=== PATIENT | female | born 1970 | race Caucasian/White ===

== ENCOUNTER → 2020-06-07 13:22 | Outpatient (CLI) | payer OTHER, SELFPAY ==
[2015-12-03 13:15] VITALS: BMI 44.9
--- NOTE | 2020-06-07 13:38 | RAD_ITS ---
HISTORY: BRONCHITIS EXAM: XR Chest 2 Views: COMPARISON: October 04, 2014 FINDINGS: # of images incl. paperwork: 2 Lungs are clear. Heart is not enlarged. No acute osseous pathology perceived. Pulmonary vascularity is distinct. No effusions. RAD/Chest PA and Lateral IMPRESSION: Normal. at 0652 Reported and signed by: Bebeto Good MD Electronically Signed: Bebeto Good MD at 6:51 EST Tel , Service support ,
== END ==
PROVIDERS: PCP Family Medicine; Referring Provider Family Medicine; Visit Provider Family Medicine
DX: J20.9 Acute bronchitis, unspecified (principal)
CPT/HCPCS: 71046

== ENCOUNTER → 2020-07-18 12:21 | Outpatient (CLI) | payer OTHER, SELFPAY ==
[2015-12-03 13:15] VITALS: BMI 44.9
--- NOTE | 2020-07-18 12:24 | RAD_ITS ---
STUDY: X-RAY - PARANASAL SINUSES REASON FOR EXAM: Female, 50 years old. SINUSITIS TECHNIQUE: 3 view(s) of the paranasal sinuses were obtained. COMPARISON: None. FINDINGS: Normal visualized frontal, maxillary, ethmoidal and sphenoid sinuses. Normal visualized facial bones. The soft tissue structures are unremarkable. RAD/Sinuses min 3 Views IMPRESSION: Normal x-rays of the paranasal sinuses. Electronically Signed: Pankaj Pearson MD at 15:49 EDT , Service support ,
[2020-07-18 15:37] LABS: Absolute Lymphocyte Count 2.26 X10^3/uL (0.83-4.51); Absolute Neutrophil Count 5.4 X10^3/uL (2.0-7.7); Basophil# 0.04 X10^3/uL; Basophil% 0.5 % (0-1); Eosinophils% 3.5 % (0-5); Hematocrit 41.7 % (37-47); Hemoglobin 13.1 g/dL (12.0-15.0); Lymphocyte # 2.26 X10^3/ul (0.83-4.51); Lymphocyte % 26.6 % (19-41); Mean Corp Hgb Conc 31.4 g/dL (32-36); Mean Corpuscular Hgb 29.7 pg (27.0-32.0); Mean Corpuscular Volume 94.6 fL (81-99); Mean Platelet Vol. 10.8 fl (6.2-12.0); Monocyte# 0.44 X10^3/uL; Monocyte% 5.2 % (0-10); NRBC Flagged by Analyzer 0 % (0-5); Neutrophil % 63.6 % (47-70); Platelet Count 414 K/mm3 (150-450); RBC Distribution Width CV 12.8 % (11.6-14.6); RBC Distribution Width SD 45.1 fl (35.1-43.9); Red Blood Count 4.41 M/mm3 (4.2-5.4); White Blood Count 8.5 K/mm3 (4.4-11.0)
[2020-07-18 15:59] LABS: AST(SGOT) 16 U/L (15-37); Alanine Aminotransfer ALT/SGPT 35 U/L (13-56); Albumin, Serum 3.7 g/dL (3.2-5.0); Alkaline Phosphatase 123 U/L (45-117); Anion Gap 5 (5-15); BUN 12 mg/dL (7-18); BUN/Creat Ratio 19.5 RATIO (10-20); Calcium,Total 9.4 mg/dL (8.5-10.1); Chloride 99 mmol/L (98-107); Creatinine, Serum 0.62 mg/dL (0.55-1.02); EST Glomerular Filtration Rate 110 mL/min (>60); Est Glom Filt Rate - Afr Amer 133 mL/min (>60); Globulin 3.8 g/dL (2.2-4.2); Glucose 160 mg/dL (74-106); Potassium 3.8 mmol/L (3.5-5.1); Protein, Total 7.5 g/dL (6.4-8.2); Sodium Level 136 mmol/L (136-145)
== END ==
PROVIDERS: PCP Family Medicine; Referring Provider Family Medicine; Visit Provider Family Medicine
DX: J32.9 Chronic sinusitis, unspecified (principal); R05 Cough
CPT/HCPCS: 36415; 70220; 80053; 85025

== ENCOUNTER 2022-08-29 23:28 | Emergency (ER) | payer MEDICAID, SELFPAY ==
[2022-08-29 23:30] VITALS: BP 108/72; PULSE 74; RESP 15; TEMP 36.6; O2SAT 97
[2022-08-29 23:37] VITALS: BMI 46.2
--- NOTE | 2022-08-29 23:44 | EDS_ITS ---
HPI History of Present Illness Chief Complaint: Lower Extremity Injury Narrative Narrative: 52-year-old female presents with injury to her left knee that she sustained approximately 4 hours ago. She states that the dog came [place] at her and knocked her over and took her out. She now has pain in her left knee and the medial meniscal area because she states that her knee twisted. She denies hitting her head or loss of consciousness, or other injury. It took her a few minutes to get up and stand. She now has pain with weightbearing and walking. It is more of a sharp, stabbing pain. Once again, it is located mainly in the medial meniscal area. She has been icing and elevating but still has continued pain. [facility] Medical History Diabetes Home Medications naproxen 500 mg tablet 500 mg PO BID PRN #20 tabs 12/03/15 [Rx Last Taken Unknown] glipizide 10 mg tablet, extended release 24 hr 10 mg PO DAILY diabetes 08/29/22 [History Last Taken Unknown] glipizide 2.5 mg tablet, extended release 24 hr 2.5 mg PO DAILY 08/29/22 [History Last Taken Unknown] Allergy/AdvReac Type Severity Reaction Status Date / Time prednisone Allergy Rash Verified 08/29/22 23:34 Seasonal Allergies: Uncoded Allergy Itching Verified 08/29/22 23:34 codeine AdvReac Upset Verified 08/29/22 23:34 Stomach doxycycline AdvReac Vomiting Verified 08/29/22 23:34 Surgical History History of cholecystectomy History of foot surgery History of tonsillectomy History of tubal ligation Social History Smoking Status: Never smoker ROS ROS ED ROS Narrative Constitutional: No fever, no chills. HEENT: No sore throat. No neck pain. No loss of vision. No rhinorrhea. Cardiovascular: No chest pain. No palpitations. No pedal edema. Respiratory: No cough, no shortness of breath. Abdominal: No abdominal pain. No nausea. No vomiting. Genitourinary: No dysuria. No hematuria. Musculoskeletal: No myalgias. Left knee pain, medial meniscal area, worse with movement especially flexion and extension. Neurologic: No headaches. No dizziness. No lightheadedness. Skin: No rash. No change in color. Psychiatric: No depression. No anxiety. EXAM Physical Exam Narrative Exam Narrative: Afebrile. Vital signs noted. HEENT: Normocephalic. Atraumatic. PERRL, EOMI. Neck soft and supple. No point tenderness or step off. Cardiovascular: Regular rate and rhythm. No murmurs, rubs, or gallops appreciated. Respiratory: No tachypnea. Lungs clear to auscultation bilaterally. Gastrointestinal: Abdomen soft, nontender, with normoactive bowel sounds. No rebound or guarding. Neurological: Awake. Alert. Nonfocal, nonlateralizing. Skin: No rash. Normal color. No pallor. Musculoskeletal: No pedal edema. Full range of motion extremities. Flexion and extension mechanism left knee intact. Able to lift leg off bed without difficulty. Neurovascularly intact distally with palpable dorsalis pedis pulse. EHL intact. Mild tenderness to palpation left medial meniscal area. No noted crepitance. Const Vital Signs: 08/29/22 23:30 Temperature 97.9 F Temperature Source Temporal Pulse Rate 74 Respiratory Rate 15 Blood Pressure 108/72 Blood Pressure Mean 84 Pulse Ox 97 Oxygen Delivery Method Room Air MDM MDM MDM Narrative Medical decision making narrative: In the differential diagnosis is knee sprain versus internal derangement such as medial meniscus injury, and also tibial plateau fracture. I have lower dejesus spicion for tibial plateau fracture based on her examination and her ability to move her leg. X-rays will be obtained to help rule out fracture. She was administered ibuprofen 800 mg for analgesia. She has already been icing at home. My independent interpretation of her left knee x-rays in 4 view shows no evidence of acute fracture. I reviewed the radiology report which confirms my independent interpretation is no acute abnormality of the left knee. At this point in time, she was placed in an Júnior wrap for support. She was offered crutches, but declined, stating that she has a walker at home for support that she will use instead. She will follow-up with her primary care physician. She was also referred to orthopedics should her pain continue longer than a week, she may need outpatient imaging such as MRI. I feel she can be discharged safely home with follow-up. Return instructions to the emergency department were reviewed. Disposition is discharged home in stable condition. Radiography Diagnostic Testing: Clinical Impression(s) from Imaging Studies Knee X-Ray 08/29/22 23:53 IMPRESSION: No acute abnormality of the left knee Electronically Signed: Fidel Gallego MD at 0:41 EDT , Discharge Plan Triage Chief Complaint: Lower Extremity Injury ED Provider: Bony Gates Dx/Rx/DC Orders Clinical Impression: Knee sprain, Internal derangement of left knee Instructions: ED Meniscal Injury Knee Poss, ED Knee Sprain Prescriptions: No Action naproxen 500 MG tablet 500 mg PO BID PRN Qty: 20 0RF glipizide 10 mg Tablet Extended Release 24hr 10 mg PO DAILY glipizide 2.5 mg tablet extended release 24hr 2.5 mg PO DAILY Label Comments: TAKE 1 TABLET BY MOUTH ONCE DAILY. TAKE WITH THE 10 MG TABLET FOR A TOTAL DOSE 12.5 MG DAILY Primary Care Provider: Neri Grace Referrals: Juan Manuel Painting DO [Med Staff - Active Staff] - 1 Week if not improving Neri Grace MD [Primary Care Provider] - 1 Week if not improving Disposition Disposition: Home, Self Care
--- NOTE | 2022-08-29 23:53 | RAD_ITS ---
EXAM: XR Knee Complete 4 Views or More INDICATION: Female, 52 years old. Trauma, pain TECHNIQUE: AP, PA, lateral, and tangential patellar views views COMPARISON: None FINDINGS: BONES: No acute fracture. No lytic or blastic lesion. JOINTS: Joints are in normal alignment. No periarticular degenerative or inflammatory change. No knee joint effusion. SOFT TISSUES: No soft tissue abnormality. RAD/Knee 4 or More Views IMPRESSION: No acute abnormality of the left knee Electronically Signed: Fidel Gallego MD at 0:41 EDT ,
[2022-08-29] MEDS: Ibuprofen 400 MG Tablet 800 MG PO (23:54)
== END 2022-08-30 01:20 | disposition home or self-care (01) ==
PROVIDERS: Emergency Provider Emergency Medicine; PCP Internal Medicine; Visit Provider Emergency Medicine
DX: S83.92XA Sprain of unspecified site of left knee, initial encounter (principal); E11.9 Type 2 diabetes mellitus without complications; M23.92 Unspecified internal derangement of left knee; W54.1XXA Struck by dog, initial encounter; Z79.84 Long term (current) use of oral hypoglycemic drugs
CPT/HCPCS: 73564; 99283

== ENCOUNTER 2024-05-28 12:40 | Emergency (ER) | payer MEDICAID, SELFPAY ==
[2024-05-28 12:40] VITALS: BP 138/98; PULSE 72; RESP 15; TEMP 36.7; O2SAT 100; BMI 33.1
--- NOTE | 2024-05-28 13:24 | CT_ITS ---
PROCEDURE: CT abdomen pelvis with IV contrast REASON FOR EXAM: Pain TECHNIQUE: Multiple contiguous axial images through the abdomen and pelvis were obtained after the administration of intravenous contrast. Two-dimensional coronal and sagittal reformatted images were reconstructed. Low-dose imaging technique was utilized. COMPARISON: None. FINDINGS: Lung bases are clear. Liver, spleen, pancreas and adrenal glands are intact. Gallbladder is surgically absent. No significant biliary ductal dilation. Status post gastric bypass. Kidneys enhance symmetrically. No suspicious renal mass, calculi or hydronephrosis. Small right renal cyst. Urinary bladder is intact. Uterus is present. No bowel obstruction, focal bowel wall thickening or significant perienteric inflammation. No pelvic free fluid. No free air. No abdominal aortic aneurysm or suspicious adenopathy. Superficial soft tissues are within normal limits. No acute osseous abnormality. CT/Abdomen/Pelvis WITH Contrast IMPRESSION: No acute process. One or more dose reduction techniques were used (e.g., Automated exposure contr ol, adjustment of the mA and/or kV according to patient size, use of iterative reconstruction technique). Reading Location: [facility]
--- NOTE | 2024-05-28 13:39 | ED.VIS.GI ---
HPI HPI - GI History of Present Illness Chief Complaint: Abd Pain Narrative Narrative: 53-year-old female past medical history of remote gastric bypass surgery in [place] in December of last year, approximately 4 months ago, presents with epigastric pain that she has had for the last few months. She states that she has had decreased p.o. intake, and epigastric pain that has been worsening. She presents to the emergency department today because it is the worst its ever been. She denies any fevers or chills. She is slightly nauseated at times. However, given her bypass surgery she cannot vomit. Other past prior abdominal surgery includes cholecystectomy. She had the bypass surgery secondary to uncontrolled type 2 diabetes. She states that after her surgery, her blood sugars have been controlled and she has been taken off medications. She presents because of the epigastric pain that she is having that sometimes radiates into her chest. [facility] Medical History Diabetes Home Medications ?Medication ?Instructions ?Recorded ?Last Taken ?Type flash glucose sensor (FreeStyle 05/28/24 Unknown History Savita 2 Sensor kit) fluticasone propionate 50 1 spray intranasal QHS PRN PRN 05/28/24 Unknown History mcg/actuation nasal allergies spray,suspension pantoprazole 40 mg tablet,delayed 40 mg PO DAILY 05/28/24 Unknown History release Allergy/AdvReac Type Severity Reaction Status Date / Time prednisone Allergy Rash Verified 05/28/24 12:43 Seasonal Allergies: Uncoded Allergy Itching Verified 05/28/24 12:43 codeine AdvReac Upset Verified 05/28/24 12:43 Stomach doxycycline AdvReac Vomiting Verified 05/28/24 12:43 Surgical History S/P gastric bypass History of tonsillectomy History of tubal ligation History of foot surgery History of cholecystectomy Social History Smoking Status: Never smoker ROS ROS ED ROS Narrative Constitutional: No fever, no chills. HEENT: No sore throat. No neck pain. No loss of vision. No rhinorrhea. Cardiovascular: Epigastric abdominal pain radiating upwards into chest. No palpitations. No pedal edema. Respiratory: No cough, no shortness of breath. Abdominal: Epigastric abdominal pain. Positive nausea. No vomiting. Genitourinary: No dysuria. No hematuria. Musculoskeletal: No myalgias. No arthralgias. Neurologic: No headaches. No dizziness. No lightheadedness. Psychiatric: No depression. No anxiety. EXAM Physical Exam Narrative Exam Narrative: Afebrile. Vital signs noted. Nontoxic-appearing. Cardiovascular examination reveals a regular rate and rhythm. Lungs are clear to auscultation bilaterally. The abdomen is soft with mild epigastric tenderness, no pain in the right upper quadrant, no guarding or rebound. Positive bowel sounds. Neurological examination nonfocal and nonlateralizing. Const Vital Signs: 05/28/24 12:40 05/28/24 14:40 Temperature 98.1 F Temperature Source Temporal Pulse Rate 72 65 Respiratory Rate 15 18 Blood Pressure 138/98 H 154/87 H Blood Pressure Mean 111 109 Pulse Ox 100 99 Oxygen Delivery Method Room Air Room Air MDM MDM MDM Narrative Medical decision making narrative: Differential diagnosis includes but not limited to acute pancreatitis versus esophagitis and GERD versus partial bowel obstruction versus bypass leak. I have low concern for coronary artery disease/ACS. However EKG will be obtained. I do not feel that she requires a troponin because she is not having chest pain and it is more epigastric radiating upward. She was administered morphine and ondansetron and p.o. and IV contrast will be administered for the CT imaging of the abdomen and pelvis. EKG was obtained and interpreted by myself independently as sinus bradycardia at [address] changes. No STEMI. I reviewed her laboratory work and she has normal white count of 6.2 with hemoglobin normal at 13.2, hematocrit 39.4, and platelet count normal at 334. CMP is grossly unremarkable except for slightly elevated alk phos of 119 which I think is nonspecific, normal AST and ALT. Sodium normal at 138 with potassium 3.7, BUN normal at 7 with creatinine 0.6, no evidence of dehydration. Lipase is normal at 18 so I doubt pancreatitis. I reviewed the radiology report of the CT of the abdomen and pelvis with p.o. and IV contrast. There is no evidence of an acute process, no leak of contrast or extravasation, no acute process. Upon repeat examination at approximately 1600, she is resting comfortably looking at her cellular telephone. She states that she has a follow-up appointment with her gastric bypass physician for EGD on Saturday, 4 days from now. At this point in time, while I unsure as to the cause of her almost chronic abdominal pain, I feel she can be discharged to follow-up. Return instructions to the emergency department were reviewed. Disposition is discharged home in stable condition. History & Record Review Discussion w/independent historian: Patient Lab Data Attestation: I reviewed the patient's lab results. Labs: Laboratory Results - last 24 hr 05/28/24 12:55 WBC 6.2 RBC 4.23 Hgb 13.2 Hct 39.4 MCV 93.1 MCH 31.2 MCHC 33.5 RDW Std Deviation 46.3 H RDW Coeff of Anneliese 13.6 Plt Count 334 MPV 10.7 Immature Gran % (Auto) 0.700 Neut % (Auto) 52.6 Lymph % (Auto) 37.1 [place] % (Auto) 6.3 Eos % (Auto) 2.3 Baso % (Auto) 1.0 Absolute Neuts (auto) 3.2 Absolute Lymphs (auto) 2.28 Nucleated RBC % 0 Sodium 138 Potassium 3.7 Chloride Direct 102 Carbon Dioxide 26.1 Anion Gap 10 BUN 7 Creatinine 0.6 Estim Creat Clear Calc 113.18 Est GFR (MDRD) Non-Af 110 BUN/Creatinine Ratio 12.2 Glucose 133 H Calcium 9.2 Total Bilirubin 0.54 AST 25 ALT 27 Alkaline Phosphatase 119 H Total Protein 6.8 Albumin 4.3 Globulin 2.5 Albumin/Globulin Ratio 1.8 Lipase 18 Radiography Diagnostic Testing: Clinical Impression(s) from Imaging Studies Abdomen/Pelvis CT 05/28/24 13:24 IMPRESSION: No acute process. One or more dose reduction techniques were used (e.g., Automated exposure control, adjustment of the mA and/or kV according to patient size, use of iterative reconstruction technique). Reading Location: [facility] Discharge Plan Triage Chief Complaint: Abd Pain ED Provider: Bony Gates Dx/Rx/DC Orders Clinical Impression: Abdominal pain, History of gastric bypass Instructions: ED Abdominal Pain Unkn Cause Fem Prescriptions: No Action pantoprazole 40 mg tablet,delayed release (DR/EC) 40 mg PO DAILY fluticasone propionate 50 mcg/actuation spray,suspension 1 spray INTRANASAL QHS PRN PRN (Reason: allergies) (DME) FreeStyle Savita 2 Sensor Kit MISCELLANEOUS Primary Care Provider: Neri Grace Referrals: Neri Grace MD [Primary Care Provider] - Activity Restrictions/Additional Instructions: Follow-up with your gastric bypass physician on Saturday as scheduled for EGD. Return to the emergency department with fever, increased pain, new or worsening symptoms. Print Language: Macedonian Disposition Disposition: Home, Self Care
--- NOTE | 2024-05-28 13:40 | EKG12_ITS ---
Test Reason : ABD PAIN Blood Pressure : */* mmHG Vent. Rate : 57 BPM Atrial Rate : 57 BPM P-R Int : 256 ms QRS Dur : 96 ms QT Int : 418 ms P-R-T Axes : 36 -9 7 degrees QTcB Int : 406 ms Sinus bradycardia with 1st degree A-V block Poor R wave progression Low voltage precordial leads Abnormal ECG Confirmed by Julian Ingram ([id number]), film and video editor JAMAAL LANCE ([id number]) on 06/01/2024 10:53:42 AM Referred By: Confirmed By: Julian Ingram
[2024-05-28 13:44] LABS: Absolute Lymphocyte Count 2.28 X10^3/uL (0.83-4.51); Absolute Neutrophil Count 3.2 X10^3/uL (2.0-7.7); Basophil# 0.06 X10^3/uL; Eosinophil# 0.14 X10^3/uL; Eosinophils% 2.3 % (0-5); Hematocrit 39.4 % (37-47); Hemoglobin 13.2 g/dL (12.0-15.0); Lymphocyte # 2.28 X10^3/ul (0.83-4.51); Lymphocyte % 37.1 % (19-41); Mean Corp Hgb Conc 33.5 g/dL (32-36); Mean Corpuscular Hgb 31.2 pg (27.0-32.0); Mean Corpuscular Volume 93.1 fL (81-99); Mean Platelet Vol. 10.7 fl (6.2-12.0); Monocyte# 0.39 X10^3/uL; Monocyte% 6.3 % (0-10); NRBC Flagged by Analyzer 0 % (0-5); Neutrophil # 3.24 X10^3/uL (2.7-7.7); Neutrophil % 52.6 % (47-70); Platelet Count 334 K/mm3 (150-450); RBC Distribution Width CV 13.6 % (11.6-14.6); RBC Distribution Width SD 46.3 fl (35.1-43.9); Red Blood Count 4.23 M/mm3 (4.2-5.4); White Blood Count 6.2 K/mm3 (4.4-11.0)
[2024-05-28] MEDS: 0.9% Normal Saline (1000mL) 1,000 ML 999 ML IV (13:44)
[2024-05-28] MEDS: Morphine 4 MG/ML Syringe IV (13:45)
[2024-05-28] MEDS: Ondansetron 4 MG/2 ML Vial IV (13:45)
[2024-05-28 14:05] LABS: ALB/GLOB Ratio 1.8 RATIO (0.9-2.4); AST(SGOT) 25 U/L (<=31); Alanine Aminotransfer ALT/SGPT 27 U/L (<=34); Albumin, Serum 4.3 g/dL (3.5-5.0); Alkaline Phosphatase 119 U/L (35-104); Anion Gap 10 (5-15); BUN 7 mg/dL (4-19); BUN/Creat Ratio 12.2 RATIO (10-20); Calcium 9.2 mg/dL (7.6-11.0); Carbon Dioxide 26.1 mmol/L (22.0-29.0); Chloride 102 mmol/L (96-108); Creatinine, Serum 0.6 mg/dL (0.6-1.0); EST Glomerular Filtration Rate 110 (>60); Estimated Creatinine Clearance 113.18 ml/min; Globulin 2.5 g/dL (2.2-4.2); Glucose 133 mg/dL (70-99); Lipase 18 U/L (13-75); Potassium 3.7 mmol/L (3.3-5.1); Protein, Total 6.8 g/dL (5.9-8.4); Sodium Level 138 mmol/L (133-145); Total Bilirubin 0.54 mg/dL (0.00-1.30)
[2024-05-28 14:40] VITALS: BP 154/87; PULSE 65; RESP 18; O2SAT 99
[2024-05-28 16:00] VITALS: BP 146/63; PULSE 53; RESP 18; O2SAT 98
== END 2024-05-28 16:11 | disposition home or self-care (01) ==
PROVIDERS: Emergency Provider Emergency Medicine; PCP Internal Medicine; Visit Provider Emergency Medicine
DX: R10.13 Epigastric pain (principal); G89.29 Other chronic pain; R11.0 Nausea; R00.1 Bradycardia, unspecified; Z90.49 Acquired absence of other specified parts of digestive tract; Z98.84 Bariatric surgery status; Z86.39 Personal history of other endocrine, nutritional and metabolic disease
CPT/HCPCS: 74177; 80053; 83690; 85025; 93005; 96361; 96374; 96375; 99282; Q9967; A4216; J2405

== ENCOUNTER 2025-03-10 22:52 | Emergency (ER) | payer SELFPAY ==
[2025-03-10 22:53] VITALS: BP 138/70; PULSE 69; RESP 16; TEMP 36.6; O2SAT 99
[2025-03-10 22:58] VITALS: BMI 27.7
--- NOTE | 2025-03-10 23:07 | CT_ITS ---
PROCEDURE: ABDOMEN/PELVIS W IV CONT ONLY 03/11/2025 REASON FOR EXAM: UPPER ABD PAIN TECHNIQUE: Procedure Code: [id number] Modality: CT Procedure: ABDOMEN/PELVIS W IV CONT ONLY Coronal and Sagittal reconstruction series were provided. CONTRAST: isovue 370 VOLUME: 100 mL One or more dose reduction techniques were used (e.g., Automated exposure control, adjustment of the mA and/or kV according to patient size, use of iterative reconstruction technique. RADIATION DOSE SUMMARY: CTDI Vol 13.71 mGy DLP :713.64 mGycm COMPARISON: 28-May-2024 FINDINGS: Evidence of gastric bypass with small hiatus hernia. Colonic fecal loading. The small bowel loops are unremarkable. The appendix appears is not identified. No right iliac inflammatory changes. Average sized liver showing homogenous parenchymal attenuation. Prominent biliary tracts, possibly post cholecystectomy biliary dysfunction. Fatty changes of the pancreas with clear surrounding fat planes. The spleen, adrenal glands and IVC are unremarkable. Mild Vascular atheromatous calcifications. Both kidneys are of average size and showing smooth outline with preserved parenchymal thickness. No renal calculi. No hydronephrosis. Right renal cortical and left renal hypodense parapelvic cysts. Distension of the urinary bladder showing no obvious masses. No obvious masses related to the pelvic viscera. Metallic clips of tubal ligation are noted. No ascites or free air. No obvious pathologically enlarged lymph nodes. Scanned osseous structures show no osseous destruction. Scanned lung bases show no obvious abnormalities. CT/Abdomen/Pelvis W IV Cont ONLY IMPRESSION: Stable study findings. No acute pelvi-abdominal abnormalities, collections or free air. Reading Location[facility] [id number]
[2025-03-10] MEDS: 0.9% Normal Saline (1000mL) 1,000 ML 999 ML IV (23:14)
[2025-03-10 23:15] LABS: Hematocrit 34.8 % (37-47); Hemoglobin 12.0 g/dL (12.0-15.0); Immature Granulocytes Count 0.010 X10^3/uL (0.0-0.0); Mean Corp Hgb Conc 34.5 g/dL (32-36); Mean Corpuscular Volume 91.8 fL (81-99); Mean Platelet Vol. 10.4 fl (6.2-12.0); NRBC Flagged by Analyzer 0 % (0-5); Platelet Count 317 K/mm3 (150-450); RBC Distribution Width CV 12.7 % (11.6-14.6); RBC Distribution Width SD 42.9 fl (35.1-43.9); Red Blood Count 3.79 M/mm3 (4.2-5.4); White Blood Count 7.8 K/mm3 (4.4-11.0)
--- NOTE | 2025-03-10 23:33 | EX.ED.DYSGE1 ---
HPI History of Present Illness Chief Complaint: Nausea/Vomiting Informant: patient and spouse/S.O. Narrative Narrative: Patient is a 54-year-old female with past medical history of obesity and gastric bypass roughly 1 year ago. She states that she developed ulcers shortly after bypass. She states that in the last 2 to 3 days she has developed nausea without vomiting and then progressed to upper abdominal pain. She states that she has not experienced pain like this in the past and it is different from her previous ulcer pain. She denies any known sick contact. She states there is been no real associated vomiting. She denies any loose or diarrhea. However because of the persistent symptoms and now worsening pain she presents for evaluation [facility] Medical History Diabetes Home Medications ?Medication ?Instructions ?Recorded ?Last Taken ?Type flash glucose sensor (FreeStyle 05/28/24 Unknown History Savita 2 Sensor kit) fluticasone propionate 50 1 spray intranasal QHS PRN PRN 05/28/24 Unknown History mcg/actuation nasal allergies spray,suspension pantoprazole 40 mg tablet,delayed 40 mg PO DAILY 05/28/24 Unknown History release ondansetron 4 mg disintegrating 4 mg PO TID PRN nausea and 03/11/25 Unknown Rx tablet vomiting #21 tabs oxycodone-acetaminophen 5 mg-325 1 tab PO Q6H PRN pain 3 days #12 03/11/25 Unknown Rx mg tablet (Percocet) tabs Allergy/AdvReac Type Severity Reaction Status Date / Time prednisone Allergy Rash Verified 03/10/25 22:54 Seasonal Allergies: Uncoded Allergy Itching Verified 03/10/25 22:54 codeine AdvReac Upset Verified 03/10/25 22:54 Stomach doxycycline AdvReac Vomiting Verified 03/10/25 22:54 Surgical History S/P gastric bypass History of tonsillectomy History of tubal ligation History of foot surgery History of cholecystectomy Social History Smoking Status: Never smoker ROS ROS ED Constitutional Constitutional ED: Denies chills or fever(s) Eyes Eyes: Denies change in vision ENT ENT ED: Denies sore throat Cardiovascular Cardiovascular: Denies chest pain Respiratory/Chest Respiratory/Chest: Denies cough or dyspnea Gastrointestinal Gastrointestinal: Reports abdominal pain and nausea; Denies diarrhea or vomiting Genitourinary Genitourinary ED: Denies dysuria or hematuria Musculoskeletal Musculoskeletal: Denies back pain or myalgias Integumentary Denies rash Neurologic Neurologic: Denies headache(s) Hematologic/Lymphatic Hematologic/Lymphatic: Denies easy bleeding or easy bruising EXAM Physical Exam Const Vital Signs: 03/10/25 22:53 03/11/25 00:52 Temperature 97.9 F 97.8 F Temperature Source Oral Pulse Rate 69 89 Respiratory Rate 16 16 Blood Pressure 138/70 H 126/64 H Blood Pressure Mean 92 84 Pulse Ox 99 97 Oxygen Delivery Method Room Air Positive well nourished, well developed and obese General Appearance ED: well developed; Negative for pallor Nutritional Appearance: obese HEENT Reports dry mucous membranes HEENT Narrative: Normocephalic atraumatic No tongue or lip swelling no oral lesions no airway edema or compromise No secondary findings in the posterior pharynx to suggest infection Nasal membranes are mildly dry and tacky Mouth ED: Yes dry mucous membranes Mouth: dry mucous membranes Eyes PERRL and EOMs intact bilaterally General Eye ED: Negative for scleral icterus Neck supple Resp normal respiratory effort and clear to auscultation bilaterally Cardio regular rate and regular rhythm Rate: other Other Details: Radial and carotid pulses are equal and symmetric GI non-distended and no masses GI Narrative: Abdomen is soft and nondistended with hyperactive bowel sounds There is pain with palpation in the midepigastric and left upper quadrant region without voluntary guarding or rigidity or pulsatile mass No peritoneal signs Auscultation: hyperactive bowel sounds Palpation: soft Back/Spine no CVA tenderness Extremity normal to inspection Neuro oriented x3, CN's II-XII intact bilaterally and no sensory deficits noted Sensorium / Orientation: alert Motor Exam: strength 5/5 throughout Psych mental status grossly normal Skin no rashes or lesions noted and No skin turgor normal Skin Narrative: Skin turgor is increased No jaundice or pallor noted General Skin Exam: Negative for jaundice or pallor MDM MDM MDM Narrative Medical decision making narrative: Patient arrived to the ER with stable vitals but with her report of upper abdominal pain and nausea as well as previous gastric bypass with now increasing pain there is concern for gastric perforation versus colitis or pancreatitis and secondary to this basic labs and a CT scan were ordered. Labs revealed no clinically significant findings and CAT scan showed previous gastric bypass changes without obstruction perforation or secondary infection. On reevaluation the patient has reported resolution of pain her vitals remained stable and her abdomen soft and nonsurgical. Therefore with improvement/resolution of symptoms and overall negative workup there is no need for further evaluation and she is otherwise safe for discharge History & Record Review Discussion w/independent historian: Patient and Significant other Lab Data Attestation: I reviewed the patient's lab results. Labs: Laboratory Results - last 24 hr 03/10/25 23:08 WBC 7.8 RBC 3.79 L Hgb 12.0 Hct 34.8 L MCV 91.8 MCH 31.7 MCHC 34.5 RDW Std Deviation 42.9 RDW Coeff of Anneliese 12.7 Plt Count 317 MPV 10.4 Immature Gran % (Auto) 0.100 Neut % (Auto) 53.1 Lymph % (Auto) 39.2 Coffee % (Auto) 5.8 Eos % (Auto) 1.3 Baso % (Auto) 0.5 Absolute Neuts (auto) 4.1 Absolute Lymphs (auto) 3.05 Nucleated RBC % 0 Sodium 140 Potassium 3.7 Chloride 103 Carbon Dioxide 27.7 Anion Gap 9 BUN 6 Creatinine 0.56 L Estim Creat Clear Calc 109.75 Est GFR (MDRD) Non-Af 109 BUN/Creatinine Ratio 11.7 Glucose 111 H Calcium 9.1 Total Bilirubin 0.51 Direct Bilirubin 0.22 AST 18 ALT 16 Alkaline Phosphatase 109 H Total Protein 6.6 Albumin 4.0 Globulin 2.6 Lipase 18 Radiography Diagnostic Testing: Clinical Impression(s) from Imaging Studies Abdomen/Pelvis CT 03/10/25 23:07 IMPRESSION: Stable study findings. No acute pelvi-abdominal abnormalities, collections or free air. [facility] Plan Triage Chief Complaint: Nausea/Vomiting ED Provider: Twin Vaughn Dx/Rx/DC Orders Clinical Impression: Nonspecific abdominal pain, History of gastric bypass, Mild dehydration Instructions: Abdominal Pain Prescriptions: New ondansetron 4 mg tablet,disintegrating 4 mg PO TID PRN (Reason: nausea and vomiting) Qty: 21 0RF oxycodone-acetaminophen [Percocet] 5-325 mg tablet 1 tab PO Q6H PRN (Reason: pain) 3 Days Qty: 12 0RF No Action pantoprazole 40 mg tablet,delayed release (DR/EC) 40 mg PO DAILY fluticasone propionate 50 mcg/actuation spray,suspension 1 spray INTRANASAL QHS PRN PRN (Reason: allergies) (DME) FreeStyle Savita 2 Sensor Kit MISCELLANEOUS Primary Care Provider: Neri Grace Referrals: Neri Grace MD [Primary Care Provider, Internal Medicine] Activity Restrictions/Additional Instructions: Your labs revealed no clinically significant changes and the CT scan showed your gastric bypass changes without signs of intestinal infection bowel blockage or perforation. Keep yourself well-hydrated and take the prescribed medication as directed to help control your symptoms and return to the ER should you have any further concerns Print Language: Croatian Disposition Disposition: Home, Self Care Discharge Date/Time: 03/11/25 00:56
--- OUTSIDE RECORDS SUMMARY | 2025-03-10 23:49 | XMS RPT_ITS | CCD ---
Author Organization [facility] Care Team Providers Care Head Mixer Name Role Phone Neri Grace MD Primary Care Provider [phone] Sanjay NAGY, Neri Newell Primary Care Provider Provider Mike NAGY Unavailable Unavailable JASMYNE MARMOLEJO Consulting Unavailable ROYER TALBERT MD Attending Unavailable ROYER TALBERT MD Primary Care Unavailable ROYER TALBERT MD Admitting Unavailable PROVIDER, UNKNOWN Consulting Unavailable PROVIDER, UNKNOWN Consulting Unavailable Ruy TANK SHOP SUPERVISOR.HULL MOLDER, Radha Franks Unavailable Sanjay Neri Primary Care Unavailable Bony Gates Attending Unavailable GRACE, MAURY Primary Care Unavailable GRACE, MAURY Attending Unavailable GRACE, MAURY Primary Care Unavailable BRIDGER HILL Attending Unavailable BRIDGER HILL Admitting Unavailable GRACE, MAURY Primary Care Unavailable ANNIE ALVAREZ Attending Unavailable GRACE, MAURY Primary Care Unavailable BRIDGER HILL Referring Unavailable BEE FONTANEZ Attending Unavailable GRACE, MAURY Primary Care Unavailable RADHA TOVAR Attending Unavailable GRACE, MAURY Primary Care Unavailable BRIDGER HILL Referring Unavailable RODRIGUEZ HEDRICK Attending Unavailable GRACE, MAURY Primary Care Unavailable BASILIO GARSIA Attending Unavailable GRACE, MAURY Primary Care Unavailable ANNIE ALVAREZ Attending Unavailable GRACE, MAURY Primary Care Unavailable ANNIE ALVAREZ Attending Unavailable GRACE, MAURY Primary Care Unavailable NORIS PARKS Attending Unavailable GRACE, MAURY Primary Care Unavailable NORIS MONTANO Referring Unavailable GRACE, MAURY Primary Care Unavailable NORIS MONTANO Referring Unavailable GRACE, MAURY Primary Care Unavailable NORIS PARKS Attending Unavailable GRACE, MAURY Primary Care Unavailable GRACE, MAURY Attending Unavailable GRACE, MAURY Primary Care Unavailable JOHANNA PAULINO Attending Unavailable GRACE, MAURY Primary Care Unavailable BRIDGER HILL Referring Unavailable GRACE, MAURY Primary Care Unavailable GRACE, MAURY Primary Care Unavailable GRACE, MAURY Primary Care Unavailable BRIDGER HILL Attending Unavailable GRACE, MAURY Primary Care Unavailable GRACE, MAURY Primary Care Unavailable BRIDGER HILL Referring Unavailable GRACE, MAURY Primary Care Unavailable ANNIE ALVAREZ Attending Unavailable GRACE, MAURY Primary Care Unavailable GRACE, MAURY Referring Unavailable GRACE, MAURY Primary Care Unavailable JENISE EAGLE Attending Unavailable GRACE, MAURY Primary Care Unavailable NORIS PARKS Attending Unavailable GRACE, MAURY Primary Care Unavailable NORIS PARKS Attending Unavailable Allergies Allergy Classification Reported Allergen(s) Allergy Type Date of Onset Reaction(s) Facility Corticosteroids (2 sources) predniSONE Drug Allergy 2 Rash [facility] Doxycycline (2 sources) Doxycycline Drug Allergy 2 GI Upset [facility] metFORMIN (2 sources) metFORMIN Drug Allergy 2 Intolerance [facility] Opioid Agonists (2 sources) Codeine Drug Allergy 2 Unknown [facility] (8 sources) Bee pollen Drug Allergy 2 Swelling [facility] Work Phone: (20 sources) Codeine; Translations: [CODEINE] Drug Allergy 2 Unknown [facility] Work Phone: [phone] (20 sources) Doxycycline; Translations: [DOXYCYCLINE] Drug Allergy 2 GI Upset [facility] Work Phone: [phone] (20 sources) predniSONE; Translations: [PREDNISONE] Drug Allergy 2 Rash [facility] Work Phone: (8 sources) Seasonal allergy Allergy to substance 2 Unknown [facility] Work Phone: [phone] (20 sources) metFORMIN; Translations: [METFORMIN] Drug Allergy 2 Intolerance [facility] Work Phone: (2 sources) Seasonal Allergies: Uncoded; Translations: [Seasonal Allergies: Uncoded] Allergy to substance 3 Itching [facility] (20 sources) Bee Sting; Translations: [BEE STING] Allergy to substance 3 Swelling [facility] Work Phone: (1 source) Bee pollen Drug allergy (disorder) [facility] (1 source) Codeine Drug Allergy [facility] (1 source) Doxycycline Drug Allergy [facility] (1 source) predniSONE Drug Allergy [facility] (1 source) Codeine Drug Allergy 5 [facility] Repository (1 source) Doxycycline Drug Allergy 5 [facility] Repository (1 source) predniSONE Drug Allergy 5 [facility] Repository (3 sources) NSAIDs; Translations: [NSAIDS (NON-STEROIDAL ANTI-INFLAMMATO RY DRUG)] Propensity to adverse reactions to drug 5 Contraindicatio n-Medical Surgical [facility] Medications Current Medications Medication Drug Class(es) Dates Sig (Normalized) Sig (Original) acetaminophen 325 mg / phenylephrine hydrochloride 5 mg oral tablet (8 sources) alpha-1 Adrenergic Agonist Start: 04-08-2024 take 2 tablets by mouth three times daily PHENYLephrine-Júnior taminophen (TYLENOL SINUS HEADACHE) 5-325 mg tab Indications: Seasonal allergies , Postnasal drip Take 2 tablets by mouth three times a day. 04/08/2024 Active amoxicillin 875 mg / clavulanate 125 mg oral tablet (1 source) Penicillin-class Antibacterial Start: 06-02-2022 End: 2022 take 1 tablet by mouth twice daily amoxicillin-clavu lanic acid (AUGMENTIN) 875-125 mg per tablet Indications: Other sinusitis Take 1 tablet by mouth twice daily for 5 days. 10 tablet 0 06/02/2022 2022 Active Comment on above: Take 1 tablet by filippo twice daily for 5 days. betamethasone 0.5 mg/ml / clotrimazole 10 mg/ml topical cream (1 source) Azole Antifungal, Corticosteroid Start: 10-12-2022 End: 10-19-2022 clotrimazole-beta methasone (LOTRISONE) cream Apply 1 application to affected area twice daily for 7 days. 15 g 0 10/12/2022 10/19/2022 Active Comment on above: Apply 1 application to affected area twice daily for 7 days. flash glucose sensor (FREESTYLE GUZMAN 14 DAY SENSOR) kit (20 sources) Start: 04-08-2024 flash glucose sensor (FREESTYLE GUZMAN 14 DAY SENSOR) kit Indications: Controlled type 2 diabetes mellitus with hyperglycemia, unspecified whether buttermaker continuous churn insulin use (HCC) 1 Each two times a day. DX E11.65 Insulin No 6 Each 4 04/08/2024 Active Start: 05-21-2023 End: 04-08-2024 flash glucose sensor (FREEST YLE GUZMAN 14 DAY SENSOR) kit Indications: Controlled type 2 diabetes mellitus with hyperglycemia, unspecified whether senior living insulin use (HCC) 1 Each two times a day. DX E11.65 Insulin No 6 Each 4 05/21/2023 04/08/2024 Discontinued Start: 05-21-2023 flash glucose sensor (FREESTYLE GUZMAN 14 DAY SENSOR) kit Indications: Controlled type 2 diabetes mellitus with hyperglycemia, unspecified whether buttermaker continuous churn insulin use (HCC) 1 Each two times a day. DX E11.65 Insulin No 6 Each 4 05/21/2023 Active Start: 04-16-2022 End: 05-21-2023 flash glucose sensor (FREEST YLE GUZMAN 14 DAY SENSOR) kit Indications: Controlled type 2 diabetes mellitus with hyperglycemia, unspecified whether buttermaker continuous churn insulin use (HCC) 1 Each twice daily. DX E11.65 Insulin No 6 Each 4 04/16/2022 05/21/2023 Discontinued Start: 04-16-2022 flash glucose sensor (FREESTYLE GUZMAN 14 DAY SENSOR) kit Indications: Controlled type 2 diabetes mellitus with hyperglycemia, unspecified whether senior living insulin use (HCC) 1 Each twice daily. DX E11.65 Insulin No 6 Each 4 04/16/2022 Active Start: 04-03-2022 End: 04-13-2022 flash glucose sensor (FREEST YLE GUZMAN 14 DAY SENSOR) kit Indications: Controlled type 2 diabetes mellitus with hyperglycemia, unspecified whether senior living insulin use (HCC) 1 Each twice daily. DX E11.65 Insulin No 1 Each 0 04/03/2022 04/13/2022 Discontinued Start: 04-03-2022 flash glucose sensor (FREESTYLE GUZMAN 14 DAY SENSOR) kit Indications: Controlled type 2 diabetes mellitus with hyperglycemia, unspecified whether senior living insulin use (HCC) 1 Each twice daily. DX E11.65 Insulin No 1 Each 0 04/03/2022 Active Comment on above: 1 Each twice daily. DX E11.65 Insulin No 1 Each two times a d ay. DX E11.65 Insulin No fluticasone propionate 0.05 mg/actuat metered dose nasal spray (20 sources) Corticosteroid Start: 10-24-19 End: 04-08-19 take 1 spray(s) nasal route at bedtime as needed fluticasone (FLONASE) 50 mcg/actuation nasal spray Indications: Seasonal allergies , Postnasal drip Use 1 [place] in each nostril at bedtime as needed for cold/allergy symptoms. As needed 1 Each 3 04/08/2024 Active Start: 05-31-2022 take 1 spray(s) nasa l route once daily at bedtime fluticasone (FLONASE) 50 mcg/actuation nasal spray Use 1 [place] in each nostril daily at bedtime. 0 05/31/2022 Active Comment on above: Use 1 [place] in each nostril daily at bedtime. Use 1 [place] in each nostril at bedtime as needed for cold/allergy symptoms. As needed ipratropium bromide 0.042 mg/actuat metered dose nasal spray (1 source) Anticholinergic Start: 023 End: 023 take 1 spray(s) nasal route three times daily ipratropium bromide (ATROVENT) 42 mcg (0.06 %) nasal spray Indications: Viral URI with cough Use 1 [place] in each nostril three times a day for 7 days. 15 mL 0 01/16/2023 01/23/2023 Active Comment on above: Use 1 [place] in each nostril three times a day for 7 days. loratadine 10 mg oral tablet (9 sources) Start: 025 End: 025 take 1 tablet by mouth once daily as needed loratadine (CLARITIN) 10 mg tablet Take 1 tablet by mouth once daily as needed for cold/allergy symptoms. 90 tablet 3 08/26/2024 Active naproxen 500 mg oral tablet (1 source) Nonsteroidal Anti-inflammatory Drug Start: take 500 mg by mouth twice daily as needed Naproxen Active 500 MG PO TWICE DAILY NEEDED December 03, 2015 12:00am nirmatrelvir tablet 300 mg (150 mg x 2) and ritonavir tablet 100 mg in a dose pack (PAXLOVID) (2 sources) Start: End: nirmatrelvir tablet 300 mg (150 mg x 2) and ritonavir tablet 100 mg in a dose pack (PAXLOVID) Indications: COVID-19 Administer TWO pink nirmatrelvir 150 mg tablets and ONE white ritonavir 100 mg tablet for a total of three tablets twice daily. 30 tablet 11/20/2023 11/25/2023 Active omeprazole 40 mg delayed release oral capsule (6 sources) Proton Pump Inhibitor Start: take 1 capsule by mouth twice daily omeprazole (PRILOSEC) 40 mg capsule Take 1 capsule by mouth two times a day. Open capsule and sprinkle on applesauce or yogurt to take 180 capsule 1 06/01/2024 Active oxyCODONE hydrochloride 5 mg oral tablet (4 sources) Opioid Agonist Start: End: take 1 tablet by mouth every eight hours as needed for pain oxyCODONE IR (ROXICODONE) 5 mg immediate release tablet Indications: Postoperative pain Take 1 tablet by mouth every 8 hours as needed for pain for up to 5 days. 10 tablet 01/03/2024 01/08/2024 Active sucralfate 100 mg/ml oral suspension (6 sources) Aluminum Complex Start: take 10 mL by mouth four times daily sucralfate (CARAFATE) 100 mg/mL suspension Take 10 mL by mouth four times daily. 1200 mL 2 06/01/2024 Active Completed/Discontinued Medications Medication Drug Class(es) Dates Sig (Normalized) Sig (Original) azithromycin 250 mg oral tablet (3 sources) Macrolide Antimicrobial Start: 11-19-2023 End: 12-11-2023 azithromycin (ZITHROMAX Z-JUDY) 250 mg tablet Take 2 tablets day one, then, 1 tablet daily until gone. 11/19/2023 12/11/2023 Discontinued benzonatate 100 mg oral capsule (16 sources) Non-narcotic Antitussive Start: 01-16-2023 End: 12-11-2023 take 1 capsule by mouth three times daily as needed for cough benzonatate (TESSALON PERLES) 100 mg capsule Indications: Viral URI with cough Take 1 capsule by mouth three times a day as needed for cough. 40 capsule 01/16/2023 12/11/2023 Discontinued Comment on above: Take 1 capsule by [facility] three times a day as needed for cough. 12 hr dextromethorphan polistirex 6 mg/ml extended release suspension (3 sources) Uncompetitive D-yteuex-[place] te Receptor Antagonist, Sigma-1 Agonist Start: 05-31-2022 take 10 mL by mouth twice daily dextromethorphan polistirex ER (DELSYM) 30 mg/5 mL oral liquid Take 10 mL by mouth twice daily. 0 05/31/2022 Active Comment on above: Take 10 mL by mouth twice daily. 0.5 ml dulaglutide 3 mg/ml auto-injector (20 sources) GLP-1 Receptor Agonist Start: 10-23-2022 End: 11-20-2023 dulaglutide (TRULICITY) 1.5 mg/0.5 mL pen injector Indications: Type 2 diabetes mellitus without complication, without long-term current use of insulin (HCC) Inject 1.5 mg subcutaneously one time a week. Inject once per week. Discard Pen After 2 mL 5 10/23/2022 11/20/2023 Discontinued (Side Effects) Start: 09-13-2022 dulaglutide (T RULICITY) 1.5 mg/0.5 mL pen injector Indications: Type 2 diabetes mellitus without complication, without long-term current use of insulin (HCC) Inject 1.5 mg subcutaneously one time a week. Inject once per week. Discard Pen After 2 mL 1 09/13/2022 Active Comment on above: Inject 1.5 mg subcut aneously one time a week. Inject once per week. Discard Pen After glipiZIDE er 10 mg 24 hr extended release oral tablet (20 sources) Sulfonylurea Start: 04-17-2022 take 2.5 mg by mouth once daily Glipizide Active 2.5 MG PO DAILY August 29, 2022 12:00am Start: 03-19-2022 End: 05-20-2024 take 1 tablet by mouth once daily glipiZIDE (GLUCOTROL XL) 10mg 24 hr tablet Take 1 tablet by mouth once daily. 90 tablet 3 05/21/2023 04/08/2024 Discontinued (Clinical Decision) Start: 01-13-2022 End: 03-13-2022 take 1 tablet by mouth once daily glipiZIDE (GLUCOTROL XL) 10mg 24 hr tablet Take 10 mg by mouth once daily. 0 01/13/2022 03/13/2022 Discontinued Comment on above: Take 10 mg by mouth once daily. Take 1 tablet by filippo th once daily. Take 1 tablet by filippo th once daily. Take with with the 10 mg tablet for a total of 12.5 mg daily. 24 hr metFORMIN hydrochloride 500 mg extended release oral tablet (2 sources) Biguanide Start: 03-13-20 End: 03-19-20 take 1 tablet by mouth once daily at breakfast metFORMIN ER (GLUCOPHAGE XR) 500 mg 24 hr tablet Take 1 tablet by mouth daily with breakfast. 30 tablet 11 03/13/2022 03/19/2022 Discontinued Comment on above: Take 1 tablet by filippo th daily with breakfast. ondansetron 4 mg oral tablet (20 sources) Serotonin-3 Receptor Antagonist Start: 12-24-19 End: 01-23-20 take 1 tablet by mouth every eight hours as needed ondansetron (ZOFRAN) 4 mg tablet Take 1 tablet by mouth every 8 hours as needed for nausea/vomiting (for nausea.). 90 tablet 12/24/2023 01/10/2024 Discontinued (Course of therapy completed) Start: 10-23-2022 End: 04-08-2024 take 1 tablet by mouth every twelve hours as needed for nausea ondansetron orally disintegrating (ZOFRAN ODT) 4 mg disintegrating tablet Indications: Type 2 diabetes mellitus without complication, without long-term current use of insulin (HCC) Take 1 tablet by mouth every 12 hours as needed for nausea/vomiting. 20 tablet 1 10/23/2022 04/08/2024 Discontinued Start: 09-19-2022 take 1 tablet by filippo th every twelve hours as needed for nausea ondansetron orally disintegrating (ZOFRAN ODT) 4 mg disintegrating tablet Indications: Type 2 diabetes mellitus without complication, without long-term current use of insulin ([facility]) Take 1 tablet by mouth every 12 hours as needed for nausea/vomiting. 20 tablet 1 09/19/2022 Active Comment on above: Take 1 tablet by filippo th every 12 hours as needed for nausea/vomiting. pantoprazole 40 mg delayed release oral tablet (16 sources) Proton Pump Inhibitor Start: 2023 End: 2024 take 1 tablet by mouth once daily pantoprazole DR (PROTONIX) 40 mg tablet Take 1 tablet by mouth once daily. 30 tablet 5 12/24/2023 06/01/2024 Discontinued 72 hr scopolamine 0.0139 mg/hr transdermal system (6 sources) Anticholinergic Start: 2023 End: 2023 scopolamine (TRANSDERM-SCOP) patch 1.5 mg/72 hr (delivers 1 mg over 3 days) Apply 1 Patch as directed every 72 hours. 10 Patch 12/24/2023 01/10/2024 Discontinued (Course of therapy completed) semaglutide (OZEMPIC) 1 mg/dose (4 mg/3 mL) pen (1 source) Start: 2022 End: 2022 inject 1 mg by subcutaneous injection every week semaglutide (OZEMPIC) 1 mg/dose (4 mg/3 mL) pen Indications: Type 2 diabetes mellitus without complication, without long-term current use of insulin ([facility]) Inject 1 mg subcutaneously one time a week. 1 Each 2 09/11/2022 09/13/2022 Discontinued (Not on Formulary) Comment on above: Inject 1 mg subcutan eously one time a week. Problems Active Problems Problem Classification Problem Date Documented Da te Episodic/Chronic Diabetes mellitus with complications (8 sources) Type 2 diabetes mellitus well controlled; Translations: [Type 2 diabetes mellitus with hyperglycemia] Onset: 4 Chronic Diabetes mellitus without complication (20 sources) Type 2 diabetes mellitus without complication; Translations: [Type 2 diabetes mellitus without complications] Onset: 3 04-14-2022 Chronic Disorders of lipid metabolism (4 sources) Dyslipidemia; Translations: [Hyperlipidemia, unspecified] Onset: 4 12-03-2015 Chronic Esophageal disorders (20 sources) Gastroesophageal reflux disease; Translations: [Gastro-esophageal reflux disease without esophagitis] Onset: 4 12-11-2023 Chronic Gastroduodenal ulcer (except hemorrhage) (7 sources) Ulcer of anastomosis; Translations: [Gastrojejunal ulcer, unspecified as acute or chronic, without hemorrhage or perforation] Onset: 5 06-02-2024 Chronic Immunizations and screening for infectious disease (20 sources) Patient encounter status; Translations: [Encounter for immunization] Onset: 5 Episodic Joint disorders and dislocations; trauma-related (1 source) Derangement of left knee; Translations: [Unspecified internal derangement of left knee] 08-30-2022 Chronic Miscellaneous mental health disorders (2 sources) Psychological and behavioral factors associated with disorders or diseases classified elsewhere; Translations: [Other specified eating disorder] Onset: 4 Chronic Nonspecific chest pain (1 source) Chest pain; Translations: [Chest pain, unspecified] 12-03-2015 Episodic Nutritional deficiencies (2 sources) Vitamin D deficiency; Translations: [Vitamin D deficiency, unspecified] Onset: 5 04-08-2024 Chronic Other gastrointestinal disorders (2 sources) Abnormal intestinal absorption; Translations: [Intestinal malabsorption, unspecified] 01-14-2024 Chronic Other gastrointestinal disorders (1 source) History of bariatric surgical procedure; Translations: [Bariatric surgery status] 01-10-2024 Episodic Other nervous system disorders (1 source) Postoperative pain ; Translations: [Other acute postprocedural pain] 01-03-2024 Episodic Other nutritional; endocrine; and metabolic disorders (1 source) Obesity; Translations: [Obesity, unspecified] 12-03-2015 Chronic Other nutritional; endocrine; and metabolic disorders (20 sources) Body mass index 40+ - severely obese; Translations: [Morbid (severe) obesity due to excess calories] Onset: 3 Resolved: 5 09-11-2022 Chronic Other nutritional; endocrine; and metabolic disorders (2 sources) Severe obesity; Translations: [Morbid (severe) obesity due to excess calories] 11-01-2023 Chronic Other nutritional; endocrine; and metabolic disorders (2 sources) Obese class II; Translations: [Obesity, Class II, BMI 35-39.9] 02-10-2024 Chronic Other nutritional; endocrine; and metabolic disorders (3 sources) Morbid (severe) obesity due to excess calories; Translations: [Class 3 severe obesity due to excess calories with serious comorbidity and body mass index (BMI) of 40.0 to 44.9 in adult ([facility])] Onset: 3 Chronic Other nutritional; endocrine; and metabolic disorders (1 source) Body mass index (BMI) 40.0-44.9, adult; Translations: [Class 3 severe obesity due to excess calories with serious comorbidity and body mass index (BMI) of 40.0 to 44.9 in adult ([facility])] Onset: 4 Chronic Other screening for suspected conditions (not mental disorders or infectious disease) (4 sources) Cancer cervix screening status; Translations: [Encounter for screening for malignant neoplasm of cervix] Onset: 5 Episodic Other skin disorders (2 sources) Localized swelling, mass and lump, right upper limb; Translations: [Localized superficial swelling, mass, or lump] Episodic Other upper respiratory disease (20 sources) Seasonal allergy; Translations: [Other seasonal allergic rhinitis] Onset: 3 09-11-2022 Chronic Other upper respiratory disease (1 source) Other seasonal allergic rhinitis; Translations: [Seasonal allergies] Onset: 3 Chronic Other upper respiratory disease (1 source) Disorder of nasal sinus; Translations: [Unspecified disorder of nose and nasal sinuses] Episodic Other upper respiratory infections (1 source) Sinusitis; Translations: [Chronic sinusitis, unspecified] Chronic Other upper respiratory infections (3 sources) Viral upper respiratory tract infection; Translations: [Acute upper respiratory infection, unspecified] Onset: 5 01-16-2023 Episodic Residual codes; unclassified (1 source) Treatment not available; Translations: [Procedure and treatment not carried out for other reasons] 01-16-2023 Episodic Sprains and strains (1 source) Sprain of knee; Translations: [Sprain of unspecified site of unspecified knee, initial encounter] 08-30-2022 Episodic Unclassified (20 sources) Bariatric Surgery [employer] Onset: 4 11-22-2023 Unclassified (1 source) NO SHOW 04-02-2024 Viral infection (1 source) Disease caused by 2019-nCoV; Translations: [COVID-19] 11-20-2023 Episodic Past or Other Problems Problem Classification Problem Date Documented Da te Episodic/Chronic Abdominal pain (6 sources) Epigastric pain; Translations: [Epigastric pain] Onset: 06-01-2024 05-28-2024 Episodic Nausea and vomiting (11 sources) Nausea and vomiting; Translations: [Nausea with vomiting, unspecified] Onset: 06-01-2024 05-28-2024 Episodic Other gastrointestinal disorders (16 sources) History of bypass of stomach; Translations: [Bariatric surgery status] Onset: 04-08-2024 01-14-2024 Episodic Other gastrointestinal disorders (1 source) Bariatric surgery status; Translations: [S/P gastric bypass] Onset: 04-08-2024 Episodic Other infections; including parasitic (20 sources) Personal history of other infectious and parasitic diseases; Translations: [History of COVID-19] Onset: 12-11-2023 12-11-2023 Episodic Residual codes; unclassified (1 source) Other specified postprocedural states; Translations: [Status post surgery] Onset: 01-01-2024 Episodic Unclassified (4 sources) History of bypass of stomach 05-28-2024 Unclassified (1 source) Patient encounter status 08-26-2024 Results Test Name Value Interpretation Reference Range Facility ANES POSTPROC EVALon 025 ANES POSTPROC EVAL HNO ID: [id number] Author: BEE FONTANEZ MD Service: ? Author Type: Anesthesiologist Type: Anesthesia Postprocedure Evaluation Filed: 09/14/2024 16:28 Note Text: POST ANESTHESIA EVALUATION NOTE : 1970 Procedure Summary Date: 09/14/24 Room / Location: Gastroenterology Anesthesia Start: 1502 Anesthesia Stop: 1521 Procedure: EGD BARIATRIC Diagnosis: S/P gastric bypass Anastomotic ulcer S/P gastric bypass (Follow-up of acute gastrojejunal ulcer) Scheduled Providers: Bridger Hill MD; Chris Mac APRN.BOOKBINDING MACHINE OPERATOR; Bee Fontanez MD Responsible Provider: Bee Fontanez MD Anesthesia Type: general ASA Status: 3 Anesthesia Type: general Airway Type: anesthesia mask Last Vitals Vitals Value Taken Time BP 145/57 09/14/24 1551 Temp 36 ?C (96.8 ?F) 09/14/24 1521 HR SpO2 51 09/14/24 1555 Resp 16 09/14/24 1551 SpO2 99 % 09/14/24 1555 Vitals shown include unfiled device data. [facility] AN POST OP NOTE Anesthesia Observations No Documentation SIGNATURE: Bee Fontanez MD PATIENT NAME: Leonora Cam DATE: September 14, 2024 TIME: 4:28 PM CSN: [id number] Normal [facility] ANES PRE-OPon 09-14-2024 ANES PRE-OP HNO ID: [id number] Author: BEE FONTANEZ MD Service: ? Author Type: Anesthesiologist Type: Anesthesia Preprocedure Evaluation Filed: 09/14/2024 14:29 Note Text: ANESTHESIOLOGY DAY OF SURGERY NOTE : 1970 Procedure Information Date/Time: 09/14/24 1330 Scheduled providers: Bridger Hill MD; Chris Mac APRN.BOOKBINDING MACHINE OPERATOR; Bee Fontanez MD Procedure: EGD BARIATRIC Location: Gastroenterology Estimated body mass index is 29.94 kg/m? as calculated from the following: Height as of this encounter: 160 cm (5' 3). Weight as of this encounter: 76.7 kg (169 lb). Most recent hematocrit and potassium results: Hematocrit 42.5 04/08/2024 Potassium 4.3 04/08/2024 Relevant Problems ENDO (+) Type 2 diabetes mellitus without complication, without long-term current use of insulin (HCC) GI (+) GERD (gastroesophageal reflux disease) NEURO-PSYCH (+) History of COVID-19 PULMONARY (+) History of COVID-19 I - PHYSICAL EVALUATION AIRWAY Patient intubated: No. Tracheostomy tube not present Mallampati: II. TM distance: >3 FB. Neck ROM: full ROM without neurological symptoms. Mouth opening: adequate. Short neck: no. Thick neck: no Dyson present: no Lip Bite Test: I Microretrognathia/Micr onagthia/Recessed Chin: No DENTAL Dental findings: edentulous. Dentures, upper: complete. Dentures, lower: complete. II - ANESTHESIA PLAN ASA Score: 3 Anesthetic Plan: general Airway type: anesthesia mask The patient is not a current smoker. NPO Status: adequate Beta Orly Administration of chronic beta orly medication planned. Monitoring Plan Monitoring plan: standard ASA. Post Procedure Analgesic Plan Postoperative analgesic plan: multimodal analgesia. Informed Consent Anesthetic risks, benefits, alternatives, personnel and consent discussed: yes. Patient / Responsible Republican agrees to proceed: yes Patient / Surrogate agrees to blood products: blood products not planned DNR status not reviewed with patient and/or family prior to surgery. Significant changes in the patient condition since the History and Physical, not otherwise documented in primary service progress note: no. Potential Anesthesia issues that may suggest increased risk of complications or contraindication to planned procedure: none. Vitals Value Taken Time BP 126/56 09/14/24 1412 Pulse 58 09/14/24 1412 Resp 18 09/14/24 1412 Temp 36.5 ?C (97.7 ?F) 09/14/24 1412 SpO2 100 % 09/14/24 1412 Outpatient Medications as of 09/14/2024 Medication Sig loratadine (CLARITIN) 10 mg tablet Take 1 tablet by mouth once daily as needed for cold/allergy symptoms. sucralfate (CARAFATE) 100 mg/mL suspension Take 10 mL by mouth four times daily. omeprazole (PRILOSEC) 40 mg capsule Take 1 capsule by mouth two times a day. Open capsule and sprinkle on applesauce or yogurt to take fluticasone (FLONASE) 50 mcg/actuation nasal spray Use 1 [place] in each nostril at bedtime as needed for cold/allergy symptoms. As needed flash glucose sensor (FREESTYLE GUZMAN 14 DAY SENSOR) kit 1 Each two times a day. DX E11.65 Insulin No PHENYLephrine-Acetamin ophen (TYLENOL SINUS HEADACHE) 5-325 mg tab Take 2 tablets by mouth three times a day. Facility-Administered Medications as of 09/14/2024 Medication Dose Route Frequency lidocaine (PF) 10 mg/mL (1 %) 1-2 mg injection (XYLOCAINE) 0.1-0.2 mL INTRADERMAL PRN lactated ringers iv infusion 30 mL/hr INTRAVENOUS CONTINUOUS I have interviewed and examined the patient. I have reviewed the medical record and/or the pre-anesthesia evaluation, pertinent labs, and test results. This contains updated information obtained within 48 hours of Surgery/Procedure. SIGNATURE: Bee Fontanez MD PATIENT NAME: Leonora Cam DATE: September 14, 2024 TIME: 2:28 PM CSN: [id number] Normal [facility] EGD Study observation Narrat iveon 09-14-2024 [facility] Radiology Study observation (narrative) [facility] HISTORY PHYSICALon HISTORY PHYSICAL HNO ID: [id number] Author: BRIDGER HILL MD Service: General Surgery Author Type: Physician Type: H&P Filed: 09/14/2024 15:39 Note Text: ENDOSCOPY HISTORY AND PHYSICAL EXAM Leonora Cam [id number] Subjective HPI: This is a 53 year old female who presents for endoscopy. She underwent korin en y gastric bypass in December 2023 and developed severe epigastric pain s/p endoscopy on 06/01/24 that revealed an ulcer at GJ. She was prescribed omeprazole. She now returns for a repeat endoscopy. She is doing well. No changes to her health otherwise since last time. PAST ANESTHESIA HISTORY: No history of adverse event PAST MEDICAL HISTORY Diagnosis Date COVID-19 10/16/2021 Diabetes mellitus ([facility]) 2017 GERD (gastroesophageal reflux disease) 12/11/2023 Obesity, Class III, BMI >= 40 09/11/2022 Seasonal allergies Severe obesity (BMI >= 40) ([facility]) 01/01/2024 Type 2 diabetes mellitus without complication, without long-term current use of insulin ([facility]) PAST SURGICAL HISTORY Procedure Laterality Date LAPAROSCOP GASTRIC BYPASS 01/01/2024 korin en y LIGATE FALLOPIAN TUBE 2000 PAST SURGICAL HISTORY OF 2014 clamp in R foot (bone shattered) REMOVAL GALLBLADDER 2015 TONSILLECTOMY AND ADENOIDECTOMY Prior to Admission medications as of 08/26/24 1058 Medication Sig Last Dose Taking loratadine (CLARITIN) 10 mg tablet Take 1 tablet by mouth once daily as needed for cold/allergy symptoms. sucralfate (CARAFATE) 100 mg/mL suspension Take 10 mL by mouth four times daily. omeprazole (PRILOSEC) 40 mg capsule Take 1 capsule by mouth two times a day. Open capsule and sprinkle on applesauce or yogurt to take fluticasone (FLONASE) 50 mcg/actuation nasal spray Use 1 [place] in each nostril at bedtime as needed for cold/allergy symptoms. As needed flash glucose sensor (FREESTYLE GUZMAN 14 DAY SENSOR) kit 1 Each two times a day. DX E11.65 Insulin No PHENYLephrine-Acetamin ophen (TYLENOL SINUS HEADACHE) 5-325 mg tab Take 2 tablets by mouth three times a day. ALLERGIES Allergen Reactions Bee Sting Swelling Codeine Unknown Doxycycline GI Upset Metformin Intolerance GI upset, diarrhea Prednisone Rash Objective PHYSICAL EXAM: The remainder of the physical exam is noncontributory. AIRWAY: intact LUNGS: lungs clear to auscultation bilaterally CARDIAC: RRR Assessment/Plan ASA Class: ASA Class: Patient with mild systemic disease Active Problems: * No active hospital problems. * Resolved Problems: * No resolved hospital problems. * Medication and Non-Pharmacologic VTE Prophylaxis/Anticoagul ants VTE Prophylaxis: not indicated for procedure Provisional Diagnosis/Treatment Plan: EGD: under MAC sedation Consent has been signed Sedation Goal: Moderate Higinio Nuno MD 09/14/2024 2:18 PM On behalf of Bridger Hill MD Attending Note I evaluated the patient and personally participated in the sánchez components. I agree with the resident's findings and plan as documented and have discussed the case and management of the patient's care with the resident. Signature: Bridger Hill MD Date: 09/14/2024 Time: 3:39 PM [facility] NURSING PROGon 09-14-2024 NURSING PROG HNO ID: [id number] Author: ALVIN GILBERT RN Service: Nursing Author Type: Registered Nurse Type: Nursing Progress Note Filed: 09/14/2024 16:08 Note Text: Patient discharged from following procedure. MD came to bedside to discuss procedure, patient has no further questions at time of discharge. Patient verbalized understanding of discharge instructions, no questions at this time. Patient reports 0/10 pain, vital signs stable. Patient reports no complaints. Patient ambulated from the unit on her own with a steady gait. [facility] NURSING PROG HNO ID: [id number] Author: ALVIN GILBERT RN Service: Nursing Author Type: Registered Nurse Type: Nursing Progress Note Filed: 09/14/2024 15:26 Note Text: AMBULATORY PATIENT EDUCATION NOTE TOPIC: GI PROCEDURES: Esophagogastroduodenos copy(EGD) with or without biopies based on clinical findings, removal of polyps or lesions READINESS TO LEARN INSTRUCTION PROVIDED TO: Patient, readness to learn accessed prior to procedure COGNITIVE ABILITY: Alert and oriented PTED MOTIVATION TO LEARN: Interested FAMILY SUPPORT: High - Very involved in pt care IPATIENT LEARNS BEST BY: Individual Instruction Written Instruction - Hand-outs Verbal Instruction FACTORS AFFECTING LEARNING: None PHYSICAL LIMITATIONS AFFECTING LEARNING: None LEARNING RESPONSE METHOD OF INSTRUCTION: Individual instruction PATIENT / FAMILY RESPONSE: Verbalizes understanding of: WORSENING CONDITION-Signs and symptoms of a worsening condition that warrant a call to the physician FOLLOW-UP PLAN: Patient instructed to call with any further issues SUPPLEMENTAL MATERIAL: Procedure Discharge Instructions REFERRAL (RECOMMENDATION): None Electronically Signed By: Alvin Gilbert RN [facility] NURSING PROGon 09-07-2024 NURSING PROG HNO ID: [id number] Author: MICHAEL PALACIOS RN Service: ? Author Type: Registered Nurse Type: Nursing Progress Note Filed: 09/07/2024 15:52 Note Text: Attempted to reach the patient at the contact number that they provided [phone] (home) . 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 Failure to have a responsible adult accompany the patient to their procedure appointment prevents the use of sedation or anesthesia for their procedure; and can result in cancellation of the procedure NPO instructions were reviewed. Instructions to contact their primary care provider regarding their medications and which medications to stop in preparation for their procedure Instructions to completely read and follow the written instructions that they recieved regarding their procedure. 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 GERD. Since her last visit she has been doing well. Current symptoms include a feeling of fullness and abdominal pain several times a month on therapy of omeprazole (Prilosec) every day alleviated with taking medication. Follow up concerning the Dilated Retinal exam results with Dr. Blunt being sent in. Ms. Cam will see Dr. Blunt before September for another Dilated retinal exam and will bring those results in so they can be scanned into her chart. Ordered Diabetes: Home blood sugar readings: Freestyle Guzman Hypoglycemia: No Glipizide discontinued on 04/[address] Grace Increased thirst: No Urinary frequency: No Nocturia: No Fatigue: No Unintentional weight loss: No Blurred vision: No Numbness, tingling or pain in extremities: No Ulcers or sores on feet: No Last Ophthalmology exam: within the past 12 months Patient's last HgA1C : Hemoglobin A1C (%) Date Value 04/08/2024 6.2 09/10/2023 7.4 HBA1C, Keshia (%) Date Value 09/25/2006 5.0 REVIEW OF SYSTEMS See HPI PAST MEDICAL HISTORY Diagnosis Date COVID-19 10/16/2021 Diabetes mellitus (HCC) 2017 GERD (gastroesophageal reflux disease) 12/11/2023 Obesity, Class III, BMI >= 40 09/11/2022 Seasonal allergies Severe obesity (BMI >= 40) (HCC) 01/01/2024 Type 2 diabetes mellitus without complication, without long-term current use of insulin (HCC) PAST SURGICAL HISTORY Procedure Laterality Date LAPAROSCOP GASTRIC BYPASS 01/01/2024 korin en y LIGATE FALLOPIAN TUBE 2000 PAST SURGICAL HISTORY OF 2015 clamp in R foot (bone shattered) REMOVAL GALLBLADDER 2015 TONSILLECTOMY AND ADENOIDECTOMY ALLERGIES Bee Sting, Codeine, Doxycycline, Metformin, and Prednisone MEDICATIONS sucralfate (CARAFATE) 100 mg/mL suspension Take 10 mL by mouth four times daily. omeprazole (PRILOSEC) 40 mg capsule Take 1 capsule by mouth two times a day. Open capsule and sprinkle on applesauce or yogurt to take fluticasone (FLONASE) 50 mcg/actuation nasal spray Use 1 [place] in each nostril at bedtime as needed for cold/allergy symptoms. As needed flash glucose sensor (FREESTYLE GUZMAN 14 DAY SENSOR) kit 1 Each two times a day. DX E11.65 Insulin No PHENYLephrine-Acetamin ophen (TYLENOL SINUS HEADACHE) 5-325 mg tab Take 2 tablets by mouth three times a day. loratadine (CLARITIN) 10 mg tablet Take 1 tablet by mouth once daily as needed for cold/allergy symptoms. FAMILY HISTORY Problem Relation Age of Onset Heart Mother Diabetes Mother COPD Mother Asthma Mother Kidney Disease Mother Stroke Mother Heart Failure Mother Stroke Father Diabetes Father Heart Father 34 Diabetes Sister 56 type 1 Diabetes Brother Prediabetes Asthma Brother MVA other (Maria Guadalupe sydrome) Brother 2 Diabetes Maternal Grandmother Alzheimer's Disease Maternal Grandmother Prostate Cancer Maternal Grandfather Heart Paternal Grandmother Diabetes Paternal Grandmother Lung Cancer Paternal Grandfather DVT No Family History Social History Tobacco Use Smoking status: Never Passive exposure: Current Smokeless tobacco: Never Vaping Use Vaping status: Never Used Substance Use Topics Alcohol use: Not Currently Drug use: Never PHYSICAL EXAMINATION: BP 116/72 Pulse 72 Resp 12 Wt 79 kg (174 lb 2.6 oz) SpO2 99% BMI 30.85 kg/m? General appearance: Well appearing, alert, in no acute distress, well-hydrated, well nourished. Skin: Skin color, texture, turgor normal, no suspicious rashes or lesions Lungs: Lungs clear to auscultation. No wheezing, rhonchi, rales. Heart: RRR without murmur, gallop, or rubs. No ectopy Abdomen: Normal abdominal exam, Abdomen soft, non-tender. Bowel sounds normal. No masses, organomegaly Neuro: Gait normal. Reflexes normal and symmetric. Sensation grossly intact. ASSESSMENT/PLAN: 1. Type 2 diabetes mellitus without complication, without long-term current use of insulin (HCC) - ICD9: 250.00, ICD10: E11.9 (primary diagnosis) - Controlled - Continue current medications 2. Gastroesophageal reflux disease, unspecified whether esophagitis present - ICD9: 530.81, ICD10: K21.9 Stable on medication 3. Encounter for immunization - ICD9: V03.89, ICD10: Z23 - TDAP VACCINE, AGE 7+ YR (ADACEL, BOOSTRIX) 4. Encounter for screening mammogram for breast cancer - ICD9: V76.12, ICD10: Z12.31 - WILLIAM SCREENING W MORGAN 5. Screening for colon cancer - ICD9: V76. (more content not included)... Normal [facility] ANES POSTPROC EVALon 025 ANES POSTPROC EVAL HNO ID: [id number] Author: RODRIGUEZ HEDRICK MD Service: ? Author Type: Anesthesiologist Type: Anesthesia Postprocedure Evaluation Filed: 06/01/2024 12:11 Note Text: POST ANESTHESIA EVALUATION NOTE : 1970 Procedure Summary Date: 06/01/24 Room / Location: Gastroenterology Anesthesia Start: 1116 Anesthesia Stop: 1137 Procedure: EGD DIAGNOSTIC Diagnosis: S/P gastric bypass Nausea and vomiting, unspecified vomiting type Epigastric pain (Epigastric abdominal pain) Scheduled Providers: Bridger Hill MD; Erica Christianson APRN.BOOKBINDING MACHINE OPERATOR; Rodriguez Hedrick MD Responsible Provider: Rodriguez Hedrick MD Anesthesia Type: MAC ASA Status: 3 Anesthesia Type: MAC Last Vitals Vitals Value Taken Time BP 122/58 06/01/24 1201 Temp 36.4 ?C (97.5 ?F) 06/01/24 1137 Pulse 60 06/01/24 1206 Resp 16 06/01/24 1201 SpO2 100 % 06/01/24 1206 Vitals shown include unfiled device data. Post Anesthesia Patient Status Patient Evaluation: PACU. PACU/ICU Patient Condition: stable. Anticipated Disposition: phase 2 then home. Neurological Status: aware and responsive. Pulmonary Status: breathing comfortably on room air Airway Control: returned to baseline unsupported. Cardiovascular Status: stable. Pain Management: clinically adequate Postoperative Hydration: acceptable. Intraoperative Events: no significant anesthesia events Post Operative Nausea/Vomiting Status: no significant post operative nausea or vomiting Recommendation: continue current plan of care. Anesthesia Observations No Documentation SIGNATURE: Rodriguez Hedrick MD PATIENT NAME: Leonora Cam DATE: June 01, 2024 TIME: 12:11 PM CSN: [id number] Normal [facility] ANES PRE-OPon 06-01-2024 ANES PRE-OP HNO ID: [id number] Author: RODRIGUEZ HEDRICK MD Service: ? Author Type: Anesthesiologist Type: Anesthesia Preprocedure Evaluation Filed: 06/01/2024 10:06 Note Text: ANESTHESIOLOGY DAY OF SURGERY NOTE : 1970 Procedure Information Date/Time: 06/01/24 1000 Scheduled providers: Bridger Hill MD; Erica Christianson APRN.BOOKBINDING MACHINE OPERATOR; Rodriguez Hedrick MD Procedure: EGD DIAGNOSTIC Location: Gastroenterology Estimated body mass index is 35.5 kg/m? as calculated from the following: Height as of 04/08/24: 160 cm (5' 3). Weight as of 04/08/24: 90.9 kg (200 lb 6.4 oz). Most recent hematocrit and potassium results: Hematocrit 42.5 04/08/2024 Potassium 4.3 04/08/2024 Relevant Problems ENDO (+) Type 2 diabetes mellitus without complication, without long-term current use of insulin (HCC) GI (+) GERD (gastroesophageal reflux disease) NEURO-PSYCH (+) History of COVID-19 PULMONARY (+) History of COVID-19 I - PHYSICAL EVALUATION AIRWAY Patient intubated: No. Tracheostomy tube not present Mallampati: II. TM distance: >3 FB. Neck ROM: full ROM without neurological symptoms. Mouth opening: adequate. Short neck: no. Thick neck: no Dyson present: no Lip Bite Test: II Microretrognathia/Micr onagthia/Recessed Chin: No DENTAL Dental findings: edentulous. Additional exam findings: no II - ANESTHESIA PLAN ASA Score: 3 Anesthetic Plan: MAC NPO Status: adequate Beta Orly Monitoring Plan Monitoring plan: standard ASA. Post Procedure Analgesic Plan Postoperative analgesic plan: multimodal analgesia. Informed Consent Anesthetic risks, benefits, alternatives, personnel and consent discussed: yes. Patient / Responsible Republican agrees to proceed: yes Patient / Surrogate agrees to blood products: Yes DNR status not reviewed with patient and/or family prior to surgery. Significant changes in the patient condition since the History and Physical, not otherwise documented in primary service progress note: no. Potential Anesthesia issues that may suggest increased risk of complications or contraindication to planned procedure: none. No vitals data found for the desired time range. Outpatient Medications as of 06/01/2024 Medication Sig fluticasone (FLONASE) 50 mcg/actuation nasal spray Use 1 [place] in each nostril at bedtime as needed for cold/allergy symptoms. As needed flash glucose sensor (FREESTYLE GUZMAN 14 DAY SENSOR) kit 1 Each two times a day. DX E11.65 Insulin No PHENYLephrine-Acetamin ophen (TYLENOL SINUS HEADACHE) 5-325 mg tab Take 2 tablets by mouth three times a day. loratadine (CLARITIN) 10 mg tablet Take 1 tablet by mouth once daily as needed for cold/allergy symptoms. pantoprazole DR (PROTONIX) 40 mg tablet Take 1 tablet by mouth once daily. No current facility-administered medications on file as of 06/01/2024. I have interviewed and examined the patient. I have reviewed the medical record and/or the pre-anesthesia evaluation, pertinent labs, and test results. This contains updated information obtained within 48 hours of Surgery/Procedure. SIGNATURE: Rodriguez Hedrick MD PATIENT NAME: Leonora Cam DATE: June 01, 2024 TIME: 10:06 AM CSN: [id number] Normal [facility] EGD Study observation Narrat iveon 06-01-2024 [facility] Radiology Study observation (narrative) [facility] HISTORY PHYSICALon HISTORY PHYSICAL HNO ID: [id number] Author: BRIDGER HILL MD Service: General Surgery Author Type: Physician Type: H&P Filed: 06/01/2024 18:07 Note Text: ENDOSCOPY HISTORY AND PHYSICAL EXAM Leonora Cam [id number] Subjective HPI: This is a 53 year old female who presents for endoscopy. She underwent korin en y gastric bypass in December 2023 and developed severe epigastric pain last week. [facility] was recommended EGD to investigate for marginal ulcer. PAST ANESTHESIA HISTORY: No history of adverse event PAST MEDICAL HISTORY Diagnosis Date COVID-19 10/16/2021 Diabetes mellitus ([facility]) 2017 GERD (gastroesophageal reflux disease) 12/11/2023 Obesity, Class III, BMI >= 40 09/11/2022 Seasonal allergies Severe obesity (BMI >= 40) ([facility]) 01/01/2024 Type 2 diabetes mellitus without complication, without long-term current use of insulin ([facility]) PAST SURGICAL HISTORY Procedure Laterality Date LAPAROSCOP GASTRIC BYPASS 01/01/2024 korin en y LIGATE FALLOPIAN TUBE 2000 PAST SURGICAL HISTORY OF 2015 clamp in R foot (bone shattered) REMOVAL GALLBLADDER 2015 TONSILLECTOMY AND ADENOIDECTOMY Prior to Admission medications as of 04/08/24 1124 Medication Sig Last Dose Taking fluticasone (FLONASE) 50 mcg/actuation nasal spray Use 1 [place] in each nostril at bedtime as needed for cold/allergy symptoms. As needed flash glucose sensor (FREESTYLE GUZMAN 14 DAY SENSOR) kit 1 Each two times a day. DX E11.65 Insulin No PHENYLephrine-Acetamin ophen (TYLENOL SINUS HEADACHE) 5-325 mg tab Take 2 tablets by mouth three times a day. loratadine (CLARITIN) 10 mg tablet Take 1 tablet by mouth once daily as needed for cold/allergy symptoms. pantoprazole DR (PROTONIX) 40 mg tablet Take 1 tablet by mouth once daily. ALLERGIES Allergen Reactions Bee Sting Swelling Codeine Unknown Doxycycline GI Upset Metformin Intolerance GI upset, diarrhea Prednisone Rash Objective PHYSICAL EXAM: The remainder of the physical exam is noncontributory. AIRWAY: intact LUNGS: lungs clear to auscultation bilaterally CARDIAC: RRR Assessment/Plan ASA Class: Active Problems: * No active hospital problems. * Resolved Problems: * No resolved hospital problems. * Medication and Non-Pharmacologic VTE Prophylaxis/Anticoagul ants VTE Prophylaxis: not indicated for procedure Provisional Diagnosis/Treatment Plan: EGD: under MAC sedation Consent has been signed Alia Hillman MD 05/31/2024 9:09 PM Bridger Hill MD [facility] NURSING PROGon 06-01-2024 NURSING PROG HNO ID: [id number] Author: LACY SILVA RN Service: Nursing Author Type: Registered Nurse Type: Nursing Progress Note Filed: 06/01/2024 12:02 Note Text: AMBULATORY PATIENT EDUCATION NOTE TOPIC: GI PROCEDURES: Esophagogastroduodenos copy(EGD) for control of bleeding,dilation(any means),imaging,tube placement READINESS TO LEARN INSTRUCTION PROVIDED TO: Patient and family member COGNITIVE ABILITY: Alert and oriented PTED MOTIVATION TO LEARN: Interested FAMILY SUPPORT: High - Very involved in pt care IPATIENT LEARNS BEST BY: Multiple Methods FACTORS AFFECTING LEARNING: None PHYSICAL LIMITATIONS AFFECTING LEARNING: None LEARNING RESPONSE METHOD OF INSTRUCTION: Individual instruction PATIENT / FAMILY RESPONSE: Verbalizes understanding of: WORSENING CONDITION-Signs and symptoms of a worsening condition that warrant a call to the physician FOLLOW-UP PLAN: Patient instructed to call with any further issues SUPPLEMENTAL MATERIAL: Procedure Discharge Instructions REFERRAL (RECOMMENDATION): None Electronically Signed By: Criss Silva RN [facility] NURSING PROG HNO ID: [id number] Author: ALVIN GILBERT RN Service: Nursing Author Type: Registered Nurse Type: Nursing Progress Note Filed: 06/01/2024 10:01 Note Text: PRE OP LEARNING ASSESSMENT PROCEDURE/SURGERY: GI PROCEDURES: EGD READINESS TO LEARN COGNITIVE ABILITY: Alert and oriented MOTIVATION TO LEARN: Interested FAMILY SUPPORT: High - Very involved in pt care PATIENT LEARNS BEST BY: Individual Instruction FACTORS AFFECTING LEARNING: None PHYSICAL LIMITATIONS AFFECTING LEARNING: None Electronically Signed By: Alvin Gilbert RN In Department: GASTROENTEROLOGY [facility] Pathology biopsy report Yinka (Tiss)on 06-01-2024 AP DISCLAIMER [facility] Comment on above: Order Comment: Speci men Type: TISSUE SPECIMENOrdering Facility: [facility] Address: [address] [place] [address] Result Comment: Aysha Shearer Test (LDT) Disclaimer: Performance characteristics of immunohistochemical, immunofluorescent, and chromogenic in-situ hybridization tests have been determined by the performing laboratory within [facility]'s [facility] Pathology and Laboratory Medicine Department ([facility], [facility], [facility], [facility], [facility], [facility], or [facility]) in a manner consistent with CLIA requirements. One or more of these tests may not have been cleared or approved by the FDA. [facility] is regulated under CLIA as qualified to perform high-complexity testing. These tests are used for clinical purposes. These should not be regarded as investigational or for research. Positive and negative controls stain appropriately. Performed By: #### 6 6121-5 ####[facility] [id number] [place] [address] [place] CASE REPORT Normal [facility] Comment on above: Order Comment: Speci men Type: TISSUE SPECIMENOrdering Facility: [facility] Address: [address] [place] [address] Result Comment: Surg [facility] Pathology Report Case: [id number] Authorizing Provider: Bridger Hill MD Collected: 06/01/2024 11:28 AM Ordering Location: Gastroenterology Received: 06/01/2024 04:51 PM Pathologist: Mari Angeles MD Specimen: Pouch, Biopsy, r/o H.pylori Performed By: #### 6 6121-5 ####[facility] [id number] [address] OF [facility] FINAL DIAGNOSIS Normal [facility] Comment on above: Order Comment: Speci men Type: TISSUE SPECIMENOrdering Facility: [facility] Address: [address] [place] [address] Result Comment: Raj. Jinny marques, biopsy -Gastric antral and oxyntic mucosa with reactive changes, negative for Helicobacter pylori type organisms at 1100 EST Performed By: #### 6 6121-5 ####[facility] [id number] [address] OF [facility] FINAL PERFORMING LAB Normal [facility] Comment on above: Order Comment: Speci men Type: TISSUE SPECIMENOrdering Facility: [facility] Address: [address] [place] [address] Result Comment: Diag nostic interpretation performed at: [facility], [address] [place] [address] CLIA# [id number] Awning Hanger: Cricket Marion MD Performed By: #### 6 6121-5 ####[facility] [id number] [address] STATES OF [facility] GROSS DESCRIPTION Normal [facility] Comment on above: Order Comment: Speci men Type: TISSUE SPECIMENOrdering Facility: [facility] Address: [address] [place] [address] Result Comment: Matthew marques, Biopsy Received in formalin are multiple pieces of [place], soft tissue aggregating to 1.2 x 0.1 x 0.1 cm. Totally submitted in one cassette. Gross examination performed at [facility], [address] [place] [address] FFS 06/01/2024 7:56 PM Performed By: #### 6 6121-5 ####[facility] [id number] [address] [place] 12 Lead EKGon 05-28-2024 12 Lead EKG [facility] Cardiovascular Services [address] [place] [address] 12 Lead EKG 05/28/24 1350 MR#: [id number] Acct: [id number] Name: LEONORA CAM Rep #: [id number] : 1970 53 From: Julian Ingram MD Attending Dr: Status: DEP ER Ordering Dr: Bony Gates MD Date: 05/28/24 Location: ED Sex: F C Admitted: Test Reason : ABD PAIN Blood Pressure : */* mmHG Vent. Rate : 57 BPM Atrial Rate : 57 BPM P-R Int : 256 ms QRS Dur : 96 ms QT Int : 418 ms P-R-T Axes : 36 -9 7 degrees QTcB Int : 406 ms Sinus bradycardia with 1st degree A-V block Poor R wave progression Low voltage precordial leads Abnormal ECG Confirmed by Julian Ingram ([id number]), commissioning editor YOLA LANCE ([id number]) on 06/01/2024 10:53:42 AM Referred By: Confirmed By: Julian Ingram 06/01/24 1053 Date Julian Ingram MD CC: Dr. Bony Gates MD; Dr. Neri Grace MD Signed Normal [facility] Abdomen/Pelvis WITH Contrast on 05-28-2024 Abdomen/Pelvis WITH Contrast [facility] Imaging Services [address] [place], [place] [address] Abdomen/Pelvis WITH Contrast MR#: [id number] Acct: [id number] Name: LEONORA CAM Rep #: [id number] : 1970 F 53 From: Bee Alberto PCP: Dr. Neri Grace MD Status: REG ER Study: Abdomen/Pelvis WITH Contrast Date of Exam: Exam# [id number] Ordering Dr: Bony Gates MD PROCEDURE: CT abdomen pelvis with IV contrast REASON FOR EXAM: Pain TECHNIQUE: Multiple contiguous axial images through the abdomen and pelvis were obtained after the administration of intravenous contrast. Two-dimensional coronal and sagittal reformatted images were reconstructed. Low-dose imaging technique was utilized. COMPARISON: None. FINDINGS: Lung bases are clear. Liver, spleen, pancreas and adrenal glands are intact. Gallbladder is surgically absent. No significant biliary ductal dilation. Status post gastric bypass. Kidneys enhance symmetrically. No suspicious renal mass, calculi or hydronephrosis. Small right renal cyst. Urinary bladder is intact. Uterus is present. No bowel obstruction, focal bowel wall thickening or significant perienteric inflammation. No pelvic free fluid. No free air. No abdominal aortic aneurysm or suspicious adenopathy. Superficial soft tissues are within normal limits. No acute osseous abnormality. CT/Abdomen/Pelvis WITH Contrast IMPRESSION: No acute process. One or more dose reduction techniques were used (e.g., Automated exposure control, adjustment of the mA and/or kV according to patient size, use of iterative reconstruction technique). Reading Location: [facility] CC: Dr. Bony Gates MD; Dr. Neri Grace MD [employer] Laborer: Signed Normal [facility] CBC W/Diff, Automatedon 05-03 Absolute Lymph 2.28 X10 3/uL Normal 0.83-4.51 [facility] Comment on above: Performed By: #### L 100.0100, L501.2450, L500.4050 #### [facility] [address] [place], [address] Absolute Neut 3.2 X10 3/uL Normal 2.0-7.7 [facility] Comment on above: Performed By: #### L 100.0100, L501.2450, L500.4050 #### [facility] [address] [place], [address] Basophils/100 WBC (Bld) 1.0 % Normal 0-1 [facility] Comment on above: Performed By: #### L 100.0100, L501.2450, L500.4050 #### [facility] [address] [place], [address] Eosinophils/100 WBC (Bld) 2.3 % Normal 0-5 [facility] Comment on above: Performed By: #### L 100.0100, L501.2450, L500.4050 #### [facility] [address] [place], [address] Erythrocyte distribution width (RBC) [Ratio] 13.6 % Normal 11.6-14.6 [facility] Comment on above: Performed By: #### L 100.0100, L501.2450, L500.4050 #### [facility] [address] [place], [address] Hematocrit (Bld) [Volume fraction] 39.4 % Normal 37-47 [facility] Comment on above: Performed By: #### L 100.0100, L501.2450, L500.4050 #### [facility] [address] [place], [address] Hemoglobin (Bld) [Mass/Vol] 13.2 g/dL Normal 12.0-15.0 [facility] Comment on above: Performed By: #### L 100.0100, L501.2450, L500.4050 #### [facility] [address] [place], [address] IG% 0.700 Normal 0.0-0.9 [facility] Comment on above: Result Comment: IG% - Immature Granulocytes (promyelocytes, myelocytes and metamyelocytes) > 1% indicates that a LEFT SHIFT is Present. Performed By: #### L 100.0100, L501.2450, L500.4050 #### [facility] [address] [place], [address] Lymphocytes/100 WBC (Bld) 37.1 % Normal 19-41 [facility] Comment on above: Performed By: #### L 100.0100, L501.2450, L500.4050 #### [facility] [address] [place], [address] MCH (RBC) [Entitic mass] 31.2 pg Normal 27.0-32.0 [facility] Comment on above: Performed By: #### L 100.0100, L501.2450, L500.4050 #### [facility] [address] [place], [address] MCHC (RBC) [Mass/Vol] 33.5 g/dL Normal 32-36 [facility] Comment on above: Performed By: #### L 100.0100, L501.2450, L500.4050 #### [facility] [address] [place], [address] MCV (RBC) [Entitic vol] 93.1 fL Normal 81-99 [facility] Comment on above: Performed By: #### L 100.0100, L501.2450, L500.4050 #### [facility] [address] [place], [address] Monocytes/100 WBC (Bld) 6.3 % Normal 0-10 [facility] Comment on above: Performed By: #### L 100.0100, L501.2450, L500.4050 #### [facility] [address] [place], [address] Neutrophils/100 WBC (Bld) 52.6 % Normal 47-70 [facility] Comment on above: Performed By: #### L 100.0100, L501.2450, L500.4050 #### [facility] [address] [place], [address] Nucleated RBC (Bld) [#/Vol] 0 10*3/uL Normal 0-5 [facility] Comment on above: Performed By: #### L 100.0100, L501.2450, L500.4050 #### [facility] [address] [place], [address] Platelet mean volume (Bld) [Entitic vol] 10.7 fL Normal 6.2-12.0 [facility] Comment on above: Performed By: #### L 100.0100, L501.2450, L500.4050 #### [facility] [address] [place], [address] Platelets (Bld) [#/Vol] 334 10*3/uL Normal 150-450 [facility] Comment on above: Performed By: #### L 100.0100, L501.2450, L500.4050 #### [facility] [address] [place], [address] RBC (Bld) [#/Vol] 4.23 10*6/uL Normal 4.2-5.4 [facility] Comment on above: Performed By: #### L 100.0100, L501.2450, L500.4050 #### [facility] [address] [place], [address] RDW SD 46.3 fl High 35.1-43.9 [facility] Comment on above: Performed By: #### L 100.0100, L501.2450, L500.4050 #### [facility] [address] [place], [address] WBC (Bld) [#/Vol] 6.2 10*3/uL Normal 4.4-11.0 [facility] Comment on above: Performed By: #### L 100.0100, L501.2450, L500.4050 #### [facility] [address] [place], [address] Comprehensive Metabolic Prof ilon 05-28-2024 Albumin [Mass/Vol] 4.3 g/dL Normal 3.5-5.0 [facility] Comment on above: Performed By: #### L 100.0100, L501.2450, L500.4050 #### [facility] [address] [place], [address] Albumin/Globulin [Mass ratio] 1.8 {ratio} Normal 0.9-2.4 [facility] Comment on above: Performed By: #### L 100.0100, L501.2450, L500.4050 #### [facility] [address] [place], [address] ALK PHOS 119 U/L High 35-104 [facility] Comment on above: Performed By: #### L 100.0100, L501.2450, L500.4050 #### [facility] [address] [place], [address] ALT [Catalytic activity/Vol] 27 U/L Normal <=34 [facility] Comment on above: Performed By: #### L 100.0100, L501.2450, L500.4050 #### [facility] [address] [place], [address] Anion gap [Moles/Vol] 10 mmol/L Normal 5-15 [facility] Comment on above: Performed By: #### L 100.0100, L501.2450, L500.4050 #### [facility] [address] [place], [address] AST [Catalytic activity/Vol] 25 U/L Normal <=31 [facility] Comment on above: Performed By: #### L 100.0100, L501.2450, L500.4050 #### [facility] [address] [place], [address] Bilirubin [Mass/Vol] 0.54 mg/dL Normal 0.00-1.30 [facility] Comment on above: Performed By: #### L 100.0100, L501.2450, L500.4050 #### [facility] [address] [place], [address] BUN/CRE 12.2 RATIO Normal 10-20 [facility] Comment on above: Performed By: #### L 100.0100, L501.2450, L500.4050 #### [facility] [address] [place], [address] Calcium [Mass/Vol] 9.2 mg/dL Normal 7.6-11.0 [facility] Comment on above: Performed By: #### L 100.0100, L501.2450, L500.4050 #### [facility] [address] [place], [address] Chloride [Moles/Vol] 102 mmol/L Normal 96-108 [facility] Comment on above: Performed By: #### L 100.0100, L501.2450, L500.4050 #### [facility] [address] [place], [address] CO2 [Moles/Vol] 26.1 mmol/L Normal 22.0-29.0 [facility] Comment on above: Performed By: #### L 100.0100, L501.2450, L500.4050 #### [facility] [address] [place], [address] Creatinine [Mass/Vol] 0.6 mg/dL Normal 0.6-1.0 [facility] Comment on above: Performed By: #### L 100.0100, L501.2450, L500.4050 #### [facility] [address] [place], [address] ECRCL 113.18 ml/min Normal [facility] Comment on above: Performed By: #### L 100.0100, L501.2450, L500.4050 #### [facility] [address] [place], [address] GFR/1.73 sq M.predicted among non-blacks MDRD (S/P/Bld) [Vol rate/Area] 110 mL/min/{1.73_m2} Normal >60 [facility] Comment on above: Result Comment: mL/m in/1.73m2 CKD-EPI Creatinine Equation (2020) Performed By: #### L 100.0100, L501.2450, L500.4050 #### [facility] [address] [place], [address] Globulin (S) [Mass/Vol] 2.5 g/dL Normal 2.2-4.2 [facility] Comment on above: Performed By: #### L 100.0100, L501.2450, L500.4050 #### [facility] [address] [place], [address] Glucose [Mass/Vol] 133 mg/dL High 70-99 [facility] Comment on above: Performed By: #### L 100.0100, L501.2450, L500.4050 #### [facility] [address] [place], [address] Potassium [Moles/Vol] 3.7 mmol/L Normal 3.3-5.1 [facility] Comment on above: Performed By: #### L 100.0100, L501.2450, L500.4050 #### [facility] [address] [place], [address] Sodium [Moles/Vol] 138 mmol/L Normal 133-145 [facility] Comment on above: Performed By: #### L 100.0100, L501.2450, L500.4050 #### [facility] [address] [place], [address] T PROT 6.8 g/dL Normal 5.9-8.4 [facility] Comment on above: Performed By: #### L 100.0100, L501.2450, L500.4050 #### [facility] [address] [place], [address] Urea nitrogen [Mass/Vol] 7 mg/dL Normal 4-19 [facility] Comment on above: Performed By: #### L 100.0100, L501.2450, L500.4050 #### [facility] [address] [place], [address] Emergency Department Summary on 05-28-2024 Emergency Department Summary [facility] Medical Records Department [address] [place] [address] Emergency Department Summary 05/28/24 MR#: [id number] Acct: [id number] Name: LEONORA CAM Rep #: [id number] : 1970 53 From: Bony Gates MD PCP: Dr. Neri Grace MD Status:REG ER Location: ED HPI HPI - GI History of Present Illness Chief Complaint: Abd Pain Narrative Narrative: 53-year-old female past medical history of remote gastric bypass surgery in [place] in December of last year, approximately 4 months ago, presents with epigastric pain that she has had for the last few months. She states that she has had decreased p.o. intake, and epigastric pain that has been worsening. She presents to the emergency department today because it is the worst its ever been. She denies any fevers or chills. She is slightly nauseated at times. However, given her bypass surgery she cannot vomit. Other past prior abdominal surgery includes cholecystectomy. She had the bypass surgery secondary to uncontrolled type 2 diabetes. She states that after her surgery, her blood sugars have been controlled and she has been taken off medications. She presents because of the epigastric pain that she is having that sometimes radiates into her chest. [facility] Medical History Diabetes Home Medications ???Medication ???Instructions ???Recorded ???Last Taken ???Type flash glucose sensor (FreeStyle 05/28/24 Unknown History Guzman 2 Sensor kit) fluticasone propionate 50 1 spray intranasal QHS PRN PRN Unknown History mcg/actuation nasal allergies spray,suspension pantoprazole 40 mg tablet,delayed 40 mg PO DAILY 05/28/24 Unknown H istory release Allergy/AdvReac Type Severity Reaction Status Date / Time prednisone Allergy Rash Verified 05/28/24 12:43 Seasonal Allergies: Uncoded Allergy Itching Verified 05/28/24 12:43 codeine AdvReac Upset Verified 05/28/24 12:43 Stomach doxycycline AdvReac Vomiting Verified 05/28/24 12:43 Surgical History S/P gastric bypass History of tonsillectomy History of tubal ligation History of foot surgery History of cholecystectomy Social History Smoking Status: Never smoker ROS ROS ED ROS Narrative Constitutional: No fever, no chills. HEENT: No sore throat. No neck pain. No loss of vision. No rhinorrhea. Cardiovascular: Epigastric abdominal pain radiating upwards into chest. No palpitations. No pedal edema. Respiratory: No cough, no shortness of breath. Abdominal: Epigastric abdominal pain. Positive nausea. No vomiting. Genitourinary: No dysuria. No hematuria. Musculoskeletal: No myalgias. No arthralgias. Neurologic: No headaches. No dizziness. No lightheadedness. Psychiatric: No depression. No anxiety. EXAM Physical Exam Narrative Exam Narrative: Afebrile. Vital signs noted. Nontoxic-appearing. Cardiovascular examination reveals a regular rate and rhythm. Lungs are clear to auscultation bilaterally. The abdomen is soft with mild epigastric tenderness, no pain in the right upper quadrant, no guarding or rebound. Positive bowel sounds. Neurological examination nonfocal and nonlateralizing. Const Vital Signs: 05/28/24 12:40 05/28/24 14:40 Temperature 98.1 F Temperature Source Temporal Pulse Rate 72 65 Respiratory Rate 15 18 Blood Pressure 138/98 H 154/87 H Blood Pressure Mean 111 109 Pulse Ox 100 99 Oxygen Delivery Method Room Air Room Air MDM MDM MDM Narrative Medical decision making narrative: Differential diagnosis includes but not limited to acute pancreatitis versus esophagitis and GERD versus partial bowel obstruction versus bypass leak. I have low concern for coronary artery disease/ACS. However EKG will be obtained. I do not feel that she requires a troponin because she is not having chest pain and it is more epigastric radiating upward. She was administered morphine and ondansetron and p.o. and IV contrast will be administered for the CT imaging of the abdomen and pelvis. EKG was obtained and interpreted by myself independently as sinus bradycardia at [address] changes. No STEMI. I reviewed her laboratory work and she has normal white count of 6.2 with hemoglobin normal at 13.2, hematocrit 39.4, and platelet count normal at 334. CMP is grossly unremarkable except for slightly elevated alk phos of 119 which I think is nonspecific, normal AST and ALT. Sodium normal at 138 with potassium 3.7, BUN normal at 7 with creatinine 0.6, no evidence of dehydration. Lipase is normal at 18 so I doubt pancreatitis. I reviewed the radiology report of the CT of the abdomen and pelvis with p.o. and IV contrast. The (more content not included)... Normal [facility] Lipaseon 05-28-2024 Lipase [Catalytic activity/Vol] 18 U/L Normal 13-75 [facility] Comment on above: Result Comment: Zaria lee note: LIPASE revised reference range effective 22. New Lipase methodology. Expected to produce lower values than the previous assay method. NEW Reference Range: 13 - 75 U/L Performed By: #### L 100.0100, L501.2450, L500.4050 #### [facility] [address] [place], [address] 25(OH)D3 [facility] 2024 25-hydroxyvitamin D3 [Mass/Vol] 58.0 ng/mL Normal 31.0-80.0 [facility] Comment on above: Order Comment: Speci men Type: BLOOD SPECIMENOrdering Facility: [facility] Address: [address] [place] [address] Result Comment: Clas sification of 25 [place] Vitamin D status: Deficiency/Insufficiency: < or = 30 ng/ml. Sufficiency/Optimal Levels: 31-80 ng/mL Toxicity: > 100 ng/mL. Test performed by chemiluminescent immunoassay. Performed By: #### 1 989-3 ####[facility] [id number] [place] [address] [place] ALBUMIN/CREATININE RATIO, UR INEon 04-08-2024 Albumin DL <= 20 mg/L (U) [Mass/Vol] mg/dL Normal [facility] Comment on above: Order Comment: Speci men Type: URINE SPECIMENOrdering Facility: [facility] Address: [address] [place] [address] Performed By: #### U ACR ####[facility] [id number] [address] [place] Albumin/Creatinine (U) [Mass ratio] <10 Normal <30 [facility] Comment on above: Order Comment: Speci men Type: URINE SPECIMENOrdering Facility: [facility] Address: [address] [place] [address] Result Comment: Adul t Male and Female Nephrotic Criteria: <30 mg/g is considered normal to mildly increased 30-300 mg/g is considered moderately increased >300 mg/g is considered severely increased KDIGO. (2013). KDIGO 2012 Clinical Practice Guideline for the Evaluation and Management of Chronic Kidney Disease. Official Journal of the International Society of Nephrology, 3(1), 1-150. Performed By: #### U ACR ####[facility] [id number] [place] [id number] [place] Creatinine (U) [Mass/Vol] 126.0 mg/dL Normal 20.0-300.0 [facility] Comment on above: Order Comment: Speci men Type: URINE SPECIMENOrdering Facility: [facility] Address: [address] [place] [address] Performed By: #### U ACR ####[facility] [id number] [place] [id number] [place] CBC panel Auto (Bld)on 04-08 Erythrocyte distribution width (RBC) [Ratio] 13.5 % 11.5 - 15.0 % [facility] Hematocrit (Bld) [Volume fraction] 42.5 % 36.0 - 46.0 % [facility] Hemoglobin (Bld) [Mass/Vol] 13.6 g/dL 11.5 - 15.5 g/dL [facility] Interpretation and review of laboratory results Abnormal [facility] MCH (RBC) [Entitic mass] 29.6 pg 26.0 - 34.0 pg [facility] MCHC (RBC) [Mass/Vol] 32.0 g/dL 30.5 - 36.0 g/dL [facility] MCV (RBC) [Entitic vol] 92.4 fL 80.0 - 100.0 fL [facility] Nucleated RBC (Bld) [#/Vol] NINF [facility] Platelet mean volume (Bld) [Entitic vol] 10.4 fL 9.0 - 12.7 fL [facility] Platelets (Bld) [#/Vol] 437 10*3/uL High [facility] RBC (Bld) [#/Vol] 4.60 10*6/uL 3.90 - 5.2 0 m/uL [facility] WBC (Bld) [#/Vol] 9.19 10*3/uL [facility] Erythrocyte distribution width (RBC) [Ratio] 13.5 % Normal 11.5-15.0 [facility] Comment on above: Order Comment: Speci men Type: BLOOD SPECIMENOrdering Facility: [facility] Address: [address] [place] [address] Performed By: #### 5 8410-2 ####[facility] [id number] [place] [address] [place] Hematocrit (Bld) [Volume fraction] 42.5 % Normal 36.0-46.0 [facility] Comment on above: Order Comment: Speci men Type: BLOOD SPECIMENOrdering Facility: [facility] Address: [address] [place] [address] Performed By: #### 5 8410-2 ####[facility] [id number] [place] [address] [place] Hemoglobin (Bld) [Mass/Vol] 13.6 g/dL Normal 11.5-15.5 [facility] Comment on above: Order Comment: Speci men Type: BLOOD SPECIMENOrdering Facility: [facility] Address: [address] [place] [address] Performed By: #### 5 8410-2 ####[facility] [id number] [place] [address] [place] MCH (RBC) [Entitic mass] 29.6 pg Normal 26.0-34.0 [facility] Comment on above: Order Comment: Speci men Type: BLOOD SPECIMENOrdering Facility: [facility] Address: [address] [place] [address] Performed By: #### 5 8410-2 ####[facility] [id number] [place] [address] [place] MCHC (RBC) [Mass/Vol] 32.0 g/dL Normal 30.5-36.0 [facility] Comment on above: Order Comment: Speci men Type: BLOOD SPECIMENOrdering Facility: [facility] Address: [address] [place] [address] Performed By: #### 5 8410-2 ####[facility] [id number] [place] [address] [place] MCV (RBC) [Entitic vol] 92.4 fL Normal 80.0-100.0 [facility] Comment on above: Order Comment: Speci men Type: BLOOD SPECIMENOrdering Facility: [facility] Address: [address] [place] [address] Performed By: #### 5 8410-2 ####[facility] [id number] [place] [address] [place] Nucleated RBC (Bld) [#/Vol] 10*3/uL Normal <0.01 [facility] Comment on above: Order Comment: Speci men Type: BLOOD SPECIMENOrdering Facility: [facility] Address: [address] [place] [address] Performed By: #### 5 8410-2 ####[facility] [id number] [place] [address] [place] Platelet mean volume (Bld) [Entitic vol] 10.4 fL Normal 9.0-12.7 [facility] Comment on above: Order Comment: Speci men Type: BLOOD SPECIMENOrdering Facility: [facility] Address: [address] [place] [address] Performed By: #### 5 8410-2 ####[facility] [id number] [place] [address] [place] Platelets (Bld) [#/Vol] 437 10*3/uL High 150-400 [facility] Comment on above: Order Comment: Speci men Type: BLOOD SPECIMENOrdering Facility: [facility] Address: [address] [place] [address] Performed By: #### 5 8410-2 ####[facility] [id number] [place] [address] [place] RBC (Bld) [#/Vol] 4.60 10*6/uL Normal 3.90-5.20 [facility] Comment on above: Order Comment: Speci men Type: BLOOD SPECIMENOrdering Facility: [facility] Address: [address] [id number] Performed By: #### 5 8410-2 ####[facility] [id number] [place] [id number] [place] WBC (Bld) [#/Vol] 9.19 10*3/uL Normal 3.70-11.00 [facility] Comment on above: Order Comment: Speci men Type: BLOOD SPECIMENOrdering Facility: [facility] Address: [address] [id number] Performed By: #### 5 8410-2 ####[facility] [id number] [place] [id number] [place] CNOVon 04-08-2024 CNOV Office Visit (INTMWS ) LEONORA CAM ([id number]) 1970 F Date Time Provider Department 04/08/24 11:20 AM NERI GRACE INTMWS During your visit today, we recorded the following information about you: Temperature Pulse Respiration Blood pressure 97.6 degrees 72/minute 18/minute 120/72 Weight Height 90.9 kg 1.6 m Neri Grace MD 04/08/2024 4:04 PM Signed This note was created using [employer]. Subjective Patient presents with: Follow Up Immunizations: Flu vaccination Leonora Cam is a 53 year old female here for long overdue follow up. She enrolled in the bariatric program last year, and had gastric bypass . She had lost 48 pounds since last seen here in September 2022. She felt well and was advised to do a diabetic follow up here. Since her surgery, her glucoses were controlled without medication and she stopped taking glipizide in January. She had been dealing with significant postnasal drainage that was interfering with her nutritional intake. She was taking loratadine as needed, and Tylenol Sinus regularly with some relief. Review of Systems Constitutional: Negative for fatigue, fever and unexpected weight change. HENT: Negative for congestion and trouble swallowing. Eyes: Negative for visual disturbance. Respiratory: Negative for cough and shortness of breath. Cardiovascular: Negative for chest pain, palpitations and leg swelling. Gastrointestinal: Negative for abdominal pain, diarrhea, nausea and vomiting. Neurological: Negative for dizziness, numbness and headaches. ACTIVE PROBLEM LIST Type 2 Diabetes Mellitus Without Complication, Without Long-Term Current Use of Insulin ([facility]) Obesity, Class III, BMI >= 40 Seasonal Allergies Gerd (Gastroesophageal Reflux Disease) History of Covid-19 S/P Gastric Bypass PAST SURGICAL HISTORY Procedure Laterality Date LAPAROSCOP GASTRIC BYPASS 01/01/2024 korin en y LIGATE FALLOPIAN TUBE 2000 PAST SURGICAL HISTORY OF 2015 clamp in R foot (bone shattered) REMOVAL GALLBLADDER 2015 TONSILLECTOMY AND ADENOIDECTOMY Social History Tobacco Use Smoking status: Never Passive exposure: Current Smokeless tobacco: Never Vaping Use Vaping status: Never Used Substance Use Topics Alcohol use: Not Currently Drug use: Never FAMILY HISTORY Problem Relation Age of Onset Heart Mother Diabetes Mother COPD Mother Asthma Mother Kidney Disease Mother Stroke Mother Heart Failure Mother Stroke Father Diabetes Father Heart Father 34 Diabetes Sister 56 type 1 Diabetes Brother Prediabetes Asthma Brother MVA other (Maria Guadalupe sydrome) Brother 2 Diabetes Maternal Grandmother Alzheimer's Disease Maternal Grandmother Prostate Cancer Maternal Grandfather Heart Paternal Grandmother Diabetes Paternal Grandmother Lung Cancer Paternal Grandfather DVT No Family History Current Outpatient Medications Medication Sig pantoprazole DR (PROTONIX) 40 mg tablet Take 1 tablet by mouth once daily. glipiZIDE (GLUCOTROL XL) 10mg 24 hr tablet Take 1 tablet by mouth once daily. flash glucose sensor (FREESTYLE GUZMAN 14 DAY SENSOR) kit 1 Each two times a day. DX E11.65 Insulin No ondansetron orally disintegrating (ZOFRAN ODT) 4 mg disintegrating tablet Take 1 tablet by mouth every 12 hours as needed for nausea/vomiting. fluticasone (FLONASE) 50 mcg/actuation nasal spray Use 1 [place] in each nostril at bedtime as needed for cold/allergy symptoms. As needed No current facility-administered medications for this visit. Objective BP 120/72 (BP Site: Left Arm, BP Position: Sitting, BP Cuff Size: Large Adult) Pulse 72 Temp 36.4 ?C (97.6 ?F) (Temporal) Resp 18 Ht 160 cm (5' 3) Wt 90.9 kg (200 lb 6.4 oz) BMI 35.50 kg/m? Physical Exam Constitutional: General: She is not in acute distress. Appearance: She is not ill-appearing. HENT: Head: Normocephalic. Nose: Mucosal edema present. Right Turbinates: Swollen. Left Turbinates: Swollen. Right Sinus: No maxillary sinus tenderness or frontal sinus tenderness. Left Sinus: No maxillary sinus tenderness or frontal sinus tenderness. Mouth/Throat: Pharynx: Oropharynx is clear. No oropharyngeal exudate or posterior oropharyngeal erythema. Eyes: General: No scleral icterus. Conjunctiva/sclera: Conjunctivae normal. Cardiovascular: Rate and Rhythm: Normal rate and regular rhythm. Heart sounds: S1 normal and S2 normal. No murmur heard. Pulmonary: Breath sounds: Normal breath sounds. Abdominal: Palpations: Abdomen is soft. There is no mass. Tenderness: There is no abdominal tenderness. Musculoskeletal: Right lower leg: No edema. Left lower leg: No edema. Neurological: General: No focal deficit present. Mental Status: She is alert. Psychiatric: Mood and Affect: Mood normal. Feet:Shoes and socks removed, No deformities, ulcers, callus (more content not included)... Normal [facility] Comprehensive metabolic 2000 panelon 04-08-2024 Albumin [Mass/Vol] 4.2 g/dL Normal 3.9-4.9 [facility] Comment on above: Order Comment: Rigo villarreal Type: BLOOD SPECIMENOrdering Facility: [facility] Address: [address] [place] [address] Performed By: #### 2 4331-1, 2276-4, 01873-3 ####[facility] [id number] [facility] [id number] [place] [address] [place] ALP [Catalytic activity/Vol] 116 U/L Normal 34-123 [facility] Comment on above: Order Comment: Rigo villarreal Type: BLOOD SPECIMENOrdering Facility: [facility] Address: [address] [place] [address] Performed By: #### 2 4331-1, 4, ####[facility] [id number] [place] [address] [place] ALT [Catalytic activity/Vol] 33 U/L Normal 7-38 [facility] Comment on above: Order Comment: Speci men Type: BLOOD SPECIMENOrdering Facility: [facility] Address: [address] [place] [address] Performed By: #### 2 4331-1, 2275-07, ####[facility] [id number] [place] [address] [place] Anion gap [Moles/Vol] 12 mmol/L Normal 8-15 [facility] Comment on above: Order Comment: Speci men Type: BLOOD SPECIMENOrdering Facility: [facility] Address: [address] [place] [address] Performed By: #### 2 4331-1, 2275-07, ####[facility] [id number] [place] [address] [place] AST [Catalytic activity/Vol] 28 U/L Normal 13-35 [facility] Comment on above: Order Comment: Speci men Type: BLOOD SPECIMENOrdering Facility: [facility] Address: [address] [place] [address] Performed By: #### 2 4331-1, 2275-07, 81712-1 ####[facility] [id number] [place] [address] [place] Bilirubin [Mass/Vol] 0.4 mg/dL Normal 0.2-1.3 [facility] Comment on above: Order Comment: Speci men Type: BLOOD SPECIMENOrdering Facility: [facility] Address: [address] [place], [place] [address] Performed By: #### 2 4331-1, 2275-07, ####[facility] [id number] [address] [address] [place] Calcium [Mass/Vol] 9.4 mg/dL Normal 8.5-10.2 [facility] Comment on above: Order Comment: Speci men Type: BLOOD SPECIMENOrdering Facility: [facility] Address: [address] [place] [address] Performed By: #### 2 4331-1, 2275-07, ####[facility] [id number] [place] [address] [place] Chloride [Moles/Vol] 101 mmol/L Normal 98-107 [facility] Comment on above: Order Comment: Speci men Type: BLOOD SPECIMENOrdering Facility: [facility] Address: [address] [place] [address] Performed By: #### 2 4331-1, 2275-07, ####[facility] [id number] [place] [address] [place] CO2 [Moles/Vol] 26 mmol/L Normal 22-30 [facility] Comment on above: Order Comment: Speci men Type: BLOOD SPECIMENOrdering Facility: [facility] Address: [address] [place], [place] [address] Performed By: #### 2 4331-1, 2275-07, ####[facility] [id number] [address] [address] [place] Creatinine [Mass/Vol] 0.56 mg/dL Low 0.58-0.96 [facility] Comment on above: Order Comment: Speci men Type: BLOOD SPECIMENOrdering Facility: [facility] Address: [address] [place], [place] [address] Performed By: #### 2 4331-1, 2275-07, ####[facility] [id number] [place] [address] [place] Creatinine and Glomerular filtration rate.predicted panel (S/P/Bld) 110 mL/min/1.73m??? Normal >=60 [facility] Comment on above: Order Comment: Rigo villarreal Type: BLOOD SPECIMENOrdering Facility: [facility] Address: [address] [place] [address] Result Comment: Elise mated Glomerular Filtration Rate (eGFR) is calculated using the 2020 CKD-EPI creatinine equation. This equation utilizes serum creatinine, sex, and age as parameters. The creatinine assay has traceable calibration to isotope dilution-mass spectrometry. Refer to KDIGO guidelines for clinical interpretation. In patients with unstable renal function, e.g. those with acute kidney injury, the eGFR may not accurately reflect actual GFR. Performed By: #### 2 4331-1, 2276-4, 95233-0 ####[facility] [id number] [place] [address] [place] Glucose [Mass/Vol] 106 mg/dL High 74-99 [facility] Comment on above: Order Comment: Rigo villarreal Type: BLOOD SPECIMENOrdering Facility: [facility] Address: [address] [place] [address] Result Comment: The [place] Diabetes Association (ADA) provides guidance for cutoff values for fasting glucose and random glucose. The ADA defines fasting as no caloric intake for at least 8 hours. Fasting plasma glucose results between 100 to 125 mg/dL indicate increased risk for diabetes (prediabetes). Fasting plasma glucose results greater than or equal to 126 mg/dL meet the criteria for diagnosis of diabetes. In the absence of unequivocal hyperglycemia, results should be confirmed by repeat testing. In a patient with classic symptoms of hyperglycemia or hyperglycemic crisis, random plasma glucose results greater than or equal to 200 mg/dL meet the criteria for diagnosis of diabetes. Reference: Standards of Medical Care in Diabetes 2016, [place] Diabetes Association. Diabetes Care. 2016.39(Suppl 1). Performed By: #### 2 4331-1, 2276-4, 50855-0 ####[facility] [id number] [address] [address] [place] Potassium [Moles/Vol] 4.3 mmol/L Normal 3.7-5.1 [facility] Comment on above: Order Comment: Speci men Type: BLOOD SPECIMENOrdering Facility: [facility] Address: [address] [place] [address] Performed By: #### 2 4331-1, 2275-07, ####[facility] [id number] [address] [address] [place] Protein [Mass/Vol] 7.0 g/dL Normal 6.3-8.0 [facility] Comment on above: Order Comment: Speci men Type: BLOOD SPECIMENOrdering Facility: [facility] Address: [address] [place] [address] Performed By: #### 2 4331-1, 2275-07, ####[facility] [id number] [place] [address] [place] Sodium [Moles/Vol] 139 mmol/L Normal 136-144 [facility] Comment on above: Order Comment: Speci men Type: BLOOD SPECIMENOrdering Facility: [facility] Address: [address] [place] [address] Performed By: #### 2 4331-1, 2275-07, ####[facility] [id number] [address] [address] [place] Urea nitrogen [Mass/Vol] 11 mg/dL Normal 7-21 [facility] Comment on above: Order Comment: Speci men Type: BLOOD SPECIMENOrdering Facility: [facility] Address: [address] [place] [address] Performed By: #### 2 4331-1, 2275-07, ####[facility] [id number] [address] [address] [place] Ferritin SerPl-mCncon 2024 Ferritin [Mass/Vol] 232.0 ng/mL High 14.7-205.1 [facility] Comment on above: Order Comment: Speci men Type: BLOOD SPECIMENOrdering Facility: [facility] Address: [address] [place] [address] Performed By: #### 2 4331-1, 2276-4, 82450-8 ####[facility] [id number] [place] [address] [place] Folate SerPl-mCncon 04-08-19 25 Folate [Mass/Vol] ng/mL Normal >4.7 [facility] Comment on above: Order Comment: Rigo [facility] Type: BLOOD SPECIMENOrdering Facility: [facility] Address: [address] [place] [address] Result Comment: A re sult of > 20 ng/mL is not necessarily indicative of a pathologic or treatable condition: it reflects a limitation of the test methodology. Assay reference range: 4.8 to 24.2 ng/mL. Suitable for detection of folate deficiency. Reference: Folate III (Folate III) [package insert V 1.0 Dutch]. [facility], [place], [place]: January 2015. Performed By: #### 2 284-8, 2132-9 ####[facility] [id number] [place] [address] [place] HbA1c (Bld)on 04-08-2024 Average glucose Estimated from glycated hemoglobin (Bld) [Mass/Vol] 131 mg/dL Normal [facility] Comment on above: Order Comment: Speci men Type: BLOOD SPECIMENOrdering Facility: [facility] Address: [address] [place] [address] Result Comment: eAG: (Estimated average glucose) is a calculated value from HgbA1c and is parts sales representative of the average blood glucose level in the last 2-3 month period. Performed By: #### 5 5454-3 ####[facility] [id number] [place] [address] [place] HbA1c (Bld) [Mass fraction] 6.2 % High 4.3-5.6 [facility] Comment on above: Order Comment: Rigo villarreal Type: BLOOD SPECIMENOrdering Facility: [facility] Address: [address] [place] [address] Result Comment: [place] Diabetes Association guidelines indicate that patients with HgbA1c in the range 5.7-6.4% are at increased risk for development of diabetes, and intervention by lifestyle modification may be beneficial. HgbA1c greater or equal to 6.5% is considered diagnostic of diabetes. Performed By: #### 5 5454-3 ####[facility] [id number] [place] [address] [place] Lipid 1996 panelon 5 Cholesterol [Mass/Vol] 172 mg/dL Normal <200 [facility] Comment on above: Order Comment: Rigo villarreal Type: BLOOD SPECIMENOrdering Facility: [facility] Address: [address] [place] [address] Result Comment: <200 mg/dL, Desirable 200-239 mg/dL, Borderline high >239 mg/dL, High Performed By: #### 2 4331-1, 2275-07, ####[facility] [id number] [place] [address] [place] Cholesterol in HDL [Mass/Vol] 49 mg/dL Normal >39 [facility] Comment on above: Order Comment: Rigo villarreal Type: BLOOD SPECIMENOrdering Facility: [facility] Address: [address] [place] [address] Result Comment: 40-5 9 mg/dL, Acceptable >59 mg/dL, High: Negative risk factor for coronary heart disease <40 mg/dL, Low: Positive risk factor for coronary heart disease Performed By: #### 2 4331-1, 2275-07, ####[facility] [id number] [place] [address] [place] Cholesterol in LDL [Mass/Vol] 94 mg/dL Normal <100 [facility] Comment on above: Order Comment: Nataliei men Type: BLOOD SPECIMENOrdering Facility: [facility] Address: [address] [place] [address] Result Comment: <100 mg/dL, Optimal 100-129 mg/dL, Near optimal/above optimal 130-159 mg/dL, Borderline high 160-189 mg/dL, High >189 mg/dL, Very high Secondary prevention optimal LDL Cholesterol levels are recommended to be < 70 mg/dL Performed By: #### 2 4331-1, 2275-4, 87284-6 ####[facility] [id number] [address] [place] Cholesterol in LDL/Cholesterol in HDL [Mass ratio] 1.92 {ratio} Normal <2.54 [facility] Comment on above: Order Comment: Rigo villarreal Type: BLOOD SPECIMENOrdering Facility: [facility] Address: [address] [place] [address] Result Comment: Refe juance: 1. National Cholesterol Education Program ATP III Guideline At-A-Glance Quick Desk Reference: National Heart, Lung, and Blood [place]. National Institutes of Health. 2001: NIH Publication No. 01-3305. 2. An International Atherosclerosis Society position paper: global recommendations for the management of dyslipidemia: executive summary, Atherosclerosis. 2014: 232(2):410-413. Performed By: #### 2 4331-1, 2275-, 72496-2 ####[facility] [id number] [place] [address] [place] Cholesterol in VLDL [Mass/Vol] 29 mg/dL Normal <30 [facility] Comment on above: Order Comment: Rigo villarreal Type: BLOOD SPECIMENOrdering Facility: [facility] Address: [address] [place] [address] Performed By: #### 2 4331-1, 2275-4, 19565-2 ####[facility] [id number] [place] [id number] [place] Cholesterol non HDL [Mass/Vol] 123 mg/dL Normal <130 [facility] Comment on above: Order Comment: Speci men Type: BLOOD SPECIMENOrdering Facility: [facility] Address: [address] [place] [address] Result Comment: <130 mg/dL, Optimal 130-159 mg/dL, Near optimal/above optimal 160-189 mg/dL, Borderline high 190-219 mg/dL, High >219 mg/dL, Very high Secondary prevention optimal non HDL Cholesterol levels are recommended to be <100 mg/dL Performed By: #### 2 4331-1, 6-4, 18626-9 ####[facility] [id number] [place] [address] [place] Cholesterol.total/Ch olesterol in HDL [Mass ratio] 3.51 {ratio} Normal <5.10 [facility] Comment on above: Order Comment: Speci men Type: BLOOD SPECIMENOrdering Facility: [facility] Address: [address] [place] [address] Performed By: #### 2 4331-1, 2275-4, 89195-4 ####[facility] [id number] [address] [place] FASTING TIME 12 hrs Normal [facility] Comment on above: Order Comment: Speci men Type: BLOOD SPECIMENOrdering Facility: [facility] Address: [address] [place] [address] Performed By: #### 2 4331-1, 2275-4, 36308-3 ####[facility] [id number] [place] [address] [place] Triglyceride [Mass/Vol] 147 mg/dL Normal <150 [facility] Comment on above: Order Comment: Speci men Type: BLOOD SPECIMENOrdering Facility: [facility] Address: [address] [place] [address] Result Comment: <150 mg/dL, Normal 150-199 mg/dL, Borderline high 200-499 mg/dL, High >499 mg/dL, Very high Performed By: #### 2 4331-1, 2276-4, 35410-7 ####[facility] [id number] [place] [id number] [place] VITAMIN B1 (THIAMINE), WHOLE BLOODon 04-08-2024 Thiamine (Bld) [Moles/Vol] 248.1 nmol/L High 84.3-213.3 [facility] Comment on above: Order Comment: Specharjit villarreal Type: BLOOD SPECIMENOrdering Facility: [facility] Address: [address] [place] [address] Result Comment: This assay measures the concentration of thiamine diphosphate (TDP), the primary active form of vitamin B1. Approximately 90 percent of vitamin B1 present in whole blood is TDP. Thiamine and thiamine monophosphate, which comprise the remaining 10 percent, are not measured. This test was developed, and its performance characteristics determined by the [facility] Department of Pathology and Laboratory Medicine. It has not been cleared or approved by the FDA. The [facility] Department of Pathology and Laboratory Medicine is regulated under CLIA as qualified to perform high-complexity testing. This test is used for clinical purposes. It should not be regarded as investigational or for research. Performed By: #### B 1WB ####[facility] [facility] [id number] [place] [address] [place] Vit B12 [facility] 025 Cobalamin (Vitamin B12) [Mass/Vol] 1574 pg/mL High 232-1245 [facility] Comment on above: Order Comment: Rigo villarreal Type: BLOOD SPECIMENOrdering Facility: [facility] Address: [address] [place] [address] Performed By: #### 2 284-8, 2132-9 ####[facility] [id number] [place] [id number] [place] CNPAyana 04-02-2024 CNPN Telephone ([facility]) LEONORA CAM ([id number]) 1970 F Date Time Provider Department 04/02/24 RAOUL EAGLE During your visit today, we recorded the following information about you: Raoul Eagle RN 04/02/2024 3:41 PM Signed BMI SPECIALTY CARE COORDINATION TELEPHONE ENCOUNTER CC placed call to patient to follow up for reports of oral intolerance, dysphagia and abdominal pain. No answer. Left VM and sent MC message. Raoul XIAO RN DDSI/BMI Surgical Sap Bw Bi Developer Raoul Eagle RN 04/02/2024 4:41 PM Signed BMI SPECIALTY CARE COORDINATION TELEPHONE ENCOUNTER Patient returned CC call. Patient c/o post nasal drip and difficulty with oral tolerance. Plan is for patient to resume her prescribed prn allergy medication, make an appointment with her PCP, reschedule with Dr Hill or Basilio + Nutrition + BMI Psychology to catch up with her post op program appointments. Patient will trial non-dairy options as she is noticing that she is having more discomfort with dairy items. CC advised patient to keep a hydration and protein journal for a few days to help her to reaffirm meeting her minimum goals for wellness. Patient to send CC a follow up message tomorrow to report progress. Raoul XIAO RN DD/[facility] Surgical Sap Bw Bi Developer Allergies As of Date: 04/02/2024 Noted Allergy Reaction BEE STING 09/11/2022 7 - Swelling CODEINE 03/13/2022 16 - Unknown DOXYCYCLINE 03/13/2022 8 - GI Upset METFORMIN 03/19/2022 5 - Intolerance Comments: GI upset, diarrhea PREDNISONE 03/13/2022 2 - Rash Date Reviewed: 02/10/2024 Reviewed by: Annie Alvarez RD - Fully Assessed Reason for Visit: Sap Bw Bi Developer - Other [3602] Prescriptions as of 04/02/2024 - pantoprazole DR (PROTONIX) 40 mg tablet Take 1 tablet by mouth once daily. - glipiZIDE (GLUCOTROL XL) 10mg 24 hr tablet Take 1 tablet by mouth once daily. - flash glucose sensor (FREESTYLE GUZMAN 14 DAY SENSOR) kit 1 Each two times a day. DX E11.65 Insulin No - ondansetron orally disintegrating (ZOFRAN ODT) 4 mg disintegrating tablet Take 1 tablet by mouth every 12 hours as needed for nausea/vomiting. - fluticasone (FLONASE) 50 mcg/actuation nasal spray Use 1 [place] in each nostril at bedtime as needed for cold/allergy symptoms. As needed Problem List As Of Date 04/02/2024 Noted Resolved Type 2 diabetes mellitus without complication, * Obesity, Class III, BMI >= 40 [E66.01] 09/11/2022 Seasonal allergies [J30.2] 09/11/2022 GERD (gastroesophageal reflux disease) [K21.9] 12/11/2023 History of COVID-19 [Z86.16] 12/11/2023 Severe obesity (BMI >= 40) ([facility]) [E66.01] 01/01/2024 Encounter Status:Closed by RAOUL EAGLE on 04/02/24 Normal [facility] Basic metabolic 2000 panelon 01-02-2024 Anion gap [Moles/Vol] 14 mmol/L Normal 8-15 [facility] Comment on above: Order Comment: Speci men Type: BLOOD SPECIMENOrdering Facility: [facility] Address: [address] [place] [address] Performed By: #### 2 777-1, 83453-1, ####[facility] [id number] [place] [id number] [place] Calcium [Mass/Vol] 8.5 mg/dL Normal 8.5-10.2 [facility] Comment on above: Order Comment: Speci men Type: BLOOD SPECIMENOrdering Facility: [facility] Address: [address] [place] [address] Performed By: #### 2 777-1, 97040-8, ####[facility] [id number] [place] [address] [place] Chloride [Moles/Vol] 101 mmol/L Normal 98-107 [facility] Comment on above: Order Comment: Speci men Type: BLOOD SPECIMENOrdering Facility: [facility] Address: [address] [place], [place] [address] Performed By: #### 2 777-1, 13038-1, 27585-0 ####[facility] [id number] [place] [id number] [place] CO2 [Moles/Vol] 22 mmol/L Normal 22-30 [facility] Comment on above: Order Comment: Speci men Type: BLOOD SPECIMENOrdering Facility: [facility] Address: [address] [place] [address] Performed By: #### 2 777-1, 80253-2, ####[facility] [id number] [place] [id number] [place] Creatinine [Mass/Vol] 0.48 mg/dL Low 0.58-0.96 [facility] Comment on above: Order Comment: Speci men Type: BLOOD SPECIMENOrdering Facility: [facility] Address: [address] [place] [address] Performed By: #### 2 777-1, 96242-8, ####[facility] [id number] [place] [id number] [place] Creatinine and Glomerular filtration rate.predicted panel (S/P/Bld) 114 mL/min/1.73m??? Normal >=60 [facility] Comment on above: Order Comment: Speci men Type: BLOOD SPECIMENOrdering Facility: [facility] Address: [address] [place] [address] Result Comment: Elise mated Glomerular Filtration Rate (eGFR) is calculated using the 2020 CKD-EPI creatinine equation. This equation utilizes serum creatinine, sex, and age as parameters. The creatinine assay has traceable calibration to isotope dilution-mass spectrometry. Refer to KDIGO guidelines for clinical interpretation. In patients with unstable renal function, e.g. those with acute kidney injury, the eGFR may not accurately reflect actual GFR. Performed By: #### 2 777-1, , ####[facility] [id number] [address] [address] [place] Glucose [Mass/Vol] 203 mg/dL High 74-99 [facility] Comment on above: Order Comment: Rigo villarreal Type: BLOOD SPECIMENOrdering Facility: [facility] Address: [address] [place] [address] Result Comment: The [place] Diabetes Association (ADA) provides guidance for cutoff values for fasting glucose and random glucose. The ADA defines fasting as no caloric intake for at least 8 hours. Fasting plasma glucose results between 100 to 125 mg/dL indicate increased risk for diabetes (prediabetes). Fasting plasma glucose results greater than or equal to 126 mg/dL meet the criteria for diagnosis of diabetes. In the absence of unequivocal hyperglycemia, results should be confirmed by repeat testing. In a patient with classic symptoms of hyperglycemia or hyperglycemic crisis, random plasma glucose results greater than or equal to 200 mg/dL meet the criteria for diagnosis of diabetes. Reference: Standards of Medical Care in Diabetes 2016, [place] Diabetes Association. Diabetes Care. 2016.39(Suppl 1). Performed By: #### 2 777-1, , ####[facility] [id number] [facility] [place] [id number] [place] Potassium [Moles/Vol] 4.4 mmol/L Normal 3.7-5.1 [facility] Comment on above: Order Comment: Rigo villarreal Type: BLOOD SPECIMENOrdering Facility: [facility] Address: [address] [place] [address] Performed By: #### 2 777-1, , ####[facility] [id number] [facility] [address] [address] [place] Sodium [Moles/Vol] 137 mmol/L Normal 136-144 [facility] Comment on above: Order Comment: Speci men Type: BLOOD SPECIMENOrdering Facility: [facility] Address: [address] [place] [address] Performed By: #### 2 777-1, 27273-6, ####[facility] [id number] [address] [address] [place] Urea nitrogen [Mass/Vol] 9 mg/dL Normal 7-21 [facility] Comment on above: Order Comment: Speci men Type: BLOOD SPECIMENOrdering Facility: [facility] Address: [address] [place] [address] Performed By: #### 2 777-1, 38523-3, ####[facility] [id number] [place] [address] [place] CBC W Auto Differential pane l (Bld)on 01-02-2024 Basophils (Bld) [#/Vol] 10*3/uL Normal <0.11 [facility] Comment on above: Order Comment: Speci men Type: BLOOD SPECIMENOrdering Facility: [facility] Address: [address] [place] [address] Performed By: #### 5 7021-8 ####[facility] [id number] [place] [address] [place] Basophils/100 WBC (Bld) 0.1 % Normal [facility] Comment on above: Order Comment: Speci men Type: BLOOD SPECIMENOrdering Facility: [facility] Address: [address] [place] [address] Performed By: #### 5 7021-8 ####[facility] [id number] [place] [address] [place] Differential cell count method Nom (Bld) Auto Normal [facility] Comment on above: Order Comment: Speci men Type: BLOOD SPECIMENOrdering Facility: [facility] Address: [address] [place] [address] Performed By: #### 5 7021-8 ####[facility] [id number] [place] [address] [place] Eosinophils (Bld) [#/Vol] 10*3/uL Normal <0.46 [facility] Comment on above: Order Comment: Speci men Type: BLOOD SPECIMENOrdering Facility: [facility] Address: [address] [place] [address] Performed By: #### 5 7021-8 ####[facility] [id number] [place] [address] [place] Eosinophils/100 WBC (Bld) 0.0 % Normal [facility] Comment on above: Order Comment: Speci men Type: BLOOD SPECIMENOrdering Facility: [facility] Address: [address] [place] [address] Performed By: #### 5 7021-8 ####[facility] [id number] [place] [address] [place] Erythrocyte distribution width (RBC) [Ratio] 12.9 % Normal 11.5-15.0 [facility] Comment on above: Order Comment: Speci men Type: BLOOD SPECIMENOrdering Facility: [facility] Address: [address] [place] [address] Performed By: #### 5 7021-8 ####[facility] [id number] [place] [address] [place] Hematocrit (Bld) [Volume fraction] 43.4 % Normal 36.0-46.0 [facility] Comment on above: Order Comment: Speci men Type: BLOOD SPECIMENOrdering Facility: [facility] Address: [address] [place] [address] Performed By: #### 5 7021-8 ####[facility] [id number] [place] [address] [place] Hemoglobin (Bld) [Mass/Vol] 14.3 g/dL Normal 11.5-15.5 [facility] Comment on above: Order Comment: Speci men Type: BLOOD SPECIMENOrdering Facility: [facility] Address: [address] [place] [address] Performed By: #### 5 7021-8 ####[facility] [id number] [place] [address] [place] Immature granulocytes (Bld) [#/Vol] 0.05 10*3/uL Normal <0.10 [facility] Comment on above: Order Comment: Speci men Type: BLOOD SPECIMENOrdering Facility: [facility] Address: [address] [place] [address] Performed By: #### 5 7021-8 ####[facility] [id number] [place] [address] [place] Immature granulocytes/100 WBC (Bld) 0.5 % Normal [facility] Comment on above: Order Comment: Speci men Type: BLOOD SPECIMENOrdering Facility: [facility] Address: [address] [place] [address] Performed By: #### 5 7021-8 ####[facility] [id number] [place] [address] [place] Lymphocytes (Bld) [#/Vol] 0.85 10*3/uL Low 1.00-4.00 [facility] Comment on above: Order Comment: Speci men Type: BLOOD SPECIMENOrdering Facility: [facility] Address: [address] [place] [address] Performed By: #### 5 7021-8 ####[facility] [id number] [place] [address] [place] Lymphocytes/100 WBC (Bld) 9.1 % Normal [facility] Comment on above: Order Comment: Speci men Type: BLOOD SPECIMENOrdering Facility: [facility] Address: [address] [place] [address] Performed By: #### 5 7021-8 ####[facility] [id number] [place] [address] [place] MCH (RBC) [Entitic mass] 30.4 pg Normal 26.0-34.0 [facility] Comment on above: Order Comment: Speci men Type: BLOOD SPECIMENOrdering Facility: [facility] Address: [address] [place] [address] Performed By: #### 5 7021-8 ####[facility] [id number] [place] [address] [place] MCHC (RBC) [Mass/Vol] 32.9 g/dL Normal 30.5-36.0 [facility] Comment on above: Order Comment: Speci men Type: BLOOD SPECIMENOrdering Facility: [facility] Address: [address] [place] [address] Performed By: #### 5 7021-8 ####[facility] [id number] [place] [address] [place] MCV (RBC) [Entitic vol] 92.3 fL Normal 80.0-100.0 [facility] Comment on above: Order Comment: Speci men Type: BLOOD SPECIMENOrdering Facility: [facility] Address: [address] [place] [address] Performed By: #### 5 7021-8 ####[facility] [id number] [place] [address] [place] Monocytes (Bld) [#/Vol] 0.33 10*3/uL Normal <0.87 [facility] Comment on above: Order Comment: Speci men Type: BLOOD SPECIMENOrdering Facility: [facility] Address: [address] [place] [address] Performed By: #### 5 7021-8 ####[facility] [id number] [place] [address] [place] Monocytes/100 WBC (Bld) 3.5 % Normal [facility] Comment on above: Order Comment: Speci men Type: BLOOD SPECIMENOrdering Facility: [facility] Address: [address] [place] [address] Performed By: #### 5 7021-8 ####[facility] [id number] [place] [address] [place] Neutrophils (Bld) [#/Vol] 8.12 10*3/uL High 1.45-7.50 [facility] Comment on above: Order Comment: Speci men Type: BLOOD SPECIMENOrdering Facility: [facility] Address: [address] [place] [address] Performed By: #### 5 7021-8 ####[facility] [id number] [place] [address] [place] Neutrophils/100 WBC (Bld) 86.8 % Normal [facility] Comment on above: Order Comment: Speci men Type: BLOOD SPECIMENOrdering Facility: [facility] Address: [address] [place] [address] Performed By: #### 5 7021-8 ####[facility] [id number] [place] [address] [place] Nucleated RBC (Bld) [#/Vol] 10*3/uL Normal <0.01 [facility] Comment on above: Order Comment: Speci men Type: BLOOD SPECIMENOrdering Facility: [facility] Address: [address] [place] [address] Performed By: #### 5 7021-8 ####[facility] [id number] [place] [address] [place] Nucleated RBC/100 WBC (Bld) [Ratio] 0.0 /100 WBC Normal [facility] Comment on above: Order Comment: Speci men Type: BLOOD SPECIMENOrdering Facility: [facility] Address: [address] [place] [address] Performed By: #### 5 7021-8 ####[facility] [id number] [place] [address] [place] Platelet mean volume (Bld) [Entitic vol] 10.6 fL Normal 9.0-12.7 [facility] Comment on above: Order Comment: Speci men Type: BLOOD SPECIMENOrdering Facility: [facility] Address: [address] [place] [address] Performed By: #### 5 7021-8 ####[facility] [id number] [place] [address] [place] Platelets (Bld) [#/Vol] 354 10*3/uL Normal 150-400 [facility] Comment on above: Order Comment: Speci men Type: BLOOD SPECIMENOrdering Facility: [facility] Address: [address] [place] [address] Performed By: #### 5 7021-8 ####[facility] [id number] [place] [address] [place] RBC (Bld) [#/Vol] 4.70 10*6/uL Normal 3.90-5.20 [facility] Comment on above: Order Comment: Speci men Type: BLOOD SPECIMENOrdering Facility: [facility] Address: [address] [place] [address] Performed By: #### 5 7021-8 ####[facility] [id number] [place] [address] [place] WBC (Bld) [#/Vol] 9.36 10*3/uL Normal 3.70-11.00 [facility] Comment on above: Order Comment: Speci men Type: BLOOD SPECIMENOrdering Facility: [facility] Address: [address] [place] [address] Performed By: #### 5 7021-8 ####[facility] [id number] [facility] [id number] [place], [place] [id number] [facility] Clotilde 01-02-2024 [facility] HNO ID: [id number] Author: BRIDGER HILL MD Service: General Surgery Author Type: Resident Type: Discharge Summary Filed: 01/06/2024 12:00 Note Text: Attestation signed by Bridger Hill MD at 01/06/2024 12:00 PM Attending Note I evaluated the patient and personally participated in the sánchez components. I agree with the resident's findings and plan as documented and have discussed the case and management of the patient's care with the resident. Signature: Bridger Hill MD Date: 01/06/2024 Time: 12:00 PM DISCHARGE SUMMARY PATIENT NAME: Leonora Cam ADMISSION DATE: 01/01/2024 DISCHARGE DATE: 01/02/2024 ATTENDING PHYSICIAN: No att. providers found Code Status: Not on file Highest Readmission Risk Score: 10 The 30 day readmissions risk score is derived from an internally validated risk model which evaluates patient level characteristics, utilization history, medication orders and lab results up until the day of discharge. Patients with a score of 40 or above are considered highest risk for readmission. Specific patient level drivers will be listed at the bottom of the summary. CONSULTING TEAMS DURING HOSPITALIZATION: None Treatment Team: Primary Service: [facility] TEAM 4 (YANI) REASON FOR HOSPITALIZATION: To undergo Laparoscopic gastric korin-en-y bypass DIAGNOSIS: Principal Problem: Severe obesity (BMI >= 40) (HCC) (POA: Yes) Resolved Problems: * No resolved hospital problems. * Obesity Class III (BMI +/>40 or >35 with comorbidity) OPERATIONS DURING HOSPITALIZATION: Laparoscopic gastric korin-en-y bypass PROCEDURES DURING HOSPITALIZATION: EGD HOSPITAL COURSE: Pt was admitted to [facility] on 01/01/2024 to undergo the above listed procedure. she tolerated the procedure well and were transferred to the recovery area and then the regular nursing floor for routine post operative care. pain was managed with oral and IV pain medication. diet was started with phase 1 diet and advanced to phase 2 diet on post procedure day number 1 for two weeks following surgery. On the day of discharge, pt was tolerating an oral diet, ambulating well, urinating independently, and pain AND nausea were controlled on medications. Pt was deemed stable for discharge home with instructions to schedule outpatient follow up. Transitions of Care Critical Issues: NEW BASELINE FOR PATIENT: New GI anatomy LABS AND PROCEDURES PENDING AT DISCHARGE: No pending results. PATIENT CONDITION AT DISCHARGE: Stable DISCHARGE DISPOSITION: Home with Self Care INFORMATION PROVIDED TO PATIENT: discharge instructions WOUND/SURGICAL SITE CARE: Leave open to air Diet: - Continue Phase II Diet: Full liquids and pureed food until your follow up visit with surgeon in 2-3 weeks. - Focus on getting at least 5-6 ounces of liquid every waking hour, for a total of 60 ounces per day. AFTER you are satisfied with your hydration, try to get at least 60 grams of protein everyday. You will need to use protein shakes during Phase II. - Drink slowly until you feel full. Room temperature fluids may be better tolerated. - Avoid pop, caffeine, and sugar. Hydration: - Fluid intake of 60 oz everyday (Atkins Flavored water contains protein). - Take a water bottle everywhere you go for first 6 months. - Signs of dehydration-- thirst, dry mouth, decreased urine output or no urine output for 6 hours or more. Activity: - Avoid strenuous activity or exercise including heavy lifting, pushing or pulling. Do not lift anything heavier than 10 lbs (a milk jug) for 4-6 weeks after surgery. - You are encouraged to resume your usual activities. Walking is encouraged and it is okay to use stairs. - When sitting, riding in a car or plane longer than one hour, walk around 5-10 minutes then resume sitting or riding. Do this for the first six months post-operative to prevent blood clots. ALLERGIES Allergen Reactions Bee Sting Swelling Codeine Unknown Doxycycline GI Upset Metformin Intolerance GI upset, diarrhea Prednisone Rash DISCHARGE MEDICATION: Medication List START taking these medications oxyCODONE IR 5 mg immediate release tablet Commonly known as: ROXICODONE Take 1 tablet by mouth every 8 hours as needed for pain for up to 5 days. CONTINUE taking these medications fluticasone 50 mcg/actuation nasal spray Commonly known as: FLONASE Use 1 [place] in each nostril at bedtime as needed for cold/allergy symptoms. As needed FREESTYLE GUZMAN 14 DAY SENSOR Kit Generic drug: flash glucose sensor 1 Each two times a day. DX E11.65 Insulin No glipiZIDE XL 10 mg 24 hr tablet Commonly known as: GLUCOTROL XL Take 1 tablet by mouth once daily. ondansetron 4 mg tablet Commonly known as: ZOFRAN Take 1 tablet by (more content not included)... Normal [facility] Magnesium SerPl-mCncon 01-01 Magnesium [Mass/Vol] 2.1 mg/dL Normal 1.7-2.3 [facility] Comment on above: Order Comment: Speci men Type: BLOOD SPECIMENOrdering Facility: [facility] Address: [address] [place] [address] Performed By: #### 2 777-1, 26769-4, 92821-9 ####[facility] [id number] [place] [address] [place] PT EDon 01-02-2024 PT ED HNO ID: [id number] Author: CHERRY WALL DTR Service: Nutrition Therapy Author Type: Marketing Engineer Type: Patient Education Filed: 01/02/2024 14:20 Note Text: NUTRITION THERAPY PATIENT EDUCATION SERVICE DATE: 01/02/2024 SERVICE TIME: 1110 TOPIC: Diet: Bariatric LEARNING ASSESSMENT Individuals Assessed: Patient Preferred Learning Method: Individual Instruction, Verbal Instruction, and Written Instruction Barriers to Learning: None Evident LEARNING RESPONSE Instruction Provided to: Patient Patient / Family Response: Performs Independently and Verbalizes Understanding Method of Instruction: Individual instruction Written instruction/Handouts Verbal instruction Material(s) Provided to Patient: Bariatric Surgery Post Operative Care Follow-Up Plan: Complete - No need for follow-up Patient instructed to call with any further issues Contact information given. Referral (Recommendation): Nutrition - Outpatient MNT Billing: $ Routine Care : 16-30 minutes SIGNATURE: Cherry Wall DTR PATIENT NAME: Leonora Cam DATE: January 02, 2024 TIME: 2:19 PM PAGER: Normal [facility] Phosphate SerPl-mCncon 01-01 Phosphate [Mass/Vol] 2.9 mg/dL Normal 2.7-4.8 [facility] Health Comment on above: Order Comment: Speci men Type: BLOOD SPECIMENOrdering Facility: [facility] Address: [address] [place] [address] Performed By: #### 2 [id number], 32887-6, 51324-7 ####[facility] [id number] [place] [address] [place] ANES POSTPROC EVALon 024 ANES POSTPROC EVAL HNO ID: [id number] Author: RELL TOLBERT DO Service: ? Author Type: Anesthesiologist Type: Anesthesia Postprocedure Evaluation Filed: 01/02/2024 08:04 Note Text: POST ANESTHESIA EVALUATION NOTE : 1970 Procedure Summary Date: 01/01/24 Room / Location: [address] Anesthesia Start: 1706 Anesthesia Stop: 2029 Procedure: LAPAROSCOPIC GASTRIC RESTRICTIVE SURG W/ BYPASS AND KORIN-EN-Y 150CM OR LESS (Abdomen) Diagnosis: Class 3 severe obesity due to excess calories with serious comorbidity and body mass index (BMI) of 40.0 to 44.9 in adult ([facility]) Pre-operative examination (Class 3 severe obesity due to excess calories with serious comorbidity and body mass index (BMI) of 40.0 to 44.9 in adult (HCC) [E66.01, Z68.41]) (Pre-operative examination [Z01.818]) Surgeons: Bridger Hill MD Responsible Provider: Rell Tolbert DO Anesthesia Type: general ASA Status: 3 Anesthesia Type: general Airway Type: ETT Last Vitals Vitals Value Taken Time BP 124/48 01/02/24751 Temp 36.8 ?C (98.2 ?F) 01/02/24 075 Pulse 93 01/02/24 0752 Resp 16 01/02/24751 SpO2 94 % 01/02/24751 Post Anesthesia Patient Status Patient Evaluation: bedside. Anticipated Disposition: inpatient floor planned admission. Neurological Status: sleepy but arousable. Pulmonary Status: breathing comfortably on supplemental oxygen Airway Control: returned to baseline unsupported. Cardiovascular Status: stable. Pain Management: clinically adequate Postoperative Hydration: acceptable. Intraoperative Events: no significant anesthesia events Post Operative Nausea/Vomiting Status: no significant post operative nausea or vomiting Recommendation: continue current plan of care. Anesthesia Observations No Documentation SIGNATURE: Rell Tolbert DO PATIENT NAME: Leonora Cam DATE: January 02, 2024 TIME: 7:56 AM CSN: [id number] Normal [facility] ANES PRE-OPon 01-01-2024 ANES PRE-OP HNO ID: [id number] Author: THANH CHEUNG MD, PhD Service: ? Author Type: Anesthesiologist Type: Anesthesia Preprocedure Evaluation Filed: 01/01/2024 16:01 Note Text: ANESTHESIOLOGY DAY OF SURGERY NOTE : 1970 Procedure Information Date/Time: 01/01/241454 Procedure: LAPAROSCOPIC GASTRIC RESTRICTIVE SURG W/ BYPASS AND KORIN-EN-Y 150CM OR LESS (Abdomen) Location: [place] [address] [address] Surgeons: Bridger Hill MD Estimated body mass index is 41.92 kg/m? as calculated from the following: Height as of this encounter: 160.5 cm (5' 3.18). Weight as of this encounter: 108 kg (238 lb). Most recent hematocrit and potassium results: Hematocrit 39.5 12/13/2023 Potassium 4.0 12/13/2023 Relevant Problems ENDO (+) Type 2 diabetes mellitus without complication, without long-term current use of insulin (HCC) GI (+) GERD (gastroesophageal reflux disease) NEURO-PSYCH (+) History of COVID-19 PULMONARY (+) History of COVID-19 I - PHYSICAL EVALUATION AIRWAY Patient intubated: No. Tracheostomy tube not present Mallampati: I. TM distance: >3 FB. Neck ROM: full ROM without neurological symptoms. Mouth opening: adequate. Short neck: no. Thick neck: no Microretrognathia/Micr onagthia/Recessed Chin: No DENTAL Dental findings: edentulous. Additional exam findings: no II - ANESTHESIA PLAN ASA Score: 3 Anesthetic Plan: general Airway type: ETT The patient is not a current smoker. NPO Status: adequate Beta Orly Administration of chronic beta orly medication not planned. Monitoring Plan Monitoring plan: standard ASA. Post Procedure Analgesic Plan Postoperative analgesic plan: parenteral or oral opioids. Informed Consent Anesthetic risks, benefits, alternatives, personnel and consent discussed: yes. Patient / Responsible Republican agrees to proceed: yes Patient / Surrogate agrees to blood products: Yes DNR status not reviewed with patient and/or family prior to surgery. Significant changes in the patient condition since the History and Physical, not otherwise documented in primary service progress note: no. Potential Anesthesia issues that may suggest increased risk of complications or contraindication to planned procedure: none. Vitals Value Taken Time BP 124/57 01/01/24 1411 Pulse 62 01/01/24 1411 Resp 16 01/01/24 1411 Temp 36.2 ?C (97.2 ?F) 01/01/24 1411 SpO2 99 % 01/01/24 1411 Facility-Administered Medications as of 01/01/2024 Medication Dose Route Frequency [COMPLETED] heparin 5,000 Units injection 5,000 Units SUBCUTANEOUS ONCE lidocaine (PF) 10 mg/mL (1 %) 1-2 mg injection (XYLOCAINE) 0.1-0.2 mL INTRADERMAL PRN Or lidocaine 1% 0.25 mL subcutaneous j-tip syringe (XYLOCAINE) 0.25 mL SUBCUTANEOUS PRN lactated ringers iv infusion 5-30 mL/hr INTRAVENOUS CONTINUOUS NaCl 0.9% iv flush bag 20 mL INTRAVENOUS PRN ceFAZolin iv piggyback 2 g in D5W (iso-osmotic) 100 mL (ANCEF) 2 g INTRAVENOUS Pre-Op Once Outpatient Medications as of 01/01/2024 Medication Sig glipiZIDE (GLUCOTROL XL) 10mg 24 hr tablet Take 1 tablet by mouth once daily. flash glucose sensor (FREESTYLE GUZMAN 14 DAY SENSOR) kit 1 Each two times a day. DX E11.65 Insulin No ondansetron orally disintegrating (ZOFRAN ODT) 4 mg disintegrating tablet Take 1 tablet by mouth every 12 hours as needed for nausea/vomiting. fluticasone (FLONASE) 50 mcg/actuation nasal spray Use 1 [place] in each nostril at bedtime as needed for cold/allergy symptoms. As needed I have interviewed and examined the patient. I have reviewed the medical record and/or the pre-anesthesia evaluation, pertinent labs, and test results. This contains updated information obtained within 48 hours of Surgery/Procedure. SIGNATURE: Lito Cheung MD, PhD PATIENT NAME: Leonora Cam DATE: January 01, 2024 TIME: 4:00 PM CSN: [id number] Normal [facility] OPERATIVE NOon 01-01-2024 OPERATIVE NO HNO ID: [id number] Author: BRIDGER HILL MD Service: General Surgery Author Type: Physician Type: Operative Report Filed: 01/02/2024 07:44 Note Text: OPERATIVE/PROCEDURE REPORT LOG ID: [id number] Surgery/Procedure Date: 01/01/2024 Incision/Procedure Start Time: 1739 Incision Close/Procedure End Time: 1947 Surgeon(s)/Procedurali st(s) and Motion Graphics Artist(s): Primary: Bridger Hill MD Resident - Assisting: Kannan Garcia MD Pre-Op/Pre-Procedure Diagnosis: Morbid obesity Post-Op/Post-Procedure Diagnosis: Same Procedure(s): 1. Laparoscopic korin en y gastric bypass 2. Intraoperative upper gastrointestinal endoscopy 3. Laparoscopic transversus abdominus plane block Anesthesia: Choice - Anesthesia Consult Procedure indications: Leonora Cam is a 53 year old patient with body mass index of 42 kg/m2, and the following associated medical conditions: HTN, DM, GERD. She has failed previous medical weight loss attempts, has undergone our comprehensive pre-operative bariatric evaluation, has attended educational classes, and underwent a 1-hour consent group class where the risks and benefits of gastric bypass were explained in detail, and where all questions were answered. On the morning of surgery, it was confirmed that the patient remained aware of the risks and benefits of surgery, was aware that this is an elective procedure, and wished to proceed with surgery. Procedure findings: Normal diagnostic laparoscopy 98cm antecolic korin 98cm bp limb 650cm total alimentary limb length Unidrectional stapled jejuno-jejunostomy with hand sewn common enterotomy Linear stapled gastrojejunostomy with hand sewn common enterotomyb Mestenteric defects closed Leak test negative DESCRIPTION OF THE PROCEDURE: The patient was identified in the preoperative holding area and informed consents were verified. Preoperative anticoagulation was initiated, and the patient was transferred to the operating room and placed supine on the table. General endotracheal anesthesia was induced, bilateral lower extremity sequential compressive devices were applied. The patient was given 2 g cefazolin for antimicrobial prophylaxis. The patient's abdomen was then prepped and draped in the usual sterile surgical fashion. A surgical timeout did occur and once everyone was in agreement A Veress needle was utilized to establish insufflation up to 15mm of Hg. A 5 mm trocar was utilized to gain entry into the peritoneal cavity under direct visualization with the laparoscope. Intra-abdominal contents were visualized, and there were no signs of injury secondary to entry and no untoward pathologic findings were identified. We then placed all of our working trocars under direct visualization. One 5-mm port was placed in the right subcostal margin A laparoscopic transversus abdominus plane (TAP) block was performed with bupivicaine under laparoscopic vision. This was followed by placing our additional working ports: a 12 mm port placed in the right abdomen between the right subcostal margin and the umbilicus, and a 5 mm port was placed in the periumbilical region for our scope. The patient had elected to participate in the CLIMB II Clinical Trial. We began by placing the patient in the slight Trendelenburg position, with right side up. Using 2 marked bowel graspers we identified the terminal ileum by the antimesenteric fat pad and its connection to the cecum. We then counted the entirety of the small intestine starting from distal moving to proximal, stopping at the ligament of Treitz measuring in 5 and 10 cm increments as marked on the bowel graspers. The total length of the small intestine was 650cm. The total time it took to measure the entirety of the small intestine was 11 minutes. Following this the patient was randomized. Based on randomization the assigned limb lengths were a korin limb of 98 cm, and biliopancreatic limb of 98 cm. The patient was then repositioned with the table flat and we proceeded with the operation. The greater omentum and transverse colon were elevated. The ligament of Treitz was identified. The small bowel was then run approximately 98 cm distally before transecting it using a 60 mm endo ISAIAS linear cutting [place] load stapling device. The LigaSure was then used to cut the intervening mesentery down to the mesenteric stalk. We took care to preserve the blood supply to both the proximal and distal ends of the transected small bowel. The distal end of the small bowel was then run an additional 98 cm where a qbfs-ym-fadu stapled jejuno-jejunostomy was created with the distal aspect of the biliopancreatic limb using one 45 mm low profile [place] load of the stapler. The common enterotomy site was then closed using a running 2-0 Vicryl suture. The mesenteric defect was then closed using a continuous 2-0 permanent Ethibond suture in continuous fashion up to the the margins of the anastomos (more content not included)... Normal [facility] CNOVon 12-24-2023 CNOV Office Visit (GENBMI ) TRENT CAMRaj Mijares ([id number]) 1970 F Date Time Provider Department 12/24/23 8:00 AM BRIDGER HILL During your visit today, we recorded the following information about you: Pulse Blood pressure Weight Height 67/minute 122/50 108.4 kg 1.605 m Bridger Hill MD 12/24/2023 1:56 PM Signed BARIATRIC SURGERY PREOPERATIVE VISIT NOTE SERVICE DATE: 12/24/2023 SUBJECTIVE: Leonora Cam is a 53 year old female seen in Bariatric Surgery clinic today for their final preoperative assessment. WEIGHT Current BMI: There is no height or weight on file to calculate BMI. Last Wt 12/13/23 108.4 kg (239 lb) Planned Procedure: Laparoscopic Korin en-Y Gastric Bypass Patient Active Problem List GERD (gastroesophageal reflux disease) History of COVID-19 Obesity, Class III, BMI >= 40 Seasonal allergies Type 2 diabetes mellitus without complication, without long-term current use of insulin ([facility]) Resolved Hospital Problems No resolved problems to display. PAST MEDICAL HISTORY Diagnosis Date COVID-19 10/16/2021 Diabetes mellitus (HCC) 2017 Seasonal allergies PAST SURGICAL HISTORY Procedure Laterality Date LIGATE FALLOPIAN TUBE 2000 PAST SURGICAL HISTORY OF 2015 clamp in R foot (bone shattered) REMOVAL GALLBLADDER 2015 TONSILLECTOMY AND ADENOIDECTOMY Social History Tobacco Use Smoking status: Never Passive exposure: Current Smokeless tobacco: Never Vaping Use Vaping status: Never Used Substance Use Topics Alcohol use: Not Currently Drug use: Never ALLERGIES Allergen Reactions Bee Sting Swelling Codeine Unknown Doxycycline GI Upset Metformin Intolerance GI upset, diarrhea Prednisone Rash BMI PHYSICAL EXAM: Cardiovascular: Normal S1 AND S2, no rubs, murmurs or gallops. No JVD. Pulse regular. Lungs: Normal breath sounds, no wheezes or crackles. Abdomen: Soft, non-tender, no rigidity. Laparoscopic port site incisions The remainder of the physical exam is noncontributory. MEDICATIONS: Prior to Admission Medications: glipiZIDE (GLUCOTROL XL) 10mg 24 hr tablet Take 1 tablet by mouth once daily. flash glucose sensor (FREESTYLE GUZMAN 14 DAY SENSOR) kit 1 Each two times a day. DX E11.65 Insulin No ondansetron orally disintegrating (ZOFRAN ODT) 4 mg disintegrating tablet Take 1 tablet by mouth every 12 hours as needed for nausea/vomiting. fluticasone (FLONASE) 50 mcg/actuation nasal spray Use 1 [place] in each nostril at bedtime as needed for cold/allergy symptoms. As needed No current facility-administered medications for this visit. VISIT NOTE: This patient was seen in clinic today to obtain informed consent and discuss the details of their upcoming operation including the appropriate expectations for perioperative and postoperative care. In addition, preoperative and postoperative relevant prescriptions were provided and explained during this clinic visit. The consent discussion included the risks, benefits and anticipated outcomes of the procedure, the risks and benefits of the alternatives to the procedure, and the roles and tasks of the personnel to be involved. The patient had an opportunity to ask additional questions that were answered. The patient expressed that they understood. A consent form was signed today. Prescriptions were explained and provided to the patient. Postoperative VTE risk is 0.25% according to VTE Risk Calculator. Script for extended prophylaxis was not provided. Preoperative requirements: Preoperative Checklist for Bariatric Surgery Checklist Items Completed Not Completed Preoperative H AND P today Preoperative labs (including fasting glucose, blood typing and A1C) yes Preoperative cardiac work-up (EKG / ECHO) yes GI evaluation (UGI / EGD) if needed Not indicated Pulmonary evaluation (Patient to bring CPAP mask day of surgery) Not history of sleep apnea Consult placed for difficult IV access if needed Not indicated Postoperative medications prescribed yes Nutrition evaluation yes Psychosocial evaluation yes ABHI and preop videos confirmation yes Stop OCP's, Aspirin, Anticoagulation prior to surgery Smoking cessation - Urine cotinine ordered if needed smokes, usually outside the home Planned post op ICU admission Not anticipated We discussed common owvd-vks-hipcldv remedies that contain NSAIDs (like Advil, Aleve, ibuprofen, Excedrine Migraine, Goody's/BC powders), as well as the more commonly prescribed NSAIDs (Celebrex/celcoxib, indomethacin, Mobic/meloxicam). She does not use these medications currently. We discussed the risk of marginal ulcer after gastric bypass, and that this risk is significantly increased with use of NSAIDs at any point postoperatively. Thus, if patient elects to move forward with RYGB, specifically, she understands she would have to maintain lifelong (more content not included)... Normal [facility] HISTORY PHYSICALon HISTORY PHYSICAL HNO ID: [id number] Author: BRIDGER HILL MD Service: ? Author Type: Physician Type: H&P Filed: 12/24/2023 13:56 Note Text: BARIATRIC SURGERY PREOPERATIVE VISIT NOTE SERVICE DATE: 12/24/2023 SUBJECTIVE: Leonora Cam is a 53 year old female seen in Bariatric Surgery clinic today for their final preoperative assessment. WEIGHT Current BMI: There is no height or weight on file to calculate BMI. Last Wt 12/13/23 108.4 kg (239 lb) Planned Procedure: Laparoscopic Korin en-Y Gastric Bypass Patient Active Problem List GERD (gastroesophageal reflux disease) History of COVID-19 Obesity, Class III, BMI >= 40 Seasonal allergies Type 2 diabetes mellitus without complication, without long-term current use of insulin (HCC) Resolved Hospital Problems No resolved problems to display. PAST MEDICAL HISTORY Diagnosis Date COVID-19 10/16/2021 Diabetes mellitus (HCC) 2017 Seasonal allergies PAST SURGICAL HISTORY Procedure Laterality Date LIGATE FALLOPIAN TUBE 2000 PAST SURGICAL HISTORY OF 2014 clamp in R foot (bone shattered) REMOVAL GALLBLADDER 2015 TONSILLECTOMY AND ADENOIDECTOMY Social History Tobacco Use Smoking status: Never Passive exposure: Current Smokeless tobacco: Never Vaping Use Vaping status: Never Used Substance Use Topics Alcohol use: Not Currently Drug use: Never ALLERGIES Allergen Reactions Bee Sting Swelling Codeine Unknown Doxycycline GI Upset Metformin Intolerance GI upset, diarrhea Prednisone Rash BMI PHYSICAL EXAM: Cardiovascular: Normal S1 AND S2, no rubs, murmurs or gallops. No JVD. Pulse regular. Lungs: Normal breath sounds, no wheezes or crackles. Abdomen: Soft, non-tender, no rigidity. Laparoscopic port site incisions The remainder of the physical exam is noncontributory. MEDICATIONS: Prior to Admission Medications: glipiZIDE (GLUCOTROL XL) 10mg 24 hr tablet Take 1 tablet by mouth once daily. flash glucose sensor (FREESTYLE GUZMAN 14 DAY SENSOR) kit 1 Each two times a day. DX E11.65 Insulin No ondansetron orally disintegrating (ZOFRAN ODT) 4 mg disintegrating tablet Take 1 tablet by mouth every 12 hours as needed for nausea/vomiting. fluticasone (FLONASE) 50 mcg/actuation nasal spray Use 1 [place] in each nostril at bedtime as needed for cold/allergy symptoms. As needed No current facility-administered medications for this visit. VISIT NOTE: This patient was seen in clinic today to obtain informed consent and discuss the details of their upcoming operation including the appropriate expectations for perioperative and postoperative care. In addition, preoperative and postoperative relevant prescriptions were provided and explained during this clinic visit. The consent discussion included the risks, benefits and anticipated outcomes of the procedure, the risks and benefits of the alternatives to the procedure, and the roles and tasks of the personnel to be involved. The patient had an opportunity to ask additional questions that were answered. The patient expressed that they understood. A consent form was signed today. Prescriptions were explained and provided to the patient. Postoperative VTE risk is 0.25% according to VTE Risk Calculator. Script for extended prophylaxis was not provided. Preoperative requirements: Preoperative Checklist for Bariatric Surgery Checklist Items Completed Not Completed Preoperative H AND P today Preoperative labs (including fasting glucose, blood typing and A1C) yes Preoperative cardiac work-up (EKG / ECHO) yes GI evaluation (UGI / EGD) if needed Not indicated Pulmonary evaluation (Patient to bring CPAP mask day of surgery) Not history of sleep apnea Consult placed for difficult IV access if needed Not indicated Postoperative medications prescribed yes Nutrition evaluation yes Psychosocial evaluation yes ABHI and preop videos confirmation yes Stop OCP's, Aspirin, Anticoagulation prior to surgery Smoking cessation - Urine cotinine ordered if needed smokes, usually outside the home Planned post op ICU admission Not anticipated We discussed common ybmj-sxg-ftruuww remedies that contain NSAIDs (like Advil, Aleve, ibuprofen, Excedrine Migraine, Goody's/BC powders), as well as the more commonly prescribed NSAIDs (Celebrex/celcoxib, indomethacin, Mobic/meloxicam). She does not use these medications currently. We discussed the risk of marginal ulcer after gastric bypass, and that this risk is significantly increased with use of NSAIDs at any point postoperatively. Thus, if patient elects to move forward with RYGB, specifically, she understands she would have to maintain lifelong avoidance of all NSAIDs postoperatively. We discussed the details of the [facility] Obesity Surgery Biorepository -I explained that participation was voluntary and would not alter her surgery in any way. -We discussed that a biobank is similar to a library that (more content not included)... Normal [facility] CBC W Auto Differential pane l (Bld)on 12-13-2023 Basophils (Bld) [#/Vol] 0.04 10*3/uL Normal <0.11 [facility] Comment on above: Order Comment: Speci men Type: BLOOD SPECIMENOrdering Facility: [facility] Address: [address] [place] [address] Performed By: #### 5 7021-8 ####[facility] [id number] [place] [address] [place] Basophils/100 WBC (Bld) 0.5 % Normal [facility] Comment on above: Order Comment: Nataliei phil Type: BLOOD SPECIMENOrdering Facility: [facility] Address: [address] [place] [address] Performed By: #### 5 7021-8 ####[facility] [id number] [place] [address] [place] Differential cell count method Nom (Bld) Auto Normal [facility] Comment on above: Order Comment: Speci men Type: BLOOD SPECIMENOrdering Facility: [facility] Address: [address] [place] [address] Performed By: #### 5 7021-8 ####[facility] [id number] [place] [address] [place] Eosinophils (Bld) [#/Vol] 0.20 10*3/uL Normal <0.46 [facility] Comment on above: Order Comment: Speci men Type: BLOOD SPECIMENOrdering Facility: [facility] Address: [address] [place] [address] Performed By: #### 5 7021-8 ####[facility] [id number] [place] [address] [place] Eosinophils/100 WBC (Bld) 2.6 % Normal [facility] Comment on above: Order Comment: Speci men Type: BLOOD SPECIMENOrdering Facility: [facility] Address: [address] [place] [address] Performed By: #### 5 7021-8 ####[facility] [id number] [place] [address] [place] Erythrocyte distribution width (RBC) [Ratio] 12.9 % Normal 11.5-15.0 [facility] Comment on above: Order Comment: Speci men Type: BLOOD SPECIMENOrdering Facility: [facility] Address: [address] [place] [address] Performed By: #### 5 7021-8 ####[facility] [id number] [place] [address] [place] Hematocrit (Bld) [Volume fraction] 39.5 % Normal 36.0-46.0 [facility] Comment on above: Order Comment: Speci men Type: BLOOD SPECIMENOrdering Facility: [facility] Address: [address] [place], [place] [id number] Performed By: #### 5 7021-8 ####[facility] MILLWNCLIA [id number] [place] [address] [place] Hemoglobin (Bld) [Mass/Vol] 13.3 g/dL Normal 11.5-15.5 [facility] Comment on above: Order Comment: Speci men Type: BLOOD SPECIMENOrdering Facility: [facility] Address: [address] [place] [address] Performed By: #### 5 7021-8 ####[facility] [id number] [place] [address] [place] Immature granulocytes (Bld) [#/Vol] 0.03 10*3/uL Normal <0.10 [facility] Comment on above: Order Comment: Speci men Type: BLOOD SPECIMENOrdering Facility: [facility] Address: [address] [place] [address] Performed By: #### 5 7021-8 ####[facility] [id number] [place] [address] [place] Immature granulocytes/100 WBC (Bld) 0.4 % Normal [facility] Comment on above: Order Comment: Speci men Type: BLOOD SPECIMENOrdering Facility: [facility] Address: [address] [place] [address] Performed By: #### 5 7021-8 ####[facility]ENTERNCLIA [id number] [place] [address] [place] Lymphocytes (Bld) [#/Vol] 2.39 10*3/uL Normal 1.00-4.00 [facility] Comment on above: Order Comment: Speci men Type: BLOOD SPECIMENOrdering Facility: [facility] Address: [address] [place] [address] Performed By: #### 5 7021-8 ####[facility] HOSPITALLIA [id number] [place] [address] [place] Lymphocytes/100 WBC (Bld) 31.7 % Normal [facility] Comment on above: Order Comment: Speci men Type: BLOOD SPECIMENOrdering Facility: [facility] Address: [address] [place] [address] Performed By: #### 5 7021-8 ####[facility]ENTERMONTYST[facility] [id number] [place] [address] [place] MCH (RBC) [Entitic mass] 30.2 pg Normal 26.0-34.0 [facility] Comment on above: Order Comment: Speci men Type: BLOOD SPECIMENOrdering Facility: [facility] Address: [address] [place] [address] Performed By: #### 5 7021-8 ####[facility] CENTERNCRaj [id number] [place] [address] [place] MCHC (RBC) [Mass/Vol] 33.7 g/dL Normal 30.5-36.0 [facility] Comment on above: Order Comment: Speci men Type: BLOOD SPECIMENOrdering Facility: [facility] Address: [address] [place] [address] Performed By: #### 5 7021-8 ####[facility] HOSPITALLAMBERT [id number] [place] [address] [place] MCV (RBC) [Entitic vol] 89.6 fL Normal 80.0-100.0 [facility] Comment on above: Order Comment: Speci men Type: BLOOD SPECIMENOrdering Facility: [facility] Address: [address] [place] [address] Performed By: #### 5 7021-8 ####[facility]ENTERNCLI [id number] [place] [address] [place] Monocytes (Bld) [#/Vol] 0.35 10*3/uL Normal <0.87 [facility] Comment on above: Order Comment: Speci men Type: BLOOD SPECIMENOrdering Facility: [facility] Address: [address] [place] [address] Performed By: #### 5 7021-8 ####[facility] HOSPITALLIA [id number] [place] [address] [place] Monocytes/100 WBC (Bld) 4.6 % Normal [facility] Comment on above: Order Comment: Speci men Type: BLOOD SPECIMENOrdering Facility: [facility] Address: [address] [place] [address] Performed By: #### 5 7021-8 ####[facility] [id number] [place] [address] [place] Neutrophils (Bld) [#/Vol] 4.54 10*3/uL Normal 1.45-7.50 [facility] Comment on above: Order Comment: Speci men Type: BLOOD SPECIMENOrdering Facility: [facility] Address: [address] [place] [address] Performed By: #### 5 7021-8 ####[facility]ENTERA [id number] [place] [address] [place] Neutrophils/100 WBC (Bld) 60.2 % Normal [facility] Comment on above: Order Comment: Speci men Type: BLOOD SPECIMENOrdering Facility: [facility] Address: [address] [place] [address] Performed By: #### 5 7021-8 ####[facility]ENTERA [id number] [place] [address] [place] Nucleated RBC (Bld) [#/Vol] 10*3/uL Normal <0.01 [facility] Comment on above: Order Comment: Speci men Type: BLOOD SPECIMENOrdering Facility: [facility] Address: [address] [place] [address] Performed By: #### 5 7021-8 ####[facility] LOLANCLIA [id number] [place] [address] [place] Nucleated RBC/100 WBC (Bld) [Ratio] 0.0 /100 WBC Normal [facility] Comment on above: Order Comment: Speci men Type: BLOOD SPECIMENOrdering Facility: [facility] Address: [address] [place] [address] Performed By: #### 5 7021-8 ####[facility]ENTERNCLIA [id number] [place] [address] [place] Platelet mean volume (Bld) [Entitic vol] 10.4 fL Normal 9.0-12.7 [facility] Comment on above: Order Comment: Speci men Type: BLOOD SPECIMENOrdering Facility: [facility] Address: [address] [place] [address] Performed By: #### 5 7021-8 ####[facility]ERNCLIA [id number] [place] [address] [place] Platelets (Bld) [#/Vol] 354 10*3/uL Normal 150-400 [facility] Comment on above: Order Comment: Speci men Type: BLOOD SPECIMENOrdering Facility: [facility] Address: [address] [place] [address] Performed By: #### 5 7021-8 ####[facility]ERNCLIA [id number] [place] [address] [place] RBC (Bld) [#/Vol] 4.41 10*6/uL Normal 3.90-5.20 [facility] Comment on above: Order Comment: Speci men Type: BLOOD SPECIMENOrdering Facility: [facility] Address: [address] [place] [address] Performed By: #### 5 7021-8 ####[facility]ERNCLIA [id number] [place] [address] [place] WBC (Bld) [#/Vol] 7.55 10*3/uL Normal 3.70-11.00 [facility] Comment on above: Order Comment: Speci men Type: BLOOD SPECIMENOrdering Facility: [facility] Address: [address] [place] [address] Performed By: #### 5 7021-8 ####[facility]ENTERA [id number] [place] [address] [place] CONFIRM BLOOD TYPEon 024 ABO A Normal [facility] Comment on above: Order Comment: Speci men Type: BLOOD SPECIMENOrdering Facility: [facility] Address: [address] [place] [address] Performed By: #### C ONABO ####CC MAIN BLOOD BANKCLIA [id number] [place] [address] [place] Rh Nom (Bld) Positive Normal [facility] Comment on above: Order Comment: Speci men Type: BLOOD SPECIMENOrdering Facility: [facility] Address: [address] [place] [address] Performed By: #### C ONABO ####CC MAIN BLOOD BANKCLIA [id number] [place] [address] [place] Comprehensive metabolic 2000 panelon 12-13-2023 Albumin [Mass/Vol] 4.3 g/dL Normal 3.9-4.9 [facility] Comment on above: Order Comment: Speci men Type: BLOOD SPECIMENOrdering Facility: [facility] Address: [address] [place] [address] Performed By: #### 2 4323-8 ####[facility] HOSPITALLIA [id number] [place] [address] [place] ALP [Catalytic activity/Vol] 110 U/L Normal 34-123 [facility] Comment on above: Order Comment: Speci men Type: BLOOD SPECIMENOrdering Facility: [facility] Address: [address] [place] [address] Performed By: #### 2 4323-8 ####[facility] KESHIA EVITAWNCLIA [id number] [place] [address] [place] ALT [Catalytic activity/Vol] 20 U/L Normal 7-38 [facility] Comment on above: Order Comment: Speci men Type: BLOOD SPECIMENOrdering Facility: [facility] Address: [address] [place] [address] Performed By: #### 2 4323-8 ####[facility] HOSPITALWNCLIA [id number] [place] [address] [place] Anion gap [Moles/Vol] 12 mmol/L Normal 8-15 [facility] Comment on above: Order Comment: Speci men Type: BLOOD SPECIMENOrdering Facility: [facility] Address: [address] [place] [address] Performed By: #### 2 4323-8 ####[facility] HOSPITALWNCLIA [id number] [place] [address] [place] AST [Catalytic activity/Vol] 15 U/L Normal 13-35 [facility] Comment on above: Order Comment: Speci men Type: BLOOD SPECIMENOrdering Facility: [facility] Address: [address] [place] [address] Performed By: #### 2 4323-8 ####[facility] MILLWNCLIA [id number] [place] [address] [place] Bilirubin [Mass/Vol] 0.6 mg/dL Normal 0.2-1.3 [facility] Comment on above: Order Comment: Speci men Type: BLOOD SPECIMENOrdering Facility: [facility] Address: [address] [place] [address] Performed By: #### 2 4323-8 ####[facility] MILLTOWNCLIA [id number] [place] [address] [place] Calcium [Mass/Vol] 9.7 mg/dL Normal 8.5-10.2 [facility] Comment on above: Order Comment: Speci men Type: BLOOD SPECIMENOrdering Facility: [facility] Address: [address] [place] [address] Performed By: #### 2 4323-8 ####[facility] MILLWNCLIA [id number] [place] [address] [place] Chloride [Moles/Vol] 98 mmol/L Normal 98-107 [facility] Comment on above: Order Comment: Speci men Type: BLOOD SPECIMENOrdering Facility: [facility] Address: [address] [place] [address] Performed By: #### 2 4323-8 ####[facility] HOSPITALLIA [id number] [place] [address] [place] CO2 [Moles/Vol] 23 mmol/L Normal 22-30 [facility] Comment on above: Order Comment: Speci men Type: BLOOD SPECIMENOrdering Facility: [facility] Address: [address] [place] [address] Performed By: #### 2 4323-8 ####[facility]ERNCLIA [id number] [place] [address] [place] Creatinine [Mass/Vol] 0.55 mg/dL Low 0.58-0.96 [facility] Comment on above: Order Comment: Speci men Type: BLOOD SPECIMENOrdering Facility: [facility] Address: [address] [place] [address] Performed By: #### 2 4323-8 ####[facility]ERNCLIA [id number] [place] [address] [place] Creatinine and Glomerular filtration rate.predicted panel (S/P/Bld) 110 mL/min/1.73m??? Normal >=60 [facility] Comment on above: Order Comment: Rigo villarreal Type: BLOOD SPECIMENOrdering Facility: [facility] Address: [address] [place] [address] Result Comment: Elise mated Glomerular Filtration Rate (eGFR) is calculated using the 2020 CKD-EPI creatinine equation. This equation utilizes serum creatinine, sex, and age as parameters. The creatinine assay has traceable calibration to isotope dilution-mass spectrometry. Refer to KDIGO guidelines for clinical interpretation. In patients with unstable renal function, e.g. those with acute kidney injury, the eGFR may not accurately reflect actual GFR. Performed By: #### 2 4323-8 ####[facility] [id number] [place] [address] [place] Glucose [Mass/Vol] 286 mg/dL High 74-99 [facility] Comment on above: Order Comment: Rigo villarreal Type: BLOOD SPECIMENOrdering Facility: [facility] Address: [address] [place] [address] Result Comment: The [place] Diabetes Association (ADA) provides guidance for cutoff values for fasting glucose and random glucose. The ADA defines fasting as no caloric intake for at least 8 hours. Fasting plasma glucose results between 100 to 125 mg/dL indicate increased risk for diabetes (prediabetes). Fasting plasma glucose results greater than or equal to 126 mg/dL meet the criteria for diagnosis of diabetes. In the absence of unequivocal hyperglycemia, results should be confirmed by repeat testing. In a patient with classic symptoms of hyperglycemia or hyperglycemic crisis, random plasma glucose results greater than or equal to 200 mg/dL meet the criteria for diagnosis of diabetes. Reference: Standards of Medical Care in Diabetes 2016, [place] Diabetes Association. Diabetes Care. 2016.39(Suppl 1). Performed By: #### 2 4323-8 ####[facility] [id number] [place] [address] [place] Potassium [Moles/Vol] 4.0 mmol/L Normal 3.7-5.1 [facility] Comment on above: Order Comment: Speci men Type: BLOOD SPECIMENOrdering Facility: [facility] Address: [address] [place] [address] Performed By: #### 2 4323-8 ####[facility] BELEMNattyNCLIA [id number] [place] [address] [place] Protein [Mass/Vol] 7.2 g/dL Normal 6.3-8.0 [facility] Comment on above: Order Comment: Speci men Type: BLOOD SPECIMENOrdering Facility: [facility] Address: [address] [place] [address] Performed By: #### 2 4323-8 ####[facility]ERNCLIA [id number] [place] [address] [place] Sodium [Moles/Vol] 133 mmol/L Low 136-144 [facility] Comment on above: Order Comment: Speci men Type: BLOOD SPECIMENOrdering Facility: [facility] Address: [address] [place] [address] Performed By: #### 2 4323-8 ####[facility]ERNCLIA [id number] [place] [address] [place] Urea nitrogen [Mass/Vol] 19 mg/dL Normal 7-21 [facility] Comment on above: Order Comment: Speci men Type: BLOOD SPECIMENOrdering Facility: [facility] Address: [address] [place] [address] Performed By: #### 2 4323-8 ####[facility]ERNCLIA [id number] [place] [address] [place] TYPE AND SCREEN,30 DAYon ABO A Normal [facility] Comment on above: Order Comment: Speci men Type: BLOOD SPECIMENOrdering Facility: [facility] Address: [address] [place] [address] Performed By: #### T SCR30 ####CC MAIN BLOOD BANKCLIA [id number] [address] [place] HISTORICAL AB SCR STATUS Negative Normal [facility] Comment on above: Order Comment: Speci men Type: BLOOD SPECIMENOrdering Facility: [facility] Address: [address] [place] [address] Performed By: #### T SCR30 ####CC MAIN BLOOD BANKCLIA [id number] [address] [place] Rh Nom (Bld) Positive Normal [facility] Comment on above: Order Comment: Speci men Type: BLOOD SPECIMENOrdering Facility: [facility] Address: [address] [place] [address] Performed By: #### T SCR30 ####CC MAIN BLOOD BANKCLIA [id number] [address] [place] HISTORY PHYSICALon HISTORY PHYSICAL HNO ID: [id number] Author: ONEYDA CASILLAS APRN.HULL MOLDER Service: ? Author Type: Nurse Practitioner Type: H&P Filed: 12/11/2023 14:48 Note Text: [facility] HISTORY AND PHYSICAL EXAMINATION SERVICE DATE: 12/11/2023 SERVICE TIME: 2:44 PM PRIMARY CARE PHYSICIAN: Neri Grace MD Assessment Patient has the following medical conditions which may affect zack-operative course: Type 2 diabetes mellitus without complication, without long-term current use of insulin (HCC) Assessment: controlled on oral agent Hemoglobin A1C (%) Date Value 09/10/2023 7.4 HBA1C, [place] (%) Date Value 09/25/2006 5.0 GERD (gastroesophageal reflux disease) Assessment: otc rx as needed History of COVID-19 Assessment: +home test 11/20/2023, tx with Paxlovid by PCP. Pt states all symptoms have resolved Obesity, Class III, BMI >= 40 Assessment: Body mass index is 43.4 kg/m?. Anderson Activity Status Index: METS: Climb a flight of stairs or walk up a hill (5.50 METs) DASI Score: 5.5 Patient denies any chest pain or undue shortness of breath with the above physical activity. Clinical Frailty Scale: 3. Well, with treated comorbid disease STOP-Bang Score: BMI greater than 35 kg/m2 Patient over 50 years old Has a large neck Denies snoring loudly Denies feeling tired, fatigued, or sleepy during the daytime Has not been observed to stop breathing or choking/gasping during sleep Denies having high blood pressure Non-male patient STOP-Bang Score: 3 Malnutrition Screening Tool: Recent weight loss without trying: No Eating poorly due to decreased appetite: No Weight Loss Score: 0 Appetite Score: 0 MST Score: 0 [id number] Score: Age: <65 Sex: female CHF history: No Hypertension history: No Stroke/TIA/thromboembo lism history: No Vascular disease history: No Diabetes history: Yes [id number] Score: 2 ARISCAT Score: Age: 51-80 Preoperative SpO2: >=96% Respiratory infection in the last month: No Preoperative anemia: No Surgical incision: upper abdominal Duration of surgery: >3 hrs Emergency procedure: No ARISCAT Score: 41 ANESTHESIA FINDINGS: Intubation History: No history of difficult intubation Significant Anesthesia Considerations: none Airway History: No history of difficult airway I - PHYSICAL EVALUATION AIRWAY Patient intubated: No. Tracheostomy tube not present Mallampati: II. TM distance: >3 FB. Neck ROM: full ROM without neurological symptoms. Mouth opening: adequate. Short neck: no. Thick neck: no Dyson present: no Lip Bite Test: I Microretrognathia/Micr onagthia/Recessed Chin: No DENTAL Dental findings: teeth intact. II - ANESTHESIA PLAN Anesthetic Plan: other Beta Orly Monitoring Plan Post Procedure Analgesic Plan Informed Consent Anesthetic risks, benefits, alternatives, personnel and consent discussed: yes. Patient / Responsible Republican agrees to proceed: yes Patient / Surrogate agrees to blood products: blood products not planned Discussed the possibility of lip / dental damage: yes Prepared for Surgery: optimally prepared for surgery, pending [see comment]. labs CONSULTS: Patient does not require consults for optimization at this time Planned Anesthetic: other anesthesia choice The Following Tests/Procedures Have Been Initiated: No orders of the defined types were placed in this encounter. REASON FOR VISIT: Leonora Cam is a 53 year old female who is scheduled for Procedure(s): LAPAROSCOPIC GASTRIC RESTRICTIVE SURG W/ BYPASS AND KORIN-EN-Y 150CM OR LESS (N/A) at the request of Bridger Cristina MD for consultation. My final recommendation will be communicated back to the requesting physician by way of shared medical record or letter. Subjective The patient has the following: COVID-19 Immunization Status Overdue - Covid-19 Vaccine ( season) Never done 03/13/2022 Postponed until 03/13/2023 by Michelle Doran APRN.DIRECTOR DATABASE (Declined at this time) CHIEF COMPLAINT: Pre-op exam HPI: Leonora Cam is a 53 year old seen for PAC due to scheduled above surgery because of morbid obesity. 09/17/2023, Dr. Bridger Hill SUBJECTIVE HPI:This is a 53 year old female with morbid obesity who presents for a virtual evaluation for surgical treatment of obesity. The patient's excess body weight interferes with activities of daily living and negatively impacts body of quality of life. Weight History: She reports a family history of obesity and early onset weight gain. She states her weight gain is related to the following factors, including reduced physical activity and consumption of unhealthy foods. The most recent height and weight we have on file is 112 kg, 159 cm, which corresponds to a body mass index of 44.59 kg/m2. The patient affirms that these are roughly accurate. The patient's peak adult weight was 275 lbs. She is inte (more content not included)... Normal [facility] 11-22-2023 CNPN Telephone (GENBMI) LEONORA CAM ([id number]) 1970 F Date Time Provider Department 11/22/23 RAOUL EAGLEI During your visit today, we recorded the following information about you: Raoul Eagle, RN 11/22/2023 9:58 AM Signed [facility] SPECIALTY CARE COORDINATION TELEPHONE ENCOUNTER CC placed call to patient to discuss surgical date. No answer. CC to call back at later time today. DORIS Sullivan/[facility] Surgical Sap Bw Bi Developer Raoul Eagle RN 11/22/2023 10:19 AM Signed [facility] SPECIALTY CARE COORDINATION TELEPHONE ENCOUNTER CC placed 2nd call to patient. No answer. Left message. Approval call to be completed with call is returned. [facility] Surgical Sap Bw Bi Developer Raoul Eagle RN 11/22/2023 10:44 AM Signed [facility] SPECIALTY CARE COORDINATION SURGERY APPROVAL CALL Received e-mail confirmation of insurance approval for bariatric surgery.Pre-operative call placed to the patient, this RN spoke with patient and agreed upon a surgery date of January 01 2024. Surgical episode request sent to [facility] surgery scheduling. Patient understands that the surgery type is Gastric Bypass as approved by insurance. Creatinine level 0.56 Patient instructed to start pre-op 800 calorie total protein liquid diet undecided which shake daily beginning 2 weeks prior to surgery. - Stop all ASA and NSAID products, [place] 3 fish oil, herbal products such as ginko etc. Stop vitamins EXCEPT B COMPLEX- take this up to the day before surgery - Medication List reviewed and patient will contact prescribing physician regarding use of glipizide while on pre-operative diet. - Patient denies use of estrogen products . Talk with your prescribing MD if you take the following - should be monitored closely during the preoperative liquid diet with most held at the start of the diet given them. ALL of these medications should AT LEAST be held the day prior to surgery Actos Amaryl Glipizide Glucophage Metformin Anti-obesity medications - stop 1 week before surgery Phentermine Qsymia Contrave Vyvanse Diethylproprion Phendimetrazine Saxenda Wegovy SGLT2 inhibitors should be stopped 3-4 days before surgery - avoid using during the first weeks following bariatric surgery because of the risk of dehydration Jardiance Farxiga Invokana Sleep apnea requiring treatment? No. Patient will require FMLA forms to be completed? No. - Abhi video assigned. - Introduced Bariatric can doffer Yes - All questions and concerns addressed and patient verbalized understanding. - Patient case reviewed. All nutrition appointments completed, psychology clearance obtained, surgeon visit and procedure type verified, medical optimization obtained and all testing complete. Does patient have Con ABO? No, patient does not have Con ABO and it has been ordered. [facility] - a research program mentioned to patient and the sánchez points below reviewed: o Voluntary participation won?t impact your care o You are being asked to donate your leftover blood and other bodily fluids that are collected during treatment and are normally thrown out to instead be collected and stored for future research o Future research could include genetic testing o Future research with your samples may be done by scientists or scientists at other institutions o All samples are stored without any identifiable private information, and your identity will not be released to anyone outside of without a special review process that is required by law Study Explained: Yes Patient info sent via My Chart: Yes Raoul Eagle RN Allergies As of Date: 11/22/2023 Noted Allergy Reaction BEE STING 09/11/2022 7 - Swelling CODEINE 03/13/2022 16 - Unknown DOXYCYCLINE 03/13/2022 8 - GI Upset METFORMIN 03/19/2022 5 - Intolerance Comments: GI upset, diarrhea PREDNISONE 03/13/2022 2 - Rash Date Reviewed: 10/25/2023 Reviewed by: Noris aPrks PSYD - Fully Assessed Reason for Visit: Sap Bw Bi Developer - Other [3600] Cmt: Approval Call Prescriptions as of 11/22/2023 - azithromycin (ZITHROMAX Z-JUDY) 250 mg tablet Take 2 tablets day one, then, 1 tablet daily until gone. - nirmatrelvir tablet 300 mg (150 mg x 2) and ritonavir tablet 100 mg in a dose pack (PAXLOVID) Administer TWO pink nirmatrelvir 150 mg tablets and ONE white ritonavir 100 mg tablet for a total of three tablets twice daily. - glipiZIDE (GLUCOTROL XL) 10mg 24 hr tablet Take 1 tablet by mouth once daily. - flash glucose sensor (FREESTYLE GUZMAN 14 DAY SENSOR) kit 1 Each two times a day. DX E11.65 Insulin No - benzonatate (TESSALON PERLES) 100 mg capsule Take 1 capsule by mouth three times a day as needed for cough. - ondansetron orally disintegrating (ZOFRAN ODT) 4 mg disintegrating tablet Take 1 tablet (more content not included)... Normal [facility] Pily 11-19-2023 CNPN Telephone (SportStylistWS) LEONORA CAM ([id number]) 1970 F Date Time Provider Department 11/19/23 NERI GRACE During your visit today, we recorded the following information about you: Annalise Lindsey, RN 11/19/2023 5:21 PM Signed patient is calling in stating that she was seen at an closer to where she lives and was dx with terra this morning. As the day went on she felt worse so she took a covid test at home and it came back positive. This is the first day of s/s or cough, congestion, lose of voice. patient would like to see if she can get the medication for covid called into [facility]. Please review and advise. patient needs called back with information Radha Tovar APRN.ROLAND 11/20/2023 7:25 AM Signed Needs virtual visit Radha Tovar APRN.Lety Menezes LPN 11/20/2023 8:03 AM Signed Patient scheduled for virtual visit. Lety Abebe LPN Allergies As of Date: 11/19/2023 Noted Allergy Reaction BEE STING 09/11/2022 7 - Swelling CODEINE 03/13/2022 16 - Unknown DOXYCYCLINE 03/13/2022 8 - GI Upset METFORMIN 03/19/2022 5 - Intolerance Comments: GI upset, diarrhea PREDNISONE 03/13/2022 2 - Rash Date Reviewed: 10/25/2023 Reviewed by: Noris Parks PSYD - Fully Assessed Reason for Visit: Medication Request [138] Prescriptions as of 11/20/2023 - glipiZIDE (GLUCOTROL XL) 10mg 24 hr tablet Take 1 tablet by mouth once daily. - flash glucose sensor (FREESTYLE GUZMAN 14 DAY SENSOR) kit 1 Each two times a day. DX E11.65 Insulin No - benzonatate (TESSALON PERLES) 100 mg capsule Take 1 capsule by mouth three times a day as needed for cough. - dulaglutide (TRULICITY) 1.5 mg/0.5 mL pen injector Inject 1.5 mg subcutaneously one time a week. Inject once per week. Discard Pen After - ondansetron orally disintegrating (ZOFRAN ODT) 4 mg disintegrating tablet Take 1 tablet by mouth every 12 hours as needed for nausea/vomiting. - fluticasone (FLONASE) 50 mcg/actuation nasal spray Use 1 [place] in each nostril at bedtime as needed for cold/allergy symptoms. As needed Problem List As Of Date 11/19/2023 Noted Resolved Type 2 diabetes mellitus without complication, * Obesity, Class III, BMI >= 40 [E66.01] 09/11/2022 Seasonal allergies [J30.2] 09/11/2022 Encounter Status:Closed by LETY ABEBE on 11/20/23 [facility] CNCOon 11-04-2023 CNCO Letter Text [facility] CNCOon 10-01-2023 CNCO Letter Text [facility] CNNURSEon 09-30-2023 [facility] Nurse Visit (FAMPWS) LEONORA CAM ([id number]) 1970 F Date Time Provider Department 09/30/23 10:45 AM MT NURSE FAMPWS During your visit today, we recorded the following information about you: Tammie Guevara LPN 09/30/2023 10:52 AM Signed Patient presents for EKG per Noris Lawrence CNP. Denies any problems at this time. Tolerated procedure well. Tammie Guevara LPN Referring Provider: NORIS LAWRENCE [[id number]] Allergies As of Date: 09/30/2023 Noted Allergy Reaction BEE STING 09/11/2022 7 - Swelling CODEINE 03/13/2022 16 - Unknown DOXYCYCLINE 03/13/2022 8 - GI Upset METFORMIN 03/19/2022 5 - Intolerance Comments: GI upset, diarrhea PREDNISONE 03/13/2022 2 - Rash Date Reviewed: 09/17/2023 Reviewed by: Bridger Hill MD - Fully Assessed Reason for Visit: EKG [793] Visit Diagnosis:Obesity, Class III, BMI 40-49.9 (morbid obesity) ([facility]) [E66.01] Order(s):ECG COMPLETE [ECG01] Order #: [id number] Prescriptions as of 09/30/2023 - glipiZIDE (GLUCOTROL XL) 10mg 24 hr tablet Take 1 tablet by mouth once daily. - flash glucose sensor (FREESTYLE GUZMAN 14 DAY SENSOR) kit 1 Each two times a day. DX E11.65 Insulin No - benzonatate (TESSALON PERLES) 100 mg capsule Take 1 capsule by mouth three times a day as needed for cough. - dulaglutide (TRULICITY) 1.5 mg/0.5 mL pen injector Inject 1.5 mg subcutaneously one time a week. Inject once per week. Discard Pen After - ondansetron orally disintegrating (ZOFRAN ODT) 4 mg disintegrating tablet Take 1 tablet by mouth every 12 hours as needed for nausea/vomiting. - fluticasone (FLONASE) 50 mcg/actuation nasal spray Use 1 [place] in each nostril at bedtime as needed for cold/allergy symptoms. As needed Problem List As Of Date 09/30/2023 Noted Resolved Type 2 diabetes mellitus without complication, * Obesity, Class III, BMI >= 40 [E66.01] 09/11/2022 Seasonal allergies [J30.2] 09/11/2022 Encounter Status:Closed by TAMMIE GUEVARA on 09/30/23 Normal [facility] [id number] 09-30-2023 ECG01 Ventricular Rate : 6 0 BPM Atrial Rate : 60 BPM P-R Interval : 238 ms QRS Duration : 94 ms Q-T Interval : 404 ms QTC Calculation(Bazett) : 404 ms Calculated P [place] : 30 degrees Calculated R [place] : 13 degrees Calculated T [place] : 36 degrees SINUS RHYTHM WITH 1ST DEGREE AV BLOCK OTHERWISE NORMAL ECG Confirmed by RYLAND FERRELL M.D. ([id number]) on 10/01/2023 4:20:28 PM NAME : LEONORA CAM PID : [id number] : 1970 Gender : Female Race : ORD : Procedure Date : Sep 30 2023 11:00:09 Edit Date : Oct 01 2023 16:20:32 Diagnosis: SINUS RHYTHM WITH 1ST DEGREE AV BLOCK OTHERWISE NORMAL ECG Confirmed by RYLAND FERRELL M.D. ([id number]) on 10/01/2023 4:20:28 PM Test Reason : Location : 185 : [facility] Overread By : RYLAND FERRELL M.D. Edited By : RYLAND FERRELL M.D. Referred By : NORIS LAWRENCE Acquired by : TAMMIE GUEVARA Normal [facility] XR Chest PA and Lateralon IMPRESSION: No acute radiographic abnormality. [employer] Laborer: FERNIE Transcribe Date/Time: Sep 10 2023 2:46P Dictated by : ELTON REIS MD This examination was interpreted and the report reviewed and electronically signed by: ELTON REIS MD on Sep 10 2023 2:46PM [facility] DIVISION OF RADIOLOGY * * *Final Report* * * DATE OF EXAM: Sep 10 2023 1:42PM [id number] - XR CHEST 2V FRONTAL/LAT / PROCEDURE REASON: Obesity, Class III, BMI 40-49.9 (morbid obesity) ([facility]) * * * * Physician Interpretation * * * * EXAMINATION: CHEST RADIOGRAPH (2 VIEW FRONTAL & LATERAL) CLINICAL HISTORY: Obesity, Class III, BMI 40-49.9 (morbid obesity) ([facility]) MQ: XC2_6 EXAM DATE/TIME: 09/10/2023 1:42 PM COMPARISON: No relevant prior studies available. RESULT: Lines, tubes, and devices: None. Lungs and pleura: No consolidation. No lung mass. No pleural effusion. No pneumothorax. Cardiomediastinal silhouette: Normal cardiomediastinal silhouette. Bones and soft tissues: Unremarkable. DIVISION OF RADIOLOGY [facility] * * *Final Report* * * DATE OF EXAM: Sep 10 2023 1:42PM [id number] - XR CHEST 2V FRONTAL/LAT / PROCEDURE REASON: Obesity, Class III, BMI 40-49.9 (morbid obesity) ([facility]) * * * * Physician Interpretation * * * * EXAMINATION: CHEST RADIOGRAPH (2 VIEW FRONTAL & LATERAL) CLINICAL HISTORY: Obesity, Class III, BMI 40-49.9 (morbid obesity) ([facility]) MQ: XC2_6 EXAM DATE/TIME: 09/10/2023 1:42 PM COMPARISON: No relevant prior studies available. RESULT: Lines, tubes, and devices: None. Lungs and pleura: No consolidation. No lung mass. No pleural effusion. No pneumothorax. Cardiomediastinal silhouette: Normal cardiomediastinal silhouette. Bones and soft tissues: Unremarkable. IMPRESSION IMPRESSION: No acute radiographic abnormality. [employer] Laborer: PSCB Transcribe Date/Time: Sep 10 2023 2:46P Dictated by : ELTON REIS MD This examination was interpreted and the report reviewed and electronically signed by: ELOTN REIS MD on Sep 10 2023 2:46PM EST [facility] Radiology Study observation (narrative) [facility] XR Chest PA and LateralOrder ed By: Ccf Provider on 09-10-2023 [facility] WILLIAM DIAG W MORGAN BILATERALon 12-11-2022 [facility] US BREAST LTD LEFTon 023 [facility] CBC W Auto Differential pane l (Bld)on 03-13-2022 Basophils (Bld) [#/Vol] 0.06 10*3/uL <0.11 k/uL [facility] Basophils/100 WBC (Bld) 0.7 % [facility] Differential cell count method Nom (Bld) Auto [facility] Eosinophils (Bld) [#/Vol] 0.20 10*3/uL <0.46 k/uL [facility] Eosinophils/100 WBC (Bld) 2.4 % [facility] Erythrocyte distribution width (RBC) [Ratio] 12.8 % 11.5 - 15.0 % [facility] Hematocrit (Bld) [Volume fraction] 41.3 % 36.0 - 46.0 % [facility] Hemoglobin (Bld) [Mass/Vol] 13.1 g/dL 11.5 - 15.5 g/dL [facility] Immature granulocytes (Bld) [#/Vol] <0.10 k/uL [facility] Immature granulocytes/100 WBC (Bld) 0.2 % [facility] Lymphocytes (Bld) [#/Vol] 2.54 10*3/uL 1.00 - 4.00 k/uL [facility] Lymphocytes/100 WBC (Bld) 30.3 % [facility] MCH (RBC) [Entitic mass] 29.3 pg 26.0 - 34.0 pg [facility] MCHC (RBC) [Mass/Vol] 31.7 g/dL 30.5 - 36.0 g/dL [facility] MCV (RBC) [Entitic vol] 92.4 fL 80.0 - 100.0 fL [facility] Monocytes (Bld) [#/Vol] 0.45 10*3/uL <0.87 k/uL [facility] Monocytes/100 WBC (Bld) 5.4 % [facility] Neutrophils (Bld) [#/Vol] 5.11 10*3/uL 1.45 - 7.50 k/uL [facility] Neutrophils/100 WBC (Bld) 61.0 % [facility] Nucleated RBC (Bld) [#/Vol] <0.01 k/uL [facility] Nucleated RBC/100 WBC (Bld) [Ratio] 0.0 /100 WBC [facility] Platelet mean volume (Bld) [Entitic vol] 10.5 fL 9.0 - 12.7 fL [facility] Platelets (Bld) [#/Vol] 369 10*3/uL 150 - 400 k/uL [facility] RBC (Bld) [#/Vol] 4.47 10*6/uL 3.90 - 5.2 0 m/uL [facility] WBC (Bld) [#/Vol] 8.38 10*3/uL 3.70 - 11. 00 k/uL [facility] Hemoglobin A1con 09-23-2020 Glucose [Mass/Vol] 163 mg/dL Normal [facility] Comment on above: Performed By: #### H BA1C #### [facility] Routine Lab [address], [place] [address] HbA1c (Bld) [Mass fraction] 7.3 % High 4.3-5.6 [facility] Comment on above: Performed By: #### H BA1C #### [facility] Routine Lab [address] [place], [place] [address] Vital Signs Date Time Vital Sign Value Performing Clinician Facility 09-14-2024 15:51-0400 Diastolic blood pressure 57 mm[Hg] Bridger Hill MD Work Phone: [facility] 09-14-2024 15:51-0400 Heart rate 55 /min Bridger Hill MD Work Phone: [facility] 09-14-2024 15:51-0400 Respiratory rate 16 /min Bridger Hill MD Work Phone: [facility] 09-14-2024 15:51-0400 SaO2% (BldA) [Mass fraction] 99 % Bridger Hill MD Work Phone: [facility] 09-14-2024 15:51-0400 Systolic blood pressure 145 mm[Hg] Bridger Hill MD Work Phone: [facility] 09-14-2024 15:21-0400 Body temperature 96.8 [degF] Bridger Hill MD Work Phone: [facility] 09-14-2024 14:12-0400 Body height 160 cm Bridger Hill MD Work Phone: [facility] 09-14-2024 14:12-0400 Body mass index (BMI) [Ratio] 29.94 kg/m2 Bridger Hill MD Work Phone: [facility] 09-14-2024 14:12-0400 Body weight 76.66 kg Bridger Hill MD Work Phone: [facility] 08-26-2024 10:36-0400 Body mass index (BMI) [Ratio] 30.85 kg/m2 Radha Tovar TANK SHOP SUPERVISOR.HULL MOLDER Work Phone: [facility] 08-26-2024 10:36-0400 Body weight 79 kg Radha Tovar TANK SHOP SUPERVISOR.HULL MOLDER Work Phone: [facility] 08-26-2024 10:36-0400 Diastolic blood pressure 72 mm[Hg] Radha Tovar TANK SHOP SUPERVISOR.HULL MOLDER Work Phone: [facility] 08-26-2024 10:36-0400 Heart rate 72 /min Radha Ruy TANK SHOP SUPERVISOR.HULL MOLDER Work Phone: [facility] 08-26-2024 10:36-0400 Respiratory rate 12 /min Radha Ruy TANK SHOP SUPERVISOR.HULL MOLDER Work Phone: [facility] 08-26-2024 10:36-0400 SaO2% (BldA) [Mass fraction] 99 % Radha Ruy TANK SHOP SUPERVISOR.HULL MOLDER Work Phone: [facility] 08-26-2024 10:36-0400 Systolic blood pressure 116 mm[Hg] Radha Ruy TANK SHOP SUPERVISOR.HULL MOLDER Work Phone: [facility] 06-01-2024 12:01-0500 Diastolic blood pressure 58 mm[Hg] Bridger Hill MD Work Phone: [facility] 06-01-2024 12:01-0500 Heart rate 54 /min Bridger Hill MD Work Phone: [facility] 06-01-2024 12:01-0500 Respiratory rate 16 /min Bridger Hill MD Work Phone: [facility] 06-01-2024 12:01-0500 SaO2% (BldA) [Mass fraction] 100 % Bridger Hill MD Work Phone: [facility] 06-01-2024 12:01-0500 Systolic blood pressure 122 mm[Hg] Bridger Hill MD Work Phone: [facility] 06-01-2024 11:37-0500 Body temperature 97.5 [degF] Bridger Hill MD Work Phone: [facility] 06-01-2024 10:12-0500 Body height 160 cm Bridger Hill MD Work Phone: [facility] 06-01-2024 10:12-0500 Body mass index (BMI) [Ratio] 33.13 kg/m2 Bridger Hill MD Work Phone: [facility] 06-01-2024 10:12-0500 Body weight 84.82 kg Bridger Hill MD Work Phone: [facility] 04-08-2024 11:26-0500 Body height 160 cm Neri Grace MD Work Phone: [facility] 04-08-2024 11:26-0500 Body mass index (BMI) [Ratio] 35.5 kg/m2 Neri Grace MD Work Phone: [facility] 04-08-2024 11:26-0500 Body temperature 97.59 [degF] Neri Grace MD Work Phone: [facility] 04-08-2024 11:26-0500 Body weight 90.9 kg Neri Grace MD Work Phone: [facility] 04-08-2024 11:26-0500 Diastolic blood pressure 72 mm[Hg] Neri Grace MD Work Phone: [facility] 04-08-2024 11:26-0500 Heart rate 72 /min Neri Grace MD Work Phone: [facility] 04-08-2024 11:26-0500 Respiratory rate 18 /min Neri Grace MD Work Phone: [facility] 04-08-2024 11:26-0500 Systolic blood pressure 120 mm[Hg] Neri Grace MD Work Phone: [facility] 03-31-2024 10:49-0500 Body mass index (BMI) [Ratio] 36.6 kg/m2 Johanna Paulino MD Work Phone: [facility] 03-31-2024 10:49-0500 Body weight 92.53 kg Johanna Paulino MD Work Phone: [facility] 02-10-2024 10:42-0500 Body height [address] Work Phone: [facility] 02-10-2024 10:42-0500 Body mass index (BMI) [Ratio] 39.47 kg/m2 Annie Kim RD Work Phone: [facility] 02-10-2024 10:42-0500 Body weight 99.[address] Work Phone: [facility] Comment on above: verbal 01-14-2024 10:23-0400 Body height [address] Work Phone: [facility] 01-14-2024 10:23-0400 Body mass index (BMI) [Ratio] 40.28 kg/m2 Annie Kim RD Work Phone: [facility] 01-14-2024 10:23-0400 Body weight 101.[address] Work Phone: [facility] Comment on above: verbal 12-24-2023 08:51-0400 Body height 160.5 cm Bridger Hill MD Work Phone: [facility] 12-24-2023 08:51-0400 Body mass index (BMI) [Ratio] 42.08 kg/m2 Bridger Hill MD Work Phone: [facility] 12-24-2023 08:51-0400 Body weight 108.36 kg Bridger Hill MD Work Phone: [facility] 12-24-2023 08:51-0400 Diastolic blood pressure 50 mm[Hg] Bridger Hill MD Work Phone: [facility] 12-24-2023 08:51-0400 Heart rate 67 /min Bridger Hill MD Work Phone: [facility] 12-24-2023 08:51-0400 Systolic blood pressure 122 mm[Hg] Bridger Hill MD Work Phone: [facility] 12-13-2023 10:22-0400 Body height [address] Work Phone: [facility] 12-13-2023 10:22-0400 Body mass index (BMI) [Ratio] 42.88 kg/m2 Annie Kim RD Work Phone: [facility] 12-13-2023 10:22-0400 Body weight 108.[address] Work Phone: [facility] Comment on above: verbal 12-11-2023 13:05-0400 Body height 160 cm Pacc 1 Work Phone: [facility] 12-11-2023 13:05-0400 Body mass index (BMI) [Ratio] 43.4 kg/m2 Pacc 1 Work Phone: [facility] 12-11-2023 13:05-0400 Body temperature 97.11 [degF] Pacc 1 Work Phone: [facility] 12-11-2023 13:05-0400 Body weight 111.13 kg Pacc 1 Work Phone: [facility] 12-11-2023 13:05-0400 Diastolic blood pressure 72 mm[Hg] Pacc 1 Work Phone: [facility] 12-11-2023 13:05-0400 Heart rate 73 /min Pacc 1 Work Phone: [facility] 12-11-2023 13:05-0400 Respiratory rate 14 /min Pacc 1 Work Phone: [facility] 12-11-2023 13:05-0400 SaO2% (BldA) [Mass fraction] 99 % Pacc 1 Work Phone: [facility] 12-11-2023 13:05-0400 Systolic blood pressure 104 mm[Hg] Pacc 1 Work Phone: [facility] 10-23-2023 09:51-0400 Body height [address] Work Phone: [facility] 10-23-2023 09:51-0400 Body mass index (BMI) [Ratio] 43.69 kg/m2 Annie Kim RD Work Phone: [facility] 10-23-2023 09:51-0400 Body weight 110.[address] Work Phone: [facility] Comment on above: verbal 09-09-2023 09:49-0400 Body height 159 cm Noris Bulow TANK SHOP SUPERVISOR.HULL MOLDER Work Phone: [facility] 09-09-2023 09:49-0400 Body mass index (BMI) [Ratio] 44.59 kg/m2 Noris Bulow TANK SHOP SUPERVISOR.HULL MOLDER Work Phone: [facility] 09-09-2023 09:49-0400 Body weight 112.72 kg Noris Bullalo TANK SHOP SUPERVISOR.HULL MOLDER Work Phone: [facility] 08-12-2023 09:05-0400 Body height [address] Work Phone: [facility] 08-12-2023 09:05-0400 Body mass index (BMI) [Ratio] 45.75 kg/m2 Annie Kim RD Work Phone: [facility] 08-12-2023 09:05-0400 Body weight 115.[address] Work Phone: [facility] Comment on above: verbal 10-12-2022 11:29-0400 Body height 159 cm Brittany Spur TANK SHOP SUPERVISOR.HULL MOLDER Work Phone: [facility] 10-12-2022 11:29-0400 Body weight 113.85 kg Brittany Spur TANK SHOP SUPERVISOR.HULL MOLDER Work Phone: [facility] 10-12-2022 11:29-0400 Diastolic blood pressure 80 mm[Hg] Brittany Kaylie TANK SHOP SUPERVISOR.HULL MOLDER Work Phone: [facility] 10-12-2022 11:29-0400 Heart rate 74 /min Brittany Kaylie TANK SHOP SUPERVISOR.HULL MOLDER Work Phone: [facility] 10-12-2022 11:29-0400 Respiratory rate 14 /min Brittany Spur TANK SHOP SUPERVISOR.HULL MOLDER Work Phone: [facility] 10-12-2022 11:29-0400 SaO2% (BldA) [Mass fraction] 98 % Brittany Kaylie TANK SHOP SUPERVISOR.HULL MOLDER Work Phone: [facility] 10-12-2022 11:29-0400 Systolic blood pressure 124 mm[Hg] Brittany Underwoodcalf TANK SHOP SUPERVISOR.HULL MOLDER Work Phone: [facility] 08-29-2022 23:37-0400 Body mass index (BMI) [Ratio] 46.2 kg/m2 [facility] 08-29-2022 23:37-0400 Body weight 118.[address] [facility] 08-29-2022 23:30-0400 Body height 160.[address] [facility] 08-29-2022 23:30-0400 Body temperature 97.9 [degF] [facility] 08-29-2022 23:30-0400 Diastolic blood pressure 72 mm[Hg] [facility] 08-29-2022 23:30-0400 Heart rate 74 /min [facility] 08-29-2022 23:30-0400 Respiratory rate 15 /min [facility] 08-29-2022 23:30-0400 SaO2% (BldA) [Mass fraction] 97 % [facility] 08-29-2022 23:30-0400 Systolic blood pressure 108 mm[Hg] [facility] 03-13-2022 13:14-0500 Body height 161.3 cm Michelle Doran TANK SHOP SUPERVISOR.DIRECTOR DATABASE Work Phone: [facility] 03-13-2022 13:14-0500 Body weight 112.49 kg Michelle Doran TANK SHOP SUPERVISOR.DIRECTOR DATABASE Work Phone: [facility] 03-13-2022 13:14-0500 Diastolic blood pressure 80 mm[Hg] Michelle Doran TANK SHOP SUPERVISOR.DIRECTOR DATABASE Work Phone: [facility] 03-13-2022 13:14-0500 Heart rate 68 /min Michelle Doran TANK SHOP SUPERVISOR.DIRECTOR DATABASE Work Phone: [facility] 03-13-2022 13:14-0500 Respiratory rate 16 /min Michelle Doran TANK SHOP SUPERVISOR.DIRECTOR DATABASE Work Phone: [facility] 03-13-2022 13:14-0500 Systolic blood pressure 132 mm[Hg] Michelle Doran TANK SHOP SUPERVISOR.DIRECTOR DATABASE Work Phone: [facility] Encounters Encounter Date Encounter Type Care Provider Facility Start: 11-17-2024 End: 11-17-2024 Telephone encounter Bridger Hill MD Work Phone: Gastroenterology Comment on above: Opened In Error Start: 09-14-2024 ambulatory NERI GRACE Faci lity:[facility] Start: 09-14-2024 End: 09-14-2024 Subsequent hospital visit by physician Bridger Hill MD Work Phone: Gastroenterology Comment on above: S/P gastric bypass [ Z98.84] Start: 09-07-2024 End: 09-07-2024 ambulatory Michael Palacios RNdirector of vendor management Start: 08-26-2024 End: 08-26-2024 Office outpatient visit 15 minutes Radha Tovar APRN.HULL MOLDER Work Phone: Internal Medicine [place] Comment on above: Type 2 diabetes cheryl itus without complication, without long- term current use of insulin (HCC) (Primary Dx); Gastroesophageal reflux disease, unspecified whether esophagitis present; Encounter for immunization; Encounter for screening mammogram for breast cancer; Screening for colon cancer Start: 08-26-2024 End: 08-26-2024 ambulatory NERI GRACE Facility:[facility] Start: 06-08-2024 End: 08-08-2024 Follow-up encounter Bridger Hill MD Work Phone: General Surgery Start: 06-01-2024 End: 06-01-2024 ambulatory NERI GRACE Facility:[facility] Start: 06-01-2024 End: 06-01-2024 Subsequent hospital visit by physician Bridger Hill MD Work Phone: Gastroenterology Comment on above: S/P gastric bypass [ Z98.84] Start: 05-28-2024 End: 05-28-2024 Admission to same day surgery center Bridger Hill MD Work Phone: General Surgery Comment on above: I am having some iss ues still after my gastric bypass surgery Start: 05-28-2024 End: 05-28-2024 ambulatory Bridger Hill MD Work Phone: General Surgery Start: 05-28-2024 End: 05-28-2024 Emergency department patient visit Neri Grace Facility:[facility] Start: 04-08-2024 End: 04-08-2024 ambulatory NERI Newell SANJAY Facility:[facility] Start: 04-08-2024 End: 04-08-2024 Patient encounter procedure Neri Grace MD Work Phone: Internal Medicine [place] Comment on above: S/P gastric bypass ( Primary Dx); Need for influenza vaccination; Controlled type 2 diabetes mellitus with hyperglycemia, unspecified whether senior living insulin use (HCC); Seasonal allergies; Postnasal drip; Type 2 diabetes mellitus without complication, without long-term current use of insulin ([facility]); Gastroesophageal reflux disease, unspecified whether esophagitis present; Screening for depression; Encounter for screening examination for other mental health and behavioral disorders; Vitamin D deficiency Start: 04-02-2024 End: 04-02-2024 Chart abstracting [address]jit Matson RD Work Phone: General Surgery Start: 04-02-2024 End: 04-02-2024 Telephone encounter Raoul Eagle RN General Surgery Comment on above: Sap Bw Bi Developer - O ther Start: 03-31-2024 End: 03-31-2024 Admission to same day surgery center Johanna Paulino MD Work Phone: General Surgery Comment on above: S/P gastric bypass ( Primary Dx); Obesity, Class II, BMI 35-39.9 Start: 03-31-2024 End: 03-31-2024 ambulatory NERI GRACE Facility:[facility] Start: 03-31-2024 End: 03-31-2024 Telemedicine consultation with patient Johanna Paulino MD Work Phone: General Surgery Start: 03-16-2024 ambulatory [facility] Start: 02-10-2024 End: 02-10-2024 Admission to same day surgery center Annie Alvarez RD Work Phone: General Surgery Comment on above: Patient Education; R eassessment Start: 02-10-2024 End: 02-10-[address] Work Phone: General Surgery Start: 01-16-2024 End: 01-16-2024 Telephone encounter Mike Jackson MD [facility] Comment on above: Fabric Transition of Care Start: 01-15-2024 End: 01-20-2024 ambulatory Neri Grace MD Work Phone: Internal Medicine [place] [id number] Start: 01-14-2024 End: 01-14-2024 Admission to same day surgery center Annie Alvarez RD Work Phone: General Surgery Comment on above: Patient Education; R eassessment Start: 01-14-2024 End: 01-14-[address] Work Phone: General Surgery Start: 01-10-2024 End: 01-10-2024 Admission to same day surgery center Basilio Garsia PA-C Work Phone: General Surgery Comment on above: Bariatric surgery [facility] (Primary Dx) Start: 01-10-2024 End: 01-10-2024 ambulatory NERI GRACE Facility:[facility] Start: 01-10-2024 End: 01-10-2024 Telemedicine consultation with patient Basilio Dilip JONES Work Phone: General Surgery Start: 01-08-2024 End: 01-08-2024 Telephone encounter Mike Jackson MD [facility] Comment on above: Fabric Transition of Care Start: 01-03-2024 End: 01-03-2024 Orders Only Joey Preston MD Work Phone: General Surgery Comment on above: Postoperative pain ( Primary Dx) Start: 01-03-2024 End: 01-03-2024 Telephone encounter Mike Jackson MD [facility] Comment on above: Fabric Transition of Care Start: 01-01-2024 End: 01-02-2024 Evaluation and management of inpatient NERI Newell GRACE Facility:[facility] Start: 12-24-2023 End: 12-24-2023 Admission to same day surgery center Mariya Tracy RN General Surgery Comment on above: Pre-Op Teaching Start: 12-24-2023 Encounter for other preprocedural examination BRIDGER HILL [facility] Start: 12-24-2023 End: 12-24-2023 ambulatory Mariya Tracy RN General Surgery Start: 12-24-2023 End: 12-24-2023 Preprocedural examination done Bridger Hill MD Work Phone: [facility] Start: 12-24-2023 End: 12-24-2023 Unlisted evaluation and management service Bridger Hill MD Work Phone: General Surgery Comment on above: Class 3 severe obesi ty due to excess calories with serious comorbidity and body mass index (BMI) of 40.0 to 44.9 in adult (HCC) (Primary Dx); Type 2 diabetes mellitus without complication, without long-term current use of insulin (HCC); Pre-operative examination; Mixed hyperlipidemia Start: 12-13-2023 End: 12-13-2023 ambulatory NERI GRACE Facility:[facility] Start: 12-13-2023 End: 12-13-2023 Admission to same day surgery center Annie Alvarez RD Work Phone: General Surgery Comment on above: Patient Education; R eassessment Start: 12-13-2023 End: 12-13-[address] Work Phone: General Surgery Start: 12-11-2023 End: 12-11-2023 Admission to establishment [facility] [place] 1 Work Phone: Pre Anesthesia Start: 12-11-2023 End: 12-11-2023 ambulatory NERI GRACE Facility:[facility] Start: 12-11-2023 End: 12-11-2023 Anesthesia consultation [facility] [place] 1 Work Phone: Pre Anesthesia Comment on above: Pre-operative examin ation (Primary Dx); Type 2 diabetes mellitus without complication, without long-term current use of insulin (HCC); Gastroesophageal reflux disease, unspecified whether esophagitis present; History of COVID-19; Obesity, Class III, BMI >= 40 Start: 12-11-2023 End: 12-11-2023 Preprocedural examination done [facility] [place] 1 Work Phone: [facility] Start: 12-04-2023 ambulatory NERI GRACE Faci lity:[facility] Start: 11-22-2023 End: 11-22-2023 Telephone encounter Raoul Eagle RN General Surgery Comment on above: Sap Bw Bi Developer - O tyler (Approval Call ) Start: 11-20-2023 End: 11-20-2023 ambulatory Neri Grace MD Work Phone: Internal Medicine [place] Comment on above: COVID-19 (Primary Dx ) Start: 11-20-2023 End: 11-20-2023 Telemedicine consultation with patient Neri Grace MD Work Phone: Internal Medicine [place] Start: 11-19-2023 End: 11-20-2023 Telephone encounter [facility]eri Grace MD [facility] [place] Comment on above: Medication Request Start: 11-01-2023 Admission to same [facility] surgery center Raoul Eagle RN General Surgery Comment on above: pseudo Start: 11-01-2023 End: 11-01-2023 ambulatory Raoul Eagle RN General Surgery Start: 11-01-2023 Preprocedural examination done Raoul Eagle RN [facility] Start: 10-30-2023 End: 10-30-2023 ambulatory NERI GRACE Facility:[facility] Start: 10-23-2023 End: 10-23-2023 ambulatory NERI GRACE Facility:[facility] Start: 10-23-2023 End: 10-23-2023 Admission to same day surgery center Annie Alvarez RD Work Phone: General Surgery Comment on above: Obesity, Class III, BMI 40-49.9 (morbid obesity) (HCC) (Primary Dx); Type 2 diabetes mellitus without complication, without long-term current use of insulin (HCC); Dietary counseling and surveillance Start: 10-23-2023 End: 10-23-2023 ambulatory NERI GRACE Facility:[facility] Start: 10-23-2023 End: 10-23-2023 Telemedicine consultation with patient Annie Alvarez RD Work Phone: General Surgery Start: 10-16-2023 End: 10-16-2023 ambulatory MAURY GRACE Facility:[facility] Start: 10-09-2023 End: 10-09-2023 ambulatory NERI Newell GRACE Facility:[facility] Start: 09-30-2023 End: 09-30-2023 ambulatory MAURY GRACE Facility:[facility] Start: 09-30-2023 End: 09-30-2023 Nursing evaluation of patient and report [place] Nurse Work Phone: [facility] Comment on above: Obesity, Class III, BMI 40-49.9 (morbid obesity) (HCC) Start: 09-17-2023 End: 09-17-2023 Admission to same day surgery center Bridger Hill MD Work Phone: General Surgery Comment on above: Body mass index 40.0 -44.9, adult (HCC) (Primary Dx); Type 2 diabetes mellitus without complication, without long-term current use of insulin (HCC) Start: 09-17-2023 End: 09-17-2023 Telemedicine consultation with patient Bridger Hill MD Work Phone: General Surgery Start: 09-10-2023 End: 09-10-2023 Subsequent hospital visit by physician Mel[place] [facility] [place] Melgoza Work Phone: Radiology Comment on above: Obesity, Class III, BMI 40-49.9 (morbid obesity) (HCC) [E66.01] Start: 09-09-2023 End: 09-09-2023 Admission to same day surgery center Noris Lawrence JUNE.HULL MOLDER Work Phone: General Surgery Comment on above: Obesity, Class III, BMI 40-49.9 (morbid obesity) (HCC) (Primary Dx) Start: 09-09-2023 End: 09-09-2023 Telemedicine consultation with patient Noris Lawrence TANK SHOP SUPERVISOR.HULL MOLDER Work Phone: General Surgery Start: 08-12-2023 End: 08-12-2023 Admission to same day surgery center Annie Alvarez RD Work Phone: General Surgery Comment on above: Obesity, Class III, BMI 40-49.9 (morbid obesity) (HCC) (Primary Dx); Type 2 diabetes mellitus without complication, without long-term current use of insulin (HCC); Dietary counseling and surveillance Start: 08-12-2023 End: 08-12-2023 Telemedicine consultation with patient Annie Alvarez RD Work Phone: General Surgery Start: 07-12-2023 Admission to [facility] Neri Grace MD Work Phone: Ambulatory Surgery Start: 07-12-2023 ambulatory Neri castillo MD Work Phone: Ambulatory Surgery Start: 05-21-2023 Refill Michelle Doran APRN.DIRECTOR DATABASE Work Phone: Internal Medicine [place] Comment on above: Refill Request Start: 03-03-2023 ambulatory Neri castillo MD Work Phone: Internal Medicine [place] Comment on above: Insurance pre author ization Start: 02-16-2023 ambulatory Neri castillo MD Work Phone: Internal Medicine [place] Comment on above: Prior authorization request Start: 01-16-2023 End: 01-16-2023 ambulatory Danielle Mayorga APRN.HULL MOLDER Work Phone: Telemedicine Comment on above: Viral URI with cough (Primary Dx) Start: 01-16-2023 End: 01-16-2023 Telemedicine consultation with patient Danielle Leslievalerie WATKINS.HULL MOLDER Work Phone: [facility] Start: 01-16-2023 End: 01-16-2023 ambulatory Cyn Rajput TANK SHOP SUPERVISOR.HULL MOLDER Work Phone: Telemedicine Comment on above: Treatment not availa ble (Primary Dx) Start: 12-11-2022 End: 12-11-2022 Subsequent hospital visit by physician Diagnostic Mammo [facility] Mammogram Comment on above: Encounter for screen ing mammogram for breast cancer [Z12.31] Start: 10-26-2022 End: 10-26-2022 Subsequent hospital visit by physician Screen Mammo [facility] Mammogram Start: 10-12-2022 End: 10-12-2022 Patient encounter procedure Brittany Underwoodcalf TANK SHOP SUPERVISOR.HULL MOLDER Work Phone: OB/Gynecology Comment on above: Encounter for gyneco logical examination (general) (routine) without abnormal findings (Primary Dx); Screening for cervical cancer; Encounter for screening for human papillomavirus (HPV); Pap smear for cervical cancer screening; Encounter for screening mammogram for breast cancer Start: 10-12-2022 End: 10-12-2022 Patient encounter status Brittany Lott TANK SHOP SUPERVISOR.HULL MOLDER Work Phone: [facility] Start: 09-11-2022 Telephone encounter Neri palomares MD Work Phone: Internal Medicine [place] Comment on above: Insurance Authorizat ion Start: 09-04-2022 ambulatory Neri castillo MD Work Phone: Internal Medicine [place] Comment on above: My diabetic medicati on Start: 08-29-2022 End: 08-30-2022 Emergency department patient visit [facility] Start: 06-02-2022 ambulatory Amanda Killian TANK SHOP SUPERVISOR.HULL MOLDER Work Phone: Telemedicine Comment on above: Other sinusitis (Miriam jeremias Dx) Start: 05-31-2022 ambulatory Horace nelson PA-C Work Phone: Telemedicine Comment on above: Sinus problem (Prima ry Dx) Start: 04-17-2022 Telephone encounter Neri palomares MD Work Phone: Family Medicine [place] Comment on above: Patient Update Start: 04-13-2022 Refill Genesis Moncada TANK SHOP SUPERVISOR.HULL MOLDER Work Phone: Internal Medicine [place] Comment on above: Refill Request Start: 03-26-2022 ambulatory Michelle Doran TANK SHOP SUPERVISOR.DIRECTOR DATABASE Work Phone: Internal Medicine [place] Comment on above: Guzman system for con tinuous glucose monitoring Start: 03-16-2022 Telephone encounter Michelle malone TANK SHOP SUPERVISOR.DIRECTOR DATABASE Work Phone: Internal Medicine [place] Comment on above: Results (lab) Start: 03-13-2022 End: 03-13-2022 Patient encounter procedure Michelle Doran JUNE.DIRECTOR DATABASE Work Phone: Internal Medicine [place] Comment on above: Controlled type 2 di abetes mellitus with hyperglycemia, unspecified whether buttermaker continuous churn insulin use (HCC) (Primary Dx); Encounter for immunization; Special screening examination for viral disease; Screening for HIV (human immunodeficiency virus); Screening for cervical cancer; Encounter for screening mammogram for breast cancer; Screening for colon cancer; Mass of right axilla; Routine medical exam Start: 03-13-2022 End: 03-13-2022 Patient encounter status Michelle Doran TANK SHOP SUPERVISOR.DIRECTOR DATABASE Work Phone: Internal Medicine [place] Procedures Date Procedure Procedure Detail Performing Clinician Start: 09-14-2024 Esophagogastroduodenoscopy transoral diagnostic Bridger Hill MD Work Phone: Start: 06-01-2024 Esophagogastroduodenoscopy transoral diagnostic Bridger Hill MD Work Phone: Start: 04-08-2024 Adult depression screening assessment Neri Grace MD Work Phone: Start: 12-13-2023 Antibody screen NERI GRACE Comment on above: Order Comment: Specimen Type: BLOOD SPEC IMENOrdering Facility: [facility] Address: [address] [place] [address] Performed By: #### T [id number] ####CC MAIN BLOOD BANKCLIA [id number] [place] [address] [place] Start: 10-09-2023 Follow-up visit Follow Up NORIS PARKS Start: 09-10-2023 Radiologic exam chest 2 views Noris simon APRN.HULL MOLDER Work Phone: Start: 12-11-2022 Us breast uni real time with image limited Milvia Fortune MD Work Phone: Start: 12-11-2022 Digital breast tomosynthesis bilateral Michelle Espinoza WATKINS.DIRECTOR DATABASE Work Phone: Start: 08-29-2022 Radiologic examination of knee Start: 03-21-2022 Mammography Michelle Doran TANK SHOP SUPERVISOR.DIRECTOR DATABASE Work Phone: Start: 03-13-2022 INFLUENZA VACCINE QUADRIVALENT 6 MO - 64 YRS IM Michelle Doran TANK SHOP SUPERVISOR.DIRECTOR DATABASE Work Phone: Plan of Treatment Date Care Activity Detail Author Start: 08-26-2034 Urine microalbumin profile DTaP,Tdap,Td Vaccine (2 - Td or Tdap) [facility] Start: 10-13-2027 HPV Testing HPV Testing [facility] Start: 10-13-2027 Pap Testing Pap Testing [facility] Start: 10-13-2027 Screening for malignant neoplasm of cervix [facility] Start: 03-13-2027 LIPID SCREEN LIPID SCREEN [facility] Start: 08-26-2025 Annual PCP Team Chronic Disease Visit Annual PCP Team Chronic Disease Visit [facility] Start: 08-26-2025 Hepatitis B Vaccine (1 of 3 - 19+ 3-dose series) Hepatitis B Vaccine (1 of 3 - 19+ 3-dose series) [facility] Comment on above: Postponed from 06/06/1990 (Declined at t his time) Start: 08-26-2025 Shingrix Vaccine (1 of 2) Shingrix Vaccine (1 of 2) [facility] Comment on above: Postponed from 06/06/2021 (Declined at t his time) Start: 04-08-2025 Annual PCP Team Chronic Disease Visit Annual PCP Team Chronic Disease Visit [facility] Start: 04-08-2025 Anxiety Screening Anxiety Screening [facility] Start: 04-08-2025 Covid-19 Vaccine ( season) Covid-19 Vaccine ( season) [facility] Comment on above: Postponed from 12/01/2023 (Declined at t his time) Start: 04-08-2025 Depression Screening Depression Screening [facility] Start: 04-08-2025 Diabetic foot examination Diabetic Foot Exam [facility] Start: 04-08-2025 Hepatitis B screening Urine Albumin:Creatinine Ratio [facility] Start: 04-08-2025 Hepatitis B surface antibody level LDL Cholesterol [facility] Start: 03-13-2025 DIABETES SCREEN DIABETES SCREEN [facility] Start: 03-01-2025 End: 03-01-2025 Patient encounter procedure 03/01/2025 8:40 AM EST Office Visit Internal Medicine [place] [address] [place], [place] [address] Radha Tovar, TANK SHOP SUPERVISOR.HULL MOLDER [address] [facility] [place] [address] follow up 6 months Internal Medicine [place] Comment on above: follow up 6 months Start: 11-30-2024 Influenza vaccination Influenza Vaccine (#1) [facility] Start: 11-19-2024 Annual PCP Team Chronic Disease Visit Annual PCP Team Chronic Disease Visit [facility] Start: 10-06-2024 Hemoglobin A1c measurement HbA1C [facility] Start: 09-14-2024 End: 09-14-2024 Patient encounter procedure 09/14/2024 1:30 PM EDT Appointment Gastroenterology [address] [address] Bridger Hill MD [address] [place] [address] S/P gastric bypass [Z98.84] Gastroenterology Comment on above: S/P gastric bypass [Z98.84] Start: 09-09-2024 Hepatitis B surface antibody level LDL Cholesterol [facility] Start: 09-01-2024 End: 06-01-2025 EGD BARIATRIC EGD BARIATRIC Endoscopy Routine S/P gastric bypass Anastomotic ulcer S/P gastric bypass Expected: 09/01/2024, Expires: 06/01/2025 [facility] Comment on above: Expected: 09/01/2024, Expires: Start: 08-10-2024 End: 08-10-2024 Patient encounter procedure 08/10/2024 11:00 AM EDT Office Visit Internal Medicine [place] [address] [place], [place] [id number] Radha Tovar, TANK SHOP SUPERVISOR.HULL MOLDER [address] [place], [place] [id number] 4 month follow-up Internal Medicine [place] Comment on above: 4 month follow-up Start: 08-06-2024 End: 08-06-2024 Patient encounter procedure 08/06/2024 10:40 AM EDT Office Visit Internal Medicine [place] [address] [place] [address] Neri Grace MD [address] [place] [address] 4 month follow-up Internal Medicine [place] Comment on above: 4 month follow-up Start: 06-01-2024 End: 06-01-2024 Patient encounter procedure 06/01/2024 10:00 AM EST Appointment Gastroenterology [address] [address] Bridger Hill MD [address] [place] [address] EGD; Oral Intolerance S/p Korin En Y 01/01/2024 Gastroenterology Comment on above: EGD; Oral Intolerance S/p Korin En Y 05/2023 Start: 04-08-2024 End: 07-08-2024 25-hydroxyvitamin D3 [Mass/volume] in Serum or Plasma [facility] Comment on above: Expected: 04/08/2024, Expires: Start: 04-08-2024 End: 07-08-2024 Cobalamin (Vitamin B12) [Mass/volume] in Serum or Plasma [facility] Comment on above: Expected: 04/08/2024, Expires: Start: 04-08-2024 End: 07-08-2024 Comprehensive metabolic 2000 panel - Serum or Plasma [facility] Work Phone: Comment on above: Expected: 04/08/2024, Expires: Start: 04-08-2024 End: 07-08-2024 Ferritin [Mass/volume] in Serum or Plasma [facility] Comment on above: Expected: 04/08/2024, Expires: Start: 04-08-2024 End: 07-08-2024 Folate [Mass/volume] in Serum or Plasma [facility] Comment on above: Expected: 04/08/2024, Expires: Start: 04-08-2024 End: 07-08-2024 Hemoglobin A1c in Blood [facility] Comment on above: Expected: 04/08/2024, Expires: Start: 04-08-2024 End: 07-08-2024 Lipid 1996 panel - Serum or Plasma [facility] Comment on above: Expected: 04/08/2024, Expires: Start: 04-08-2024 End: 07-08-2024 Microalbumin/Creatini ne [Mass Ratio] in Urine [facility] Comment on above: Expected: 04/08/2024, Expires: Start: 04-08-2024 End: 07-08-2024 VITAMIN B1 (THIAMINE), WHOLE BLOOD [facility] Comment on above: Expected: 04/08/2024, Expires: Start: 04-02-2024 End: 04-02-2024 Admission to same day surgery center 04/02/2024 1:45 PM EST [facility] General Surgery [address] [place], [place] [id number] Daljit Matson, KIMBER [address] [place] [address] 3 mo nutrition//postop//LRYGB //Strong//01/01/24 General Surgery Comment on above: 3 mo nutrition//postop//LRYGB//Strong//1 Start: 03-31-2024 End: 03-31-2024 Follow-up encounter 03/31/2024 11:00 AM EST [facility] General Surgery [address] [place], [place] [id number] Johanna Paulino MD [address] [place] [address] 3 mo follow up//postop//LRYGB//Stron g//01/01/24 General Surgery Comment on above: 3 mo follow up//postop//LRYGB//Strong//1 Start: 03-11-2024 Hemoglobin A1c measurement HbA1C [facility] Start: 02-11-2024 End: 02-11-2024 Admission to same day surgery center General Surgery Comment on above: post op 1 Month Post op RYGB Start: 01-31-2024 End: 01-31-2024 Admission to same day surgery center 01/31/2024 11:30 AM EDT Education General Surgery [address] [place] [address] Karmen Nelson, RD [address] [place] [address] 1 mo nutrition//postop//LRYGB //Strong//01/01/24 General Surgery Comment on above: 1 mo nutrition//postop//LRYGB//Strong//1 Start: 01-14-2024 End: 01-14-2024 Admission to same day surgery center 01/14/2024 9:45 AM EDT Education General Surgery [address] [place] [address] Annie Alvarez, RD [address] [address] 2 wk nutrition refresher//postop//LRYGB //Strong//01/01/24 General Surgery Comment on above: 2 wk nutrition refresher//postop//LRYGB/ /Strong//01/01/24 Start: 01-10-2024 End: 01-10-2024 Follow-up encounter 01/10/2024 2:30 PM EDT [facility] General Surgery [address] [place] [address] Basilio Garsia PA-C [address] [place] [address] 7-10 day follow up//postop//LRYGB//Stron g//01/01/24 General Surgery Comment on above: 7-10 day follow up//postop//LRYGB//Stron g//01/01/24 Start: 01-01-2024 End: 01-01-2024 Admission to same day surgery center 01/01/2024 2:57 PM EDT - 01/01/2024 7:56 PM EDT Surgery Admitting [address] [place] [address] Bridger Hill MD [address] [place] [address] LAPAROSCOPIC GASTRIC RESTRICTIVE SURG W/ BYPASS & KORIN-EN-Y 150CM OR LESS Admitting Comment on above: LAPAROSCOPIC GASTRIC RESTRICTIVE SURG W/ BYPASS & KORIN-EN-Y 150CM OR LESS Start: 01-01-2024 End: 01-01-2024 Laps gstr rstcv px w/byp korin-en-y limb <150 cm LAPAROSCOPIC GASTRIC RESTRICTIVE SURG W/ BYPASS & KORIN-EN-Y 150CM OR LESS Class 3 severe obesity due to excess calories with serious comorbidity and body mass index (BMI) of 40.0 to 44.9 in adult ([facility]) Pre-operative examination 01/01/2024 2:57 PM EDT [facility] Start: 01-01-2024 Subsequent hospital visit by physician 01/01/2024 2:57 PM EDT Hospital Encounter Admitting [address] [place] [address] Bridger Hill MD [address] [place] [address] Class 3 severe obesity due to excess calories with serious comorbidity and body mass index (BMI) of 40.0 to 44.9 in adult (HCC) [E66.01, Z68.41] Admitting Comment on above: Class 3 severe obesity due to excess shashi ories with serious comorbidity and body mass index (BMI) of 40.0 to 44.9 in adult (HCC) [E66.01, Z68.41] Start: 01-01-2024 End: 01-01-2024 Admission to same day surgery center 01/01/2024 10:05 AM EDT - 01/01/2024 2:05 PM EDT Surgery Admitting [address] [place] [address] Bridger Hill MD [address] [place] [address] LAPAROSCOPIC GASTRIC RESTRICTIVE SURG W/ BYPASS & KORIN-EN-Y 150CM OR LESS Admitting Comment on above: LAPAROSCOPIC GASTRIC RESTRICTIVE SURG W/ BYPASS & KORIN-EN-Y 150CM OR LESS Start: 01-01-2024 End: 01-01-2024 Laps gstr rstcv px w/byp korin-en-y limb <150 cm LAPAROSCOPIC GASTRIC RESTRICTIVE SURG W/ BYPASS & KORIN-EN-Y 150CM OR LESS Class 3 severe obesity due to excess calories with serious comorbidity and body mass index (BMI) of 40.0 to 44.9 in adult ([facility]) Pre-operative examination 01/01/2024 10:05 AM EDT [facility] Start: 01-01-2024 Subsequent hospital visit by physician 01/01/2024 10:05 AM EDT Hospital Encounter Admitting [address] [place] [id number] Bridger Hill MD [address] [place] [id number] Class 3 severe obesity due to excess calories with serious comorbidity and body mass index (BMI) of 40.0 to 44.9 in adult ([facility]) [E66.01, Z68.41], Pre-operative examination [Z01.818] Admitting Comment on above: Class 3 severe obesity due to excess shashi ories with serious comorbidity and body mass index (BMI) of 40.0 to 44.9 in adult ([facility]) [E66.01, Z68.41], Pre-operative examination [Z01.818] Start: 12-24-2023 End: 12-24-2023 Nursing evaluation of patient and report 12/24/2023 8:30 AM EDT Nurse Visit General Surgery [address] [place] [address] Bmi, Nurse [facility] [address] [place] [address] preop General Surgery Comment on above: preop Start: 12-24-2023 End: 12-24-2023 Patient encounter procedure 12/24/2023 8:00 AM EDT Office Visit General Surgery [address] [place] [address] Bridger Hill MD [address] [place] [address] preop General Surgery Comment on above: preop Start: 12-17-2023 End: 12-17-2023 Admission to same day surgery center 12/17/2023 10:15 AM EDT Education General Surgery [address] [place] [address] Daljit Matson, KIMBER [address] [place] [address] 2 wk nutrition refresher//preop//LRYGB/ /Strong//01/01/24 General Surgery Comment on above: 2 wk nutrition refresher//preop//LRYGB// Strong//01/01/24 Start: 12-12-2023 Mammography Mammogram Screening [facility] Start: 12-12-2023 Screening for malignant neoplasm of breast Mammogram Screening [facility] Start: 12-01-2023 Covid-19 Vaccine ( season) Covid-19 Vaccine () [facility] Start: 12-01-2023 Covid-19 Vaccine ( season) Covid-19 Vaccine () [facility] Start: 12-01-2023 Influenza vaccination [facility] Start: 11-09-2023 Subsequent hospital visit by physician 11/09/2023 Hospital Encounter Admitting [address] [place] [address] Bridger Hill MD [address] [place] [address] Class 3 severe obesity due to excess calories with serious comorbidity and body mass index (BMI) of 40.0 to 44.9 in adult (HCC) [E66.01, Z68.41] Admitting Comment on above: Class 3 severe obesity due to excess shashi ories with serious comorbidity and body mass index (BMI) of 40.0 to 44.9 in adult (HCC) [E66.01, Z68.41] Start: 10-24-2023 Annual PCP Team Chronic Disease Visit Annual PCP Team Chronic Disease Visit [facility] Start: 10-24-2023 End: 10-24-2023 Patient encounter procedure 10/24/2023 10:40 AM EDT Office Visit Internal Medicine [place] [address] [facility] [place] [address] Neri Grace MD [address] [place] [address] 6 month follow-up Internal Medicine [place] Comment on above: 6 month follow-up Start: 10-23-2023 End: 10-23-2023 Admission to same day surgery center 10/23/2023 9:45 AM EDT [facility] Surgery [address] [place], [place] [id number] Annie Alvarez RD [address] [id number] Red/Strong/0Diet/[facility] General Surgery Comment on above: Red/Strong/0Diet/[employer] Start: 10-18-2023 Hepatitis B surface antibody level LDL Cholesterol [facility] Start: 10-15-2023 End: 10-15-2023 Patient encounter procedure 10/15/2023 10:00 AM EDT Office Visit OB/Gynecology [address] [place] [place] [address] Brittany Lott APRN.HULL MOLDER [address] [place] [address] Annual / patient due for colonoscopy OB/Gynecology Comment on above: Annual / patient due for colonoscopy Start: 09-30-2023 End: 09-30-2023 Nursing evaluation of patient and report 09/30/2023 10:45 AM EDT Nurse Visit Family Medicine [place] [address] [place] [address] Nurse, [place] [address] [place] [address] Obesity, Class III, BMI 40-49.9 (morbid obesity) (HCC) [E66.01] Family Medicine [place] Comment on above: Obesity, Class III, BMI 40-49.9 (morbid obesity) (HCC) [E66.01] Start: 09-23-2023 End: 09-23-2023 ambulatory 09/23/2023 10:00 AM EDT Results Only Cardiology [address] [place] [id number] Obesity, Class III, BMI 40-49.9 (morbid obesity) ([facility]) [E66.01] Cardiology Comment on above: Obesity, Class III, BMI 40-49.9 (morbid obesity) ([facility]) [E66.01] Start: 09-17-2023 End: 09-17-2023 Admission to same day surgery center 09/17/2023 1:00 PM EDT [facility] Surgery [address] [place] [address] Bridger Hill MD [address] [place], [place] [id number] Red/Strong/0Diet/[employer] General Surgery Comment on above: Red/Strong/0Diet/Humana Start: 09-12-2023 3 comp foot exam completed DIABETIC FOOT EXAM [facility] Start: 09-12-2023 ANNUAL PCP TEAM CHRONIC DISEASE VISIT ANNUAL PCP TEAM CHRONIC DISEASE VISIT [facility] Start: 09-12-2023 Diabetic foot examination Diabetic Foot Exam [facility] Start: 09-10-2023 End: 09-10-2023 ambulatory 09/10/2023 1:45 PM EDT Results Only [facility] [address] [place] [address] [place] Start: 09-09-2023 End: 12-09-2023 25-hydroxyvitamin D3 [Mass/volume] in Serum or Plasma VITAMIN D 25 HYDROXY Lab Routine Obesity, Class III, BMI 40-49.9 (morbid obesity) ([facility]) Expected: 09/09/2023, Expires: 12/09/2023 [facility] Comment on above: Expected: 09/09/2023, Expires: Start: 09-09-2023 End: 12-09-2023 CBC W Auto Differential panel - Blood COMPLETE BLOOD COUNT AND DIFFERENTIAL Lab Routine Obesity, Class III, BMI 40-49.9 (morbid obesity) ([facility]) Expected: 09/09/2023, Expires: 12/09/2023 [facility] Work Phone: Comment on above: Expected: 09/09/2023, Expires: Start: 09-09-2023 End: 12-09-2023 Cobalamin (Vitamin B12) [Mass/volume] in Serum or Plasma VITAMIN B12 Lab Routine Obesity, Class III, BMI 40-49.9 (morbid obesity) ([facility]) Expected: 09/09/2023, Expires: 12/09/2023 [facility] Comment on above: Expected: 09/09/2023, Expires: Start: 09-09-2023 End: 12-09-2023 Comprehensive metabolic 2000 panel - Serum or Plasma COMPREHENSIVE METABOLIC PANEL Lab Routine Obesity, Class III, BMI 40-49.9 (morbid obesity) ([facility]) Expected: 09/09/2023, Expires: 12/09/2023 [facility] Comment on above: Expected: 09/09/2023, Expires: Start: 09-09-2023 End: 12-09-2023 Ferritin [Mass/volume] in Serum or Plasma FERRITIN Lab Routine Obesity, Class III, BMI 40-49.9 (morbid obesity) ([facility]) Expected: 09/09/2023, Expires: 12/09/2023 [facility] Comment on above: Expected: 09/09/2023, Expires: Start: 09-09-2023 End: 12-09-2023 Folate [Mass/volume] in Serum or Plasma FOLATE, SERUM Lab Routine Obesity, Class III, BMI 40-49.9 (morbid obesity) ([facility]) Expected: 09/09/2023, Expires: 12/09/2023 [facility] Comment on above: Expected: 09/09/2023, Expires: Start: 09-09-2023 End: 12-09-2023 Hemoglobin A1c in Blood HEMOGLOBIN A1C Lab Routine Obesity, Class III, BMI 40-49.9 (morbid obesity) ([facility]) Expected: 09/09/2023, Expires: 12/09/2023 [facility] Comment on above: Expected: 09/09/2023, Expires: Start: 09-09-2023 End: 12-09-2023 Iron and Iron binding capacity panel - Serum or Plasma IRON AND TIBC Lab Routine Obesity, Class III, BMI 40-49.9 (morbid obesity) ([facility]) Expected: 09/09/2023, Expires: 12/09/2023 [facility] Comment on above: Expected: 09/09/2023, Expires: Start: 09-09-2023 End: 12-09-2023 Lipid 1996 panel - Serum or Plasma LIPID PANEL BASIC Lab Routine Obesity, Class III, BMI 40-49.9 (morbid obesity) ([facility]) Expected: 09/09/2023, Expires: 12/09/2023 [facility] Comment on above: Expected: 09/09/2023, Expires: Start: 09-09-2023 End: 12-09-2023 Natriuretic peptide.B prohormone N-Terminal [Mass/volume] in Serum or Plasma NT PRO BNP Lab Routine Obesity, Class III, BMI 40-49.9 (morbid obesity) ([facility]) Expected: 09/09/2023, Expires: 12/09/2023 [facility] Comment on above: Expected: 09/09/2023, Expires: Start: 09-09-2023 End: 12-09-2023 Thyrotropin [Units/volume] in Serum or Plasma THYROID STIMULATING HORMONE Lab Routine Obesity, Class III, BMI 40-49.9 (morbid obesity) ([facility]) Expected: 09/09/2023, Expires: 12/09/2023 [facility] Comment on above: Expected: 09/09/2023, Expires: Start: 09-09-2023 End: 12-09-2023 VITAMIN B1 (THIAMINE), WHOLE BLOOD VITAMIN B1 (THIAMINE), WHOLE BLOOD Lab Routine Obesity, Class III, BMI 40-49.9 (morbid obesity) ([facility]) Expected: 09/09/2023, Expires: 12/09/2023 [facility] Comment on above: Expected: 09/09/2023, Expires: Start: 09-09-2023 End: 09-09-2023 Admission to same day surgery center 09/09/2023 10:00 AM EDT [facility] Surgery [address] [id number] Noris Lawrence APRN.HULL MOLDER [address] [place] [address] Red/Strong/0Diet/[facility] General Surgery Comment on above: Red/Strong/0Diet/[facility] Start: 08-12-2023 End: 08-12-2023 Admission to same day surgery center 08/12/2023 9:00 AM EDT [facility] [address] [id number] Annie Alvarez, RD [address] [place] [address] New Patient General Surgery Comment on above: New Patient Start: 06-20-2023 Hemoglobin A1c measurement HbA1C [facility] Start: 06-20-2023 Hemoglobin A1c/Hemoglobin.total in Blood HbA1C [facility] Start: 04-01-2023 Behavioral Health Screening Behavioral Health Screening [facility] Start: 04-01-2023 Depression Assessment Depression Assessment [facility] Start: 03-21-2023 Mammography MAMMOGRAM [facility] Start: 03-13-2023 COVID-19 VACCINE (#1) COVID-19 VACCINE (#1) [facility] Comment on above: Postponed from 1970 (Declined at t his time) Start: 03-13-2023 Hepatitis B screening URINE ALBUMIN:CREATININE RATIO [facility] Start: 03-13-2023 Hepatitis B surface antibody level LDL CHOLESTEROL [facility] Start: 01-03-2023 Hemoglobin A1c/Hemoglobin.total in Blood HBA1C [facility] Start: 11-30-2022 Covid-19 Vaccine ( season) Covid-19 Vaccine () [facility] Start: 11-30-2022 Influenza vaccination [facility] Start: 09-14-2022 End: 11-14-2022 Hemoglobin A1c in Blood HGB A1C Lab Routine Controlled type 2 diabetes mellitus with hyperglycemia, unspecified whether buttermaker continuous churn insulin use (HCC) Expected: 09/14/2022 (Approximate), Expires: 11/14/2022 [facility] Work Phone: Comment on above: Expected: 09/14/2022 (Approximate), Expi res: 11/14/2022 Start: 09-11-2022 Hemoglobin A1c/Hemoglobin.total in Blood HBA1C [facility] Start: 06-17-2022 End: 08-17-2022 Hemoglobin A1c in Blood HGB A1C Lab Routine Controlled type 2 diabetes mellitus with hyperglycemia, unspecified whether senior living insulin use (HCC) Expected: 06/17/2022 (Approximate), Expires: 08/17/2022 [facility] Work Phone: Comment on above: Expected: 06/17/2022 (Approximate), Expi res: 08/17/2022 Start: 04-01-2022 DEPRESSION ASSESSMENT DEPRESSION ASSESSMENT [facility] Start: 03-13-2022 End: 05-13-2022 ALBUMIN/CREAT RATIO RND UR [facility] Work Phone: Comment on above: Expected: 03/13/2022, Expires: 3 Start: 03-13-2022 End: 05-13-2022 Comprehensive metabolic 2000 panel - Serum or Plasma [facility] Work Phone: Comment on above: Expected: 03/13/2022, Expires: 3 Start: 03-13-2022 End: 05-13-2022 Hemoglobin A1c in Blood [facility] Work Phone: Comment on above: Expected: 03/13/2022, Expires: 3 Start: 03-13-2022 End: 05-13-2022 Hepatitis C virus Ab [Presence] in Serum [facility] Work Phone: Comment on above: Expected: 03/13/2022, Expires: 3 Start: 03-13-2022 End: 05-13-2022 LIPID PANEL, NONFASTING [facility] Work Phone: Comment on above: Expected: 03/13/2022, Expires: 3 Start: 06-06-2021 SHINGRIX VACCINE (1 of 2) SHINGRIX VACCINE (1 of 2) [facility] Start: 06-06-2016 COLOGUARD (FIT-DNA) COLOGUARD (FIT-DNA) [facility] Start: 06-06-2016 Colonoscopy COLONOSCOPY [facility] Start: 06-06-2016 COLORECTAL CANCER SCREENING COLORECTAL CANCER SCREENING [facility] Start: 06-06-[address] COLONOGRAPHY [facility] Start: 06-06-2016 DIABETES SCREEN DIABETES SCREEN [facility] Start: 06-06-2016 FECAL OCCULT BLOOD FECAL OCCULT BLOOD [facility] Start: 06-06-2016 LIPID SCREEN LIPID SCREEN [facility] Start: 06-06-2016 Screening for malignant neoplasm of colon [facility] Start: 06-06-2016 SIGMOIDOSCOPY SIGMOIDOSCOPY [facility] Start: 2011 Mammography MAMMOGRAM [facility] Start: 06-06-2001 HPV TESTING HPV TESTING [facility] Start: 06-06-1992 PAP TESTING PAP TESTING [facility] Start: 06-06-1990 Hepatitis B Vaccine (1 of 3 - 19+ 3-dose series) Hepatitis B Vaccine (1 of 3 - 19+ 3-dose series) [facility] Start: 06-06-1990 Urine microalbumin profile [facility] Start: 06-06-1989 ANNUAL PCP TEAM CHRONIC DISEASE VISIT ANNUAL PCP TEAM CHRONIC DISEASE VISIT [facility] Start: 06-06-1989 Anxiety Screening Anxiety Screening [facility] Start: 06-06-1989 Depression Screening Depression Screening [facility] Start: 06-06-1989 HEPATITIS C SCREENING HEPATITIS C SCREENING [facility] Start: 06-06-1989 HIV SCREENING HIV SCREENING [facility] Start: 06-06-1981 3 comp foot exam completed DIABETIC FOOT EXAM [facility] Start: 06-06-1981 Glaucoma screening Dilated Retinal Exam [facility] Start: 06-06-1981 Hepatitis C antibody, confirmatory test DILATED RETINAL EXAM [facility] Start: 06-06-1977 PNEUMOCOCCAL (1 - PCV) PNEUMOCOCCAL (1 - PCV) [facility] Start: 1971 Covid-19 Vaccine (#1) Covid-19 Vaccine (#1) [facility] Start: 1971 HEPATITIS B (1 of 3 - 3-dose series) HEPATITIS B (1 of 3 - 3-dose series) [facility] Start: 1971 Hepatitis B Vaccine (1 of 3 - 3-dose series) Hepatitis B Vaccine (1 of 3 - 3-dose series) [facility] COLOGUARD COLOGUARD Lab Ro utine Screening for colon cancer Ordered: 08/26/2024 [facility] Comment on above: Ordered: 08/26/2024 End: 02-13-2025 DBT Breast - bilateral screening WILLIAM SCREENING [facility] Radiology Routine Encounter for screening mammogram for breast cancer 1 Occurrences starting 01/15/2024 until 02/13/2025 [facility] Work Phone: Comment on above: 1 Occurrences starting 01/15/2024 until 02/13/2025 End: 09-25-2025 DBT Breast - bilateral screening WILLIAM SCREENING W [facility]GAN Radiology Routine Encounter for screening mammogram for breast cancer 1 Occurrences starting 08/26/2024 until 09/25/2025 [facility] Work Phone: Comment on above: 1 Occurrences starting 08/26/2024 until 09/25/2025 End: 04-12-2023 Diagnostic mammography computer-aided detcj bi WILLIAM DIAGNOSTIC BILAT Radiology Routine Encounter for screening mammogram for breast cancer Mass of right axilla 1 Occurrences starting 03/13/2022 until 04/12/2023 [facility] Work Phone: Comment on above: 1 Occurrences starting 03/13/2022 until 04/12/2023 End: 09-08-2024 ECG COMPLETE ECG COMPLETE ECG Routine Obesity, Class III, BMI 40-49.9 (morbid obesity) (HCC) 1 Occurrences starting 09/09/2023 until 09/08/2024 [facility] Comment on above: 1 Occurrences starting 09/09/2023 until 09/08/2024 End: 05-28-2025 EGD DIAGNOSTIC EGD DIAGNOSTIC Endoscopy Routine S/P gastric bypass Nausea and vomiting, unspecified vomiting type Epigastric pain 1 Occurrences starting 05/28/2024 until 05/28/2025 [facility] Work Phone: Comment on above: 1 Occurrences starting 05/28/2024 until 05/28/2025 Hepb vaccine adult 2 dose schedule for im use HEPLISAV B (HEPATITIS B, ADJUVANT, ADULT) Immunization/Injection Routine Encounter for immunization 1 Occurrences starting 03/13/2022 [facility] Work Phone: Comment on above: 1 Occurrences starting 03/13/2022 Hzv zoster vacc recombinant adjuvanted im njx ZOSTER VACC RECOMBINANT,IM Immunization/Injection Routine Encounter for immunization Ordered: 03/13/2022 [facility] Work Phone: Comment on above: Ordered: 03/13/2022 Laps gstr rstcv px w/byp korin-en-y limb <150 cm LAPAROSCOPIC GASTRIC RESTRICTIVE SURG W/ BYPASS & KORIN-EN-Y 150CM OR LESS Class 3 severe obesity due to excess calories with serious comorbidity and body mass index (BMI) of 40.0 to 44.9 in adult (HCC) Pre-operative examination [facility] End: 04-12-2023 WILLIAM SCREENING WILLIAM SCREENING Radiology Routine Encounter for screening mammogram for breast cancer 1 Occurrences starting 03/13/2022 until 04/12/2023 [facility] Work Phone: Comment on above: 1 Occurrences starting 03/13/2022 until 04/12/2023 End: 11-11-2023 WILLIAM SCREENING WILLIAM SCREENING Radiology Routine Encounter for screening mammogram for breast cancer 1 Occurrences starting 10/12/2022 until 11/11/2023 [facility] Work Phone: Comment on above: 1 Occurrences starting 10/12/2022 until 11/11/2023 PAP TEST PAP TEST Lab [facility] Screening for cervical cancer Encounter for gynecological examination (general) (routine) without abnormal findings Encounter for screening for human papillomavirus (HPV) Pap smear for cervical cancer screening 10/12/2022 12:08 PM EDT [facility] Work Phone: Patient Education ED Meniscal In jury Knee Poss ED Knee Sprain [facility] Work Phone: Patient referral [facility] Work Phone: Tdap vaccine 7 yrs/> im TDAP VACCINE AGE 7+ IM Immunization/Injection Routine Encounter for immunization Ordered: 03/13/2022 [facility] Work Phone: Comment on above: Ordered: 03/13/2022 Tissue Pathology biopsy report [facility] Work Phone: Comment on above: Release Upon Ordering for 1 Occurrences starting 06/01/2024, 1 completed End: 04-12-2023 Us breast uni real time with image limited US BREAST LTD RT Radiology Routine Encounter for screening mammogram for breast cancer Mass of right axilla 1 Occurrences starting 03/13/2022 until 04/12/2023 [facility] Work Phone: Comment on above: 1 Occurrences starting 03/13/2022 until 04/12/2023 End: 10-08-2024 XR Chest PA and Lateral XR CHEST 2V FRONTAL/LAT Radiology Routine Obesity, Class III, BMI 40-49.9 (morbid obesity) (HCC) 1 Occurrences starting 09/09/2023 until 10/08/2024 [facility] Comment on above: 1 Occurrences starting 09/09/2023 until 10/08/2024 [facility] Immunizations Immunization Date Immunization Notes Care Provider [facility] 08-26-2024 tetanus toxoid, reduced diphtheria toxoid, and acellular pertussis vaccine, adsorbed Radha Tovar [employer] SHOP SUPERVISOR.HULL MOLDER Work Phone: [facility] 04-08-2024 influenza, seasonal, injectable Neri Grace MD Work Phone: [facility] 04-08-2024 influenza virus vaccine, unspecified formulation Bridger Hill MD Work Phone: [facility] 06-14-2022 pneumococcal (PCV20) vaccine, 20 valent (PREVNAR 20) Neri Grace MD Work Phone: [facility] Work Phone: 06-14-2022 Seasonal, quadrivalent, recombinant, injectable influenza vaccine, preservative free Neri Grace MD Work Phone: [facility] Work Phone: 06-14-2022 influenza virus vaccine, unspecified formulation Cyn Rajput [employer] SH[employer] SUPERVISOR.HULL MOLDER Work Phone: [facility] 03-13-2022 influenza, injectable, quadrivalent, contains preservative Michelle Doran [employer] SH[employer] SUPERVISOR.DIRECTOR DATABASE Work Phone: [facility] Work Phone: NEGATED: Highlighted row has not occurred!03-13-2022 tetanus toxoid, reduced diphtheria toxoid, and acellular pertussis vaccine, adsorbed Michelle Doran [employer] SH[employer] SUPERVISOR.DIRECTOR DATABASE Work Phone: [facility] Work Phone: Comment on above: Deferred: Postponed NEGATED: Highlighted row has not occurred!03-13-2022 zoster vaccine recombinant Michelle Doran T[employer] SHOP SUPERVISOR.DIRECTOR DATABASE Work Phone: [facility] Work Phone: Comment on above: Deferred: Postponed Payers Date Payer Category Payer Self-pay [id number] 2023 Medicaid [employer] Member [place] bscriber Plan / Payer (Effective 2023-Present) Name: Leonora Cam Relation to Subscriber: Self Name: Leonora Cam Payer ID: [id number] (NAIC) Type: Medicaid Address: [place] [address] [id number] 2023 Private Health Insurance [id number] 2021 Private Health Insurance [id number] Private Health Insurance [facility] [id number] Unknown [employer] [id number] Unknown [id number] Social History Date Type Detail Facility Start: [facility]-13-2022 [facility] Work Phone: History of tobacco use Passive smoker [facility] Work Phone: Start: 03-13-2022 Tobacco use and exposure Smoke less tobacco non-user [facility] Work Phone: Start: 03-13-2022 End: 09-11-2022 Alcohol intake Lifetime non-drinker (finding) [facility] Start: 03-06-2022 History SDOH Alcohol Frequency 1 [facility] Start: 03-06-2022 History SDOH Alcohol Std Drinks 0 [facility] Start: 03-06-2022 History SDOH Social Connections Phone 5 [facility] Start: 03-06-2022 History SDOH Social Connections Get Together 2 [facility] Start: 03-06-2022 History SDOH Social Connections [facility] Start: 1970 Sex Assigned At Not on file [facility] Start: 08-29-2022 [facility] ever smoked [facility] Start: 10-05-2014 None;Rare [facility] Start: 10-05-2014 Secondhand [facility] Start: 1970 Sex Assigned At Female [facility] Start: 10-12-2022 End: 08-26-2024 Alcohol intake Ex-drinker (finding) [facility] Start: 03-06-2022 End: 09-11-2022 History of Social function [facility] Start: 03-06-2022 End: 09-11-2022 Social connection and isolation panel [facility] Do you belong to any clubs or organizations such as yarsanism groups, unions, fraternal or athletic groups, or school groups? Yes [facility] Start: 03-02-2012 Attends Club or Organization Meetings Not on file [facility] Are you now , , , , never or living with a partner? [facility] How often to you hav e a drink containing alcohol? Never [facility] How hard is it for y ou to pay for the very basics like food, housing, medical care, and heating Somewhat hard [facility] Do you feel stress - tense, restless, nervous, or anxious, or unable to sleep at night because your mind is troubled all the time - these days [OSQ] Only a little [facility] (I/We) worried wheth er (my/our) food would run out before (I/we) got money to buy more. Sometimes true [facility] At any time in the p ast 12 months, were you homeless or living in long-term [including now]? No [facility] Do you feel stress - tense, restless, nervous, or anxious, or unable to sleep at night because your mind is troubled all the time - these days [OSQ] Not at all [facility] (I/We) worried wheth er (my/our) food would run out before (I/we) got money to buy more. Never true [facility] Goals Date Patient Goal Desired Activity /State Personal health goal Clinical Notes 03-13-2022 to 09-14-2024 Alvin Gilbert RN - 09/14/2024 4:[address] RN - 09/14/2024 4:[address] RN - 09/14/2024 3:25 PM EDAlvin Radford RN - 09/14/2024 3:25 PM EDTPatient Instructions Note Date & Type Note Facility 09-14-2024 Nurse Note Patient discharged from Q3 following procedure. MD came to bedside to discuss procedure, patient has no further questions at time of discharge. Patient verbalized understanding of discharge instructions, no questions at this time. Patient reports 0/10 pain, vital signs stable. Patient reports no complaints. Patient ambulated from the unit on her own with a steady gait. [facility] 09-14-2024 Nurse Note Patient discharged from Q3 following procedure. MD came to bedside to discuss procedure, patient has no further questions at time of discharge. Patient verbalized understanding of discharge instructions, no questions at this time. Patient reports 0/10 pain, vital signs stable. Patient reports no complaints. Patient ambulated from the unit on her own with a steady gait. AMBULATORY PATIENT EDUCATION NOTE TOPIC: GI PROCEDURES: Esophagogastroduodenoscopy(EGD) with or without biopies based on clinical findings, removal of polyps or lesions READINESS TO LEARN INSTRUCTION PROVIDED TO: Patient, readness to learn accessed prior to procedure COGNITIVE ABILITY: Alert and oriented PTED MOTIVATION TO LEARN: Interested FAMILY SUPPORT: High - Very involved in pt care IPATIENT LEARNS BEST BY: Individual Instruction Written Instruction - Hand-outs Verbal Instruction FACTORS AFFECTING LEARNING: None PHYSICAL LIMITATIONS AFFECTING LEARNING: None LEARNING RESPONSE METHOD OF INSTRUCTION: Individual instruction PATIENT / FAMILY RESPONSE: Verbalizes understanding of: WORSENING CONDITION-Signs and symptoms of a worsening condition that warrant a call to the physician FOLLOW-UP PLAN: Patient instructed to call with any further issues SUPPLEMENTAL MATERIAL: Procedure Discharge Instructions REFERRAL (RECOMMENDATION): None documented in this encounter [facility] 09-14-2024 Nurse Note AMBULATORY PATIENT EDUCATION NOTE TOPIC: GI PROCEDURES: Esophagogastroduodenoscopy(EGD) with or without biopies based on clinical findings, removal of polyps or lesions READINESS TO LEARN INSTRUCTION PROVIDED TO: Patient, readness to learn accessed prior to procedure COGNITIVE ABILITY: Alert and oriented PTED MOTIVATION TO LEARN: Interested FAMILY SUPPORT: High - Very involved in pt care IPATIENT LEARNS BEST BY: Individual Instruction Written Instruction - Hand-outs Verbal Instruction FACTORS AFFECTING LEARNING: None PHYSICAL LIMITATIONS AFFECTING LEARNING: None LEARNING RESPONSE METHOD OF INSTRUCTION: Individual instruction PATIENT / FAMILY RESPONSE: Verbalizes understanding of: WORSENING CONDITION-Signs and symptoms of a worsening condition that warrant a call to the physician FOLLOW-UP PLAN: Patient instructed to call with any further issues SUPPLEMENTAL MATERIAL: Procedure Discharge Instructions REFERRAL (RECOMMENDATION): None [facility] 09-14-2024 Note Q3 Patient Name: Leonora Cam Procedure Date: 09/14/2024 2:57 PM Date of : 1970 Admit Type: Outpatient Age: 54 Gender: Female Note Status: Finalized Attending MD: Bridger Hill , , [id number] Procedure: Upper GI endoscopy Indications: Follow-up of acute gastrojejunal ulcer Providers: Bridger Hill Patient Profile: This is a 54 year old female. Refer to note in patient chart for documentation of history and physical. Referring Physician: Bridger Hill (Referring MD) Medicines: Monitored Anesthesia Care Complications: No immediate complications. Requesting Provider: Procedure: Pre-Anesthesia Assessment: - Prior to the procedure, a History and Physical was performed, and patient medications and allergies were reviewed. The patient is competent. The risks and benefits of the procedure and the sedation options and risks were discussed with the patient. All questions were answered and informed consent was obtained. Patient identification and proposed procedure were verified by the physician, the nurse and the doll surgeon in the pre-procedure area in the endoscopy suite. Mental Status Examination: alert and oriented. Airway Examination: normal oropharyngeal airway and neck mobility. Respiratory Examination: clear to auscultation. CV Examination: normal. Prophylactic Antibiotics: The patient does not require prophylactic antibiotics. Prior Anticoagulants: The patient has taken no anticoagulant or antiplatelet agents. After reviewing the risks and benefits, the patient was deemed in satisfactory condition to undergo the procedure. The anesthesia plan was to use monitored anesthesia care (MAC). Immediately prior to administration of medications, the patient was re-assessed for adequacy to receive sedatives. The heart rate, respiratory rate, oxygen saturations, blood pressure, adequacy of pulmonary ventilation, and response to care were monitored throughout the procedure. The physical status of the patient was re-assessed after the procedure. After obtaining informed consent, the endoscope was passed under direct vision. Throughout the procedure, the patient's blood pressure, pulse, and oxygen saturations were monitored continuously. The Endoscope was introduced through the mouth, and advanced to the efferent jejunal loop. The upper GI endoscopy was accomplished without difficulty. The patient tolerated the procedure well. Moderate Sedation: MAC anesthesia was administered by the anesthesia team. Findings: The hypopharynx was normal. No gross lesions were noted in the lower third of the esophagus. Evidence of a gastric bypass was found in the gastric body. This was characterized by erosion, erythema, an intact appearance, no visible carlos and no visible sutures. Z line was encountered at 33 cm from the teeth GJ was measured at 38 cm from the teeth Length of the gastric pouch 5 cm Contents of the gastric pouch included clear fluid Vertical staple line was intact and marked by healthy mucosa Diameter of gastrojejunstomy was visually estimated to be 1.8-2 cm Ulceration of the gastrojejunostomy mostly healed, but persistent at the posterior aspect. This was now a superficial ulcer with no cratering, and healing hypertrophic tissue, and estimated to be <10% of the circumference. The anterior gastrojejunal ulcer was completely healed. Length of blind end 5 cm The endoscope was inserted to a depth of 60 cm from the teeth and jejunojejunostomy was not encountered There was no bile in the korin limb Retroflexion was not performed in the pouch Impression: - Normal hypopharynx. - No gross lesions in the lower third of the esophagus. - A gastric bypass was found, characterized by no visible carlos, no visible sutures, an intact appearance (more content not included)... [facility] 09-14-2024 Note Q3 Patient Name: Leonora Cam Procedure Date: 09/14/2024 2:57 PM Date of : 1970 Admit Type: Outpatient Age: 54 Gender: Female Note Status: Finalized Attending MD: Bridger Hill , , [id number] Procedure: Upper GI endoscopy Indications: Follow-up of acute gastrojejunal ulcer Providers: Bridger Hill Patient Profile: This is a 54 year old female. Refer to note in patient chart for documentation of history and physical. Referring Physician: Bridger Hill (Referring MD) Medicines: Monitored Anesthesia Care Complications: No immediate complications. Requesting Provider: Procedure: Pre-Anesthesia Assessment: - Prior to the procedure, a History and Physical was performed, and patient medications and allergies were reviewed. The patient is competent. The risks and benefits of the procedure and the sedation options and risks were discussed with the patient. All questions were answered and informed consent was obtained. Patient identification and proposed procedure were verified by the physician, the nurse and the doll surgeon in the pre-procedure area in the endoscopy suite. Mental Status Examination: alert and oriented. Airway Examination: normal oropharyngeal airway and neck mobility. Respiratory Examination: clear to auscultation. CV Examination: normal. Prophylactic Antibiotics: The patient does not require prophylactic antibiotics. Prior Anticoagulants: The patient has taken no anticoagulant or antiplatelet agents. After reviewing the risks and benefits, the patient was deemed in satisfactory condition to undergo the procedure. The anesthesia plan was to use monitored anesthesia care (MAC). Immediately prior to administration of medications, the patient was re-assessed for adequacy to receive sedatives. The heart rate, respiratory rate, oxygen saturations, blood pressure, adequacy of pulmonary ventilation, and response to care were monitored throughout the procedure. The physical status of the patient was re-assessed after the procedure. After obtaining informed consent, the endoscope was passed under direct vision. Throughout the procedure, the patient's blood pressure, pulse, and oxygen saturations were monitored continuously. The Endoscope was introduced through the mouth, and advanced to the efferent jejunal loop. The upper GI endoscopy was accomplished without difficulty. The patient tolerated the procedure well. Moderate Sedation: MAC anesthesia was administered by the anesthesia team. Findings: The hypopharynx was normal. No gross lesions were noted in the lower third of the esophagus. Evidence of a gastric bypass was found in the gastric body. This was characterized by erosion, erythema, an intact appearance, no visible carlos and no visible sutures. Z line was encountered at 33 cm from the teeth GJ was measured at 38 cm from the teeth Length of the gastric pouch 5 cm Contents of the gastric pouch included clear fluid Vertical staple line was intact and marked by healthy mucosa Diameter of gastrojejunstomy was visually estimated to be 1.8-2 cm Ulceration of the gastrojejunostomy mostly healed, but persistent at the posterior aspect. This was now a superficial ulcer with no cratering, and healing hypertrophic tissue, and estimated to be <10% of the circumference. The anterior gastrojejunal ulcer was completely healed. Length of blind end 5 cm The endoscope was inserted to a depth of 60 cm from the teeth and jejunojejunostomy was not encountered There was no bile in the korin limb Retroflexion was not performed in the pouch Impression: - Normal hypopharynx. - No gross lesions in the lower third of the esophagus. - A gastric bypass was found, characterized by no visible carlos, no visible sutures, an intact appearance, erosion and erythema. Z line was encountered at 33 cm from the teeth GJ was measured at 38 cm from the teeth Length of the gastric pouch 5 cm Contents of the gastric pouch included clear fluid Vertical staple line was intact and marked by healthy mucosa Diameter of gastrojejunstomy was visually estimated to be 1.8-2 cm Ulceration of the gastrojejunostomy mostly healed, but persistent at the posterior aspect. This was now a superficial ulcer with no cratering, and healing hypertrophic tissue, and estimated to be <10% of the circumference. The anterior gastrojejunal ulcer was completely healed. Length of blind end 5 cm The endoscope was inserted to a depth of 60 cm from the teeth and jejunojejunostomy was not encountered There was no bile in the korin limb Retroflexion was not performed in the pouch - No specimens collected. Estimated Blood Loss: Estimated blood loss was minimal. Recommendation: - Patient has a contact number available for emergencies. The signs and symptoms of potential delayed complications were discussed with the patient. Return to norm (more content not included)... [facility] 09-14-2024 History and physical note ENDOSCOPY HISTORY AND PHYSICAL EXAM Leonora Dyllan Cam [id number] Subjective HPI: This is a 53 year old female who presents for endoscopy. She underwent korin en y gastric bypass in December 2023 and developed severe epigastric pain s/p endoscopy on 06/01/24 that revealed an ulcer at GJ. She was prescribed omeprazole. She now returns for a repeat endoscopy. She is doing well. No changes to her health otherwise since last time. PAST ANESTHESIA HISTORY: No history of adverse event PAST MEDICAL HISTORY Diagnosis Date COVID-19 10/16/2021 Diabetes mellitus ([facility]) 2017 GERD (gastroesophageal reflux disease) 12/11/2023 Obesity, Class III, BMI >= 40 09/11/2022 Seasonal allergies Severe obesity (BMI >= 40) ([facility]) 01/01/2024 Type 2 diabetes mellitus without complication, without long-term current use of insulin ([facility]) PAST SURGICAL HISTORY Procedure Laterality Date LAPAROSCOP GASTRIC BYPASS 01/01/2024 korin en y LIGATE FALLOPIAN TUBE 2000 PAST SURGICAL HISTORY OF 2014 clamp in R foot (bone shattered) REMOVAL GALLBLADDER 2015 TONSILLECTOMY & ADENOIDECTOMY Prior to Admission medications as of 08/26/24 1058 Medication Sig Last Dose Taking loratadine (CLARITIN) 10 mg tablet Take 1 tablet by mouth once daily as needed for cold/allergy symptoms. sucralfate (CARAFATE) 100 mg/mL suspension Take 10 mL by mouth four times daily. omeprazole (PRILOSEC) 40 mg capsule Take 1 capsule by mouth two times a day. Open capsule and sprinkle on applesauce or yogurt to take fluticasone (FLONASE) 50 mcg/actuation nasal spray Use 1 [place] in each nostril at bedtime as needed for cold/allergy symptoms. As needed flash glucose sensor (FREESTYLE GUZMAN 14 DAY SENSOR) kit 1 Each two times a day. DX E11.65 Insulin No PHENYLephrine-Acetaminophen (TYLENOL SINUS HEADACHE) 5-325 mg tab Take 2 tablets by mouth three times a day. ALLERGIES Allergen Reactions Bee Sting Swelling Codeine Unknown Doxycycline GI Upset Metformin Intolerance GI upset, diarrhea Prednisone Rash Objective PHYSICAL EXAM: The remainder of the physical exam is noncontributory. AIRWAY: intact LUNGS: lungs clear to auscultation bilaterally CARDIAC: RRR Assessment/Plan ASA Class: ASA Class: Patient with mild systemic disease Active Problems: * No active hospital problems. * Resolved Problems: * No resolved hospital problems. * Medication and Non-Pharmacologic VTE Prophylaxis/Anticoagulants VTE Prophylaxis: not indicated for procedure Provisional Diagnosis/Treatment Plan: EGD: under MAC sedation Consent has been signed Sedation Goal: Moderate Higinio Nuno MD 09/14/2024 2:18 PM On behalf of Bridger Hill MD\ Attending Note I evaluated the patient and personally participated in the sánchez components. I agree with the resident's findings and plan as documented and have discussed the case and management of the patient's care with the resident. Signature: Bridger Hill MD Date: 09/14/2024 Time: 3:39 PM [facility] 09-14-2024 History and physical note ENDOSCOPY HISTORY AND PHYSICAL EXAM Leonora Cam [id number] Subjective HPI: This is a 53 year old female who presents for endoscopy. She underwent korin en y gastric bypass in December 2023 and developed severe epigastric pain s/p endoscopy on 06/01/24 that revealed an ulcer at GJ. She was prescribed omeprazole. She now returns for a repeat endoscopy. She is doing well. No changes to her health otherwise since last time. PAST ANESTHESIA HISTORY: No history of adverse event PAST MEDICAL HISTORY Diagnosis Date COVID-19 10/16/2021 Diabetes mellitus (HCC) 2017 GERD (gastroesophageal reflux disease) 12/11/2023 Obesity, Class III, BMI >= 40 09/11/2022 Seasonal allergies Severe obesity (BMI >= 40) ([facility]) 01/01/2024 Type 2 diabetes mellitus without complication, without long-term current use of insulin ([facility]) PAST SURGICAL HISTORY Procedure Laterality Date LAPAROSCOP GASTRIC BYPASS 01/01/2024 korin en y LIGATE FALLOPIAN TUBE 2000 PAST SURGICAL HISTORY OF 2014 clamp in R foot (bone shattered) REMOVAL GALLBLADDER 2015 TONSILLECTOMY & ADENOIDECTOMY <AGE 12 1984 Prior to Admission medications as of 08/26/24 1058 Medication Sig Last Dose Taking loratadine (CLARITIN) 10 mg tablet Take 1 tablet by mouth once daily as needed for cold/allergy symptoms. sucralfate (CARAFATE) 100 mg/mL suspension Take 10 mL by mouth four times daily. omeprazole (PRILOSEC) 40 mg capsule Take 1 capsule by mouth two times a day. Open capsule and sprinkle on applesauce or yogurt to take fluticasone (FLONASE) 50 mcg/actuation nasal spray Use 1 [place] in each nostril at bedtime as needed for cold/allergy symptoms. As needed flash glucose sensor (FREESTYLE GUZMAN 14 DAY SENSOR) kit 1 Each two times a day. DX E11.65 Insulin No PHENYLephrine-Acetaminophen (TYLENOL SINUS HEADACHE) 5-325 mg tab Take 2 tablets by mouth three times a day. ALLERGIES Allergen Reactions Bee Sting Swelling Codeine Unknown Doxycycline GI Upset Metformin Intolerance GI upset, diarrhea Prednisone Rash Objective PHYSICAL EXAM: The remainder of the physical exam is noncontributory. AIRWAY: intact LUNGS: lungs clear to auscultation bilaterally CARDIAC: RRR Assessment/Plan ASA Class: ASA Class: Patient with mild systemic disease Active Problems: * No active hospital problems. * Resolved Problems: * No resolved hospital problems. * Medication and Non-Pharmacologic VTE Prophylaxis/Anticoagulants VTE Prophylaxis: not indicated for procedure Provisional Diagnosis/Treatment Plan: EGD: under MAC sedation Consent has been signed Sedation Goal: Moderate Higinio Nuno MD 09/14/2024 2:18 PM On behalf of Bridger Hill MD\ Attending Note I evaluated the patient and personally participated in the sánchez components. I agree with the resident's findings and plan as documented and have discussed the case and management of the patient's care with the resident. Signature: Bridger Hill MD Date: 09/14/2024 Time: 3:39 PM documented in this encounter [facility] 09-07-2024 Nurse Note Attempted to reach the patient at the contact number that they provided [phone] (home) . 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 Failure to have a responsible adult accompany the patient to their procedure appointment prevents the use of sedation or anesthesia for their procedure; and can result in cancellation of the procedure NPO instructions were reviewed. Instructions to contact their primary care provider regarding their medications and which medications to stop in preparation for their procedure Instructions to completely read and follow the written instructions that they recieved regarding their procedure. Number to call with questions or concerns [phone] Number to call to cancel their procedure [phone] Michael Palacios RN [facility] 09-07-2024 Nurse Note Attempted to reach the patient at the contact number that they provided [phone] (home) . 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 Failure to have a responsible adult accompany the patient to their procedure appointment prevents the use of sedation or anesthesia for their procedure; and can result in cancellation of the procedure NPO instructions were reviewed. Instructions to contact their primary care provider regarding their medications and which medications to stop in preparation for their procedure Instructions to completely read and follow the written instructions that they recieved regarding their procedure. Number to call with questions or concerns [phone] Number to call to cancel their procedure [phone] Michael Palacios RN documented in this encounter [facility] 08-26-2024 Note HNO ID: [id number] Author: RADHA TOVAR APRN.[employer] Service: ? Author Type: Nurse Practitioner Type: Progress Notes Filed: 08/26/2024 16:17 Note Text: CC: Patient presents with: Recheck: 4 months HPI: Leonora Cam is a 54 year old female who presents today for above. GERD. Since her last visit she has been doing well. Current symptoms include a feeling of fullness and abdominal pain several times a month on therapy of omeprazole (Prilosec) every day alleviated with taking medication. Follow up concerning the Dilated Retinal exam results with Dr. Blunt being sent in. Ms. Cam will see Dr. Blunt before September for another Dilated retinal exam and will bring those results in so they can be scanned into her chart. Ordered Diabetes: Home blood sugar readings: Freestyle Guzman Hypoglycemia: No Glipizide discontinued on 04/[address] Grace Increased thirst: No Urinary frequency: No Nocturia: No Fatigue: No Unintentional weight loss: No Blurred vision: No Numbness, tingling or pain in extremities: No Ulcers or sores on feet: No Last Ophthalmology exam: within the past 12 months Patient's last HgA1C : Hemoglobin A1C (%) Date Value 04/08/2024 6.2 09/10/2023 7.4 HBA1C, Keshia (%) Date Value 09/25/2006 5.0 REVIEW OF SYSTEMS See HPI PAST MEDICAL HISTORY Diagnosis Date COVID-19 10/16/2021 Diabetes mellitus (HCC) 2017 GERD (gastroesophageal reflux disease) 12/11/2023 Obesity, Class III, BMI >= 40 09/11/2022 Seasonal allergies Severe obesity (BMI >= 40) (HCC) 01/01/2024 Type 2 diabetes mellitus without complication, without long-term current use of insulin (HCC) PAST SURGICAL HISTORY Procedure Laterality Date LAPAROSCOP GASTRIC BYPASS 01/01/2024 korin en y LIGATE FALLOPIAN TUBE 2000 PAST SURGICAL HISTORY OF 2015 clamp in R foot (bone shattered) REMOVAL GALLBLADDER 2015 TONSILLECTOMY AND ADENOIDECTOMY ALLERGIES Bee Sting, Codeine, Doxycycline, Metformin, and Prednisone MEDICATIONS sucralfate (CARAFATE) 100 mg/mL suspension Take 10 mL by mouth four times daily. omeprazole (PRILOSEC) 40 mg capsule Take 1 capsule by mouth two times a day. Open capsule and sprinkle on applesauce or yogurt to take fluticasone (FLONASE) 50 mcg/actuation nasal spray Use 1 [place] in each nostril at bedtime as needed for cold/allergy symptoms. As needed flash glucose sensor (FREESTYLE GUZMAN 14 DAY SENSOR) kit 1 Each two times a day. DX E11.65 Insulin No PHENYLephrine-Acetaminophen (TYLENOL SINUS HEADACHE) 5-325 mg tab Take 2 tablets by mouth three times a day. loratadine (CLARITIN) 10 mg tablet Take 1 tablet by mouth once daily as needed for cold/allergy symptoms. FAMILY HISTORY Problem Relation Age of Onset Heart Mother Diabetes Mother COPD Mother Asthma Mother Kidney Disease Mother Stroke Mother Heart Failure Mother Stroke Father Diabetes Father Heart Father 34 Diabetes Sister 56 type 1 Diabetes Brother Prediabetes Asthma Brother MVA other (Maria Guadalupe sydrome) Brother 2 Diabetes Maternal Grandmother Alzheimer's Disease Maternal Grandmother Prostate Cancer Maternal Grandfather Heart Paternal Grandmother Diabetes Paternal Grandmother Lung Cancer Paternal Grandfather DVT No Family History Social History Tobacco Use Smoking status: Never Passive exposure: Current Smokeless tobacco: Never Vaping Use Vaping status: Never Used Substance Use Topics Alcohol use: Not Currently Drug use: Never PHYSICAL EXAMINATION: BP 116/72 Pulse 72 Resp 12 Wt 79 kg (174 lb 2.6 oz) SpO2 99% BMI 30.85 kg/m? General appearance: Well appearing, alert, in no acute distress, well-hydrated, well nourished. Skin: Skin color, texture, turgor normal, no suspicious rashes or lesions Lungs: Lungs clear to auscultation. No wheezing, rhonchi, rales. Heart: RRR without murmur, gallop, or rubs. No ectopy Abdomen: Normal abdominal exam, Abdomen soft, non-tender. Bowel sounds normal. No masses, organomegaly Neuro: Gait normal. Reflexes normal and symmetric. Sensation grossly intact. ASSESSMENT/PLAN: 1. Type 2 diabetes mellitus without complication, without long-term current use of insulin (HCC) - ICD9: 250.00, ICD10: E11.9 (primary diagnosis) - Controlled - Continue current medications 2. Gastroesophageal reflux disease, unspecified whether esophagitis present - ICD9: 530.81, ICD10: K21.9 Stable on medication 3. Encounter for immunization - ICD9: V03.89, ICD10: Z23 - TDAP VACCINE, AGE 7+ YR (ADACEL, BOOSTRIX) 4. Encounter for screening mammogram for breast cancer - ICD9: V76.12, ICD10: Z12.31 - WILLIAM SCREENING W MORGAN 5. Screening for colon cancer - ICD9: V76.51, ICD10: Z12.11 - COLOGJACKELYN Tovar APRN.[facility] 08-26-2024 History of Present illness Narrative CC: Patient presents with: Recheck: 4 months HPI: Leonora Cam is a 54 year old female who presents today for above. GERD. Since her last visit she has been doing well. Current symptoms include a feeling of fullness and abdominal pain several times a month on therapy of omeprazole (Prilosec) every day alleviated with taking medication. Follow up concerning the Dilated Retinal exam results with Dr. Blunt being sent in. Ms. Cam will see Dr. Blunt before September for another Dilated retinal exam and will bring those results in so they can be scanned into her chart. Ordered Diabetes: Home blood sugar readings: Freestyle Guzman Hypoglycemia: No Glipizide discontinued on 04/[address] Grace Increased thirst: No Urinary frequency: No Nocturia: No Fatigue: No Unintentional weight loss: No Blurred vision: No Numbness, tingling or pain in extremities: No Ulcers or sores on feet: No Last Ophthalmology exam: within the past 12 months Patient's last HgA1C : Hemoglobin A1C (%) Date Value 04/08/2024 6.2 09/10/2023 7.4 HBA1C, Keshia (%) Date Value 09/25/2006 5.0 REVIEW OF SYSTEMS See HPI PAST MEDICAL HISTORY Diagnosis Date COVID-19 10/16/2021 Diabetes mellitus ([facility]) 2017 GERD (gastroesophageal reflux disease) 12/11/2023 Obesity, Class III, BMI >= 40 09/11/2022 Seasonal allergies Severe obesity (BMI >= 40) ([facility]) 01/01/2024 Type 2 diabetes mellitus without complication, without long-term current use of insulin ([facility]) PAST SURGICAL HISTORY Procedure Laterality Date LAPAROSCOP GASTRIC BYPASS 01/01/2024 korin en y LIGATE FALLOPIAN TUBE 2000 PAST SURGICAL HISTORY OF 2015 clamp in R foot (bone shattered) REMOVAL GALLBLADDER 2015 TONSILLECTOMY & ADENOIDECTOMY <AGE 12 1983 ALLERGIES Bee Sting, Codeine, Doxycycline, Metformin, and Prednisone MEDICATIONS sucralfate (CARAFATE) 100 mg/mL suspension Take 10 mL by mouth four times daily. omeprazole (PRILOSEC) 40 mg capsule Take 1 capsule by mouth two times a day. Open capsule and sprinkle on applesauce or yogurt to take fluticasone (FLONASE) 50 mcg/actuation nasal spray Use 1 [place] in each nostril at bedtime as needed for cold/allergy symptoms. As needed flash glucose sensor (FREESTYLE GUZMAN 14 DAY SENSOR) kit 1 Each two times a day. DX E11.65 Insulin No PHENYLephrine-Acetaminophen (TYLENOL SINUS HEADACHE) 5-325 mg tab Take 2 tablets by mouth three times a day. loratadine (CLARITIN) 10 mg tablet Take 1 tablet by mouth once daily as needed for cold/allergy symptoms. FAMILY HISTORY Problem Relation Age of Onset Heart Mother Diabetes Mother COPD Mother Asthma Mother Kidney Disease Mother Stroke Mother Heart Failure Mother Stroke Father Diabetes Father Heart Father 34 Diabetes Sister 56 type 1 Diabetes Brother Prediabetes Asthma Brother MVA other (Maria Guadalupe sydrome) Brother 2 Diabetes Maternal Grandmother Alzheimer's Disease Maternal Grandmother Prostate Cancer Maternal Grandfather Heart Paternal Grandmother Diabetes Paternal Grandmother Lung Cancer Paternal Grandfather DVT No Family History Social History Tobacco Use Smoking status: Never Passive exposure: Current Smokeless tobacco: Never Vaping Use Vaping status: Never Used Substance Use Topics Alcohol use: Not Currently Drug use: Never PHYSICAL EXAMINATION: BP 116/72 Pulse 72 Resp 12 Wt 79 kg (174 lb 2.6 oz) SpO2 99% BMI 30.85 kg/m General appearance: Well appearing, alert, in no acute distress, well-hydrated, well nourished. Skin: Skin color, texture, turgor normal, no suspicious rashes or lesions Lungs: Lungs clear to auscultation. No wheezing, rhonchi, rales. Heart: RRR without murmur, gallop, or rubs. No ectopy Abdomen: Normal abdominal exam, Abdomen soft, non-tender. Bowel sounds normal. No masses, organomegaly Neuro: Gait normal. Reflexes normal and symmetric. Sensation grossly intact. ASSESSMENT/PLAN: 1. Type 2 diabetes mellitus without complication, without long-term current use of insulin (HCC) - ICD9: 250.00, ICD10: E11.9 (primary diagnosis) - Controlled - Continue current medications 2. Gastroesophageal reflux disease, unspecified whether esophagitis present - ICD9: 530.81, ICD10: K21.9 Stable on medication 3. Encounter for immunization - ICD9: V03.89, ICD10: Z23 - TDAP VACCINE, AGE 7+ YR (ADACEL, BOOSTRIX) 4. Encounter for screening mammogram for breast cancer - ICD9: V76.12, ICD10: Z12.31 - WILLIAM SCREENING W MORGAN 5. Screening for colon cancer - ICD9: V76.51, ICD10: Z12.11 - COLOGUARD Radha Tovar APRN.[employer] documented in this encounter [facility] 06-01-2024 Nurse Note AMBULATORY PATIENT EDUCATION NOTE TOPIC: GI PROCEDURES: Esophagogastroduodenoscopy(EGD) for control of bleeding,dilation(any means),imaging,tube placement READINESS TO LEARN INSTRUCTION PROVIDED TO: Patient and family member COGNITIVE ABILITY: Alert and oriented PTED MOTIVATION TO LEARN: Interested FAMILY SUPPORT: High - Very involved in pt care IPATIENT LEARNS BEST BY: Multiple Methods FACTORS AFFECTING LEARNING: None PHYSICAL LIMITATIONS AFFECTING LEARNING: None LEARNING RESPONSE METHOD OF INSTRUCTION: Individual instruction PATIENT / FAMILY RESPONSE: Verbalizes understanding of: WORSENING CONDITION-Signs and symptoms of a worsening condition that warrant a call to the physician FOLLOW-UP PLAN: Patient instructed to call with any further issues SUPPLEMENTAL MATERIAL: Procedure Discharge Instructions REFERRAL (RECOMMENDATION): None [facility] 06-01-2024 Nurse Note AMBULATORY PATIENT EDUCATION NOTE TOPIC: GI PROCEDURES: Esophagogastroduodenoscopy(EGD) for control of bleeding,dilation(any means),imaging,tube placement READINESS TO LEARN INSTRUCTION PROVIDED TO: Patient and family member COGNITIVE ABILITY: Alert and oriented PTED MOTIVATION TO LEARN: Interested FAMILY SUPPORT: High - Very involved in pt care IPATIENT LEARNS BEST BY: Multiple Methods FACTORS AFFECTING LEARNING: None PHYSICAL LIMITATIONS AFFECTING LEARNING: None LEARNING RESPONSE METHOD OF INSTRUCTION: Individual instruction PATIENT / FAMILY RESPONSE: Verbalizes understanding of: WORSENING CONDITION-Signs and symptoms of a worsening condition that warrant a call to the physician FOLLOW-UP PLAN: Patient instructed to call with any further issues SUPPLEMENTAL MATERIAL: Procedure Discharge Instructions REFERRAL (RECOMMENDATION): None Report to Sunita Rodriguez RN 11:42 AM June 01, 2024 PRE OP LEARNING ASSESSMENT PROCEDURE/SURGERY: GI PROCEDURES: EGD READINESS TO LEARN COGNITIVE ABILITY: Alert and oriented MOTIVATION TO LEARN: Interested FAMILY SUPPORT: High - Very involved in pt care PATIENT LEARNS BEST BY: Individual Instruction FACTORS AFFECTING LEARNING: None PHYSICAL LIMITATIONS AFFECTING LEARNING: None Electronically Signed By: Alvin Gilbert RN In Department: GASTROENTEROLOGY documented in this encounter [facility] 06-01-2024 Note HNO ID: [id number] Author: YOUNG RODRIGUEZ RN Service: Nursing Author Type: Registered Nurse Type: Nursing Progress Note Filed: 06/01/2024 11:42 Note Text: Report to Sunita Rodriguez RN 11:42 AM June 01, 2024 [facility] 06-01-2024 Nurse Note Report to Sunita Rodriguez RN 11:42 AM June 01, 2024 [facility] 06-01-2024 Note Q3 Patient Name: Leonora Cam Procedure Date: 06/01/2024 11:12 AM Date of : 1970 Admit Type: Outpatient Age: 53 Gender: Female Note Status: Finalized Attending MD: Bridger Hill , , [id number] Procedure: Upper GI endoscopy Indications: Epigastric abdominal pain, Status post gastric bypass Providers: Bridger Hill Patient Profile: This is a 53 year old female. Refer to note in patient chart for documentation of history and physical. Referring Physician: Bridger Hill (Referring MD) Medicines: Monitored Anesthesia Care Complications: No immediate complications. Requesting Provider: Procedure: Pre-Anesthesia Assessment: - Prior to the procedure, a History and Physical was performed, and patient medications and allergies were reviewed. The patient is competent. The risks and benefits of the procedure and the sedation options and risks were discussed with the patient. All questions were answered and informed consent was obtained. Patient identification and proposed procedure were verified by the physician, the nurse and the doll surgeon in the pre-procedure area in the endoscopy suite. Mental Status Examination: alert and oriented. Airway Examination: normal oropharyngeal airway and neck mobility. Respiratory Examination: clear to auscultation. CV Examination: normal. Prophylactic Antibiotics: The patient does not require prophylactic antibiotics. Prior Anticoagulants: The patient has taken no anticoagulant or antiplatelet agents. ASA Grade Assessment: II - A patient with mild systemic disease. After reviewing the risks and benefits, the patient was deemed in satisfactory condition to undergo the procedure. The anesthesia plan was to use monitored anesthesia care (MAC). Immediately prior to administration of medications, the patient was re-assessed for adequacy to receive sedatives. The heart rate, respiratory rate, oxygen saturations, blood pressure, adequacy of pulmonary ventilation, and response to care were monitored throughout the procedure. The physical status of the patient was re-assessed after the procedure. After obtaining informed consent, the endoscope was passed under direct vision. Throughout the procedure, the patient's blood pressure, pulse, and oxygen saturations were monitored continuously. The Endoscope was introduced through the mouth, and advanced to the second part of duodenum. The upper GI endoscopy was accomplished without difficulty. The patient tolerated the procedure well. Moderate Sedation: MAC anesthesia was administered by the anesthesia team. Findings: The hypopharynx was normal. The Z-line was regular and was found 34 cm from the incisors. Evidence of a gastric bypass was found. A gastric pouch with a 4.5 cm length from the GE junction to the gastrojejunal anastomosis was found. The staple line appeared intact. The gastrojejunal anastomosis was characterized by edema, erosion, erythema and ulceration. There was a posterior, craterer ulcer roughly 20% of the circumferent. An anterolateral (10oclock), smaller, less cratered ulcer as well, around 10% circumference. This was traversed. The jkbsp-vy-zmzrxex limb was characterized by ulceration. The excluded stomach was not examined as it could not be found. Biopsies were taken with a cold forceps for histology and Helicobacter pylori testing. Impression: - Normal hypopharynx. - Z-line regular, 34 cm from the incisors. - Gastric bypass with a pouch 4.5 cm in length and intact staple line. Gastrojejunal anastomosis characterized by edema, erosion, erythema and ulceration. Biopsied. Estimated Blood Loss: Estimated blood loss was minimal. Recommendation: - Patient has a contact number available for (more content not included)... [facility] 06-01-2024 Note Q3 Patient Name: Leonora Cam Procedure Date: 06/01/2024 11:12 AM Date of : 1970 Admit Type: Outpatient Age: 53 Gender: Female Note Status: Finalized Attending MD: Bridger Hill , , [id number] Procedure: Upper GI endoscopy Indications: Epigastric abdominal pain, Status post gastric bypass Providers: Bridger Hill Patient Profile: This is a 53 year old female. Refer to note in patient chart for documentation of history and physical. Referring Physician: Bridger Hill (Referring MD) Medicines: Monitored Anesthesia Care Complications: No immediate complications. Requesting Provider: Procedure: Pre-Anesthesia Assessment: - Prior to the procedure, a History and Physical was performed, and patient medications and allergies were reviewed. The patient is competent. The risks and benefits of the procedure and the sedation options and risks were discussed with the patient. All questions were answered and informed consent was obtained. Patient identification and proposed procedure were verified by the physician, the nurse and the doll surgeon in the pre-procedure area in the endoscopy suite. Mental Status Examination: alert and oriented. Airway Examination: normal oropharyngeal airway and neck mobility. Respiratory Examination: clear to auscultation. CV Examination: normal. Prophylactic Antibiotics: The patient does not require prophylactic antibiotics. Prior Anticoagulants: The patient has taken no anticoagulant or antiplatelet agents. ASA Grade Assessment: II - A patient with mild systemic disease. After reviewing the risks and benefits, the patient was deemed in satisfactory condition to undergo the procedure. The anesthesia plan was to use monitored anesthesia care (MAC). Immediately prior to administration of medications, the patient was re-assessed for adequacy to receive sedatives. The heart rate, respiratory rate, oxygen saturations, blood pressure, adequacy of pulmonary ventilation, and response to care were monitored throughout the procedure. The physical status of the patient was re-assessed after the procedure. After obtaining informed consent, the endoscope was passed under direct vision. Throughout the procedure, the patient's blood pressure, pulse, and oxygen saturations were monitored continuously. The Endoscope was introduced through the mouth, and advanced to the second part of duodenum. The upper GI endoscopy was accomplished without difficulty. The patient tolerated the procedure well. Moderate Sedation: MAC anesthesia was administered by the anesthesia team. Findings: The hypopharynx was normal. The Z-line was regular and was found 34 cm from the incisors. Evidence of a gastric bypass was found. A gastric pouch with a 4.5 cm length from the GE junction to the gastrojejunal anastomosis was found. The staple line appeared intact. The gastrojejunal anastomosis was characterized by edema, erosion, erythema and ulceration. There was a posterior, craterer ulcer roughly 20% of the circumferent. An anterolateral (10oclock), smaller, less cratered ulcer as well, around 10% circumference. This was traversed. The lqbtb-if-fhqjyai limb was characterized by ulceration. The excluded stomach was not examined as it could not be found. Biopsies were taken with a cold forceps for histology and Helicobacter pylori testing. Impression: - Normal hypopharynx. - Z-line regular, 34 cm from the incisors. - Gastric bypass with a pouch 4.5 cm in length and intact staple line. Gastrojejunal anastomosis characterized by edema, erosion, erythema and ulceration. Biopsied. Estimated Blood Loss: Estimated blood loss was minimal. Recommendation: - Patient has a contact number available for emergencies. The signs and symptoms of potential delayed complications were discussed with the patient. Return to normal activities tomorrow. Written discharge instructions were provided to the patient. - Resume previous diet. - Continue present medications. - Await pathology results. - Use Prilosec (omeprazole) 40 mg PO BID for 3 months. - Use sucralfate tablets 1 gram PO QID. Procedure Code(s): --- Professional --- 08547 Diagnosis Code(s): --- Professional --- Z98.84 K28.9 R10.13 CPT copyright 2020 [employer]. All rights reserved. Attending Participation: I personally performed the entire procedure. Scope In: 11:22:54 AM Scope Out: 11:30:[address] Bridger Hill, 06/01/2024 11:39:43 AM This report has been signed electronically by Bridger Hill Number of Addenda: 0 Note Initiated On: 06/01/2024 11:12 AM [facility] 06-01-2024 Nurse Note PRE OP LEARNING ASSESSMENT PROCEDURE/SURGERY: GI PROCEDURES: EGD READINESS TO LEARN COGNITIVE ABILITY: Alert and oriented MOTIVATION TO LEARN: Interested FAMILY SUPPORT: High - Very involved in pt care PATIENT LEARNS BEST BY: Individual Instruction FACTORS AFFECTING LEARNING: None PHYSICAL LIMITATIONS AFFECTING LEARNING: None Electronically Signed By: Alvin Gilbert RN In Department: GASTROENTEROLOGY [facility] 06-01-2024 History and physical note ENDOSCOPY HISTORY AND PHYSICAL EXAM Leonora Cam [id number] Subjective HPI: This is a 53 year old female who presents for endoscopy. She underwent korin en y gastric bypass in December 2023 and developed severe epigastric pain last week. [facility] was recommended EGD to investigate for marginal ulcer. PAST ANESTHESIA HISTORY: No history of adverse event PAST MEDICAL HISTORY Diagnosis Date COVID-19 10/16/2021 Diabetes mellitus (HCC) 2017 GERD (gastroesophageal reflux disease) 12/11/2023 Obesity, Class III, BMI >= 40 09/11/2022 Seasonal allergies Severe obesity (BMI >= 40) ([facility]) 01/01/2024 Type 2 diabetes mellitus without complication, without long-term current use of insulin ([facility]) PAST SURGICAL HISTORY Procedure Laterality Date LAPAROSCOP GASTRIC BYPASS 01/01/2024 korin en y LIGATE FALLOPIAN TUBE 2000 PAST SURGICAL HISTORY OF 2014 clamp in R foot (bone shattered) REMOVAL GALLBLADDER 2014 TONSILLECTOMY & ADENOIDECTOMY Prior to Admission medications as of 04/08/24 1124 Medication Sig Last Dose Taking fluticasone (FLONASE) 50 mcg/actuation nasal spray Use 1 [place] in each nostril at bedtime as needed for cold/allergy symptoms. As needed flash glucose sensor (FREESTYLE GUZMAN 14 DAY SENSOR) kit 1 Each two times a day. DX E11.65 Insulin No PHENYLephrine-Acetaminophen (TYLENOL SINUS HEADACHE) 5-325 mg tab Take 2 tablets by mouth three times a day. loratadine (CLARITIN) 10 mg tablet Take 1 tablet by mouth once daily as needed for cold/allergy symptoms. pantoprazole DR (PROTONIX) 40 mg tablet Take 1 tablet by mouth once daily. ALLERGIES Allergen Reactions Bee Sting Swelling Codeine Unknown Doxycycline GI Upset Metformin Intolerance GI upset, diarrhea Prednisone Rash Objective PHYSICAL EXAM: The remainder of the physical exam is noncontributory. AIRWAY: intact LUNGS: lungs clear to auscultation bilaterally CARDIAC: RRR Assessment/Plan ASA Class: Active Problems: * No active hospital problems. * Resolved Problems: * No resolved hospital problems. * Medication and Non-Pharmacologic VTE Prophylaxis/Anticoagulants VTE Prophylaxis: not indicated for procedure Provisional Diagnosis/Treatment Plan: EGD: under MAC sedation Consent has been signed Alia Hillman MD 05/31/2024 9:09 PM Bridger Hill MD [facility] 06-01-2024 History and physical note ENDOSCOPY HISTORY AND PHYSICAL EXAM Leonora Cam [id number] Subjective HPI: This is a 53 year old female who presents for endoscopy. She underwent korin en y gastric bypass in December 2023 and developed severe epigastric pain last week. [facility] was recommended EGD to investigate for marginal ulcer. PAST ANESTHESIA HISTORY: No history of adverse event PAST MEDICAL HISTORY Diagnosis Date COVID-19 10/16/2021 Diabetes mellitus ([facility]) 2017 GERD (gastroesophageal reflux disease) 12/11/2023 Obesity, Class III, BMI >= 40 09/11/2022 Seasonal allergies Severe obesity (BMI >= 40) ([facility]) 01/01/2024 Type 2 diabetes mellitus without complication, without long-term current use of insulin ([facility]) PAST SURGICAL HISTORY Procedure Laterality Date LAPAROSCOP GASTRIC BYPASS 01/01/2024 korin en y LIGATE FALLOPIAN TUBE 2000 PAST SURGICAL HISTORY OF 2015 clamp in R foot (bone shattered) REMOVAL GALLBLADDER 2015 TONSILLECTOMY & ADENOIDECTOMY <AGE 12 1984 Prior to Admission medications as of 04/08/24 1124 Medication Sig Last Dose Taking fluticasone (FLONASE) 50 mcg/actuation nasal spray Use 1 [place] in each nostril at bedtime as needed for cold/allergy symptoms. As needed flash glucose sensor (FREESTYLE GUZMAN 14 DAY SENSOR) kit 1 Each two times a day. DX E11.65 Insulin No PHENYLephrine-Acetaminophen (TYLENOL SINUS HEADACHE) 5-325 mg tab Take 2 tablets by mouth three times a day. loratadine (CLARITIN) 10 mg tablet Take 1 tablet by mouth once daily as needed for cold/allergy symptoms. pantoprazole DR (PROTONIX) 40 mg tablet Take 1 tablet by mouth once daily. ALLERGIES Allergen Reactions Bee Sting Swelling Codeine Unknown Doxycycline GI Upset Metformin Intolerance GI upset, diarrhea Prednisone Rash Objective PHYSICAL EXAM: The remainder of the physical exam is noncontributory. AIRWAY: intact LUNGS: lungs clear to auscultation bilaterally CARDIAC: RRR Assessment/Plan ASA Class: Active Problems: * No active hospital problems. * Resolved Problems: * No resolved hospital problems. * Medication and Non-Pharmacologic VTE Prophylaxis/Anticoagulants VTE Prophylaxis: not indicated for procedure Provisional Diagnosis/Treatment Plan: EGD: under MAC sedation Consent has been signed Alia Hillman MD 05/31/2024 9:09 PM Bridger Hill MD documented in this encounter [facility] 04-08-2024 Instructions Neri Grace MD - 04/08/2024 11:57 AM EST Have diabetic eye exam report sent here. documented in this encounter [facility] 04-08-2024 Note HNO ID: [id number] Author: NERI GRACE MD Service: ? Author Type: Physician Type: Progress Notes Filed: 04/08/2024 16:04 Note Text: This note was created using [employer]. Subjective Patient presents with: Follow Up Immunizations: Flu vaccination Leonora Cam is a 53 year old female here for long overdue follow up. She enrolled in the bariatric program last year, and had gastric bypass . She had lost 48 pounds since last seen here in September 2022. She felt well and was advised to do a diabetic follow up here. Since her surgery, her glucoses were controlled without medication and she stopped taking glipizide in January. She had been dealing with significant postnasal drainage that was interfering with her nutritional intake. She was taking loratadine as needed, and Tylenol Sinus regularly with some relief. Review of Systems Constitutional: Negative for fatigue, fever and unexpected weight change. HENT: Negative for congestion and trouble swallowing. Eyes: Negative for visual disturbance. Respiratory: Negative for cough and shortness of breath. Cardiovascular: Negative for chest pain, palpitations and leg swelling. Gastrointestinal: Negative for abdominal pain, diarrhea, nausea and vomiting. Neurological: Negative for dizziness, numbness and headaches. ACTIVE PROBLEM LIST Type 2 Diabetes Mellitus Without Complication, Without Long-Term Current Use of Insulin ([facility]) Obesity, Class III, BMI >= 40 Seasonal Allergies Gerd (Gastroesophageal Reflux Disease) History of Covid-19 S/P Gastric Bypass PAST SURGICAL HISTORY Procedure Laterality Date LAPAROSCOP GASTRIC BYPASS 01/01/2024 korin en y LIGATE FALLOPIAN TUBE 2000 PAST SURGICAL HISTORY OF 2015 clamp in R foot (bone shattered) REMOVAL GALLBLADDER 2015 TONSILLECTOMY AND ADENOIDECTOMY Social History Tobacco Use Smoking status: Never Passive exposure: Current Smokeless tobacco: Never Vaping Use Vaping status: Never Used Substance Use Topics Alcohol use: Not Currently Drug use: Never FAMILY HISTORY Problem Relation Age of Onset Heart Mother Diabetes Mother COPD Mother Asthma Mother Kidney Disease Mother Stroke Mother Heart Failure Mother Stroke Father Diabetes Father Heart Father 34 Diabetes Sister 56 type 1 Diabetes Brother Prediabetes Asthma Brother MVA other (Maria Guadalupe sydrome) Brother 2 Diabetes Maternal Grandmother Alzheimer's Disease Maternal Grandmother Prostate Cancer Maternal Grandfather Heart Paternal Grandmother Diabetes Paternal Grandmother Lung Cancer Paternal Grandfather DVT No Family History Current Outpatient Medications Medication Sig pantoprazole DR (PROTONIX) 40 mg tablet Take 1 tablet by mouth once daily. glipiZIDE (GLUCOTROL XL) 10mg 24 hr tablet Take 1 tablet by mouth once daily. flash glucose sensor (FREESTYLE GUZMAN 14 DAY SENSOR) kit 1 Each two times a day. DX E11.65 Insulin No ondansetron orally disintegrating (ZOFRAN ODT) 4 mg disintegrating tablet Take 1 tablet by mouth every 12 hours as needed for nausea/vomiting. fluticasone (FLONASE) 50 mcg/actuation nasal spray Use 1 [place] in each nostril at bedtime as needed for cold/allergy symptoms. As needed No current facility-administered medications for this visit. Objective BP 120/72 (BP Site: Left Arm, BP Position: Sitting, BP Cuff Size: Large Adult) Pulse 72 Temp 36.4 ?C (97.6 ?F) (Temporal) Resp 18 Ht 160 cm (5' 3) Wt 90.9 kg (200 lb 6.4 oz) BMI 35.50 kg/m? Physical Exam Constitutional: General: She is not in acute distress. Appearance: She is not ill-appearing. HENT: Head: Normocephalic. Nose: Mucosal edema present. Right Turbinates: Swollen. Left Turbinates: Swollen. Right Sinus: No maxillary sinus tenderness or frontal sinus tenderness. Left Sinus: No maxillary sinus tenderness or frontal sinus tenderness. Mouth/Throat: Pharynx: Oropharynx is clear. No oropharyngeal exudate or posterior oropharyngeal erythema. Eyes: General: No scleral icterus. Conjunctiva/sclera: Conjunctivae normal. Cardiovascular: Rate and Rhythm: Normal rate and regular rhythm. Heart sounds: S1 normal and S2 normal. No murmur heard. Pulmonary: Breath sounds: Normal breath sounds. Abdominal: Palpations: Abdomen is soft. There is no mass. Tenderness: There is no abdominal tenderness. Musculoskeletal: Right lower leg: No edema. Left lower leg: No edema. Neurological: General: No focal deficit present. Mental Status: She is alert. Psychiatric: Mood and Affect: Mood normal. Feet:Shoes and socks removed, No deformities, ulcers, calluses, normal distal pulses, and sensitive to 10 gm monofilament. Xerosis, lichenification of plantar skin. Glucose meter data or glucose log was reviewed for the past month. Average: 120-124 30 AND 90 days. Patient was testing via CGM . Assessment and Plan 1. S/P gastric bypass - ICD9: V45.86, ICD10: Z98.84 (more content not included)... [facility] 04-08-2024 History of Present illness Narrative This note was created using [employer]. Subjective Patient presents with: Follow Up Immunizations: Flu vaccination Leonora Cam is a 53 year old female here for long overdue follow up. She enrolled in the bariatric program last year, and had gastric bypass . She had lost 48 pounds since last seen here in September 2022. She felt well and was advised to do a diabetic follow up here. Since her surgery, her glucoses were controlled without medication and she stopped taking glipizide in January. She had been dealing with significant postnasal drainage that was interfering with her nutritional intake. She was taking loratadine as needed, and Tylenol Sinus regularly with some relief. Review of Systems Constitutional: Negative for fatigue, fever and unexpected weight change. HENT: Negative for congestion and trouble swallowing. Eyes: Negative for visual disturbance. Respiratory: Negative for cough and shortness of breath. Cardiovascular: Negative for chest pain, palpitations and leg swelling. Gastrointestinal: Negative for abdominal pain, diarrhea, nausea and vomiting. Neurological: Negative for dizziness, numbness and headaches. ACTIVE PROBLEM LIST Type 2 Diabetes Mellitus Without Complication, Without Long-Term Current Use of Insulin ([facility]) Obesity, Class III, BMI >= 40 Seasonal Allergies Gerd (Gastroesophageal Reflux Disease) History of Covid-19 S/P Gastric Bypass PAST SURGICAL HISTORY Procedure Laterality Date LAPAROSCOP GASTRIC BYPASS 01/01/2024 korin en y LIGATE FALLOPIAN TUBE 2000 PAST SURGICAL HISTORY OF 2014 clamp in R foot (bone shattered) REMOVAL GALLBLADDER 2015 TONSILLECTOMY & ADENOIDECTOMY <AGE 13 1984 Social History Tobacco Use Smoking status: Never Passive exposure: Current Smokeless tobacco: Never Vaping Use Vaping status: Never Used Substance Use Topics Alcohol use: Not Currently Drug use: Never FAMILY HISTORY Problem Relation Age of Onset Heart Mother Diabetes Mother COPD Mother Asthma Mother Kidney Disease Mother Stroke Mother Heart Failure Mother Stroke Father Diabetes Father Heart Father 34 Diabetes Sister 56 type 1 Diabetes Brother Prediabetes Asthma Brother MVA other (Maria Guadalupe sydrome) Brother 2 Diabetes Maternal Grandmother Alzheimer's Disease Maternal Grandmother Prostate Cancer Maternal Grandfather Heart Paternal Grandmother Diabetes Paternal Grandmother Lung Cancer Paternal Grandfather DVT No Family History Current Outpatient Medications Medication Sig pantoprazole DR (PROTONIX) 40 mg tablet Take 1 tablet by mouth once daily. glipiZIDE (GLUCOTROL XL) 10mg 24 hr tablet Take 1 tablet by mouth once daily. flash glucose sensor (BuzzmoveSTYLE GUZMAN 14 DAY SENSOR) kit 1 Each two times a day. DX E11.65 Insulin No ondansetron orally disintegrating (ZOFRAN ODT) 4 mg disintegrating tablet Take 1 tablet by mouth every 12 hours as needed for nausea/vomiting. fluticasone (FLONASE) 50 mcg/actuation nasal spray Use 1 [place] in each nostril at bedtime as needed for cold/allergy symptoms. As needed No current facility-administered medications for this visit. Objective BP 120/72 (BP Site: Left Arm, BP Position: Sitting, BP Cuff Size: Large Adult) Pulse 72 Temp 36.4 C (97.6 F) (Temporal) Resp 18 Ht 160 cm (5' 3) Wt 90.9 kg (200 lb 6.4 oz) BMI 35.50 kg/m Physical Exam Constitutional: General: She is not in acute distress. Appearance: She is not ill-appearing. HENT: Head: Normocephalic. Nose: Mucosal edema present. Right Turbinates: Swollen. Left Turbinates: Swollen. Right Sinus: No maxillary sinus tenderness or frontal sinus tenderness. Left Sinus: No maxillary sinus tenderness or frontal sinus tenderness. Mouth/Throat: Pharynx: Oropharynx is clear. No oropharyngeal exudate or posterior oropharyngeal erythema. Eyes: General: No scleral icterus. Conjunctiva/sclera: Conjunctivae normal. Cardiovascular: Rate and Rhythm: Normal rate and regular rhythm. Heart sounds: S1 normal and S2 normal. No murmur heard. Pulmonary: Breath sounds: Normal breath sounds. Abdominal: Palpations: Abdomen is soft. There is no mass. Tenderness: There is no abdominal tenderness. Musculoskeletal: Right lower leg: No edema. Left lower leg: No edema. Neurological: General: No focal deficit present. Mental Status: She is alert. Psychiatric: Mood and Affect: Mood normal. Feet:Shoes and socks removed, No deformities, ulcers, calluses, normal distal pulses, and sensitive to 10 gm monofilament. Xerosis, lichenification of plantar skin. Glucose meter data or glucose log was reviewed for the past month. Average: 120-124 30 & 90 days. Patient was testing via CGM . Assessment and Plan 1. S/P gastric bypass - ICD9: V45.86, ICD10: Z98.84 (primary diagnosis) Weight decreasing - Continue current medications - COMPLETE BLOOD COUNT - COMPREHENSIVE METABOLIC PANEL - VITAMIN B12 - VITAMIN B1 (THIAMINE), WHOLE BLOOD - FOLATE, SERUM - VITAMIN D 25 HYDROXY 2. Need for influenza vaccination - ICD9: V04.81, ICD10: Z23 - INFLUENZA VACCINE, AGE 6MO-64YR, TRIVALENT (AFLURIA, FLULAVAL, FLUVIRIN, FLUZONE) 3. Controlled type 2 diabetes mellitus with hyperglycemia, unspecified whether senior living insulin use (HCC) - ICD9: 250.80, 790.29, ICD10: E11.65 - Controlled - Contrib - FREESTYLE GUZMAN 14 DAY SENSOR KIT - ALBUMIN/CREATININE RATIO, URINE 4. Seasonal allergies - ICD9: 477.9, ICD10: J30.2 Start Flonase. - FLUTICASONE PROPIONATE 50 MCG/ACTUATION NASAL SPRAY,SUSPENSION - TYLENOL SINUS HEADACHE 5 MG-325 MG TABLET 5. Postnasal drip - ICD9: 784.91, ICD10: R09.82 See above. - FLUTICASONE PROPIONATE 50 MCG/ACTUATION NASAL SPRAY,SUSPENSION - TYLENOL SINUS HEADACHE 5 MG-325 MG TABLET 6. Type 2 diabetes mellitus without complication, without long-term current use of insulin (HCC) - ICD9: 250.00, ICD10: E11.9 - Controlled - Discussed diabetic education issues of annual eye exam. - Diet controlled. - HEMOGLOBIN A1C - LIPID PANEL BASIC 7. Gastroesophageal reflux disease, unspecified whether esophagitis present - ICD9: 530.81, ICD10: K21.9 - Controlled. 8. Screening for depression - ICD9: V79.0, ICD10: Z13.31 - DEPRESSION SCREENING 9. Encounter for screening examination for other mental health and behavioral disorders - ICD9: V79.8, ICD10: Z13.39 - ANXIETY SCREENING 10. Vitamin D deficiency - ICD9: 268.9, ICD10: E55.9 Recheck. - VITAMIN D 25 HYDROXY Neri Grace MD documented in this encounter [facility] 04-02-2024 Telephone encounter Note [facility] SPECIALTY CARE COORDINATION TELEPHONE ENCOUNTER Patient returned CC call. Patient c/o post nasal drip and difficulty with oral tolerance. Plan is for patient to resume her prescribed prn allergy medication, make an appointment with her PCP, reschedule with Dr Hill or Basilio + Nutrition + [facility] Psychology to catch up with her post op program appointments. Patient will trial non-dairy options as she is noticing that she is having more discomfort with dairy items. CC advised patient to keep a hydration and protein journal for a few days to help her to reaffirm meeting her minimum goals for wellness. Patient to send CC a follow up message tomorrow to report progress. Raoul XIAO, RN DD/[facility] Surgical Sap Bw Bi Developer [facility] 04-02-2024 Miscellaneous Notes [facility] SPECIALTY CARE COORDINATION TELEPHONE ENCOUNTER Patient returned CC call. Patient c/o post nasal drip and difficulty with oral tolerance. Plan is for patient to resume her prescribed prn allergy medication, make an appointment with her PCP, reschedule with Dr Hill or Basilio + Nutrition + BMI Psychology to catch up with her post op program appointments. Patient will trial non-dairy options as she is noticing that she is having more discomfort with dairy items. CC advised patient to keep a hydration and protein journal for a few days to help her to reaffirm meeting her minimum goals for wellness. Patient to send CC a follow up message tomorrow to report progress. DORIS Sullivan/BMI Surgical Sap Bw Bi Developer [facility] SPECIALTY CARE COORDINATION TELEPHONE ENCOUNTER CC placed call to patient to follow up for reports of oral intolerance, dysphagia and abdominal pain. No answer. Left VM and sent MC message. DORIS Sullivan/[facility] Surgical Sap Bw Bi Developer documented in this encounter [facility] 04-02-2024 Telephone encounter Note [facility] SPECIALTY CARE COORDINATION TELEPHONE ENCOUNTER CC placed call to patient to follow up for reports of oral intolerance, dysphagia and abdominal pain. No answer. Left VM and sent MC message. DORIS Sullivan/[facility] Surgical Sap Bw Bi Developer [facility] 04-02-2024 Note HNO ID: [id number] Author: DALJIT MATSON RD Service: ? Author Type: Registered Dietitian Type: Progress Notes Filed: 04/02/2024 14:57 Note Text: Patient was scheduled for a nutrition appointment today. The patient did not check into their scheduled appointment. I sent the patient a [employer] message encouraging them to reschedule their appointment by calling [phone]. [facility] 04-02-2024 History of Present illness Narrative Patient was scheduled for a nutrition appointment today. The patient did not check into their scheduled appointment. I sent the patient a [employer] message encouraging them to reschedule their appointment by calling [phone]. documented in this encounter [facility] 03-31-2024 History of Present illness Narrative I have communicated my name and active licensure. The patient's identity and physical location were verified at the time of this visit. 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 Name: [facility] Date of Surgery: 2023 Surgeon: Sergio Surgical Procedure: Lap RYGB Pre-surgical weight: 108.4 kg (239 lb) Laparoscopic korin en y gastric bypass, Intraoperative upper gastrointestinal endoscopy and Laparoscopic transversus abdominus plane block done on: 01/01/[address] Hill Other Bariatric Surgeries None Visit: 3 month Today's Visit: Wt 92.5 kg (204 lb) BMI 36.6 kg/m2 BMI 36.60 kg/(m^2) Last Visit: Wt: 99.8 kg (220 lb) BMI: 39.47 kg/(m^2) Total weight loss: 15.9 kg (35 lb) [place] weight: 63.2 kg (139 lb 5.7 oz) Excess weight: 45.2 kg (99 lb 10.3 oz) % of excess body weight lost: 15.9 kg (35 lb) (35.13% of excess weight loss) COMPLICATIONS SINCE LAST VISIT?: NONE and Other: dysphagia DIET INTAKE: tolerates Phase V diet-somewhat -B: one yogurt (yesterday didn't eat well yesterday bc not feeling well); did sip on water on all day and a little coconut Deidra water; has not had bkft today either -L: -D: -snacks: -beverages: advised to avoid skipping meals and to try healthy protein shake as a meal replacement; also advised to avoid carbonated/sugary/caloric/alcoholic beverages DAILY SUPPLEMENTS: Calcium: Calcium Citrate w/ vitamin D (1200 - 1500mg) Multivitamin & Minerals: 1 per day with iron Iron Supplement: included in multi-vitamin Vitamin B12: included in multivitamin Vitamin D3: included in multi-vitamin Other: N/A EXERCISE: was going to the gym 3 days a week; also has a treadmill at home, but with the holidays, has been busy. Has been working and is up and down the stiars at work, not sedentary. Suggest strength training a couple of days a week as well Current Outpatient Medications Medication Sig pantoprazole DR (PROTONIX) 40 mg tablet Take 1 tablet by mouth once daily. glipiZIDE (GLUCOTROL XL) 10mg 24 hr tablet Take 1 tablet by mouth once daily. flash glucose sensor (FREESTYLE GUZMAN 14 DAY SENSOR) kit 1 Each two times a day. DX E11.65 Insulin No ondansetron orally disintegrating (ZOFRAN ODT) 4 mg disintegrating tablet Take 1 tablet by mouth every 12 hours as needed for nausea/vomiting. fluticasone (FLONASE) 50 mcg/actuation nasal spray Use 1 [place] in each nostril at bedtime as needed for cold/allergy symptoms. As needed No current facility-administered medications for this visit. REVIEW OF SYSTEMS: Denies abdominal pain, constipation, diarrhea, melena, hematochezia PHYSICAL EXAM: Wt 92.5 kg (204 lb) BMI 36.60 kg/m General: alert and appropriate, in no distress, well-hydrated, well nourished, happy, smiling, interactive, and pleasant lady Skin: no rash noted Head: normocephalic, no abnormality or lesion noted Eyes: no injection and visual acuity is grossly normal Respiratory: breathing non-labored Assessment A/P: *53 y/o lady status post: Laparoscopic korin en y gastric bypass, Intraoperative upper gastrointestinal endoscopy and Laparoscopic transversus abdominus plane block done on: 01/01/[address] Hill -has upcoming appt 04/02/24 with BMI/RD/A. Jose Convo: Wondering if her esophagus is narrow-everytime she tries to eat, her stomach hurts-upset stomach and nauseous-hasn't been able to eat much/anything-can eat yogurt, and cottage cheese. Can do protein shakes-Hasn't reached out to Dr. Hill yet. Has also been having difficulty with her fluids bc of this. Does have a 40 oz water bottle that she sips on all day long. Message sent to Dr. Hill and team. DISPOSITION: Return 3 month to Post-op follow up/ individual office visit EDUCATION: Encouraged to continue with healthy lifestyle changes and incorporate cardiovascular and resistance training, Discussed weight loss expectations after bariatric and metabolic surgery, or Discussed importance of protein intake as per the RDN note REFERRALS: N/A LABS: Today: See Epic Orders In 3 months: CBC W DIFF, CMP, Vitamin B1, Vitamin B12, and See Epic Orders Johanna Paulino MD I spent a total of 30 minutes on the date of the service which included preparing to see the patient, [id number] patient care, obtaining and/or reviewing separately obtained history, counseling and educating the patient/family/caregiver, and care coordination (not separately reported). (OTHER) -02/10/24 MYM/BMI/RD/A. Kim-concerned for weight loss stalls -02/10/24 OV BMI/RD/A. Kim documented in this encounter [facility] 03-31-2024 Note HNO ID: [id number] Author: JOHANNA PAULINO MD Service: ? Author Type: Physician Type: Progress Notes Filed: 04/10/2024 14:53 Note Text: I have communicated my name and active licensure. The patient's identity and physical location were verified at the time of this visit. 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 Name: [facility] Date of Surgery: 2023 Surgeon: Sergio Surgical Procedure: Lap RYGB Pre-surgical weight: 108.4 kg (239 lb) Laparoscopic korin en y gastric bypass, Intraoperative upper gastrointestinal endoscopy and Laparoscopic transversus abdominus plane block done on: 01/01/[address] Hill Other Bariatric Surgeries None Visit: 3 month Today's Visit: Wt 92.5 kg (204 lb) BMI 36.6 kg/m2 BMI 36.60 kg/(m2) Last Visit: Wt: 99.8 kg (220 lb) BMI: 39.47 kg/(m2) Total weight loss: 15.9 kg (35 lb) [place] weight: 63.2 kg (139 lb 5.7 oz) Excess weight: 45.2 kg (99 lb 10.3 oz) % of excess body weight lost: 15.9 kg (35 lb) (35.13% of excess weight loss) COMPLICATIONS SINCE LAST VISIT?: NONE and Other: dysphagia DIET INTAKE: tolerates Phase V diet-somewhat -B: one yogurt (yesterday didn't eat well yesterday bc not feeling well); did sip on water on all day and a little coconut [place] water; has not had bkft today either -L: -D: -snacks: -beverages: advised to avoid skipping meals and to try healthy protein shake as a meal replacement; also advised to avoid carbonated/sugary/caloric/alcoholic beverages DAILY SUPPLEMENTS: Calcium: Calcium Citrate w/ vitamin D (1200 - 1500mg) Multivitamin AND Minerals: 1 per day with iron Iron Supplement: included in multi-vitamin Vitamin B12: included in multivitamin Vitamin D3: included in multi-vitamin Other: N/A EXERCISE: was going to the gym 3 days a week; also has a treadmill at home, but with the holidays, has been busy. Has been working and is up and down the stiars at work, not sedentary. Suggest strength training a couple of days a week as well Current Outpatient Medications Medication Sig pantoprazole DR (PROTONIX) 40 mg tablet Take 1 tablet by mouth once daily. glipiZIDE (GLUCOTROL XL) 10mg 24 hr tablet Take 1 tablet by mouth once daily. flash glucose sensor (FREESTYLE GUZMAN 14 DAY SENSOR) kit 1 Each two times a day. DX E11.65 Insulin No ondansetron orally disintegrating (ZOFRAN ODT) 4 mg disintegrating tablet Take 1 tablet by mouth every 12 hours as needed for nausea/vomiting. fluticasone (FLONASE) 50 mcg/actuation nasal spray Use 1 [place] in each nostril at bedtime as needed for cold/allergy symptoms. As needed No current facility-administered medications for this visit. REVIEW OF SYSTEMS: Denies abdominal pain, constipation, diarrhea, melena, hematochezia PHYSICAL EXAM: Wt 92.5 kg (204 lb) BMI 36.60 kg/m? General: alert and appropriate, in no distress, well-hydrated, well nourished, happy, smiling, interactive, and pleasant lady Skin: no rash noted Head: normocephalic, no abnormality or lesion noted Eyes: no injection and visual acuity is grossly normal Respiratory: breathing non-labored Assessment A/P: *53 y/o lady status post: Laparoscopic korin en y gastric bypass, Intraoperative upper gastrointestinal endoscopy and Laparoscopic transversus abdominus plane block done on: 01/01/[address] Hill -has upcoming appt 04/02/24 with BMI/RD/A. Jose Convo: Wondering if her esophagus is narrow-everytime she tries to eat, her stomach hurts-upset stomach and nauseous-hasn't been able to eat much/anything-can eat yogurt, and cottage cheese. Can do protein shakes-Hasn't reached out to Dr. Hill yet. Has also been having difficulty with her fluids bc of this. Does have a 40 oz water bottle that she sips on all day long. Message sent to Dr. Hill and team. DISPOSITION: Return 3 month to Post-op follow up/ individual office visit EDUCATION: Encouraged to continue with healthy lifestyle changes and incorporate cardiovascular and resistance training, Discussed weight loss expectations after bariatric and metabolic surgery, or Discussed importance of protein intake as per the RDN note REFERRALS: N/A LABS: Today: See Epic Orders In 3 months: CBC W DIFF, CMP, Vitamin B1, Vitamin B12, and See Epic Orders Johanna Paulino MD I spent a total of 30 minutes on the date of the service which included preparing to see the patient, [id number] patient care, obtaining and/or reviewing separately obtained history, counseling and educating the patient/family/caregiver, and care coordination (not separately reported). (OTHER) -02/10/24 MYM/BMI/RD/A. Kim-concerned for weight loss stalls -02/10/24 OV BMI/RD/A. Kim [facility] 02-10-[address] - 02/10/2024 10:47 AM EST Reviewed nutrition principles of: 1. Continue to take all recommended vitamin/minerals - Bariatric Fusion MVI w/ iron and 3 calcium chews 2. Continue Phase 3 diet - protein only. Protein goal: 77 grams protein/day 3. Fluid goal: 64 ounces per day (no carbonation, caffeine, calories, alcohol) 4. Exercise goal: increase as tolerated to goal of 200 minutes/week combination cardiovascular and strength training exercise. 5. Practice mindful eating habits-take small portions, eat slowly, chew thoroughly, separate food and drink by 30 min before and after eating You may advance your diet to phase IV ~2 months post op. Refer to your BMI Guideline booklet for recipes and instructions. The goal is to consume at least 77 grams of protein per day with the addition of adding vegetables. Inadequate protein intake can lead to fatigue, loss of lean body mass and increase your risk of infection and other illnesses. Consume 3-4 ounces of protein 3 times per day (3-4 ounces for breakfast; 3-4 ounces for lunch; 3-4 ounces for dinner). As an estimate, 1 ounce of protein is approximately 7 grams. For example, if you consume 3 ounces of chicken, this would equal approximately 21 grams of protein. Always eat your protein foods first before eating the vegetable. Do not begin eating your vegetable first. Vegetables contain little or no protein and protein is essential. During Phase IV, no breads, no cereals, no rice, no noodles, no pastas, no crackers, no potatoes (sweet or white), no yams, no corn, no plantain, no yucca, no fruits, no fruit juices, no carbonation, no caffeine, no alcoholic beverages. Continue to consume sugar-free, noncarbonated, decaffeinated clear liquids in between high protein foods for a total of 64 ounces (8 cups) per day Follow the 30-Minute Rule to fluid intake: Wait 30 minutes before and after your food to drink fluids. Important considerations about adding vegetables: When incorporating vegetables, it is recommended that you begin with softly cooked vegetables first. Avoid vegetables that do not become soft when cooked. Avoid fibrous stalks like those found in asparagus, broccoli, celery, stalks of [place] lettuce, kale, etc. Be cautious of seeds and peels. You may introduce raw vegetables only after you can tolerate a variety of cooked vegetables. Remember to always check for food tolerance. Slowly increase your variety of choices only after you know that you can tolerate it. When eating raw vegetables, it is recommended that you first try softer vegetables such as broccoli florets, [place] lettuce, red-leaf lettuce or [place] lettuce. Remember to chew vegetables thoroughly (chew 25 times) and swallow only when chewing has made it into a mushy pureed consistency. If you have trouble with gas, avoid eating gas-producing vegetables such as onions, cauliflower, garlic, scallions, leeks, [place] sprouts and cabbage. Avoid starchy vegetables such as potatoes (sweet and white), yams, yucca, plantain and corn at this time. Nutrition Monitoring & Evaluation: BMI < 35 Criteria: weight check and patient update Need for Follow up: 3 months post op, scheduling [phone] documented in this encounter [facility] 02-10-2024 Note HNO ID: [id number] Author: ANNIE ALVAREZ RD Service: ? Author Type: Registered Dietitian Type: Progress Notes Filed: 02/10/2024 10:47 Note Text: I have communicated my name and active licensure. The patient's identity and physical location were verified at the time of this visit. 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 Patient reports weight (as measured by home scale) of 220 pounds. AMBULATORY PATIENT EDUCATION NOTE-Shared Nutrition Group TOPIC: LIFE STYLE CHANGES: Post-op weight loss surgery: Diet and Exercise READINESS TO LEARN COGNITIVE ABILITY: Alert and oriented MOTIVATION TO LEARN: Interested FAMILY SUPPORT: Unable to assess - Family not present INSTRUCTION PROVIDED TO: Patient and group PATIENT LEARNS BEST BY: Multiple Methods FACTORS AFFECTING LEARNING: None PHYSICAL LIMITATIONS AFFECTING LEARNING: None LEARNING RESPONSE DIAGNOSIS: Inadequate protein-energy intake, related to: altered GI tract, as evidenced by s/p bariatric surgery Overweight Obesity, related to; food and nutrition related knowledge deficit, as evidenced by BMI above normative standard for age and gender Malnutrition Screening Significant unintentional weight loss? No Eating less than 75% of usual intake for more than 2 weeks? Yes, advancing diet per bariatric protocol Nutritional status: METHOD OF INSTRUCTION: Individual instruction Group class instruction PATIENT / FAMILY RESPONSE: Nutrition outcome statement: Expect attention to diet to assist with weight management and minimum 1200 calories/2 liters of fluids per day. 1 months post op RYGB (Sergio 01/01/24) Net weight loss 35 pounds (255 lbs initial) 14% TWL Pre-surgery weight: 239 pounds - 19 lbs/8% wt loss, tracking as anticipated from surgery Weight loss since last session 4.5 lbs (224.5 lbs) Diet recall indicates consistent eating pattern with regular meals and snacks. She is not following phase 3 diet with inclusion of fruit and vegetables which may be limiting desired weight loss. Fluids are appropriate. Physical activity not meeting recommendations with little planned exercise since started back to work - joined gym. ~600 calories/day - not meeting needs ~70-77g protein/day - falling below needs ~64 oz fluid/day - adequate Taking required vitamin/minerals - Bariatric Fusion MVI w/ iron and 3 calcium chews. Labs not available Resting Metabolic Rate: 1573 Energy needs for weight loss 1704-8308 kcal/day (15-20 shashi/kg current weight) Protein needs: 77 grams protein per day (1.2 g/kg IBW kg) Reviewed nutrition principles of: 1. Continue to take all recommended vitamin/minerals - Bariatric Fusion MVI w/ iron and 3 calcium chews 2. Continue Phase 3 diet - protein only. Protein goal: 77 grams protein/day 3. Fluid goal: 64 ounces per day (no carbonation, caffeine, calories, alcohol) 4. Exercise goal: increase as tolerated to goal of 200 minutes/week combination cardiovascular and strength training exercise. 5. Practice mindful eating habits-take small portions, eat slowly, chew thoroughly, separate food and drink by 30 min before and after eating You may advance your diet to phase IV ~2 months post op. Refer to your BMI Guideline booklet for recipes and instructions. The goal is to consume at least 77 grams of protein per day with the addition of adding vegetables. Inadequate protein intake can lead to fatigue, loss of lean body mass and increase your risk of infection and other illnesses. Consume 3-4 ounces of protein 3 times per day (3-4 ounces for breakfast; 3-4 ounces for lunch; 3-4 ounces for dinner). As an estimate, 1 ounce of protein is approximately 7 grams. For example, if you consume 3 ounces of chicken, this would equal approximately 21 grams of protein. Always eat your protein foods first before eating the vegetable. Do not begin eating your vegetable first. Vegetables contain little or no protein and protein is essential. During Phase IV, no breads, no cereals, no rice, no noodles, no pastas, no crackers, no potatoes (sweet or white), no yams, no corn, no plantain, no yucca, no fruits, no fruit juices, no carbonation, no caffeine, no alcoholic beverages. Continue to consume sugar-free, noncarbonated, decaffeinated clear liquids in between high protein foods for a total of 64 ounces (8 cups) per day Follow the ?30-Minute Rule? to fluid intake: Wait 30 minutes before and after your food to drink fluids. Important considerations about adding vegetables: When incorporating vegetables, it is recommended that you begin with softly cooked vegetables first. Avoid vegetables that do not become soft when cooked. Avoid fibrous stalks like those found in asparagus, broccoli, celery, stalks of torsten lettuce, kale, etc. Be cau (more content not included)... [facility] 02-10-2024 History of Present illness Narrative I have communicated my name and active licensure. The patient's identity and physical location were verified at the time of this visit. 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 Patient reports weight (as measured by home scale) of 220 pounds. AMBULATORY PATIENT EDUCATION NOTE-Shared Nutrition Group TOPIC: LIFE STYLE CHANGES: Post-op weight loss surgery: Diet and Exercise READINESS TO LEARN COGNITIVE ABILITY: Alert and oriented MOTIVATION TO LEARN: Interested FAMILY SUPPORT: Unable to assess - Family not present INSTRUCTION PROVIDED TO: Patient and group PATIENT LEARNS BEST BY: Multiple Methods FACTORS AFFECTING LEARNING: None PHYSICAL LIMITATIONS AFFECTING LEARNING: None LEARNING RESPONSE DIAGNOSIS: Inadequate protein-energy intake, related to: altered GI tract, as evidenced by s/p bariatric surgery Overweight Obesity, related to; food and nutrition related knowledge deficit, as evidenced by BMI above normative standard for age and gender Malnutrition Screening Significant unintentional weight loss? No Eating less than 75% of usual intake for more than 2 weeks? Yes, advancing diet per bariatric protocol Nutritional status: METHOD OF INSTRUCTION: Individual instruction Group class instruction PATIENT / FAMILY RESPONSE: Nutrition outcome statement: Expect attention to diet to assist with weight management and minimum 1200 calories/2 liters of fluids per day. 1 months post op RYGB ([place] 01/01/24) Net weight loss 35 pounds (255 lbs initial) 14% TWL Pre-surgery weight: 239 pounds - 19 lbs/8% wt loss, tracking as anticipated from surgery Weight loss since last session 4.5 lbs (224.5 lbs) Diet recall indicates consistent eating pattern with regular meals and snacks. She is not following phase 3 diet with inclusion of fruit and vegetables which may be limiting desired weight loss. Fluids are appropriate. Physical activity not meeting recommendations with little planned exercise since started back to work - joined gym. ~600 calories/day - not meeting needs ~70-77g protein/day - falling below needs ~64 oz fluid/day - adequate Taking required vitamin/minerals - Bariatric Fusion MVI w/ iron and 3 calcium chews. Labs not available Resting Metabolic Rate: 1573 Energy needs for weight loss 8067-4362 kcal/day (15-20 shashi/kg current weight) Protein needs: 77 grams protein per day (1.2 g/kg IBW kg) Reviewed nutrition principles of: 1. Continue to take all recommended vitamin/minerals - Bariatric Fusion MVI w/ iron and 3 calcium chews 2. Continue Phase 3 diet - protein only. Protein goal: 77 grams protein/day 3. Fluid goal: 64 ounces per day (no carbonation, caffeine, calories, alcohol) 4. Exercise goal: increase as tolerated to goal of 200 minutes/week combination cardiovascular and strength training exercise. 5. Practice mindful eating habits-take small portions, eat slowly, chew thoroughly, separate food and drink by 30 min before and after eating You may advance your diet to phase IV ~2 months post op. Refer to your BMI Guideline booklet for recipes and instructions. The goal is to consume at least 77 grams of protein per day with the addition of adding vegetables. Inadequate protein intake can lead to fatigue, loss of lean body mass and increase your risk of infection and other illnesses. Consume 3-4 ounces of protein 3 times per day (3-4 ounces for breakfast; 3-4 ounces for lunch; 3-4 ounces for dinner). As an estimate, 1 ounce of protein is approximately 7 grams. For example, if you consume 3 ounces of chicken, this would equal approximately 21 grams of protein. Always eat your protein foods first before eating the vegetable. Do not begin eating your vegetable first. Vegetables contain little or no protein and protein is essential. During Phase IV, no breads, no cereals, no rice, no noodles, no pastas, no crackers, no potatoes (sweet or white), no yams, no corn, no plantain, no yucca, no fruits, no fruit juices, no carbonation, no caffeine, no alcoholic beverages. Continue to consume sugar-free, noncarbonated, decaffeinated clear liquids in between high protein foods for a total of 64 ounces (8 cups) per day Follow the 30-Minute Rule to fluid intake: Wait 30 minutes before and after your food to drink fluids. Important considerations about adding vegetables: When incorporating vegetables, it is recommended that you begin with softly cooked vegetables first. Avoid vegetables that do not become soft when cooked. Avoid fibrous stalks like those found in asparagus, broccoli, celery, stalks of torsten lettuce, kale, etc. Be cautious of seeds and peels. You may introduce raw vegetables only after you can tolerate a variety of cooked vegetables. Remember to always check for food tolerance. Slowly increase your variety of choices only after you know that you can tolerate it. When eating raw vegetables, it is recommended that you first try softer vegetables such as broccoli florets, [place] lettuce, red-leaf lettuce or [place] lettuce. Remember to chew vegetables thoroughly (chew 25 times) and swallow only when chewing has made it into a mushy pureed consistency. If you have trouble with gas, avoid eating gas-producing vegetables such as onions, cauliflower, garlic, scallions, leeks, [place] sprouts and cabbage. Avoid starchy vegetables such as potatoes (sweet and white), yams, yucca, plantain and corn at this time. Nutrition Monitoring & Evaluation: BMI < 35 Criteria: weight check and patient update Need for Follow up: 3 months post op, scheduling [phone] Appointment Start Time: 9:45am Appointment End Time: 10:30am Time Spent on Consult: 45 minutes - Group Annie Alvarez RD documented in this encounter [facility] 02-10-2024 Note Education (GENBMI) -------- LEONORA CAM ([id number]) 1970 F Date Time Provider Department 02/10/24 9:45 AM ANNIE ALVAREZ Reason for Visit: Patient Education [91] Reassessment [674] Primary Visit Diagnosis:S/P gastric bypass [Z98.84] Other Visit Diagnoses:Impaired intestinal absorption [K90.9] Obesity, Class II, BMI 35-39.9 [E66.812] Dietary counseling and surveillance [Z71.3] During your visit today, we recorded the following information about you: Weight Height 99.8 kg 1.59 m Allergies As of Date: 02/10/2024 Noted Allergy Reaction BEE STING 09/11/2022 7 - Swelling CODEINE 03/13/2022 16 - Unknown DOXYCYCLINE 03/13/2022 8 - GI Upset METFORMIN 03/19/2022 5 - Intolerance Comments: GI upset, diarrhea PREDNISONE 03/13/2022 2 - Rash Date Reviewed: 02/10/2024 Reviewed by: Annie Alvarez RD - Fully Assessed Prescriptions as of 02/10/2024 - pantoprazole DR (PROTONIX) 40 mg tablet Take 1 tablet by mouth once daily. - glipiZIDE (GLUCOTROL XL) 10mg 24 hr tablet Take 1 tablet by mouth once daily. - flash glucose sensor (FREESTYLE GUZMAN 14 DAY SENSOR) kit 1 Each two times a day. DX E11.65 Insulin No - ondansetron orally disintegrating (ZOFRAN ODT) 4 mg disintegrating tablet Take 1 tablet by mouth every 12 hours as needed for nausea/vomiting. - fluticasone (FLONASE) 50 mcg/actuation nasal spray Use 1 [place] in each nostril at bedtime as needed for cold/allergy symptoms. As needed Encounter Status:Closed by ANNIE ALVAREZ on 02/10/24 [facility] 01-16-2024 Telephone encounter Note Record ID: [id number] Patient name: Leonora Cam Date: January 16, 2024 - 09:04 Administered by: MIKE Protocol: -> Great! Now we are in a secure chat environment. Protecting your health information is important to us. Ok, let's get started. Please verify your name and date of . Please click on the button with your first name. -> Leonora Got it. On to the next question... Select the button with your last name. -> Tutu Got it, thank you. Please enter your date of in MM/DD/YYYY format:(e.g., 04/19/1968 for Apr 19, 1968) -> 1970 Thank you for verifying your information. I'd like to ask you a few questions about how your recovery is going. Have there been any new or worsening symptoms since your last response? -> No I'm glad to hear that. Thank you for your time and for allowing us to care for you. Please be sure to reach out to your provider for any further symptoms or needs. Please rate your satisfaction with the care and support you have received from us since you have been home: (scale 1-5; 1 worst and 5 best) -> 5 Please tell me what you liked best about your experience: -> the over all surgery and care from my immediate care givers have been great but the nurses on the orthopedic floor was not all they are cracked up to be Please tell me what you liked least about your experience: -> Great! Now we are in a secure chat environment. Protecting your health information is important to us. Ok, let's get started. Please verify your name and date of . Please click on the button with your first name. -> Leonora Got it. On to the next question... Select the button with your last name. -> Tutu Got it, thank you. Please enter your date of in MM/DD/YYYY format:(e.g., 04/19/1968 for Apr 19, 1968) -> 1970 Thank you for verifying your information. I'd like to ask you a few questions about how your recovery is going. Have there been any new or worsening symptoms since your last response? -> No I'm glad to hear that. Thank you for your time and for allowing us to care for you. Please be sure to reach out to your provider for any further symptoms or needs. Please rate your satisfaction with the care and support you have received from us since you have been home: (scale 1-5; 1 worst and 5 best) -> 5 Please tell me what you liked best about your experience: -> I appreciate the fact that you check in on me and my progress now that I am at home. I am struggling with the fluids intake some days not everyday but some days. Please tell me what you liked least about your experience: -> the least thing I liked was being placed on the orthopedic floor after surgery and the fact that my family didn't get to see me in recovery and they had to lynn me down as. they was not told where I was being taken after recovery. and they had to lynn down my belongings because they were moved. [facility] 01-16-2024 Miscellaneous Notes Record ID: [id number] Patient name: Leonora Cam Date: January 16, 2024 - 09:04 Administered by: MIKE Protocol: -> Great! Now we are in a secure chat environment. Protecting your health information is important to us. Ok, let's get started. Please verify your name and date of . Please click on the button with your first name. -> Leonora Got it. On to the next question... Select the button with your last name. -> Tutu Got it, thank you. Please enter your date of in MM/DD/YYYY format:(e.g., [birth year]/19/1968 for Apr 19, 1968) -> 1970 Thank you for verifying your information. I'd like to ask you a few questions about how your recovery is going. Have there been any new or worsening symptoms since your last response? -> No I'm glad to hear that. Thank you for your time and for allowing us to care for you. Please be sure to reach out to your provider for any further symptoms or needs. Please rate your satisfaction with the care and support you have received from us since you have been home: (scale 1-5; 1 worst and 5 best) -> 5 Please tell me what you liked best about your experience: -> the over all surgery and care from my immediate care givers have been great but the nurses on the orthopedic floor was not all they are cracked up to be Please tell me what you liked least about your experience: -> Great! Now we are in a secure chat environment. Protecting your health information is important to us. Ok, let's get started. Please verify your name and date of . Please click on the button with your first name. -> Leonora Got it. On to the next question... Select the button with your last name. -> Tutu Got it, thank you. Please enter your date of in MM/DD/YYYY format:(e.g., 04/19/1968 for Apr 19, 1968) -> 1970 Thank you for verifying your information. I'd like to ask you a few questions about how your recovery is going. Have there been any new or worsening symptoms since your last response? -> No I'm glad to hear that. Thank you for your time and for allowing us to care for you. Please be sure to reach out to your provider for any further symptoms or needs. Please rate your satisfaction with the care and support you have received from us since you have been home: (scale 1-5; 1 worst and 5 best) -> 5 Please tell me what you liked best about your experience: -> I appreciate the fact that you check in on me and my progress now that I am at home. I am struggling with the fluids intake some days not everyday but some days. Please tell me what you liked least about your experience: -> the least thing I liked was being placed on the orthopedic floor after surgery and the fact that my family didn't get to see me in recovery and they had to lynn me down as. they was not told where I was being taken after recovery. and they had to lynn down my belongings because they were moved. documented in this encounter [facility] 01-15-2024 Note Patient Outreach (IN TMMN) -------- LEONORA CAM ([id number]) 1970 F Date Time Provider Department 01/15/24 NERI GRACE During your visit today, we recorded the following information about you: Allergies As of Date: 01/15/2024 Noted Allergy Reaction BEE STING 09/11/2022 7 - Swelling CODEINE 03/13/2022 16 - Unknown DOXYCYCLINE 03/13/2022 8 - GI Upset METFORMIN 03/19/2022 5 - Intolerance Comments: GI upset, diarrhea PREDNISONE 03/13/2022 2 - Rash Date Reviewed: 01/14/2024 Reviewed by: Annie Alvarez RD - Fully Assessed Visit Diagnosis:Encounter for screening mammogram for breast cancer [Z12.31] Order(s):WILLIAM MORA [[id number]] Order #: [id number] FUTURE Prescriptions as of 01/20/2024 - pantoprazole DR (PROTONIX) 40 mg tablet Take 1 tablet by mouth once daily. - glipiZIDE (GLUCOTROL XL) 10mg 24 hr tablet Take 1 tablet by mouth once daily. - flash glucose sensor (FREESTYLE GUZMAN 14 DAY SENSOR) kit 1 Each two times a day. DX E11.65 Insulin No - ondansetron orally disintegrating (ZOFRAN ODT) 4 mg disintegrating tablet Take 1 tablet by mouth every 12 hours as needed for nausea/vomiting. - fluticasone (FLONASE) 50 mcg/actuation nasal spray Use 1 [place] in each nostril at bedtime as needed for cold/allergy symptoms. As needed Problem List As Of Date 01/15/2024 Noted Resolved Type 2 diabetes mellitus without complication, * Obesity, Class III, BMI >= 40 [E66.01] 09/11/2022 Seasonal allergies [J30.2] 09/11/2022 GERD (gastroesophageal reflux disease) [K21.9] 12/11/2023 History of COVID-19 [Z86.16] 12/11/2023 Severe obesity (BMI >= 40) (HCC) [E66.01] 01/01/2024 Encounter Status:Closed by KATYA CHOPRA on 01/20/24 [facility] 01-14-[address] - 01/14/2024 10:26 AM EDT Reviewed nutrition principles of: 1. Begin taking daily vitamins/minerals: Bariatric Fusion multivitamin, 45-60 mg iron, and 1500 mg calcium citrate (take calcium 2 hours apart from multivitamin w/ iron and take each 500mg calcium chew 4 hours apart) 2. Continue Phase III soft, high protein foods (refer to page 65 in guidebook). 3. Protein goal: 77 g protein/day 4. Practice mindful eating habits: take small bites, eat slowly, and chew thoroughly 5. Fluid goal: 64 ounces per day (no carbonation, caffeine, calories, alcohol) - separate foods and fluids by 20-30 minutes, small sips, no straw. 6. Exercise goal: begin low intensity exercise until cleared by surgeon. You have lost 6% total weight loss (average 6-9% at 1 month) Blog: enmanuel [facility] has 2 virtual support group meetings: This is the [employer] link with meeting number that will be used for all of the SATURDAY virtual support groups this year, on the Saturday of each month 5:30-6:30PM Join from the meeting [email or web address] Join by meeting number Meeting number (access code): [phone] Meeting password: [email or web address] The schedule with dates, times, topics, and facilitators can be found here:[email or web address] This is the [employer] link with meeting number that will be used for the Open Discussion (Food for Thought) support group on the First Saturday of each month 5:30-6:30PM Join from the meeting [email or web address] Join by meeting number Meeting number (access code): [phone] Meeting password: [email or web address] Hope to see you there! Nutrition Monitoring & Evaluation: adherence to Phase III diet, BMI <35 Criteria: patient update, weight check Need for Follow up: 1 month post op, scheduling [phone] documented in this encounter [facility] 01-14-2024 History of Present illness Narrative I have communicated my name and active licensure. The patient's identity and physical location were verified at the time of this visit. 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 Patient reports weight (as measured by home scale) of 224.5 pounds. AMBULATORY PATIENT EDUCATION NOTE-Shared Nutrition Group TOPIC: LIFE STYLE CHANGES: Post-op weight loss surgery: Diet and Exercise READINESS TO LEARN COGNITIVE ABILITY: Alert and oriented MOTIVATION TO LEARN: Interested FAMILY SUPPORT: Unable to assess - Family not present INSTRUCTION PROVIDED TO: Patient and group PATIENT LEARNS BEST BY: Multiple Methods FACTORS AFFECTING LEARNING: None PHYSICAL LIMITATIONS AFFECTING LEARNING: None LEARNING RESPONSE DIAGNOSIS: Inadequate protein-energy intake, related to: altered GI tract, as evidenced by history of RYGB Overweight Obesity, related to; food/nutrition - related knowledge deficit, as evidenced by BMI above normative standard for age and gender Malnutrition Screening Significant unintentional weight loss? No Eating less than 75% of usual intake for more than 2 weeks? Yes advancing post op bariatric diet Nutritional status: METHOD OF INSTRUCTION: Individual instruction Group class instruction PATIENT / FAMILY RESPONSE: Nutrition outcome statement: Expect attention to diet to assist with weight management and minimum 500 calories/2 liters of fluids per day. Patient participated in a 2 week post-op shared nutrition group. Post-op weight loss surgery (RYGB Dr[place] 01/01/24) . Weight loss: 30.5 lbs since initial assessment (255 lbs); 12% loss total body weight. Pre surgery weight: 239 lbs. Weight loss tracking as expected from surgery. (6% wt loss) Tolerating phase 3 diet without difficulty - started 01/10. Protein needs estimated at 77 grams protein per day (1.2 g/kg IBW kg). Current intake meeting ~ 75% protein needs with shakes, eggs, turkey, beans and tuna. Fluid consumption is adequate and includes water and appropriate sugar free liquids. Patient will begin taking all recommended vitamin/minerals (Bariatric Fusion MVI, iron, calcium citrate chews). Physical activity includes walking and ADL. Labs not available to assess. Reviewed nutrition principles of: 1. Begin taking daily vitamins/minerals: Bariatric Fusion multivitamin, 45-60 mg iron, and 1500 mg calcium citrate (take calcium 2 hours apart from multivitamin w/ iron and take each 500mg calcium chew 4 hours apart) 2. Continue Phase III soft, high protein foods (refer to page 65 in guidebook). 3. Protein goal: 77 g protein/day 4. Practice mindful eating habits: take small bites, eat slowly, and chew thoroughly 5. Fluid goal: 64 ounces per day (no carbonation, caffeine, calories, alcohol) - separate foods and fluids by 20-30 minutes, small sips, no straw. 6. Exercise goal: begin low intensity exercise until cleared by surgeon. You have lost 6% total weight loss (average 6-9% at 1 month) Blog: enmanuel [facility] has 2 virtual support group meetings: This is the [employer] link with meeting number that will be used for all of the SATURDAY virtual support groups this year, on the Third Saturday of each month 5:30-6:30PM Join from the meeting [email or web address] Join by meeting number Meeting number (access code): [phone] Meeting password: [facility] The schedule with dates, times, topics, and facilitators can be found here:[email or web address] This is the [employer] link with meeting number that will be used for the Open Discussion (Food for Thought) support group on the First Saturday of each month 5:30-6:30PM Join from the meeting [email or web address] Join by meeting number Meeting number (access code): [phone] Meeting password: [email or web address] Hope to see you there! Nutrition Monitoring & Evaluation: adherence to Phase III diet, BMI <35 Criteria: patient update, weight check Need for Follow up: 1 month post op, scheduling [phone] Appointment Start Time: 9:45am Appointment End Time: 10:13am Time Spent on Consult: 28 minutes - Group Annie Alvarez RD, LD documented in this encounter [facility] 01-14-2024 Note Education (GENBMI) -------- LEONORA CAM ([id number]) 1970 F Date Time Provider Department 01/14/24 9:45 AM ANNIE ALVAREZ Reason for Visit: Patient Education [91] Reassessment [674] Primary Visit Diagnosis:S/P gastric bypass [Z98.84] Other Visit Diagnoses:Impaired intestinal absorption [K90.9] Obesity, Class III, BMI 40-49.9 (morbid obesity) (HCC) [E66.01] Dietary counseling and surveillance [Z71.3] During your visit today, we recorded the following information about you: Weight Height 101.8 kg 1.59 m Allergies As of Date: 01/14/2024 Noted Allergy Reaction BEE STING 09/11/2022 7 - Swelling CODEINE 03/13/2022 16 - Unknown DOXYCYCLINE 03/13/2022 8 - GI Upset METFORMIN 03/19/2022 5 - Intolerance Comments: GI upset, diarrhea PREDNISONE 03/13/2022 2 - Rash Date Reviewed: 01/14/2024 Reviewed by: Annie Alvarez RD - Fully Assessed Prescriptions as of 01/14/2024 - pantoprazole DR (PROTONIX) 40 mg tablet Take 1 tablet by mouth once daily. - glipiZIDE (GLUCOTROL XL) 10mg 24 hr tablet Take 1 tablet by mouth once daily. - flash glucose sensor (FREESTYLE GUZMAN 14 DAY SENSOR) kit 1 Each two times a day. DX E11.65 Insulin No - ondansetron orally disintegrating (ZOFRAN ODT) 4 mg disintegrating tablet Take 1 tablet by mouth every 12 hours as needed for nausea/vomiting. - fluticasone (FLONASE) 50 mcg/actuation nasal spray Use 1 [place] in each nostril at bedtime as needed for cold/allergy symptoms. As needed Encounter Status:Closed by ANNIE ALVAREZ on 01/14/24 [facility] 01-14-2024 Note HNO ID: [id number] Author: ANNIE ALVAREZ RD Service: ? Author Type: Registered Dietitian Type: Progress Notes Filed: 01/14/2024 10:26 Note Text: I have communicated my name and active licensure. The patient's identity and physical location were verified at the time of this visit. 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 Patient reports weight (as measured by home scale) of 224.5 pounds. AMBULATORY PATIENT EDUCATION NOTE-Shared Nutrition Group TOPIC: LIFE STYLE CHANGES: Post-op weight loss surgery: Diet and Exercise READINESS TO LEARN COGNITIVE ABILITY: Alert and oriented MOTIVATION TO LEARN: Interested FAMILY SUPPORT: Unable to assess - Family not present INSTRUCTION PROVIDED TO: Patient and group PATIENT LEARNS BEST BY: Multiple Methods FACTORS AFFECTING LEARNING: None PHYSICAL LIMITATIONS AFFECTING LEARNING: None LEARNING RESPONSE DIAGNOSIS: Inadequate protein-energy intake, related to: altered GI tract, as evidenced by history of RYGB Overweight Obesity, related to; food/nutrition - related knowledge deficit, as evidenced by BMI above normative standard for age and gender Malnutrition Screening Significant unintentional weight loss? No Eating less than 75% of usual intake for more than 2 weeks? Yes advancing post op bariatric diet Nutritional status: METHOD OF INSTRUCTION: Individual instruction Group class instruction PATIENT / FAMILY RESPONSE: Nutrition outcome statement: Expect attention to diet to assist with weight management and minimum 500 calories/2 liters of fluids per day. Patient participated in a 2 week post-op shared nutrition group. Post-op weight loss surgery (RYGB Dr. Hill 01/01/24) . Weight loss: 30.5 lbs since initial assessment (255 lbs); 12% loss total body weight. Pre surgery weight: 239 lbs. Weight loss tracking as expected from surgery. (6% wt loss) Tolerating phase 3 diet without difficulty - started 01/10. Protein needs estimated at 77 grams protein per day (1.2 g/kg IBW kg). Current intake meeting ~ 75% protein needs with shakes, eggs, turkey, beans and tuna. Fluid consumption is adequate and includes water and appropriate sugar free liquids. Patient will begin taking all recommended vitamin/minerals (Bariatric Fusion MVI, iron, calcium citrate chews). Physical activity includes walking and ADL. Labs not available to assess. Reviewed nutrition principles of: 1. Begin taking daily vitamins/minerals: Bariatric Fusion multivitamin, 45-60 mg iron, and 1500 mg calcium citrate (take calcium 2 hours apart from multivitamin w/ iron and take each 500mg calcium chew 4 hours apart) 2. Continue Phase III soft, high protein foods (refer to page 65 in guidebook). 3. Protein goal: 77 g protein/day 4. Practice mindful eating habits: take small bites, eat slowly, and chew thoroughly 5. Fluid goal: 64 ounces per day (no carbonation, caffeine, calories, alcohol) - separate foods and fluids by 20-30 minutes, small sips, no straw. 6. Exercise goal: begin low intensity exercise until cleared by surgeon. You have lost 6% total weight loss (average 6-9% at 1 month) Blog: enmanuel [facility] [place] [facility] has 2 virtual support group meetings: This is the Webex link with meeting number that will be used for all of the SATURDAY virtual support groups this year, on the Saturday of each month 5:30-6:30PM Join from the meeting [email or web address] Join by meeting number Meeting number (access code): [phone] Meeting password: [facility] The schedule with dates, times, topics, and facilitators can be found here:[email or web address] This is the [employer] link with meeting number that will be used for the Open Discussion (Food for Thought) support group on the Saturday of each month 5:30-6:30PM Join from the meeting [email or web address] Join by meeting number Meeting number (access code): [phone] Meeting password: [facility] Hope to see you there! Nutrition Monitoring AND Evaluation: adherence to Phase III diet, BMI <35 Criteria: patient update, weight check Need for Follow up: 1 month post op, scheduling [phone] Appointment Start Time: 9:45am Appointment End Time: 10:13am Time Spent on Consult: 28 minutes - Group Annie Alvarez RD, LD [facility] 01-10-2024 Note HNO ID: [id number] Author: BASILIO GARSIA PA-C Service: ? Author Type: Physician Motion Graphics Artist Type: Progress Notes Filed: 01/10/2024 14:47 Note Text: This visit was conducted as a virtual visit. Clinic Date: 01/10/2024 Leonora Cam, 53 year old presents for her initial postop visit. Index Surgery Date of Surgery: 01/01/2024 Surgeon Attending: Sergio Surgical Procedure: laparoscopic korin-en-y Pre-surgical weight: 239 lb Other Bariatric Surgeries None Time Since Surgery: 2 weeks Extra Procedures: 1. Laparoscopic korin en y gastric bypass 2. Intraoperative upper gastrointestinal endoscopy 3. Laparoscopic transversus abdominus plane block COMPLICATIONS DURING ADMISSION: Operative Complications: No Complications Prior to Discharge: No COMPLICATIONS SINCE DISCHARGE: None Estimated body mass index is 41.1 kg/m? as calculated from the following: Height as of 01/01/24: 160 cm (5' 3). Weight as of 01/01/24: 105.2 kg (232 lb). [place] weight: 64.4 kg (141 lb 15.2 oz) Excess weight: % of excess body weight lost: 0 kg (0 lb) HISTORY: Fever/Chills, denies Abdominal Pain: Denies Back Pain: Denies Increased Heart Rate: Denies Bloating / Hiccups: positive Shortness of Breath: Denies Cough / Wheezing: Denies Calf/Thigh Pain or Swelling: Denies Decreased Urine Output: Denies Nausea/Vomiting: Denies Diarrhea: Denies Bowel Function: Comments: normal Other: J.P. Drain Color: None or removed prior to discharge Current Diet: Phase I (Clear Liquids) and Phase II (Full Liquids) Daily approximate Fluid intake: 60 Present Activity level: Household activities Have you attended any Support Group? Not known Current Medications: Current Outpatient Medications Medication Sig ondansetron (ZOFRAN) 4 mg tablet Take 1 tablet by mouth every 8 hours as needed for nausea/vomiting (for nausea.). scopolamine (TRANSDERM-SCOP) patch 1.5 mg/72 hr (delivers 1 mg over 3 days) Apply 1 Patch as directed every [address] (PROTONIX) 40 mg tablet Take 1 tablet by mouth once daily. glipiZIDE (GLUCOTROL XL) 10mg 24 hr tablet Take 1 tablet by mouth once daily. flash glucose sensor (FREESTYLE GUZMAN 14 DAY SENSOR) kit 1 Each two times a day. DX E11.65 Insulin No ondansetron orally disintegrating (ZOFRAN ODT) 4 mg disintegrating tablet Take 1 tablet by mouth every 12 hours as needed for nausea/vomiting. fluticasone (FLONASE) 50 mcg/actuation nasal spray Use 1 [place] in each nostril at bedtime as needed for cold/allergy symptoms. As needed No current facility-administered medications for this visit. Discontinued Medications: There are no discontinued medications. Medications with dosage changes this visit: PHYSICAL EXAM: There were no vitals taken for this visit. General: NAD IMPRESSION: Normal post-OP course PLAN: Patient Active Problem List Severe obesity (BMI >= 40) ([facility]) GERD (gastroesophageal reflux disease) History of COVID-19 Obesity, Class III, BMI >= 40 Seasonal allergies Type 2 diabetes mellitus without complication, without long-term current use of insulin (HCC) Resolved Hospital Problems No resolved problems to display. J.P. Drain Status: None or drain removed prior to discharge G-tube Status: N/A Activity: OK to start exercise program in next 1-2 weeks. Return to Work: as scheduled Diet: Advance diet per Handbook Counseling: Vitamins, Actigall, and Symptoms of stricture Disposition: Return 1 month to [facility] visit Labs on Return: No 1) reviewed importance of hydration, protein intake 2) medication list reviewed reviewed 3) reviewed,symptoms of ulcer stricture ie nausea vomiting, dysphagia 4) RTC as scheduled 5) follow up with PCP SIGNATURE: Basilio Garsia PA-C PATIENT NAME: Leonora Cam DATE: January 10, 2024 TIME: 2:35 PM ADDRESS: [address] [place] [address] 01-10-2024 History of Present illness Narrative This visit was conducted as a virtual visit. Clinic Date: 01/10/2024 Leonora Cam, 53 year old presents for her initial postop visit. Index Surgery Date of Surgery: 01/01/2024 Surgeon Attending: Sergio Surgical Procedure: laparoscopic korin-en-y Pre-surgical weight: 239 lb Other Bariatric Surgeries None Time Since Surgery: 2 weeks Extra Procedures: 1. Laparoscopic korin en y gastric bypass 2. Intraoperative upper gastrointestinal endoscopy 3. Laparoscopic transversus abdominus plane block COMPLICATIONS DURING ADMISSION: Operative Complications: No Complications Prior to Discharge: No COMPLICATIONS SINCE DISCHARGE: None Estimated body mass index is 41.1 kg/m as calculated from the following: Height as of 01/01/24: 160 cm (5' 3). Weight as of 01/01/24: 105.2 kg (232 lb). [place] weight: 64.4 kg (141 lb 15.2 oz) Excess weight: % of excess body weight lost: 0 kg (0 lb) HISTORY: Fever/Chills, denies Abdominal Pain: Denies Back Pain: Denies Increased Heart Rate: Denies Bloating / Hiccups: positive Shortness of Breath: Denies Cough / Wheezing: Denies Calf/Thigh Pain or Swelling: Denies Decreased Urine Output: Denies Nausea/Vomiting: Denies Diarrhea: Denies Bowel Function: Comments: normal Other: J.P. Drain Color: None or removed prior to discharge Current Diet: Phase I (Clear Liquids) and Phase II (Full Liquids) Daily approximate Fluid intake: 60 Present Activity level: Household activities Have you attended any Support Group? Not known Current Medications: Current Outpatient Medications Medication Sig ondansetron (ZOFRAN) 4 mg tablet Take 1 tablet by mouth every 8 hours as needed for nausea/vomiting (for nausea.). scopolamine (TRANSDERM-SCOP) patch 1.5 mg/72 hr (delivers 1 mg over 3 days) Apply 1 Patch as directed every [address] (PROTONIX) 40 mg tablet Take 1 tablet by mouth once daily. glipiZIDE (GLUCOTROL XL) 10mg 24 hr tablet Take 1 tablet by mouth once daily. flash glucose sensor (FREESTYLE GUZMAN 14 DAY SENSOR) kit 1 Each two times a day. DX E11.65 Insulin No ondansetron orally disintegrating (ZOFRAN ODT) 4 mg disintegrating tablet Take 1 tablet by mouth every 12 hours as needed for nausea/vomiting. fluticasone (FLONASE) 50 mcg/actuation nasal spray Use 1 [place] in each nostril at bedtime as needed for cold/allergy symptoms. As needed No current facility-administered medications for this visit. Discontinued Medications: There are no discontinued medications. Medications with dosage changes this visit: PHYSICAL EXAM: There were no vitals taken for this visit. General: NAD IMPRESSION: Normal post-OP course PLAN: Patient Active Problem List Severe obesity (BMI >= 40) ([facility]) GERD (gastroesophageal reflux disease) History of COVID-19 Obesity, Class III, BMI >= 40 Seasonal allergies Type 2 diabetes mellitus without complication, without long-term current use of insulin (HCC) Resolved Hospital Problems No resolved problems to display. J.P. Drain Status: None or drain removed prior to discharge G-tube Status: N/A Activity: OK to start exercise program in next 1-2 weeks. Return to Work: as scheduled Diet: Advance diet per Handbook Counseling: Vitamins, Actigall, and Symptoms of stricture Disposition: Return 1 month to [facility] visit Labs on Return: No 1) reviewed importance of hydration, protein intake 2) medication list reviewed reviewed 3) reviewed,symptoms of ulcer stricture ie nausea vomiting, dysphagia 4) RTC as scheduled 5) follow up with PCP SIGNATURE: Basilio Garsia PA-C PATIENT NAME: Leonora Cam DATE: January 10, 2024 TIME: 2:35 PM ADDRESS: [address] [place] [id number] documented in this encounter [facility] 01-08-2024 Telephone encounter Note Record ID: [id number] Patient name: Leonora Cam Date: January 08, 2024 - 08:05 Administered by: MIKE Protocol: -> Great! Now we are in a secure chat environment. Protecting your health information is important to us. Ok, let's get started. Please verify your name and date of . Please click on the button with your first name. -> Leonora Got it. On to the next question... Select the button with your last name. -> Tutu Got it, thank you. Please enter your date of in MM/DD/YYYY format:(e.g., 04/19/1968 for Apr 19, 1968) -> 1970 Thank you for verifying your information. I'd like to ask you a few questions about how your recovery is going. Have you experienced any new or worsening symptoms since returning home? -> No I'm glad to hear that. Have you had a hospital follow-up appointment yet since your discharge? -> No [facility] 01-08-2024 Miscellaneous Notes Record ID: [id number] Patient name: Leonora Cam Date: January 08, 2024 08:05 Administered by: MIKE Protocol: -> Great! Now we are in a secure chat environment. Protecting your health information is important to us. Ok, let's get started. Please verify your name and date of . Please click on the button with your first name. -> Leonora Got it. On to the next question... Select the button with your last name. -> Tutu Got it, thank you. Please enter your date of in MM/DD/YYYY format:(e.g., 04/19/1968 for Apr 19, 1968) -> 1970 Thank you for verifying your information. I'd like to ask you a few questions about how your recovery is going. Have you experienced any new or worsening symptoms since returning home? -> No I'm glad to hear that. Have you had a hospital follow-up appointment yet since your discharge? -> No documented in this encounter [facility] 01-03-2024 Telephone encounter Note Record ID: [id number] Patient name: Leonora Cam Date: January 03, 2024 - : Administered by: MIKE Protocol: -> Great! Now we are in a secure chat environment. Protecting your health information is important to us. Ok, let's get started. Please verify your name and date of . Please click on the button with your first name. -> Leonora Got it. On to the next question... Select the button with your last name. -> Tutu Got it, thank you. Please enter your date of in MM/DD/YYYY format:(e.g., 04/19/1968 for Apr 19, 1968) -> 1970 Thank you for verifying your information. I'd like to ask you a few questions about how your recovery is going. Since leaving the hospital, do you have any new or worsening symptoms? -> No [facility] 01-03-2024 Miscellaneous Notes Record ID: [id number] Patient name: Leonora Cam Date: January 03, 2024: Administered by: MIKE Protocol: -> Great! Now we are in a secure chat environment. Protecting your health information is important to us. Ok, let's get started. Please verify your name and date of . Please click on the button with your first name. -> Leonora Got it. On to the next question... Select the button with your last name. -> Tutu Got it, thank you. Please enter your date of in MM/DD/YYYY format:(e.g., 04/19/1968 for Apr 19, 1968) -> 1970 Thank you for verifying your information. I'd like to ask you a few questions about how your recovery is going. Since leaving the hospital, do you have any new or worsening symptoms? -> No documented in this encounter [facility] 01-02-2024 Note HNO ID: [id number] Author: BRIDGET GUZMAN RN Service: Care Management Author Type: Registered Nurse Type: Care Mgt Initial Assessment Filed: 01/02/2024 09:39 Note Text: CARE MANAGEMENT: ASSESSMENT AND DISCHARGE PLAN SERVICE DATE: January 02, 2024 SERVICE TIME: 9:36 AM PCP: Neri Grace MD Primary Contact: Extended Emergency Contact Information Primary Emergency Contact: Douglas Cam Mobile Relation: Spouse Admission Status: Inpatient Insurance Provider: [employer] MEDICAID [facility] Discharge Planning requested by: Potential Transition Plans Advance Directives Current Living Arrangements and Support Lives with: Type of Residence: Support: Current Services/Equipment Discharge Planning Patient Goal(s): [place] [facility] Choice Explained: Are you interested in bedside delivery of your medications? No Discharge Planning Participant(s): Patient/Family Comments: Caregiver Assessment: Transport at Discharge: Needs Prior to Discharge: Post-Acute Discharge Plan: Plunger Shovel OperatorBlack Top Paver Operator Anticipated Medical Plan of Care: TBD Medical needs prior to discharge: medical stability DISCHARGE PLAN Discharge plan discussed with: pt, primary team Anticipated Discharge Plan: Home with self care Chart reviewed. PT/OT consults not ordered currently. . Pt on 2L / NC. Pt screened out by CM. . No skilled needs noted at this time. CM to re-screen on 01/02, unless pt to dc prior. CM will continue to follow. This patient has been screened for Care Management Transitional Planning Services. At this time, it does not appear this patient will require transition planning services. Should this change, and the patient require transition planning services during this admission, please contact Case Management. SIGNATURE: Bridget Guzman RN PATIENT NAME: Leonora Cam DATE: January 02, 2024 TIME: 9:36 AM CONTACT #: [phone] [facility] 01-02-2024 Note HNO ID: [id number] Author: JOEY PRESTON MD Service: General Surgery Author Type: Resident Type: Progress Notes Filed: 01/02/2024 07:53 Note Text: GENERAL SURGERY PROGRESS NOTE Leonora Cam [id number] ASSESSMENT AND PLAN Leonora Cam is a 53 year old female who is now s/p LRYGB on 12/31. Pt reports headache. Emotional and sad due to delayed relay of information to the family pos-op. Transient coughs Tolerates CLD Encouraged to ambulate and use IS and acapella PLAN: Neuro: Multimodal pain medication, pain per MAY CV:on telemetry Pulm: IS encouraged , currently on NC 2 lit, BPH w/ acapella GI: Diet:advance to phase 2, Renal:MIVF @75cc/hr Endocrine: POC glucose sticks, SS insulin DVT ppx: Lovenox BID, SCDs Home medications continued: per MAY Dispo: Advance diet to phase 2, breathing treatments, ambulate as tolerate Joey Preston MD, MPH General Surgery Resident, PGY-1 Minimally Invasive Surgery [id number] After 6 pm and on the weekends please page [phone] Patient Active Hospital Problem List: Severe obesity (BMI >= 40) ([facility]) Date Noted: 01/01/2024 SUBJECTIVE: No acute events overnight. Pain well controlled. headache No nausea or vomiting. Tolerating CLD diet. OBJECTIVE: BP 142/72 Pulse 87 Temp 36.3 ?C (97.3 ?F) (Axillary) Resp 18 Ht 160 cm (5' 3) Wt 105.2 kg (232 lb) SpO2 97% BMI 41.10 kg/m? Body mass index is 41.1 kg/m?. GENERAL: Alert and oriented, no acute distress, cooperative. LUNGS: Non labored breathing ABDOMEN: soft, epp TTP around incisions, non distended. WOUND: clean, dry and intact Labs: CBC, Coags, BMP, Mg, Phos Liver Function, Amylase, AND Lipase I/O past 24h: Intake/Output Summary (Last 24 hours) at 01/02/2024 0743 Last data filed at 01/02/2024 0423 Gross per 24 hour Intake 1200 ml Output 1400 ml Net -200 ml LDA: Lines, Drains, and Airways Line Duration Peripheral 01/01/24 1711 Right 22 Gauge <1 day Peripheral 01/01/24 1724 Left 20 Gauge <1 day Drain Duration External Collection Device 01/01/24 2330 [facility] Facility <1 day SURGERY/PROCEDURE: Procedure(s) and Anesthesia Type: * LAPAROSCOPIC GASTRIC RESTRICTIVE SURG W/ BYPASS AND KORIN-EN-Y 150CM OR LESS - General [facility] 01-02-2024 Note HNO ID: [id number] Author: GIGI GUO MD Service: General Surgery Author Type: Resident Type: Plan of Care Filed: 01/02/2024 03:51 Note Text: POST OPERATIVE CHECK Assessment and Plan: 53 year old female POD0 s/p lap korin en y gastric bypass, upper GI endoscopy, lap TAP block. Currently doing well on RNF. Subjective: Patient seen at bedside and feels well but reports feeling sad. Upset that she felt her family was not given enough update after surgery and could not find her belongings for a while. Denies nausea/vomiting. Denies chest pain, SOB/dyspnea. Pain well controlled. Has not ambulated yet. Objective: BP 140/72 Pulse 92 Temp 36.8 ?C (98.2 ?F) (Oral) Resp 18 Ht 160 cm (5' 3) Wt 105.2 kg (232 lb) SpO2 95% BMI 41.10 kg/m? PHYSICAL EXAM General: Well appearing, alert, in no acute distress CV: RRR Resp: symmetric chest rise, breathing comfortably on 3LNC. Abdomen: Soft, appropriately tender in epigastric area, non-distended. Laparoscopic incisions well approximated without erythema or leakage. Extremities: warm and well perfused, no edema Signature: Gigi Guo MD SERVICE DATE: 01/02/24 SERVICE TIME: 3:48 AM [facility] 01-01-2024 Note HNO ID: [id number] Author: DANIELA SMITH APRN.BOOKBINDING MACHINE OPERATOR Service: ? Author Type: Nurse All Round Butcher Type: Anesthesia Procedure Notes Filed: 01/01/2024 18:21 Note Text: ANESTHESIOLOGY PROCEDURE NOTE PIV General Information Procedure Start Time/Medication Administration: 01/01/2024 5:24 PM Procedure End Time: 01/01/2024 5:25 PM Patient Location: OR Staffing Anesthesiologist: López Henao MD Performed by: anesthesiologist Preparation Sterility Preparation: hand hygiene performed prior to procedure, surgical cap used, mask used, skin prep agent completely dried prior to procedure Sterility Technique Not Completely Performed Due to Extreme Emergency: No Site Prep: alcohol Procedure Details Indication: need for IV access Needle Size/Type: 20 gauge angiocath Orientation: Left Location: Wrist Imaging Guidance Used: No SIGNATURE: Daniela Smith APRN.CRNA PATIENT NAME: Leonora Cam DATE: January 01, 2024 TIME: 6:20 PM CSN: [id number] [facility] 01-01-2024 Note HNO ID: [id number] Author: DANIELA SMITH APRN.CRNA Service: ? Author Type: Nurse All Round Butcher Type: Anesthesia Procedure Notes Filed: 01/01/2024 17:44 Note Text: ANESTHESIOLOGY PROCEDURE NOTE Airway General Information Procedure Start Time/Medication Administration: 01/01/2024 5:22 PM Procedure End Time: 01/01/2024 5:23 PM Patient location during procedure: OR Timeout Performed Pre-procedure: timeout performed Consent Obtained: Yes Patient identity confirmed: arm band and patient Staffing Anesthesiologist: López Henao MD BOOKBINDING MACHINE OPERATOR: Daniela Smith APRN.CRNA Performed by: HUMBERTO Indications and Patient Condition Indications for airway management: anesthesia Preoxygenated: yes anesthesia circuit Patient position: sniffing Method: asleep Cricoid Pressure: No Difficult Mask: No Final Airway Details Final airway type: endotracheal airway Final Endotracheal Airway: ETT Cuffed: yes Successful intubation technique: direct laryngoscopy Endotracheal tube insertion site: oral Blade: Adan Blade size: #3 ETT size (mm): 7.0 Measured from: lips Measurement (cm): 21 Placement verified by: capnometry Cormack-Lehane Classification: grade I - full view of glottis Number of attempts at approach: 1 Airway not difficult SIGNATURE: Daniela Smith APRN.CRNA PATIENT NAME: Leonora Cam DATE: January 01, 2024 TIME: 5:43 PM CSN: [id number] [facility] 01-01-2024 Note HNO ID: [id number] Author: DANIELA SMITH APRN.CRNA Service: ? Author Type: Nurse All Round Butcher Type: Anesthesia Procedure Notes Filed: 01/01/2024 18:21 Note Text: ANESTHESIOLOGY PROCEDURE NOTE PIV General Information Procedure Start Time/Medication Administration: 01/01/2024 5:11 PM Procedure End Time: 01/01/2024 5:12 PM Patient Location: OR Staffing Anesthesiologist: López Henao MD Performed by: anesthesiologist Preparation Sterility Preparation: hand hygiene performed prior to procedure, surgical cap used, mask used, skin prep agent completely dried prior to procedure Sterility Technique Not Completely Performed Due to Extreme Emergency: No Site Prep: alcohol Procedure Details Indication: need for IV access Needle Size/Type: 22 gauge angiocath Orientation: Right Location: Wrist Imaging Guidance Used: No SIGNATURE: Daniela Smith APRN.BOOKBINDING MACHINE OPERATOR PATIENT NAME: Leonora Cam DATE: January 01, 2024 TIME: 5:41 PM CSN: [id number] [facility] 12-24-2023 Note HNO ID: [id number] Author: MARIYA TRACY RN Service: ? Author Type: Registered Nurse Type: Progress Notes Filed: 12/24/2023 22:24 Note Text: BMI SPECIALTY CARE COORDINATION SURGERY PRE-OP EDUCATION NOTE AMBULATORY PATIENT EDUCATION NOTE TOPIC: SURVIVAL SKILLS: Complication Prevention Diet Fatigue Management Pain management VTE prevention Mechanical READINESS TO LEARN COGNITIVE ABILITY: Alert and oriented MOTIVATION TO LEARN: Eager FAMILY SUPPORT: Patient and at bedside INSTRUCTION PROVIDED TO: Patient PATIENT LEARNS BEST BY: Individual Instruction Written Instruction - Hand-outs Verbal Instruction FACTORS AFFECTING LEARNING: None PHYSICAL LIMITATIONS AFFECTING LEARNING: None LEARNING RESPONSE DIAGNOSIS: Morbid Obesity METHOD OF INSTRUCTION: Teach Back s/s of infection and s/s of dehydration discussed smoking risk and second hand smoke and ulcers with bypass anatomy PATIENT / FAMILY RESPONSE: Verbalizes understanding of: EQUIPMENT USE-Correct use of Equipment INFECTION MANAGEMENT-Signs and symptoms of an infection and importance of contacting the physician MEDICAL REGIMEN-Importance of following prescribed medical regimen MEDICATION PRESCRIBED-Accurate knowledge of prescribed medication prior to discharge MEDICATION ROUTE-Correct route for administration of the prescribed medication MEDICATION SIDE EFFECTS-Side effects associated with the medication that warrant a call to the physician PAIN MANAGEMENT-Effective strategies to manage pain in addition to pain medication PHYSICAL RESTRICTIONS-Physical restrictions and recommendations after discharge from the hospital POST-OPERATIVE INSTRUCTIONS-Correct actions to take to reduce postoperative complications POST-PROCEDURE INSTRUCTIONS-Correct actions to take to reduce post procedure complications PRE-OPERATIVE INSTRUCTIONS-Correct action to take to follow pre-operative instructions PRE-PROCEDURE INSTRUCTIONS-Correct action to take to follow pre-procedure instructions SYMPTOM MANAGEMENT-Correct actions to take to manage symptoms associated with his/her disease/illness VTE prevention measures WORSENING CONDITION-Signs and symptoms of a worsening condition that warrant a call to the physician FOLLOW-UP PLAN: Patient instructed to call with any further issues Follow-up with Primary Care Follow up phone call. Contact information given. SUPPLEMENTAL MATERIAL: Your Surgical Guide REFERRAL (RECOMMENDATION): None Surgery Pre-Op Education Note in Nurse Visit Education video modules viewed by the patient: Yes Postop prescriptions provided to the patient: Yes Postop Surgeon Visit scheduled: Yes On-Call AND Clinic Phone Number given to the Patient: Yes Pre surgery checklist reviewed: Yes Patient Instructions for the Liquid Diet: Day Before Surgery - Liquid Diet Instruction Review 1. Last Protein shake should be before 6 pm. 2. It is important that you stay hydrated - 64 ounces of fluid per day. 3. Drink a 28-32 ounce bottle of a regular (not sugar free) sport drink (Gatorade, Powerade, etc.) the night prior to surgery. If the sport drinks aren?t tolerable, may substitute with no sugar added - no pulp juice - apple, cranberry, lemonade, white grape or orange. Day of Surgery Clear Liquid Diet Drink 12-20 ounces of a regular sport drink (or juice as above) stop liquids 2 hours before scheduled arrival time. Other Instructions Reviewed: Skin Preparation: Skin cleanse with antibacterial soap, Abhi, wound care, vitamin AND nutrients, activity restrictions post op, discharge instructions AND surgical guide, incentive spirometry;diet progression-pedro phase I AND II AND 2wk liquid diet prior to surgery, activity level AND pt responsibility during hospitalization. Sleep Apnea: Patient has sleep apnea? No. Do not take pain medication three hours before bedtime as it may cause breathing difficulty. If you are having pain at bedtime you may take two Extra Strength Tylenol. Bariatric Medieval English Literature Professor Reminder discussion Yes Mariya Tracy RN [facility] 12-24-2023 History of Present illness Narrative BMI SPECIALTY CARE COORDINATION SURGERY PRE-OP EDUCATION NOTE AMBULATORY PATIENT EDUCATION NOTE TOPIC: SURVIVAL SKILLS: Complication Prevention Diet Fatigue Management Pain management VTE prevention Mechanical READINESS TO LEARN COGNITIVE ABILITY: Alert and oriented MOTIVATION TO LEARN: Eager FAMILY SUPPORT: Patient and at bedside INSTRUCTION PROVIDED TO: Patient PATIENT LEARNS BEST BY: Individual Instruction Written Instruction - Hand-outs Verbal Instruction FACTORS AFFECTING LEARNING: None PHYSICAL LIMITATIONS AFFECTING LEARNING: None LEARNING RESPONSE DIAGNOSIS: Morbid Obesity METHOD OF INSTRUCTION: Teach Back s/s of infection and s/s of dehydration discussed smoking risk and second hand smoke and ulcers with bypass anatomy PATIENT / FAMILY RESPONSE: Verbalizes understanding of: EQUIPMENT USE-Correct use of Equipment INFECTION MANAGEMENT-Signs and symptoms of an infection and importance of contacting the physician MEDICAL REGIMEN-Importance of following prescribed medical regimen MEDICATION PRESCRIBED-Accurate knowledge of prescribed medication prior to discharge MEDICATION ROUTE-Correct route for administration of the prescribed medication MEDICATION SIDE EFFECTS-Side effects associated with the medication that warrant a call to the physician PAIN MANAGEMENT-Effective strategies to manage pain in addition to pain medication PHYSICAL RESTRICTIONS-Physical restrictions and recommendations after discharge from the hospital POST-OPERATIVE INSTRUCTIONS-Correct actions to take to reduce postoperative complications POST-PROCEDURE INSTRUCTIONS-Correct actions to take to reduce post procedure complications PRE-OPERATIVE INSTRUCTIONS-Correct action to take to follow pre-operative instructions PRE-PROCEDURE INSTRUCTIONS-Correct action to take to follow pre-procedure instructions SYMPTOM MANAGEMENT-Correct actions to take to manage symptoms associated with his/her disease/illness VTE prevention measures WORSENING CONDITION-Signs and symptoms of a worsening condition that warrant a call to the physician FOLLOW-UP PLAN: Patient instructed to call with any further issues Follow-up with Primary Care Follow up phone call. Contact information given. SUPPLEMENTAL MATERIAL: Your Surgical Guide REFERRAL (RECOMMENDATION): None Surgery Pre-Op Education Note in Nurse Visit Education video modules viewed by the patient: Yes Postop prescriptions provided to the patient: Yes Postop Surgeon Visit scheduled: Yes On-Call & Clinic Phone Number given to the Patient: Yes Pre surgery checklist reviewed: Yes Patient Instructions for the Liquid Diet: Day Before Surgery - Liquid Diet Instruction Review 1. Last Protein shake should be before 6 pm. 2. It is important that you stay hydrated - 64 ounces of fluid per day. 3. Drink a 28-32 ounce bottle of a regular (not sugar free) sport drink (Gatorade, Powerade, etc.) the night prior to surgery. If the sport drinks aren t tolerable, may substitute with no sugar added - no pulp juice - apple, cranberry, lemonade, white grape or orange. Day of Surgery Clear Liquid Diet Drink 12-20 ounces of a regular sport drink (or juice as above) stop liquids 2 hours before scheduled arrival time. Other Instructions Reviewed: Skin Preparation: Skin cleanse with antibacterial soap, Abhi, wound care, vitamin & nutrients, activity restrictions post op, discharge instructions & surgical guide, incentive spirometry;diet progression-pedro phase I & II & 2wk liquid diet prior to surgery, activity level & pt responsibility during hospitalization. Sleep Apnea: Patient has sleep apnea? No. Do not take pain medication three hours before bedtime as it may cause breathing difficulty. If you are having pain at bedtime you may take two Extra Strength Tylenol. Bariatric Medieval English Literature Professor Reminder discussion Yes Mariya Tracy RN documented in this encounter [facility] 12-24-2023 History and physical note BARIATRIC SURGERY PREOPERATIVE VISIT NOTE SERVICE DATE: 12/24/2023 SUBJECTIVE: Leonora Cam is a 53 year old female seen in Bariatric Surgery clinic today for their final preoperative assessment. WEIGHT Current BMI: There is no height or weight on file to calculate BMI. Last Wt 12/13/23 108.4 kg (239 lb) Planned Procedure: Laparoscopic Korin en-Y Gastric Bypass Patient Active Problem List GERD (gastroesophageal reflux disease) History of COVID-19 Obesity, Class III, BMI >= 40 Seasonal allergies Type 2 diabetes mellitus without complication, without long-term current use of insulin (HCC) Resolved Hospital Problems No resolved problems to display. PAST MEDICAL HISTORY Diagnosis Date COVID-19 10/16/2021 Diabetes mellitus (HCC) 2017 Seasonal allergies PAST SURGICAL HISTORY Procedure Laterality Date LIGATE FALLOPIAN TUBE 2000 PAST SURGICAL HISTORY OF 2015 clamp in R foot (bone shattered) REMOVAL GALLBLADDER 2015 TONSILLECTOMY & ADENOIDECTOMY Social History Tobacco Use Smoking status: Never Passive exposure: Current Smokeless tobacco: Never Vaping Use Vaping status: Never Used Substance Use Topics Alcohol use: Not Currently Drug use: Never ALLERGIES Allergen Reactions Bee Sting Swelling Codeine Unknown Doxycycline GI Upset Metformin Intolerance GI upset, diarrhea Prednisone Rash BMI PHYSICAL EXAM: Cardiovascular: Normal S1 & S2, no rubs, murmurs or gallops. No JVD. Pulse regular. Lungs: Normal breath sounds, no wheezes or crackles. Abdomen: Soft, non-tender, no rigidity. Laparoscopic port site incisions The remainder of the physical exam is noncontributory. MEDICATIONS: Prior to Admission Medications: glipiZIDE (GLUCOTROL XL) 10mg 24 hr tablet Take 1 tablet by mouth once daily. flash glucose sensor (FREESTYLE GUZMAN 14 DAY SENSOR) kit 1 Each two times a day. DX E11.65 Insulin No ondansetron orally disintegrating (ZOFRAN ODT) 4 mg disintegrating tablet Take 1 tablet by mouth every 12 hours as needed for nausea/vomiting. fluticasone (FLONASE) 50 mcg/actuation nasal spray Use 1 [place] in each nostril at bedtime as needed for cold/allergy symptoms. As needed No current facility-administered medications for this visit. VISIT NOTE: This patient was seen in clinic today to obtain informed consent and discuss the details of their upcoming operation including the appropriate expectations for perioperative and postoperative care. In addition, preoperative and postoperative relevant prescriptions were provided and explained during this clinic visit. The consent discussion included the risks, benefits and anticipated outcomes of the procedure, the risks and benefits of the alternatives to the procedure, and the roles and tasks of the personnel to be involved. The patient had an opportunity to ask additional questions that were answered. The patient expressed that they understood. A consent form was signed today. Prescriptions were explained and provided to the patient. Postoperative VTE risk is 0.25% according to VTE Risk Calculator. Script for extended prophylaxis was not provided. Preoperative requirements: Preoperative Checklist for Bariatric Surgery Checklist Items Completed Not Completed Preoperative H & P today Preoperative labs (including fasting glucose, blood typing and A1C) yes Preoperative cardiac work-up (EKG / ECHO) yes GI evaluation (UGI / EGD) if needed Not indicated Pulmonary evaluation (Patient to bring CPAP mask day of surgery) Not history of sleep apnea Consult placed for difficult IV access if needed Not indicated Postoperative medications prescribed yes Nutrition evaluation yes Psychosocial evaluation yes ABHI and preop videos confirmation yes Stop OCP's, Aspirin, Anticoagulation prior to surgery Smoking cessation - Urine cotinine ordered if needed smokes, usually outside the home Planned post op ICU admission Not anticipated We discussed common lubg-mbz-oonxthd remedies that contain NSAIDs (like Advil, Aleve, ibuprofen, Excedrine Migraine, Goody's/BC powders), as well as the more commonly prescribed NSAIDs (Celebrex/celcoxib, indomethacin, Mobic/meloxicam). She does not use these medications currently. We discussed the risk of marginal ulcer after gastric bypass, and that this risk is significantly increased with use of NSAIDs at any point postoperatively. Thus, if patient elects to move forward with RYGB, specifically, she understands she would have to maintain lifelong avoidance of all NSAIDs postoperatively. We discussed the details of the [facility] Obesity Surgery Biorepository -I explained that participation was voluntary and would not alter her surgery in any way. -We discussed that a biobank is similar to a library that store samples of blood urine or other tissue types that can be used for future research. When samples are stored they are not directly linked to you as an individual patient, however researchers may need to link samples to other identifiable medical information in the future. -I discussed that the samples that would be collected would be blood or tissue that would otherwise have been discarded, and no additional tissue removal will be performed apart from the standard portions of the operation. -We discussed that samples would be utilized by researchers employed by the [facility] and they are safeguards in place to ensure confidentiality and security. She did agree to participate in the study and informed consent can be found electronically [facility] RESEARCH INFORMED CONSENT IRB#: [id number] Title: Effect of Limb length ratio on Korin-en-Y Gastric bypass Outcomes (CLIMB II study) Strings Teacher: Dr. Ricardo Goodman; [phone] Research Nurse or Rock Climbing Team Member: Dr. Marilynn Lacy; [phone] INITIAL CONSENT The research study s informed consent document was reviewed with and explained to the participant 12/24/2023. The participant indicated that they had sufficient time to review the consent. The research treatment plan, including purpose and procedures, all testing, potential risks/benefits, side effects and management, treatment alternatives, and follow-up were explained. Participant verified that they are not participating in any additional interventional clinical trials. All study related questions were answered.The participant expressed an understanding of the research and agreed to participate in the study. Participant understands the study is voluntary and can withdraw at any time. The participant signed and dated the informed consent form and a signed copy was provided to the participant. This informed consent was obtained prior to the start of any research study related procedures. INCLUSION CRITERIA Yes No 1. Patients between 18 and 70 years of age [x] [] 2. Morbidly obese patients (defined by BMI between 40 and 60) [x] [] 3. Patient who understands and accepts the need for a long-term follow-up [x] [] 4. Patient who agrees to be included in the study and who signs the informed consent form (ICF) [x] [] 5. Patients should be able tolerate general anesthesia to take part in this study [x] [] EXCLUSION CRITERIA Yes No 1. Individuals unable to understand and sign a written consent form [] [x] 2. Patients with history of previous bariatric surgery procedures [] [x] 3. Presence of a severe and evolutive life threatening pathology unrelated to obesity [] [x] 4. Previous gastric or small bowel resection [] [x] 5. Active cancer [] [x] 6. or desired to be during the study [] [x] 7. Mentally unbalanced patients under supervision or guardianship [] [x] 8. Patient unable to give consent [] [x] Patient Eligible Yes No 1. Patient is eligible to enroll in this study [x] [] Bridger Hill MD SIGNATURE: Bridger Hill MD, PATIENT NAME: Leonora Cam [facility]oscopic [facility] Bariatric Surgery DATE: December 24, 2023 CSN: [id number] TIME: 9:29 AM [facility] 12-24-2023 History and physical note BARIATRIC SURGERY PREOPERATIVE VISIT NOTE SERVICE DATE: 12/24/2023 SUBJECTIVE: Leonora Cam is a 53 year old female seen in Bariatric Surgery clinic today for their final preoperative assessment. WEIGHT Current BMI: There is no height or weight on file to calculate BMI. Last Wt 12/13/23 108.4 kg (239 lb) Planned Procedure: Laparoscopic Korin en-Y Gastric Bypass Patient Active Problem List GERD (gastroesophageal reflux disease) History of COVID-19 Obesity, Class III, BMI >= 40 Seasonal allergies Type 2 diabetes mellitus without complication, without long-term current use of insulin (HCC) Resolved Hospital Problems No resolved problems to display. PAST MEDICAL HISTORY Diagnosis Date COVID-19 10/16/2021 Diabetes mellitus (HCC) 2017 Seasonal allergies PAST SURGICAL HISTORY Procedure Laterality Date LIGATE FALLOPIAN TUBE 2000 PAST SURGICAL HISTORY OF 2015 clamp in R foot (bone shattered) REMOVAL GALLBLADDER 2015 TONSILLECTOMY & ADENOIDECTOMY <AGE 13 1984 Social History Tobacco Use Smoking status: Never Passive exposure: Current Smokeless tobacco: Never Vaping Use Vaping status: Never Used Substance Use Topics Alcohol use: Not Currently Drug use: Never ALLERGIES Allergen Reactions Bee Sting Swelling Codeine Unknown Doxycycline GI Upset Metformin Intolerance GI upset, diarrhea Prednisone Rash BMI PHYSICAL EXAM: Cardiovascular: Normal S1 & S2, no rubs, murmurs or gallops. No JVD. Pulse regular. Lungs: Normal breath sounds, no wheezes or crackles. Abdomen: Soft, non-tender, no rigidity. Laparoscopic port site incisions The remainder of the physical exam is noncontributory. MEDICATIONS: Prior to Admission Medications: glipiZIDE (GLUCOTROL XL) 10mg 24 hr tablet Take 1 tablet by mouth once daily. flash glucose sensor (FREESTYLE GUZMAN 14 DAY SENSOR) kit 1 Each two times a day. DX E11.65 Insulin No ondansetron orally disintegrating (ZOFRAN ODT) 4 mg disintegrating tablet Take 1 tablet by mouth every 12 hours as needed for nausea/vomiting. fluticasone (FLONASE) 50 mcg/actuation nasal spray Use 1 [place] in each nostril at bedtime as needed for cold/allergy symptoms. As needed No current facility-administered medications for this visit. VISIT NOTE: This patient was seen in clinic today to obtain informed consent and discuss the details of their upcoming operation including the appropriate expectations for perioperative and postoperative care. In addition, preoperative and postoperative relevant prescriptions were provided and explained during this clinic visit. The consent discussion included the risks, benefits and anticipated outcomes of the procedure, the risks and benefits of the alternatives to the procedure, and the roles and tasks of the personnel to be involved. The patient had an opportunity to ask additional questions that were answered. The patient expressed that they understood. A consent form was signed today. Prescriptions were explained and provided to the patient. Postoperative VTE risk is 0.25% according to VTE Risk Calculator. Script for extended prophylaxis was not provided. Preoperative requirements: Preoperative Checklist for Bariatric Surgery Checklist Items Completed Not Completed Preoperative H & P today Preoperative labs (including fasting glucose, blood typing and A1C) yes Preoperative cardiac work-up (EKG / ECHO) yes GI evaluation (UGI / EGD) if needed Not indicated Pulmonary evaluation (Patient to bring CPAP mask day of surgery) Not history of sleep apnea Consult placed for difficult IV access if needed Not indicated Postoperative medications prescribed yes Nutrition evaluation yes Psychosocial evaluation yes ABHI and preop videos confirmation yes Stop OCP's, Aspirin, Anticoagulation prior to surgery Smoking cessation - Urine cotinine ordered if needed smokes, usually outside the home Planned post op ICU admission Not anticipated We discussed common zhuc-yjj-cymgodo remedies that contain NSAIDs (like Advil, Aleve, ibuprofen, Excedrine Migraine, Goody's/BC powders), as well as the more commonly prescribed NSAIDs (Celebrex/celcoxib, indomethacin, Mobic/meloxicam). She does not use these medications currently. We discussed the risk of marginal ulcer after gastric bypass, and that this risk is significantly increased with use of NSAIDs at any point postoperatively. Thus, if patient elects to move forward with RYGB, specifically, she understands she would have to maintain lifelong avoidance of all NSAIDs postoperatively. We discussed the details of the [facility] Obesity Surgery Biorepository -I explained that participation was voluntary and would not alter her surgery in any way. -We discussed that a biobank is similar to a library that store samples of blood urine or other tissue types that can be used for future research. When samples are stored they are not directly linked to you as an individual patient, however researchers may need to link samples to other identifiable medical information in the future. -I discussed that the samples that would be collected would be blood or tissue that would otherwise have been discarded, and no additional tissue removal will be performed apart from the standard portions of the operation. -We discussed that samples would be utilized by researchers employed by the [facility] and they are safeguards in place to ensure confidentiality and security. She did agree to participate in the study and informed consent can be found electronically [facility] RESEARCH INFORMED CONSENT IRB#: [id number] Title: Effect of Limb length ratio on Korin-en-Y Gastric bypass Outcomes (CLIMB II study) Strings Teacher: Dr. Ricardo Goodman; [phone] Research Nurse or Rock Climbing Team Member: Dr. Marilynn Lacy; [phone] INITIAL CONSENT The research study s informed consent document was reviewed with and explained to the participant 12/24/2023. The participant indicated that they had sufficient time to review the consent. The research treatment plan, including purpose and procedures, all testing, potential risks/benefits, side effects and management, treatment alternatives, and follow-up were explained. Participant verified that they are not participating in any additional interventional clinical trials. All study related questions were answered.The participant expressed an understanding of the research and agreed to participate in the study. Participant understands the study is voluntary and can withdraw at any time. The participant signed and dated the informed consent form and a signed copy was provided to the participant. This informed consent was obtained prior to the start of any research study related procedures. INCLUSION CRITERIA Yes No 1. Patients between 18 and 70 years of age [x] [] 2. Morbidly obese patients (defined by BMI between 40 and 60) [x] [] 3. Patient who understands and accepts the need for a long-term follow-up [x] [] 4. Patient who agrees to be included in the study and who signs the informed consent form (ICF) [x] [] 5. Patients should be able tolerate general anesthesia to take part in this study [x] [] EXCLUSION CRITERIA Yes No 1. Individuals unable to understand and sign a written consent form [] [x] 2. Patients with history of previous bariatric surgery procedures [] [x] 3. Presence of a severe and evolutive life threatening pathology unrelated to obesity [] [x] 4. Previous gastric or small bowel resection [] [x] 5. Active cancer [] [x] 6. or desired to be during the study [] [x] 7. Mentally unbalanced patients under supervision or guardianship [] [x] 8. Patient unable to give consent [] [x] Patient Eligible Yes No 1. Patient is eligible to enroll in this study [x] [] Bridger Hill MD SIGNATURE: Bridger Hill MD, PATIENT NAME: Leonora Cam [facility]ariat[facility] DATE: December 24, 2023 CSN: [id number] TIME: 9:29 AM documented in this encounter [facility] 12-24-2023 Note Education (GENBMI) -------- LEONORA CAM ([id number]) 1970 F Date Time Provider Department 12/24/23 MARIYA TRACY Reason for Visit: Pre-Op Teaching [134] During your visit today, we recorded the following information about you: Allergies As of Date: 12/24/2023 Noted Allergy Reaction BEE STING 09/11/2022 7 - Swelling CODEINE 03/13/2022 16 - Unknown DOXYCYCLINE 03/13/2022 8 - GI Upset METFORMIN 03/19/2022 5 - Intolerance Comments: GI upset, diarrhea PREDNISONE 03/13/2022 2 - Rash Date Reviewed: 12/24/2023 Reviewed by: Bridger Hill MD - Fully Assessed Prescriptions as of 12/24/2023 - ondansetron (ZOFRAN) 4 mg tablet Take 1 tablet by mouth every 8 hours as needed for nausea/vomiting (for nausea.). - scopolamine (TRANSDERM-SCOP) patch 1.5 mg/72 hr (delivers 1 mg over 3 days) Apply 1 Patch as directed every 72 hours. - pantoprazole DR (PROTONIX) 40 mg tablet Take 1 tablet by mouth once daily. - glipiZIDE (GLUCOTROL XL) 10mg 24 hr tablet Take 1 tablet by mouth once daily. - flash glucose sensor (FREESTYLE GUZMAN 14 DAY SENSOR) kit 1 Each two times a day. DX E11.65 Insulin No - ondansetron orally disintegrating (ZOFRAN ODT) 4 mg disintegrating tablet Take 1 tablet by mouth every 12 hours as needed for nausea/vomiting. - fluticasone (FLONASE) 50 mcg/actuation nasal spray Use 1 [place] in each nostril at bedtime as needed for cold/allergy symptoms. As needed Encounter Status:Closed by MARIYA TRACY on 12/24/23 [facility] 12-13-2023 Instructions Kim Annie, KIMBER - 12/13/2023 10:24 AM EDT Nutrition Intervention 12/13/2023: Reviewed pre-op and post-op diet guidelines: 1. Start the full liquid diet 2 weeks before surgery (12/17) using only the approved protein shakes. Choose from these options: 4 1/2 bottles Slim Fast High Protein OR 5 bottles Atkins (15 g protein) OR 4 1/2 bottles Boost Glucose Control OR 4 1/2 bottles OWYN (20 g protein) OR 5 1/2 packets Whiteface Breakfast Essentials Light Start mixed with fat free or 1% milk 2. Drink at least 64 oz of fluid per day (no calories, no caffeine, no carbonation). Acceptable beverages include water, sugar-free flavoring packets such as Crystal Lite, broth, sugar-free jello or popsicles, decaffeinated coffee or tea, Gatorade or Powerade Zero. 3. Take a Super B Complex vitamin with 75-100 mg of Thiamin daily during the liquid diet before and after surgery. 4. Day before surgery: - Finish your last protein shake before 6 pm - Drink 28-32 fl oz of regular sports drink (Gatorade, Powerade, etc.) 5. Day of surgery: - Drink 12-20 fl oz of regular sports drink - Stop drinking liquids 2 hours before scheduled arrival time 6. Advance diet as tolerated after surgery (see page 61 in guidebook): - Phase 1: Sugar-free, clear liquid diet (only in the hospital) - Phase 2: High protein, full liquid diet. Try to consume at least 60 grams of protein per day in the form of high protein shakes. Aim to drink 4-8 fl oz of protein shake 3 times per day. Try to drink at least 64 oz per day of water or other clear liquids between shakes. - Phase 3: Soft, high protein foods. Try to consume 3-4 oz of protein 3 times per day from poultry, beef, fish, seafood, eggs, cheese, yogurt, cottage cheese, beans, lentils, tofu. Choose meat products that are tender, shredded and/or ground to increase tolerance. 7. Remember to take small bites, chew well, and eat slowly. Do not drink anything 30 minutes before, during, or until 30 minutes after eating. Take small sips of fluid and do not use a straw. 8. Begin taking daily vitamins/minerals when you start Phase 3 diet (page 49 in guidebook): Daily multivitamin, 45-60 mg iron, 8496-5344 mg calcium citrate w/ Vit D, 500 mcg Vit B12 sublingual pill or liquid, 3000 international unit(s) Vit D3, Super B complex with 75-100 mg thiamin It is ok to take a combination bariatric vitamin to limit pill volume. Here are a few options to consider: - Bariatric Fusion: 4 Complete Multivitamin chewables per day OR 1 Multivitamin capsule and 1467-9332 mg calcium citrate per day OR 2 Multivitamin soft chews per day + 3 calcium citrate soft chews + 1 iron soft chew per day [email or web address] - Bariatric Choice: 4 All-in-One Bariatric Multivitamin chewables per day OR 1 Once Daily Bariatric Multivitamin capsule and 5449-0028 mg calcium citrate per day www.[email or web address] - Bariatric Pal: 4 All-in-One Multivitamin chewables per day OR 1 Multivitamin One (chewable or capsule) and 8111-7130 mg calcium citrate per day www.[email or web address].SYL[place]TA/collectio ns/bariatric-vitamins - Bariatric Advantage: 1 Ultra Solo multivitamin w/ iron (chewable or capsule) OR 2 chewable Advanced Multi EA w/ iron and 9673-6643 mg calcium citrate per day OR 2 Multi Chewy Bites and 1171-6565 mg calcium citrate and 45-60 mg iron per day www.bariatricadvantage.[place] - Procare Health: 1 Bariatric Multivitamin w/ iron (capsule or chewable) and 8444-2204 mg calcium citrate per day www.[email or web address] - Celebrate: 2 Multi-Complete (chewable or capsule) OR 1 CelebrateOne Multivitamin capsule and 0166-0941 mg calcium citrate per day OR 2 Multivitamin soft chews + 3 calcium citrate soft chews + 1 iron soft chew per day https://[email or web address].[email or web address] - Barilife: 1 Just One Bariatric Multivitamin w/ iron (chewable or capsule) and 4428-8657 mg calcium citrate per day www.bariBioNanovations.[place] - Barimelts: 2 Multivitamin w/ iron tablets and 6534-2992 mg calcium citrate per day www.[employer].[place] Nutrition Monitoring & Evaluation: Follow pre and post op diet and fluid guidelines Criteria: weight check and patient report Need for Follow up: 2 weeks post op documented in this encounter [facility] 12-13-2023 Note HNO ID: [id number] Author: ANNIE ALVAREZ RD Service: ? Author Type: Registered Dietitian Type: Progress Notes Filed: 12/13/2023 10:25 Note Text: AMBULATORY PATIENT EDUCATION NOTE- Shared Virtual Nutrition Group I have communicated my name and active licensure. The patient's identity and physical location were verified at the time of this visit. 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 Patient reports weight (as measured by home scale) of 239 pounds. TOPIC: LIFE STYLE CHANGES: Pre-op weight loss surgery ([facility], Dr. Hill): Diet and Exercise PROGRESS: Nutrition Intervention (date of last encounter 10/23/23): Modify type and amount of foods consumed for meals and snacks Please call [phone], option 5. Leave a message for the navigation team when you are finished with all clearances (nutrition, psychology, medical, surgeon) 1. Protein goal: 77 grams protein/day 2. Fluid goal: 64 oz per day water (no calories, no caffeine, no carbonation, no alcohol) 3. Exercise goal: 150-250 minutes per week, including 10-20 min of strength/resistance exercise 2-3x/week 4. Practice mindful eating habits- eat protein first, take small portions, eat slowly, chew thoroughly 20-30x before swallowing, practice eating and drinking by 30 min. 5. Start the full liquid diet (2) weeks prior to surgery using 4-5 protein shakes per day, continue a minimum of 64 oz water per day during this time. No solid food. May have sugar free popsicle and sugar free jello. Choose from these options only: 4 ? bottles of Slim Fast High Protein shakes per day 5 cartons of Atkins 15 g shakes per day 4 ? bottles of Boost Glucose Control shakes per day 5 ? packets of Whiteface Breakfast Essentials Light Start mixed with fat free milk 4 ? bottles/cartons of Owyn 20 g protein shakes per day 6. During the 2 weeks before and after surgery, include a daily Super B-Complex vitamin with 75-100 mg Thiamine 7. Advance diet per guidebook post surgery (refer to page 49) 8. Begin taking vitamins/minerals after starting soft protein foods ~3 weeks after surgery: Daily multivitamin, iron 45-60 mg (morning), calcium citrate w/ Vit D 600 mg at lunch and 600 mg at dinner, Vit B12 500 mcg sublingual pill or liquid, Vit D3 3000 IU, B complex with 75-100 mg thiamin. Take multivitamin with iron 2 hours apart from calcium citrate, and take each dose of calcium 4 hours apart from each other It is ok to take a combination bariatric vitamin to limit pill volume. Here are a few options to consider: - Bariatric Fusion: 4 Complete Multivitamin chewables per day OR 1 Multivitamin capsule and 9857-8352 mg calcium citrate per day OR 2 Multivitamin soft chews per day + 3 calcium citrate soft chews + 1 iron soft chew per day www.[email or web address] - Bariatric Choice: 4 All-in-One Bariatric Multivitamin chewables per day OR 1 Once Daily Bariatric Multivitamin capsule and 6004-3728 mg calcium citrate per day www.[email or web address] - Bariatric Pal: 4 All-in-One Multivitamin chewables per day OR 1 Multivitamin One (chewable or capsule) and 1348-5705 mg calcium citrate per day www.Securusbariatricpal.[place]/collectio luda/bariatric-vitamins - Bariatric Advantage: 1 Ultra Solo multivitamin w/ iron (chewable or capsule) OR 2 chewable Advanced Multi EA w/ iron and 4927-7634 mg calcium citrate per day OR 2 Multi Chewy Bites and 2745-3332 mg calcium citrate and 45-60 mg iron per day www.bariatricadCar Throttle.[place] - ProcGrownOut Health: 1 Bariatric Multivitamin w/ iron (capsule or chewable) and 6202-6126 mg calcium citrate per day www.Center'd - Celebrate: 2 Multi-Complete (chewable or capsule) OR 1 CelebrateOne Multivitamin capsule and 7778-3712 mg calcium citrate per day OR 2 Multivitamin soft chews + 3 calcium citrate soft chews + 1 iron soft chew per day [email or web address] - Barilife: 1 Just One Bariatric Multivitamin w/ iron (chewable or capsule) and 7782-2108 mg calcium citrate per day www.Hot Dot.[place] - Barimelts: 2 Multivitamin w/ iron tablets and 8673-6222 mg calcium citrate per day www.[employer].[place] CHANGES IN TREATMENT: Patient met goal(s): Partially Diagnosis: has not changed. Allergies: Bee Sting, Codeine, Doxycycline, Metformin, and Prednisone Anthropometrics: Height: Last 1 Encounter Ht Readings: Date: Ht: 12/13/2023 159 cm (5' 2.6) Weight: Last 1 Encounter Wt Readings: Date: Wt: 12/13/2023 108.4 kg (239 lb) Body mass index is 42.88 kg/m?. Resting Metabolic Rate: 1659 Malnutrition Screening Significant unintentional weight loss? No Eating less than 75% of usual intake for more than 2 weeks? No Nutritional status: Educational materials provided: Post bariatric surgery nutrition and vitamins ASHLEY (more content not included)... [facility] 12-13-2023 History of Present illness Narrative AMBULATORY PATIENT EDUCATION NOTE- Shared Virtual Nutrition Group I have communicated my name and active licensure. The patient's identity and physical location were verified at the time of this visit. 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 Patient reports weight (as measured by home scale) of 239 pounds. TOPIC: LIFE STYLE CHANGES: Pre-op weight loss surgery ([facility], Dr. Hill): Diet and Exercise PROGRESS: Nutrition Intervention (date of last encounter 10/23/23): Modify type and amount of foods consumed for meals and snacks Please call [phone], option 5. Leave a message for the navigation team when you are finished with all clearances (nutrition, psychology, medical, surgeon) 1. Protein goal: 77 grams protein/day 2. Fluid goal: 64 oz per day water (no calories, no caffeine, no carbonation, no alcohol) 3. Exercise goal: 150-250 minutes per week, including 10-20 min of strength/resistance exercise 2-3x/week 4. Practice mindful eating habits- eat protein first, take small portions, eat slowly, chew thoroughly 20-30x before swallowing, practice eating and drinking by 30 min. 5. Start the full liquid diet (2) weeks prior to surgery using 4-5 protein shakes per day, continue a minimum of 64 oz water per day during this time. No solid food. May have sugar free popsicle and sugar free jello. Choose from these options only: 4 bottles of Slim Fast High Protein shakes per day 5 cartons of Atkins 15 g shakes per day 4 bottles of Boost Glucose Control shakes per day 5 packets of Whiteface Breakfast Essentials Light Start mixed with fat free milk 4 bottles/cartons of Owyn 20 g protein shakes per day 6. During the 2 weeks before and after surgery, include a daily Super B-Complex vitamin with 75-100 mg Thiamine 7. Advance diet per guidebook post surgery (refer to page 49) 8. Begin taking vitamins/minerals after starting soft protein foods ~3 weeks after surgery: Daily multivitamin, iron 45-60 mg (morning), calcium citrate w/ Vit D 600 mg at lunch and 600 mg at dinner, Vit B12 500 mcg sublingual pill or liquid, Vit D3 3000 IU, B complex with 75-100 mg thiamin. Take multivitamin with iron 2 hours apart from calcium citrate, and take each dose of calcium 4 hours apart from each other It is ok to take a combination bariatric vitamin to limit pill volume. Here are a few options to consider: - Bariatric Fusion: 4 Complete Multivitamin chewables per day OR 1 Multivitamin capsule and 1509-8297 mg calcium citrate per day OR 2 Multivitamin soft chews per day + 3 calcium citrate soft chews + 1 iron soft chew per day www.[email or web address] - Bariatric Choice: 4 All-in-One Bariatric Multivitamin chewables per day OR 1 Once Daily Bariatric Multivitamin capsule and 4815-9389 mg calcium citrate per day www.[email or web address] - Bariatric Pal: 4 All-in-One Multivitamin chewables per day OR 1 Multivitamin One (chewable or capsule) and 1126-0553 mg calcium citrate per day www.[employer].bariatricpal.[place]/collectio ns/bariatric-vitamins - Bariatric Advantage: 1 Ultra Solo multivitamin w/ iron (chewable or capsule) OR 2 chewable Advanced Multi EA w/ iron and 7413-2348 mg calcium citrate per day OR 2 Multi Chewy Bites and 5494-6126 mg calcium citrate and 45-60 mg iron per day www.bariatricadvantage.[place] - FashionStake Health: 1 Bariatric Multivitamin w/ iron (capsule or chewable) and 6615-0796 mg calcium citrate per day www.[employer].[place] - Celebrate: 2 Multi-Complete (chewable or capsule) OR 1 CelebrateOne Multivitamin capsule and 2356-6042 mg calcium citrate per day OR 2 Multivitamin soft chews + 3 calcium citrate soft chews + 1 iron soft chew per day https://[email or web address] - Barilife: 1 Just One Bariatric Multivitamin w/ iron (chewable or capsule) and 4269-5048 mg calcium citrate per day www.bariBioNanovations.[place] - Barimelts: 2 Multivitamin w/ iron tablets and 9858-8775 mg calcium citrate per day www.bariBeautyContsHealth Discovery CHANGES IN TREATMENT: Patient met goal(s): Partially Diagnosis: has not changed. Allergies: Bee Sting, Codeine, Doxycycline, Metformin, and Prednisone Anthropometrics: Height: Last 1 Encounter Ht Readings: Date: Ht: 12/13/2023 159 cm (5' 2.6) Weight: Last 1 Encounter Wt Readings: Date: Wt: 12/13/2023 108.4 kg (239 lb) Body mass index is 42.88 kg/m . Resting Metabolic Rate: 1659 Malnutrition Screening Significant unintentional weight loss? No Eating less than 75% of usual intake for more than 2 weeks? No Nutritional status: Educational materials provided: Post bariatric surgery nutrition and vitamins READINESS TO LEARN Cognitive ability: Alert and oriented Motivation to learn: Interested Family support: Unable to assess - Family not present Instruction provided to: Patient Patient learns best by: Multiple Methods Factors affecting learning: None Physical limitations affecting learning: None Likelihood of Adherence: Moderate Patient participated in preop bariatric surgery shared nutrition appointment and participated actively in group. Patient is scheduled for surgery 12/31 and plans to start pre-op diet 12/17. She will follow the full liquid diet for 2 weeks using Atkins protein shakes. Patient has all appropriate beverages and Super B complex supplement with appropriate thiamin. Nutrition Diagnosis: Overweight/obesity, related to, decreased energy needs, as evidenced by BMI above normative standard for age and gender. Nutrition Intervention 12/13/2023: Reviewed pre-op and post-op diet guidelines: 1. Start the full liquid diet 2 weeks before surgery (12/17) using only the approved protein shakes. Choose from these options: 4 1/2 bottles Slim Fast High Protein OR 5 bottles Atkins (15 g protein) OR 4 1/2 bottles Boost Glucose Control OR 4 1/2 bottles OWYN (20 g protein) OR 5 1/2 packets Whiteface Breakfast Essentials Light Start mixed with fat free or 1% milk 2. Drink at least 64 oz of fluid per day (no calories, no caffeine, no carbonation). Acceptable beverages include water, sugar-free flavoring packets such as Crystal Lite, broth, sugar-free jello or popsicles, decaffeinated coffee or tea, Gatorade or Powerade Zero. 3. Take a Super B Complex vitamin with 75-100 mg of Thiamin daily during the liquid diet before and after surgery. 4. Day before surgery: - Finish your last protein shake before 6 pm - Drink 28-32 fl oz of regular sports drink (Gatorade, Powerade, etc.) 5. Day of surgery: - Drink 12-20 fl oz of regular sports drink - Stop drinking liquids 2 hours before scheduled arrival time 6. Advance diet as tolerated after surgery (see page 61 in guidebook): - Phase 1: Sugar-free, clear liquid diet (only in the hospital) - Phase 2: High protein, full liquid diet. Try to consume at least 60 grams of protein per day in the form of high protein shakes. Aim to drink 4-8 fl oz of protein shake 3 times per day. Try to drink at least 64 oz per day of water or other clear liquids between shakes. - Phase 3: Soft, high protein foods. Try to consume 3-4 oz of protein 3 times per day from poultry, beef, fish, seafood, eggs, cheese, yogurt, cottage cheese, beans, lentils, tofu. Choose meat products that are tender, shredded and/or ground to increase tolerance. 7. Remember to take small bites, chew well, and eat slowly. Do not drink anything 30 minutes before, during, or until 30 minutes after eating. Take small sips of fluid and do not use a straw. 8. Begin taking daily vitamins/minerals when you start Phase 3 diet (page 49 in guidebook): Daily multivitamin, 45-60 mg iron, 8485-3899 mg calcium citrate w/ Vit D, 500 mcg Vit B12 sublingual pill or liquid, 3000 international unit(s) Vit D3, Super B complex with 75-100 mg thiamin It is ok to take a combination bariatric vitamin to limit pill volume. Here are a few options to consider: - Bariatric Fusion: 4 Complete Multivitamin chewables per day OR 1 Multivitamin capsule and 4185-0105 mg calcium citrate per day OR 2 Multivitamin soft chews per day + 3 calcium citrate soft chews + 1 iron soft chew per day www.[email or web address] - Bariatric Choice: 4 All-in-One Bariatric Multivitamin chewables per day OR 1 Once Daily Bariatric Multivitamin capsule and 2746-1617 mg calcium citrate per day www.[email or web address].com - Bariatric Pal: 4 All-in-One Multivitamin chewables per day OR 1 Multivitamin One (chewable or capsule) and 4754-4252 mg calcium citrate per day www.Securusbariatricpal.[place]/collectio ns/bariatric-vitamins - Bariatric Advantage: 1 Ultra Solo multivitamin w/ iron (chewable or capsule) OR 2 chewable Advanced Multi EA w/ iron and 3459-9528 mg calcium citrate per day OR 2 Multi Chewy Bites and 8984-5835 mg calcium citrate and 45-60 mg iron per day www.bariatricadvantage.[place] - Procare Health: 1 Bariatric Multivitamin w/ iron (capsule or chewable) and 4265-4003 mg calcium citrate per day www.[email or web address] - Celebrate: 2 Multi-Complete (chewable or capsule) OR 1 CelebrateOne Multivitamin capsule and 9790-2222 mg calcium citrate per day OR 2 Multivitamin soft chews + 3 calcium citrate soft chews + 1 iron soft chew per day [email or web address]://[email or web address] - Barilife: 1 Just One Bariatric Multivitamin w/ iron (chewable or capsule) and 6493-4147 mg calcium citrate per day www.barilife.SYLLETA - Barimelts: 2 Multivitamin w/ iron tablets and 1603-5220 mg calcium citrate per day www.[email or web address].SYLLETA Nutrition Monitoring & Evaluation: Follow pre and post op diet and fluid guidelines Criteria: weight check and patient report Need for Follow up: 2 weeks post op Appointment Start Time: 9:45am Appointment End Time: 10:16am Time Spent on Consult: 31 minutes - Group SIGNATURE: Annie Alvarez RD PATIENT NAME: Leonora Cam DATE: 12/13/2023 TIME: 10:23 AM documented in this encounter [facility] 12-13-2023 Note Education (GENBMI) -------- LEONORA CAM ([id number]) 1970 F Date Time Provider Department 12/13/23 9:45 AM ANNIE ALVAREZ Reason for Visit: Patient Education [91] Reassessment [674] Primary Visit Diagnosis:Obesity, Class III, BMI 40-49.9 (morbid obesity) ([facility]) [E66.01] Other Visit Diagnosis:Dietary counseling and surveillance [Z71.3] During your visit today, we recorded the following information about you: Weight Height 108.4 kg 1.59 m Allergies As of Date: 12/13/2023 Noted Allergy Reaction BEE STING 09/11/2022 7 - Swelling CODEINE 03/13/2022 16 - Unknown DOXYCYCLINE 03/13/2022 8 - GI Upset METFORMIN 03/19/2022 5 - Intolerance Comments: GI upset, diarrhea PREDNISONE 03/13/2022 2 - Rash Date Reviewed: 12/13/2023 Reviewed by: Annie Alvarez RD - Fully Assessed Prescriptions as of 12/13/2023 - glipiZIDE (GLUCOTROL XL) 10mg 24 hr tablet Take 1 tablet by mouth once daily. - flash glucose sensor (FREESTYLE GUZMAN 14 DAY SENSOR) kit 1 Each two times a day. DX E11.65 Insulin No - ondansetron orally disintegrating (ZOFRAN ODT) 4 mg disintegrating tablet Take 1 tablet by mouth every 12 hours as needed for nausea/vomiting. - fluticasone (FLONASE) 50 mcg/actuation nasal spray Use 1 [place] in each nostril at bedtime as needed for cold/allergy symptoms. As needed Encounter Status:Closed by ANNIE ALVAREZ on 12/13/23 [facility] 12-11-2023 Instructions Oneyda Casillas APRN.ROLAND - 12/11/2023 1:13 PM EDT Images from the original note were not included. [facility] PATIENT PREOPERATIVE INSTRUCTIONS No ref. provider found has scheduled you for your procedure at this surgery center: [facility] [place] Scheduling Office: [phone] --[address] [place] [address]. Please read below carefully for your personalized instructions. Dietary Restrictions: - No solid food after midnight. - You may have 12 ounces of clear liquids (water, clear juices such as apple juice or gatorade, carbonated beverages, clear tea, black coffee, jello) until 2 hours before scheduled arrival at facility. Medications: Unless instructed differently below, stay on all of your medications until your surgery. If you start any new medications after today's visit, please contact your surgeon. Pre-Surgery Med Instructions Medication Instructions glipiZIDE (GLUCOTROL XL) 10mg 24 hr tablet Do not take the day of surgery flash glucose sensor (FREESTYLE GUZMAN 14 DAY SENSOR) kit ondansetron orally disintegrating (ZOFRAN ODT) 4 mg disintegrating tablet IF needed fluticasone (FLONASE) 50 mcg/actuation nasal spray IF needed If you start any new medications after today's visit, please contact the surgeon's office. Blood Thinning Medications: - Stop NSAIDS (Ibuprofen, Advil, Aleve, Motrin, Celebrex, Mobic, etc.) 7 days before surgery, as directed by your surgeon. - Stop Aspirin 7 days before surgery, as directed by your surgeon. - Stop Vitamin E, ALL multi-vitamins, herbals and dietary supplements 7 days before surgery. - You may take Tylenol (Acetaminophen) or any of your pain medications that do not contain aspirin or NSAIDS as needed. Important Reminders: - Candy, mints, and tobacco products are NOT permitted the morning of surgery. - Hearing aids, dentures and glasses may be worn the morning of surgery. - NO jewelry, body piercings, makeup, hairpins or contacts are to be worn the day of surgery. If you develop symptoms such as a fever, cold, or flu, or have other changes to your health within TWO DAYS of scheduled surgery or the morning of surgery, please contact the surgery center above. Personal Belongings: -Please have photo ID and insurance cards. -If you do not have a copy of advance directives on file with us, please bring a copy with you on the day of surgery. - Leave ALL valuables and money at home or with family members. For Outpatient Procedures: - YOU MUST HAVE A RESPONSIBLE DEMOLITION EXPERT TAKE YOU HOME. A SALES FORCE DEVELOPER OR CLINICAL PROJECT MANAGER CANNOT BE MADE A RESPONSIBLE DEMOLITION EXPERT. - We recommend that a responsible person stays with you overnight to take care of you. - You cannot stay in a hotel alone after outpatient surgery. You will not be permitted to have your surgery, if you do not have someone to take care of you. Arrival Time for Surgery: - To obtain your arrival time for surgery, call your physician's office the day before your surgery. - If your surgery is scheduled for Saturday, call the Saturday before. Your surgeon s pharmacy scheduler will tell you what time to call the office. - If you have not reached the departmental pharmacy scheduler by 5 P.M., call [phone] after 5 P.M. the day before your surgery. Please be aware that emergency situations arise, which may delay or change your surgical time. If this happens, we will notify you as soon as possible and regret any inconvenience. If you already have an Advance Directive, please fax a copy to [phone] or email to for it to be added to your chart. If you do not have an Advance Directive, you can find the appropriate form and more information at [email or web address]. We recommend that you complete the Advance Directive form found on the website and bring it with you the day of your surgery. It can be witnessed and scanned into your chart that day. Oneyda Casillas APRN.ROLAND documented in this encounter [facility] 12-11-2023 History and physical note Images from the original note were not included. [facility] HISTORY AND PHYSICAL EXAMINATION SERVICE DATE: 12/11/2023 SERVICE TIME: 2:44 PM PRIMARY CARE PHYSICIAN: Neri Grace MD Assessment Patient has the following medical conditions which may affect zack-operative course: Type 2 diabetes mellitus without complication, without long-term current use of insulin (HCC) Assessment: controlled on oral agent Hemoglobin A1C (%) Date Value 09/10/2023 7.4 HBA1C, Keshia (%) Date Value 09/25/2006 5.0 GERD (gastroesophageal reflux disease) Assessment: otc rx as needed History of COVID-19 Assessment: +home test 11/20/2023, tx with Paxlovid by PCP. Pt states all symptoms have resolved Obesity, Class III, BMI >= 40 Assessment: Body mass index is 43.4 kg/m . Anderson Activity Status Index: METS: Climb a flight of stairs or walk up a hill (5.50 METs) DASI Score: 5.5 Patient denies any chest pain or undue shortness of breath with the above physical activity. Clinical Frailty Scale: 3. Well, with treated comorbid disease STOP-Bang Score: BMI greater than 35 kg/m^2 Patient over 50 years old Has a large neck Denies snoring loudly Denies feeling tired, fatigued, or sleepy during the daytime Has not been observed to stop breathing or choking/gasping during sleep Denies having high blood pressure Non-male patient STOP-Bang Score: 3 Malnutrition Screening Tool: Recent weight loss without trying: No Eating poorly due to decreased appetite: No Weight Loss Score: 0 Appetite Score: 0 MST Score: 0 [id number] Score: Age: <65 Sex: female CHF history: No Hypertension history: No Stroke/TIA/thromboembolism history: No Vascular disease history: No Diabetes history: Yes [id number] Score: 2 ARISCAT Score: Age: 51-80 Preoperative SpO2: >=96% Respiratory infection in the last month: No Preoperative anemia: No Surgical incision: upper abdominal Duration of surgery: >3 hrs Emergency procedure: No ARISCAT Score: 41 ANESTHESIA FINDINGS: Intubation History: No history of difficult intubation Significant Anesthesia Considerations: none Airway History: No history of difficult airway I - PHYSICAL EVALUATION AIRWAY Patient intubated: No. Tracheostomy tube not present Mallampati: II. TM distance: >3 FB. Neck ROM: full ROM without neurological symptoms. Mouth opening: adequate. Short neck: no. Thick neck: no Dyson present: no Lip Bite Test: I Microretrognathia/Micronagthia/Reces sed Chin: No DENTAL Dental findings: teeth intact. II - ANESTHESIA PLAN Anesthetic Plan: other Beta Orly Monitoring Plan Post Procedure Analgesic Plan Informed Consent Anesthetic risks, benefits, alternatives, personnel and consent discussed: yes. Patient / Responsible Republican agrees to proceed: yes Patient / Surrogate agrees to blood products: blood products not planned Discussed the possibility of lip / dental damage: yes Prepared for Surgery: optimally prepared for surgery, pending [see comment]. labs CONSULTS: Patient does not require consults for optimization at this time Planned Anesthetic: other anesthesia choice The Following Tests/Procedures Have Been Initiated: No orders of the defined types were placed in this encounter. REASON FOR VISIT: Leonora Cam is a 53 year old female who is scheduled for Procedure(s): LAPAROSCOPIC GASTRIC RESTRICTIVE SURG W/ BYPASS & KORIN-EN-Y 150CM OR LESS (N/A) at the request of Bridger Cristina MD for consultation. My final recommendation will be communicated back to the requesting physician by way of shared medical record or letter. Subjective The patient has the following: COVID-19 Immunization Status Overdue - Covid-19 Vaccine (2022- season) Never done 03/13/2022 Postponed until 03/13/2023 by Michelle Doran APRN.DIRECTOR DATABASE (Declined at this time) CHIEF COMPLAINT: Pre-op exam HPI: Leonora Cam is a 53 year old seen for PAC due to scheduled above surgery because of morbid obesity. 09/17/2023, Dr. Bridger Hill SUBJECTIVE HPI:This is a 53 year old female with morbid obesity who presents for a virtual evaluation for surgical treatment of obesity. The patient's excess body weight interferes with activities of daily living and negatively impacts body of quality of life. Weight History: She reports a family history of obesity and early onset weight gain. She states her weight gain is related to the following factors, including reduced physical activity and consumption of unhealthy foods. The most recent height and weight we have on file is 112 kg, 159 cm, which corresponds to a body mass index of 44.59 kg/m2. The patient affirms that these are roughly accurate. The patient's peak adult weight was 275 lbs. She is interested in surgery to improve her weight related comorbidities as well as her overall quality of life. GERD symptoms: uses prn medication for heartburn. Food and stress triggers. Excellent response with medication. NSAID use: no current use Patient has a history of type 2 diabetes. Patient was first diagnosed with diabetes roughly 4.5 years ago. Patient is not currently using insulin. Current medications for diabetes are (including insulin): glipizide Last Hb A1c: 7.4 (09/10/2023) Previous Obesity Treatments: anti-obesity medications Dulaglutide (Trulicity). Slim Fast TRIM Ketogenic diet REVIEW OF SYSTEMS: General: No weight loss, malaise or fevers. Neurological: No history of TIA's, stroke, DIRECTOR DATABASE tumor, impaired sensorium, hemiplegia, paraplegia or quadraplegia. No neurological symptoms or problems. Respiratory: +COVID 2 weeks ago, all symptoms resolved. No history of current cough or dyspnea, or pneumonia in the past 6 weeks. No history of respiratory/pulmonary symptoms or problems. Cardiovascular: No history of HTN requiring medication, no history of angina, CHF, MT, cardiac surgery or stents. Denies rest pain, gangrene or revascularization/amputation for PVD. No history of cardiovascular symptoms or problems. GI: See HPI. Positive for: GERD (otc rx as needed) Negative for: abdominal pain, dysphagia, hepatitis, irritable bowel syndrome, inflammatory bowel disease, liver disease, nausea, pancreatitis, vomiting and ETOH >2 drinks/day. : No history of dysuria, frequency or incontinence, stones or chronic kidney disease. No difficulty urinating, nocturia > 1 time per night or hematuria. 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 Endocrine: Positive for: diabetes mellitus. Patient's diabetes mellitus is controlled by oral agents. Negative for: hypothyroidism. Hematology: No history of bleeding or clotting disorder. Patient is not taking anti-coagulation or platelet medications. No history of hematological symptoms or problems. Oncology: No history of CA metastasis, chemo within 30 days, or radiotherapy within 90 days. No history of oncological symptoms or problems. Psych: No history of psychiatric symptoms or problems. Musculoskeletal: Positive for: joint pain (left hip). Skin: Negative for lesions, rash and itching. PAST MEDICAL HISTORY 10/16/2021: COVID-19 2017: Diabetes mellitus (HCC) No date: Seasonal allergies PAST SURGICAL HISTORY 2001: LIGATE FALLOPIAN TUBE 2015: PAST SURGICAL HISTORY OF Comment: clamp in R foot (bone shattered) 2015: REMOVAL GALLBLADDER 1984: TONSILLECTOMY & ADENOIDECTOMY FAMILY HISTORY Problem Relation Age of Onset Heart Mother Diabetes Mother COPD Mother Asthma Mother Kidney Disease Mother Stroke Mother Heart Failure Mother Stroke Father Diabetes Father Heart Father 34 Diabetes Sister 56 type 1 Diabetes Brother Prediabetes Asthma Brother MVA other (Maria Guadalupe sydrome) Brother 2 Diabetes Maternal Grandmother Alzheimer's Disease Maternal Grandmother Prostate Cancer Maternal Grandfather Heart Paternal Grandmother Diabetes Paternal Grandmother Lung Cancer Paternal Grandfather DVT No Family History Social History Tobacco Use Smoking status: Never Passive exposure: Current Smokeless tobacco: Never Vaping Use Vaping status: Never Used Substance Use Topics Alcohol use: Not Currently Drug use: Never Prior to Admission medications as of 12/11/23 1320 Medication Sig Last Dose Taking glipiZIDE (GLUCOTROL XL) 10mg 24 hr tablet Take 1 tablet by mouth once daily. Taking Yes flash glucose sensor (FREESTYLE GUZMAN 14 DAY SENSOR) kit 1 Each two times a day. DX E11.65 Insulin No Taking Yes ondansetron orally disintegrating (ZOFRAN ODT) 4 mg disintegrating tablet Take 1 tablet by mouth every 12 hours as needed for nausea/vomiting. Taking Yes fluticasone (FLONASE) 50 mcg/actuation nasal spray Use 1 [place] in each nostril at bedtime as needed for cold/allergy symptoms. As needed Taking Yes No medication comments found. ALLERGIES Allergen Reactions Bee Sting Swelling Codeine Unknown Doxycycline GI Upset Metformin Intolerance GI upset, diarrhea Prednisone Rash Objective PHYSICAL EXAM: General: alert and oriented (x3), healthy appearance and morbidly obese. Pertinent negatives noted - not distressed. Skin: normal color, no rash or lesions. HEENT: EOM intact and pupils equal round. Pertinent negatives noted - no carotid bruit. Cardiovascular: regular rate and rhythm, normal S1 and S2, no rub, murmurs, or gallop. Respiratory: normal breath sounds, no wheezes or crackles. No chest wall deformity or tenderness. Abdomen: soft. Pertinent negatives noted - not tender. Extremities: no deformity, no edema or tenderness, no joint swelling or clubbing. Neurological: normal cognition and motor skills. Gait normal. No weakness or sensory deficit. PAIN ASSESSMENT: VITALS: BP 104/72 Pulse 73 Temp (Src) 97.1 (Temporal) Resp 14 Ht 5' 3 (1.60m) Wt 245 lb (111.1kg) SpO2 99% BMI 43.41 kg/(m^2). Diagnostic tests reviewed for today's visit: Lab Value Units Date High Low HB 13.2 g/dL 09/10/2023 15.5 11.5 HCT 40.0 % 09/10/2023 46.0 36.0 WBC 7.26 k/uL 09/10/2023 11.00 3.70 PLT 376 k/uL 09/10/2023 400 150 NA 136 mmol/L 09/10/2023 144 136 K 4.1 mmol/L 09/10/2023 5.1 3.7 GLUC 148 mg/dL 09/10/2023 99 74 BUN 10 mg/dL 09/10/2023 21 7 CREAT 0.56 mg/dL 09/10/2023 0.96 0.58 PTSEC No results within date range. INR No results within date range. APTT No results within date range. ALT 21 U/L 09/10/2023 38 7 AST 17 U/L 09/10/2023 35 13 TBILI 0.6 mg/dL 09/10/2023 1.3 0.2 TSH 1.730 mIU/L 09/10/2023 4.200 0.270 Lab Value Units Date High Low HCGQT No results within date range. UHCG No results within date range. HCG, BODY* No results within date range. Lab Value Units Date High Low ABORHD No results within date range. ABSCREEN No results within date range. Hemoglobin A1C (%) Date Value 09/10/2023 7.4 12/20/2022 6.2 10/17/2022 6.9 07/04/2022 7.4 03/13/2022 7.5 HBA1C, Keshia (%) Date Value 09/25/2006 5.0 Recent Results (from the past 8760 hour(s)) ECG COMPLETE Collection Time: 09/30/23 11:00 AM Result Value Ventricular Rate 60 Atrial Rate 60 P-R Interval 238 QRS Duration 94 QT Interval 404 QTC Calculation (Bazett) 404 Calculated P [place] 30 Calculated R [place] 13 Calculated T [place] 36 Impression SINUS RHYTHM WITH 1ST DEGREE AV BLOCK OTHERWISE NORMAL ECG Confirmed by RYLAND FERRELL M.D. ([id number]) on 10/01/2023 4:20:28 PM No results found for this or any previous visit (from the past 70608 hour(s)). Instructions Given to Patient: Instructions located in the after visit summary. Patient given verbal and written preop instructions and voices comprehension and compliance. SIGNATURE: Oneyda Casillas APRN.CNP PATIENT NAME: Leonora Cam DATE: December 11, 2023 TIME: 1:10 PM PAGER/CONTACT #: [facility] 12-11-2023 History and physical note Images from the original note were not included. [facility] HISTORY AND PHYSICAL EXAMINATION SERVICE DATE: 12/11/2023 SERVICE TIME: 2:44 PM PRIMARY CARE PHYSICIAN: Neri Grace MD Assessment Patient has the following medical conditions which may affect zack-operative course: Type 2 diabetes mellitus without complication, without long-term current use of insulin (HCC) Assessment: controlled on oral agent Hemoglobin A1C (%) Date Value 09/10/2023 7.4 HBA1C, Keshia (%) Date Value 09/25/2006 5.0 GERD (gastroesophageal reflux disease) Assessment: otc rx as needed History of COVID-19 Assessment: +home test 11/20/2023, tx with Paxlovid by PCP. Pt states all symptoms have resolved Obesity, Class III, BMI >= 40 Assessment: Body mass index is 43.4 kg/m . Anderson Activity Status Index: METS: Climb a flight of stairs or walk up a hill (5.50 METs) DASI Score: 5.5 Patient denies any chest pain or undue shortness of breath with the above physical activity. Clinical Frailty Scale: 3. Well, with treated comorbid disease STOP-Bang Score: BMI greater than 35 kg/m^2 Patient over 50 years old Has a large neck Denies snoring loudly Denies feeling tired, fatigued, or sleepy during the daytime Has not been observed to stop breathing or choking/gasping during sleep Denies having high blood pressure Non-male patient STOP-Bang Score: 3 Malnutrition Screening Tool: Recent weight loss without trying: No Eating poorly due to decreased appetite: No Weight Loss Score: 0 Appetite Score: 0 MST Score: 0 [id number] Score: Age: <65 Sex: female CHF history: No Hypertension history: No Stroke/TIA/thromboembolism history: No Vascular disease history: No Diabetes history: Yes [id number] Score: 2 ARISCAT Score: Age: 51-80 Preoperative SpO2: >=96% Respiratory infection in the last month: No Preoperative anemia: No Surgical incision: upper abdominal Duration of surgery: >3 hrs Emergency procedure: No ARISCAT Score: 41 ANESTHESIA FINDINGS: Intubation History: No history of difficult intubation Significant Anesthesia Considerations: none Airway History: No history of difficult airway I - PHYSICAL EVALUATION AIRWAY Patient intubated: No. Tracheostomy tube not present Mallampati: II. TM distance: >3 FB. Neck ROM: full ROM without neurological symptoms. Mouth opening: adequate. Short neck: no. Thick neck: no Dyson present: no Lip Bite Test: I Microretrognathia/Micronagthia/Reces sed Chin: No DENTAL Dental findings: teeth intact. II - ANESTHESIA PLAN Anesthetic Plan: other Beta Orly Monitoring Plan Post Procedure Analgesic Plan Informed Consent Anesthetic risks, benefits, alternatives, personnel and consent discussed: yes. Patient / Responsible Republican agrees to proceed: yes Patient / Surrogate agrees to blood products: blood products not planned Discussed the possibility of lip / dental damage: yes Prepared for Surgery: optimally prepared for surgery, pending [see comment]. labs CONSULTS: Patient does not require consults for optimization at this time Planned Anesthetic: other anesthesia choice The Following Tests/Procedures Have Been Initiated: No orders of the defined types were placed in this encounter. REASON FOR VISIT: Leonora Cam is a 53 year old female who is scheduled for Procedure(s): LAPAROSCOPIC GASTRIC RESTRICTIVE SURG W/ BYPASS & KORIN-EN-Y 150CM OR LESS (N/A) at the request of Bridger Cristina MD for consultation. My final recommendation will be communicated back to the requesting physician by way of shared medical record or letter. Subjective The patient has the following: COVID-19 Immunization Status Overdue - Covid-19 Vaccine () Never done 03/13/2022 Postponed until 03/13/2023 by Michelle Doran APRN.DIRECTOR DATABASE (Declined at this time) CHIEF COMPLAINT: Pre-op exam HPI: Leonora Cam is a 53 year old seen for PAC due to scheduled above surgery because of morbid obesity. 09/17/2023, Dr. Bridger Hill SUBJECTIVE HPI:This is a 53 year old female with morbid obesity who presents for a virtual evaluation for surgical treatment of obesity. The patient's excess body weight interferes with activities of daily living and negatively impacts body of quality of life. Weight History: She reports a family history of obesity and early onset weight gain. She states her weight gain is related to the following factors, including reduced physical activity and consumption of unhealthy foods. The most recent height and weight we have on file is 112 kg, 159 cm, which corresponds to a body mass index of 44.59 kg/m2. The patient affirms that these are roughly accurate. The patient's peak adult weight was 275 lbs. She is interested in surgery to improve her weight related comorbidities as well as her overall quality of life. GERD symptoms: uses prn medication for heartburn. Food and stress triggers. Excellent response with medication. NSAID use: no current use Patient has a history of type 2 diabetes. Patient was first diagnosed with diabetes roughly 4.5 years ago. Patient is not currently using insulin. Current medications for diabetes are (including insulin): glipizide Last Hb A1c: 7.4 (09/10/2023) Previous Obesity Treatments: anti-obesity medications Dulaglutide (Trulicity). Slim Fast TRIM Ketogenic diet REVIEW OF SYSTEMS: General: No weight loss, malaise or fevers. Neurological: No history of TIA's, stroke, DIRECTOR DATABASE tumor, impaired sensorium, hemiplegia, paraplegia or quadraplegia. No neurological symptoms or problems. Respiratory: +COVID 2 weeks ago, all symptoms resolved. No history of current cough or dyspnea, or pneumonia in the past 6 weeks. No history of respiratory/pulmonary symptoms or problems. Cardiovascular: No history of HTN requiring medication, no history of angina, CHF, MT, cardiac surgery or stents. Denies rest pain, gangrene or revascularization/amputation for PVD. No history of cardiovascular symptoms or problems. GI: See HPI. Positive for: GERD (otc rx as needed) Negative for: abdominal pain, dysphagia, hepatitis, irritable bowel syndrome, inflammatory bowel disease, liver disease, nausea, pancreatitis, vomiting and ETOH >2 drinks/day. : No history of dysuria, frequency or incontinence, stones or chronic kidney disease. No difficulty urinating, nocturia > 1 time per night or hematuria. 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 Endocrine: Positive for: diabetes mellitus. Patient's diabetes mellitus is controlled by oral agents. Negative for: hypothyroidism. Hematology: No history of bleeding or clotting disorder. Patient is not taking anti-coagulation or platelet medications. No history of hematological symptoms or problems. Oncology: No history of CA metastasis, chemo within 30 days, or radiotherapy within 90 days. No history of oncological symptoms or problems. Psych: No history of psychiatric symptoms or problems. Musculoskeletal: Positive for: joint pain (left hip). Skin: Negative for lesions, rash and itching. PAST MEDICAL HISTORY 10/16/2021: COVID-19 2017: Diabetes mellitus (HCC) No date: Seasonal allergies PAST SURGICAL HISTORY 2001: LIGATE FALLOPIAN TUBE 2015: PAST SURGICAL HISTORY OF Comment: clamp in R foot (bone shattered) 2015: REMOVAL GALLBLADDER 1984: TONSILLECTOMY & ADENOIDECTOMY <AGE 12 FAMILY HISTORY Problem Relation Age of Onset Heart Mother Diabetes Mother COPD Mother Asthma Mother Kidney Disease Mother Stroke Mother Heart Failure Mother Stroke Father Diabetes Father Heart Father 34 Diabetes Sister 56 type 1 Diabetes Brother Prediabetes Asthma Brother MVA other (Maria Guadalupe sydrome) Brother 2 Diabetes Maternal Grandmother Alzheimer's Disease Maternal Grandmother Prostate Cancer Maternal Grandfather Heart Paternal Grandmother Diabetes Paternal Grandmother Lung Cancer Paternal Grandfather DVT No Family History Social History Tobacco Use Smoking status: Never Passive exposure: Current Smokeless tobacco: Never Vaping Use Vaping status: Never Used Substance Use Topics Alcohol use: Not Currently Drug use: Never Prior to Admission medications as of 12/11/23 1320 Medication Sig Last Dose Taking glipiZIDE (GLUCOTROL XL) 10mg 24 hr tablet Take 1 tablet by mouth once daily. Taking Yes flash glucose sensor (FREESTYLE GUZMAN 14 DAY SENSOR) kit 1 Each two times a day. DX E11.65 Insulin No Taking Yes ondansetron orally disintegrating (ZOFRAN ODT) 4 mg disintegrating tablet Take 1 tablet by mouth every 12 hours as needed for nausea/vomiting. Taking Yes fluticasone (FLONASE) 50 mcg/actuation nasal spray Use 1 [place] in each nostril at bedtime as needed for cold/allergy symptoms. As needed Taking Yes No medication comments found. ALLERGIES Allergen Reactions Bee Sting Swelling Codeine Unknown Doxycycline GI Upset Metformin Intolerance GI upset, diarrhea Prednisone Rash Objective PHYSICAL EXAM: General: alert and oriented (x3), healthy appearance and morbidly obese. Pertinent negatives noted - not distressed. Skin: normal color, no rash or lesions. HEENT: EOM intact and pupils equal round. Pertinent negatives noted - no carotid bruit. Cardiovascular: regular rate and rhythm, normal S1 and S2, no rub, murmurs, or gallop. Respiratory: normal breath sounds, no wheezes or crackles. No chest wall deformity or tenderness. Abdomen: soft. Pertinent negatives noted - not tender. Extremities: no deformity, no edema or tenderness, no joint swelling or clubbing. Neurological: normal cognition and motor skills. Gait normal. No weakness or sensory deficit. PAIN ASSESSMENT: VITALS: BP 104/72 Pulse 73 Temp (Src) 97.1 (Temporal) Resp 14 Ht 5' 3 (1.60m) Wt 245 lb (111.1kg) SpO2 99% BMI 43.41 kg/(m^2). Diagnostic tests reviewed for today's visit: Lab Value Units Date High Low HB 13.2 g/dL 09/10/2023 15.5 11.5 HCT 40.0 % 09/10/2023 46.0 36.0 WBC 7.26 k/uL 09/10/2023 11.00 3.70 PLT 376 k/uL 09/10/2023 400 150 NA 136 mmol/L 09/10/2023 144 136 K 4.1 mmol/L 09/10/2023 5.1 3.7 GLUC 148 mg/dL 09/10/2023 99 74 BUN 10 mg/dL 09/10/2023 21 7 CREAT 0.56 mg/dL 09/10/2023 0.96 0.58 PTSEC No results within date range. INR No results within date range. APTT No results within date range. ALT 21 U/L 09/10/2023 38 7 AST 17 U/L 09/10/2023 35 13 TBILI 0.6 mg/dL 09/10/2023 1.3 0.2 TSH 1.730 mIU/L 09/10/2023 4.200 0.270 Lab Value Units Date High Low HCGQT No results within date range. UHCG No results within date range. HCG, BODY* No results within date range. Lab Value Units Date High Low ABORHD No results within date range. ABSCREEN No results within date range. Hemoglobin A1C (%) Date Value 09/10/2023 7.4 12/20/2022 6.2 10/17/2022 6.9 07/04/2022 7.4 03/13/2022 7.5 HBA1C, Keshia (%) Date Value 09/25/2006 5.0 Recent Results (from the past 8760 hour(s)) ECG COMPLETE Collection Time: 09/30/23 11:00 AM Result Value Ventricular Rate 60 Atrial Rate 60 P-R Interval 238 QRS Duration 94 QT Interval 404 QTC Calculation (Bazett) 404 Calculated P [place] 30 Calculated R [place] 13 Calculated T [place] 36 Impression SINUS RHYTHM WITH 1ST DEGREE AV BLOCK OTHERWISE NORMAL ECG Confirmed by RYLAND FERRELL M.D. ([id number]) on 10/01/2023 4:20:28 PM No results found for this or any previous visit (from the past 61744 hour(s)). Instructions Given to Patient: Instructions located in the after visit summary. Patient given verbal and written preop instructions and voices comprehension and compliance. SIGNATURE: Oneyda Casillas APRN.CNP PATIENT NAME: Leonora Cam DATE: December 11, 2023 TIME: 1:10 PM PAGER/CONTACT #: documented in this encounter [facility] 11-22-2023 Telephone encounter Note [facility] SPECIALTY CARE COORDINATION SURGERY APPROVAL CALL Received e-mail confirmation of insurance approval for bariatric surgery.Pre-operative call placed to the patient, this RN spoke with patient and agreed upon a surgery date of January 01 2024. Surgical episode request sent to [facility] surgery scheduling. Patient understands that the surgery type is Gastric Bypass as approved by insurance. Creatinine level 0.56 Patient instructed to start pre-op 800 calorie total protein liquid diet undecided which shake daily beginning 2 weeks prior to surgery. - Stop all ASA and NSAID products, [place] 3 fish oil, herbal products such as ginko etc. Stop vitamins EXCEPT B COMPLEX- take this up to the day before surgery - Medication List reviewed and patient will contact prescribing physician regarding use of glipizide while on pre-operative diet. - Patient denies use of estrogen products . Talk with your prescribing MD if you take the following - should be monitored closely during the preoperative liquid diet with most held at the start of the diet given them. ALL of these medications should AT LEAST be held the day prior to surgery Actos Amaryl Glipizide Glucophage Metformin Anti-obesity medications - stop 1 week before surgery Phentermine Qsymia Contrave Vyvanse Diethylproprion Phendimetrazine Saxenda Wegovy SGLT2 inhibitors should be stopped 3-4 days before surgery - avoid using during the first weeks following bariatric surgery because of the risk of dehydration Jardiance Farxiga Invokana Sleep apnea requiring treatment? No. Patient will require FMLA forms to be completed? No. - Abhi video assigned. - Introduced Bariatric can doffer Yes - All questions and concerns addressed and patient verbalized understanding. - Patient case reviewed. All nutrition appointments completed, psychology clearance obtained, surgeon visit and procedure type verified, medical optimization obtained and all testing complete. Does patient have Con ABO? No, patient does not have Con ABO and it has been ordered. [facility] - a research program mentioned to patient and the sánchez points below reviewed: o Voluntary participation won t impact your care o You are being asked to donate your leftover blood and other bodily fluids that are collected during treatment and are normally thrown out to instead be collected and stored for future research o Future research could include genetic testing o Future research with your samples may be done by scientists or scientists at other institutions o All samples are stored without any identifiable private information, and your identity will not be released to anyone outside of without a special review process that is required by law Study Explained: Yes Patient info sent via My Chart: Yes Raoul Eagle RN [facility] 11-22-2023 Miscellaneous Notes [facility] SPECIALTY CARE COORDINATION SURGERY APPROVAL CALL Received e-mail confirmation of insurance approval for bariatric surgery.Pre-operative call placed to the patient, this RN spoke with patient and agreed upon a surgery date of January 01 2024. Surgical episode request sent to [facility] surgery scheduling. Patient understands that the surgery type is Gastric Bypass as approved by insurance. Creatinine level 0.56 Patient instructed to start pre-op 800 calorie total protein liquid diet undecided which shake daily beginning 2 weeks prior to surgery. - Stop all ASA and NSAID products, [place] 3 fish oil, herbal products such as ginko etc. Stop vitamins EXCEPT B COMPLEX- take this up to the day before surgery - Medication List reviewed and patient will contact prescribing physician regarding use of glipizide while on pre-operative diet. - Patient denies use of estrogen products . Talk with your prescribing MD if you take the following - should be monitored closely during the preoperative liquid diet with most held at the start of the diet given them. ALL of these medications should AT LEAST be held the day prior to surgery Actos Amaryl Glipizide Glucophage Metformin Anti-obesity medications - stop 1 week before surgery Phentermine Qsymia Contrave Vyvanse Diethylproprion Phendimetrazine Saxenda Wegovy SGLT2 inhibitors should be stopped 3-4 days before surgery - avoid using during the first weeks following bariatric surgery because of the risk of dehydration Jardiance Farxiga Invokana Sleep apnea requiring treatment? No. Patient will require FMLA forms to be completed? No. - Abhi video assigned. - Introduced Bariatric can doffer Yes - All questions and concerns addressed and patient verbalized understanding. - Patient case reviewed. All nutrition appointments completed, psychology clearance obtained, surgeon visit and procedure type verified, medical optimization obtained and all testing complete. Does patient have Con ABO? No, patient does not have Con ABO and it has been ordered. [facility] - a research program mentioned to patient and the sánchez points below reviewed: o Voluntary participation won t impact your care o You are being asked to donate your leftover blood and other bodily fluids that are collected during treatment and are normally thrown out to instead be collected and stored for future research o Future research could include genetic testing o Future research with your samples may be done by scientists or scientists at other institutions o All samples are stored without any identifiable private information, and your identity will not be released to anyone outside of without a special review process that is required by law Study Explained: Yes Patient info sent via My Chart: Yes Raoul Eagle RN [facility] SPECIALTY CARE COORDINATION TELEPHONE ENCOUNTER CC placed 2nd call to patient. No answer. Left message. Approval call to be completed with call is returned. DORIS Sullivan/[facility] Surgical Sap Bw Bi Developer [facility] SPECIALTY CARE COORDINATION TELEPHONE ENCOUNTER CC placed call to patient to discuss surgical date. No answer. CC to call back at later time today. DORIS Sullivan/[facility] Surgical Sap Bw Bi Developer documented in this encounter [facility] 11-22-2023 Telephone encounter Note [facility] SPECIALTY CARE COORDINATION TELEPHONE ENCOUNTER CC placed 2nd call to patient. No answer. Left message. Approval call to be completed with call is returned. DORIS Sullivan/[facility] Surgical Sap Bw Bi Developer [facility] 11-22-2023 Telephone encounter Note [facility] SPECIALTY CARE COORDINATION TELEPHONE ENCOUNTER CC placed call to patient to discuss surgical date. No answer. CC to call back at later time today. DORIS Sullivan/[facility] Surgical Sap Bw Bi Developer [facility] 11-20-2023 Instructions Neri Grace MD - 11/20/2023 9:34 AM EDT How to Protect Yourself & Others from COVID-19 In addition to basic health and hygiene practices, like handwashing, CDC recommends some prevention actions at all COVID-19 hospital admission levels, which include: Staying Up to Date with COVID-19 Vaccines COVID-19 vaccines help your body develop protection from the virus that causes COVID-19. Although vaccinated people sometimes get infected with the virus that causes COVID-19, staying up to date on COVID-19 vaccines significantly lowers the risk of getting very sick, being hospitalized, or dying from COVID-19. CDC recommends that everyone stay up to date on their COVID-19 vaccines, especially people with weakened immune systems. Improving Ventilation and Spending Time Outdoors Improving ventilation (moving air into, out of, or within a room) and filtration (trapping particles on a filter to remove them from the air) can help prevent virus particles from accumulating in indoor air. Improving ventilation and filtration can help protect you from getting infected with and spreading the virus that causes COVID-19. Spending time outside when possible instead of inside can also help: Viral particles spread between people more readily indoors than outdoors. Getting Tested for COVID-19 Get tested if you have COVID-19 symptoms. A viral test tells you if you are infected with the virus that causes COVID-19. If you have COVID-19 symptoms, you should get tested for COVID-19 immediately. There are some additional prevention actions that may be done at any level, but CDC especially recommends considering in certain circumstances or at medium or high COVID-19 hospital admission levels: Wearing Masks or Respirators Masks are made to contain droplets and particles that you breathe, cough, or sneeze out. A variety of masks are available. Some masks provide a higher level of protection than others. Respirators (for example, N95) are made to protect you by fitting closely on the face to filter out particles, including the virus that causes COVID-19. They can also block droplets and particles you breathe, cough, or sneeze out so you do not spread them to others. Respirators (for example, N95) provide higher protection than masks. Increasing Space and Distance Small particles that people breathe out can contain virus particles. The closer you are to a greater number of people, the more likely you are to be exposed to the virus that causes COVID-19. To avoid this possible exposure, you may want to avoid crowded areas, or keep distance between yourself and others. These actions also protect people who are at high risk for getting very sick from COVID-19 in settings where there are multiple risks for exposure. documented in this encounter [facility] 11-20-2023 Note HNO ID: [id number] Author: NERI GRACE MD Service: ? Author Type: Physician Type: Progress Notes Filed: 11/20/2023 09:34 Note Text: Telemedicine Evaluation for COVID-19 Infection MyChart Zoom Video Visit was used for evaluation of this patient. I have communicated my name and active licensure. The patient's identity and physical location were verified at the time of this visit. 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 SUBJECTIVE Leonora Cam is a 53 year old female who presents with 2 days of symptoms that are worsening. Symptoms include: Fever (?100.4F): Yes or Chills: Yes Cough: Yes Shortness of breath: No or Difficulty breathing: No Fatigue: Yes Muscle aches: Yes Headache: Yes New loss of smell or taste: No Sore throat: Yes Nasal congestion: Yes or Rhinorrhea: Yes Nausea: No or Vomiting: No Diarrhea: No OTC meds/remedies that patient has tried: acetaminophen and OTC cold medicine. She went to her local [facility] yesterday and declined Covid testing. Zpak and benzonatate was prescribed with no improvement so she tested at home. Diabetes was stable on oral medication only. Trulicity was not tolerated. She was approved for bariatric surgery. High risk category assessment Diabetes Morbid Obesity (BMI>40) Exposures: Sick contacts? No Family or close contacts with confirmed/probable COVID-19 in last 14 days? No She reports that she has never smoked. She has been exposed to tobacco smoke. She has never used smokeless tobacco. OBJECTIVE VIDEO EXAM (if available) GENERAL: well appearing, alert, in no acute distress HEENT: no conjunctival injection, pupils equal, moist mucous membranes, oropharynx clear without erythema, and sinuses non-tender to self-palpation PULMONARY: breathing comfortably on room air , no coughing noted, and no wheezing noted Home Covid test demonstrated and +. ASSESSMENT/PLAN (U07.1) COVID-19 (primary encounter diagnosis) Nirmatrelvir/Ritonavir (Paxlovid) Considerations Paxlovid is FDA-approved for treatment of mild to moderate COVID-19 in adults who are at high risk for progression to severe COVID-19. Consider use of Paxlovid in the following examples of high risk patients (list is not all inclusive): Age over 65 years Cardiovascular and cerebrovascular disease Chronic disease state (kidney, liver, lung) Diabetes (type 1 or type 2) Immunocompromised state (cancer, solid organ or blood stem cell transplant, HIV) Obesity Paxlovid warnings include serious drug interactions (co-administration with drugs highly dependent on CYP3A for clearance), hypersensitivity reactions, hepatotoxicity, and risk of HIV-1 resistance development. NIRMATRELVIR 300 MG (150 MG X2)-RITONAVIR 100 MG TABLET,DOSE PACK Discussed medication dosage, usage, goals of therapy, and side effects. She has taken this before with good results. Neri Grace MD November 20, 2023 9:30 AM [facility] 11-20-2023 History of Present illness Narrative Telemedicine Evaluation for COVID-19 Infection MyChart Zoom Video Visit was used for evaluation of this patient. I have communicated my name and active licensure. The patient's identity and physical location were verified at the time of this visit. 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 SUBJECTIVE Leonora Cam is a 53 year old female who presents with 2 days of symptoms that are worsening. Symptoms include: Fever (?100.4F): Yes or Chills: Yes Cough: Yes Shortness of breath: No or Difficulty breathing: No Fatigue: Yes Muscle aches: Yes Headache: Yes New loss of smell or taste: No Sore throat: Yes Nasal congestion: Yes or Rhinorrhea: Yes Nausea: No or Vomiting: No Diarrhea: No OTC meds/remedies that patient has tried: acetaminophen and OTC cold medicine. She went to her local [facility] yesterday and declined Covid testing. Zpak and benzonatate was prescribed with no improvement so she tested at home. Diabetes was stable on oral medication only. Trulicity was not tolerated. She was approved for bariatric surgery. High risk category assessment Diabetes Morbid Obesity (BMI>40) Exposures: Sick contacts? No Family or close contacts with confirmed/probable COVID-19 in last 14 days? No She reports that she has never smoked. She has been exposed to tobacco smoke. She has never used smokeless tobacco. OBJECTIVE VIDEO EXAM (if available) GENERAL: well appearing, alert, in no acute distress HEENT: no conjunctival injection, pupils equal, moist mucous membranes, oropharynx clear without erythema, and sinuses non-tender to self-palpation PULMONARY: breathing comfortably on room air , no coughing noted, and no wheezing noted Home Covid test demonstrated and +. ASSESSMENT/PLAN (U07.1) COVID-19 (primary encounter diagnosis) Nirmatrelvir/Ritonavir (Paxlovid) Considerations Paxlovid is FDA-approved for treatment of mild to moderate COVID-19 in adults who are at high risk for progression to severe COVID-19. Consider use of Paxlovid in the following examples of high risk patients (list is not all inclusive): Age over 65 years Cardiovascular and cerebrovascular disease Chronic disease state (kidney, liver, lung) Diabetes (type 1 or type 2) Immunocompromised state (cancer, solid organ or blood stem cell transplant, HIV) Obesity Paxlovid warnings include serious drug interactions (co-administration with drugs highly dependent on CYP3A for clearance), hypersensitivity reactions, hepatotoxicity, and risk of HIV-1 resistance development. NIRMATRELVIR 300 MG (150 MG X2)-RITONAVIR 100 MG TABLET,DOSE PACK Discussed medication dosage, usage, goals of therapy, and side effects. She has taken this before with good results. Neri Grace MD November 20, 2023 9:30 AM documented in this encounter [facility] 11-20-2023 Telephone encounter Note Patient scheduled for virtual visit. Lety Abebe LPN [facility] 11-20-2023 Miscellaneous Notes Patient scheduled for virtual visit. Lety Abebe LPN Needs virtual visit Radha Tovar APRN.ROLAND patient is calling in stating that she was seen at an closer to where she lives and was dx with brochitis this morning. As the day went on she felt worse so she took a covid test at home and it came back positive. This is the first day of s/s or cough, congestion, lose of voice. patient would like to see if she can get the medication for covid called into [facility]. Please review and advise. patient needs called back with information documented in this encounter [facility] 11-20-2023 Telephone encounter Note Needs virtual visit Radha Tovar APRN.HULL MOLDER [facility] 11-19-2023 Telephone encounter Note patient is calling in stating that she was seen at an closer to where she lives and was dx with brochitis this morning. As the day went on she felt worse so she took a covid test at home and it came back positive. This is the first day of s/s or cough, congestion, lose of voice. patient would like to see if she can get the medication for covid called into [facility]. Please review and advise. patient needs called back with information [facility] 11-01-2023 Note HNO ID: [id number] Author: JENISE EAGLE, PhD Service: ? Author Type: Psychologist Type: Progress Notes Filed: 11/01/2023 08:58 Note Text: Bariatric Behavioral Services Progress Note [facility] Name: Leonora Cam Date of service: 11/01/2023 Time: 8:15 AM - 8:55 AM Cost center: [facility] Billing code: Gonzalo CPT code: - 3892901 Virtual Psychotherapy 38-52 minutes Date of first session: 09/02/23 (initial evaluation) Session #: 2 (with this provider) I have communicated my name and active licensure. The patient's identity (name, ) and physical location were verified at the time of this visit. 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 Upon completion of risk/benefit analysis, the patient's presenting problem and apparent condition are considered appropriate for virtual format. The patient does appear to have sufficient knowledge and skills in the use of relevant technology to benefit from virtual format. Platform: Zoom for Healthcare Address of patient during visit: home Collateral parties present: none. Subjective Type of therapy: Cognitive behavioral therapy Supportive therapy Modality: Individual Therapy Pt was given the following pre-surgical psychological requirements: Complete BEST Start group (or equivalent individual treatment) to address disordered eating and INDIVIDUAL [facility] PSYCHOLOGY APPOINTMENT AFTER COMPLETION OF GROUP (To schedule with [facility] BEST Start group, call [phone]) -completed Additional requirements may be necessary if further psychological contraindications arise during the process of behavioral health evaluation. Previously noted concerns: Emotional eating Difficulties with DM med adherence High stress and limited adaptive coping Pt reports having made the following changes since last session: Following the healthy eating plan Increased activity Learning how to not stress eat--will grab water or distract herself Drinking more water Focusing on protein intake Trying to incorporate bariatric recipes Improved DM med adherence- using an AM/PM pillbox Down to 242.5 lbs Pt also completed [facility] Start group. Per Dr. Parks's 10/30/23 note: Patient was an intermittently active participant in group treatment who inconsistently met behavioral goals and struggled to develop a consistent self-monitoring regimen. Over the course of intervention, Pt described efforts to track dietary intake, increase exercise/physical activity and slow her pace of eating. She appeared to benefit most from the BEST Start handbook and commented to this content writer that she reviewed this material between sessions. Review of objective assessment suggests stability of depression/anxiety symptoms (in the minimal range) and significant reduction in disordered eating patterns (severe--> minimal range) upon group conclusion. Of note, as previously documented Pt was observed to fall asleep during session #2 and missed discussion of stress-management/introduction to cognitive restructuring. She may benefit from review of this material specifically at follow-up with her evaluating psychologist. Pt reports, I learned a lot of stuff in the group. She has found she is better able to tell when she is satiated when she eats slowly. Considering BEST Aftercare participation after surgery. Current stressors: 's and mother's health Coping strategies: crocheting, walking, pool, [place] the river Pt describes current mood as pretty good. Had a falling out with 's cousin, but I haven't ate or went crazy like that--used acceptance and reframing to cope. Feeling a bit more nervous about surgery after her friend almost didn't make it out of [facility] + hernia repair this week. Reminds herself that her friend had a lot of other health issues that may have contributed. had MRI the other week; The medicine is doing its job, so he has 1 new lesion, but the medicine's doing what it's supposed to, so things haven't gotten worse. He's still upright and mobile. Depression = 1/10 (10 = extremely depressed) Anxiety = 1/10 (10 = extremely anxious) Psych meds: none reported Therapy: has not really given any thought to rec to initiate therapy to help process 's MS diagnosis; Right now, I think I'm in a pretty good place, overall. Checked-in re: eating behaviors over the last 4 weeks: Emotional eating: ~2 episodes Binge eating: unable to recall any recent episodes Meal skipping: trying to eat 3 meals/day, will use up to 2 protein shakes as meal replacements, if needed Graze eating: I really haven't been; has not been buying sweets; may have 1-2 planned snacks- [place] balanced break, yogurt Eating between dinner (more content not included)... [facility] 10-30-2023 Note HNO ID: [id number] Author: NORIS PARKS PSYD Service: ? Author Type: Psychologist Type: Progress Notes Filed: 11/01/2023 19:33 Note Text: Leonora Cam [id number] 10/30/2023 [facility] Bariatric and Metabolic [place] [facility] M61 Binge Eating Group Cost Center: [facility] CPT: [id number] VIRTUAL VISIT GROUP PSYCHOTHERAPY [id number] Brief Emotional/Behavioral Assessment with scoring/documentation 5:30PM-7:00PM I have communicated my name and active licensure. The patient's identity and physical location were verified at the time of this visit. Either the patient or their legal parts sales representative has been informed of the risks and benefits of -- and alternatives to -- treatment through a remote evaluation/session and consents to proceed remotely. Upon completion of risk/benefit analysis, the patient's presenting problem and apparent condition are considered appropriate for virtual format. The patient does appear to have sufficient knowledge and skills in the use of relevant technology to benefit from virtual format. Platform: [employer] Address of Patient During Visit: Pt home at [facility] [place] [address] [place] Session 4: Coping with Social Situations Reviewed food diaries with an emphasis on reviewing techniques to prevent binge eating. Discussed becoming mentally prepared for life after surgery and coping with relationship issues. Discussed how to make good food choices in social and restaurant situations and assertive communication. Discussed body image and expectations for changes in self-worth post-surgery. Summarized sánchez strategies covered during the group. Ms. Cam was an active participant in the session. She did verbalize an understanding of the material presented. Patient was minimally compliant with food diaries (1 record). She voiced recognition that she was less likely to engage in unplanned snacking upon initiating mindful eating at meals. Over the course of this intervention, patient stated she has learned that she benefits from use of delay-distract technique. She will continue to work on increasing consistency of self-monitoring and eating and drinking. In discussion of preparing supports, Pt reported that she has proactively initiated conversations with family about preparing their own meals given recognition that this may be a challenge for her during her pre-op/post-op phases. S.M.A.R.T. Goal (session 1): 1. Keep food diaries 3x/week-PARTIALLY MET (2x) 2. Walking 2 laps prior to work 3x/week-PARTIALLY MET (1x and increased physical activity during camping trip) S.M.A.R.T. Goal (session 2): 1. Keep food diaries 3x/week-MET 2. Initiate strength training 2x/week-MET S.M.A.R.T. Goal (session 3): 1. Keep food diaries 4x/week-PARTIALLY MET (1x) 2. Slow pace of eating at dinner 3x/week-MET Objective: Administered post-session questionnaires. Measure Pre-Group Post-Group PHQ-9 3 ((0-4) minimal depression) 1 ((0-4) minimal depression) TIANNA-7 3 ((0-4) minimal anxiety) 0 ((0-4) minimal anxiety) Binge Eating Scale (BES) 28 (>27 = Severe binge eating) 15 (<18 = Minimal binge eating) Assessment: Other Disorder of Eating Psychological Factors Affecting a Medical Condition (Morbid Obesity) Plan: Follow up with individual psychology provider (Dr Eagle); Patient was an intermittently active participant in group treatment who inconsistently met behavioral goals and struggled to develop a consistent self-monitoring regimen. Over the course of intervention, Pt described efforts to track dietary intake, increase exercise/physical activity and slow her pace of eating. She appeared to benefit most from the BEST Start handbook and commented to this content writer that she reviewed this material between sessions. Review of objective assessment suggests stability of depression/anxiety symptoms (in the minimal range) and significant reduction in disordered eating patterns (severe--> minimal range) upon group conclusion. Of note, as previously documented Pt was observed to fall asleep during session #2 and missed discussion of stress-management/introduction to cognitive restructuring. She may benefit from review of this material specifically at follow-up with her evaluating psychologist. Noris Parks PsyD, Psychologist [facility] 10-23-2023 Note HNO ID: [id number] Author: NORIS PARKS PSYD Service: ? Author Type: Psychologist Type: Progress Notes Filed: 10/25/2023 13:28 Note Text: Leonora Cam [id number] 10/23/2023 [facility] Bariatric and Metabolic [place] [facility] M61 Binge Eating Group Cost [facility]: 3BO CPT: [id number] VIRTUAL VISIT GROUP PSYCHOTHERAPY 5:30PM-7:00PM I have communicated my name and active licensure. The patient's identity and physical location were verified at the time of this visit. Either the patient or their legal parts sales representative has been informed of the risks and benefits of -- and alternatives to -- treatment through a remote evaluation/session and consents to proceed remotely. Upon completion of risk/benefit analysis, the patient's presenting problem and apparent condition are considered appropriate for virtual format. The patient does appear to have sufficient knowledge and skills in the use of relevant technology to benefit from virtual format. Platform: [employer] Address of Patient During Visit: Pt home at [address] [place] [address] Session 3: Behavioral Strategies for Eating and Exercise Reviewed food diaries with an emphasis on identifying attitudes that contribute to eating patterns. Discussed behavioral techniques for weight management including stimulus control, regular meal pattern (eating breakfast), skills for managing cravings and behavior chaining. Reviewed the importance of exercise and how to set up an exercise plan using the F.I.T.T. Principle (Frequency, Intensity, Time and Type). Introduced mindful eating and engaged patients in a mindful eating exercise. Ms. Cam was an active participant in the session. She did verbalize an understanding of the material presented. Patient was compliant with food diaries (3 records). She reported that she found benefit to exercising during downtime at work. Cues/triggers for overeating or eating poorly include watching TV and access to tempting foods in home setting. Patient ate a cracker for the mindful eating exercise and stated that she was more aware of the smell (it was different). S.M.A.R.T. Goal (session 1): 1. Keep food diaries 3x/week-PARTIALLY MET (2x) 2. Walking 2 laps prior to work 3x/week-PARTIALLY MET (1x and increased physical activity during camping trip) S.M.A.R.T. Goal (session 2): 1. Keep food diaries 3x/week-MET 2. Initiate strength training 2x/week-MET S.M.A.R.T. Goal (session 3): 1. Keep food diaries 4x/week 2. Slow pace of eating at dinner 3x/week Assessment: Other Disorder of Eating Psychological Factors Affecting a Medical Condition (Morbid Obesity) Plan: RTC 1 wk to grp 4 (Coping with social situations) Noris Parks PsyD, Psychologist [facility] 10-23-2023 Instructions Annie Alvarez, KIMBER - 10/23/2023 10:14 AM EDT Nutrition Intervention 10/23/2023: Modify type and amount of foods consumed for meals and snacks Please call [phone], option 5. Leave a message for the navigation team when you are finished with all clearances (nutrition, psychology, medical, surgeon) 1. Protein goal: 77 grams protein/day 2. Fluid goal: 64 oz per day water (no calories, no caffeine, no carbonation, no alcohol) 3. Exercise goal: 150-250 minutes per week, including 10-20 min of strength/resistance exercise 2-3x/week 4. Practice mindful eating habits- eat protein first, take small portions, eat slowly, chew thoroughly 20-30x before swallowing, practice eating and drinking by 30 min. 5. Start the full liquid diet (2) weeks prior to surgery using 4-5 protein shakes per day, continue a minimum of 64 oz water per day during this time. No solid food. May have sugar free popsicle and sugar free jello. Choose from these options only: 4 bottles of Slim Fast High Protein shakes per day 5 cartons of Atkins 15 g shakes per day 4 bottles of Boost Glucose Control shakes per day 5 packets of Whiteface Breakfast Essentials Light Start mixed with fat free milk 4 bottles/cartons of Owyn 20 g protein shakes per day 6. During the 2 weeks before and after surgery, include a daily Super B-Complex vitamin with 75-100 mg Thiamine 7. Advance diet per guidebook post surgery (refer to page 49) 8. Begin taking vitamins/minerals after starting soft protein foods ~3 weeks after surgery: Daily multivitamin, iron 45-60 mg (morning), calcium citrate w/ Vit D 600 mg at lunch and 600 mg at dinner, Vit B12 500 mcg sublingual pill or liquid, Vit D3 3000 IU, B complex with 75-100 mg thiamin. Take multivitamin with iron 2 hours apart from calcium citrate, and take each dose of calcium 4 hours apart from each other It is ok to take a combination bariatric vitamin to limit pill volume. Here are a few options to consider: - Bariatric Fusion: 4 Complete Multivitamin chewables per day OR 1 Multivitamin capsule and 5946-8855 mg calcium citrate per day OR 2 Multivitamin soft chews per day + 3 calcium citrate soft chews + 1 iron soft chew per day [email or web address] - Bariatric Choice: 4 All-in-One Bariatric Multivitamin chewables per day OR 1 Once Daily Bariatric Multivitamin capsule and 5052-8425 mg calcium citrate per day [email or web address] - Bariatric Pal: 4 All-in-One Multivitamin chewables per day OR 1 Multivitamin One (chewable or capsule) and 6926-9965 mg calcium citrate per day www.[email or web address] Discovery/collectio ns/[email or web address] - Bariatric Advantage: 1 Ultra Solo multivitamin w/ iron (chewable or capsule) OR 2 chewable Advanced Multi EA w/ iron and 3238-2698 mg calcium citrate per day OR 2 Multi Chewy Bites and 5847-3707 mg calcium citrate and 45-60 mg iron per day [email or web address] - Procare Health: 1 Bariatric Multivitamin w/ iron (capsule or chewable) and 6748-5923 mg calcium citrate per day www.[email or web address] - Celebrate: 2 Multi-Complete (chewable or capsule) OR 1 CelebrateOne Multivitamin capsule and 4718-0636 mg calcium citrate per day OR 2 Multivitamin soft chews + 3 calcium citrate soft chews + 1 iron soft chew per day [email or web address] - Barilife: 1 Just One Bariatric Multivitamin w/ iron (chewable or capsule) and 2481-1355 mg calcium citrate per day www.[email or web address] - Barimelts: 2 Multivitamin w/ iron tablets and 0513-9006 mg calcium citrate per day [email or web address] Pre-op weight goal: 244 lbs - MET! Nutrition Monitoring & Evaluation: 1-2 lbs wt loss/week Need for Follow up: 2 weeks pre op documented in this encounter [facility] 10-23-2023 History of Present illness Narrative [facility] Nutrition Therapy: Virtual Consult - Re-assessment I have communicated my name and active licensure. The patient s identity and physical location were verified at the time of this visit. 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 Nutrition Diagnosis: Overweight/obesity, related to, food/nutrition - related knowledge deficit, as evidenced by BMI above normative standard for age and gender RECOMMENDED MALNUTRITION DIAGNOSIS: NO MALNUTRITION IDENTIFIED NUTRITION CARE PLAN: Nutrition Intervention 10/23/2023: Modify type and amount of foods consumed for meals and snacks Please call [phone], option 5. Leave a message for the navigation team when you are finished with all clearances (nutrition, psychology, medical, surgeon) 1. Protein goal: 77 grams protein/day 2. Fluid goal: 64 oz per day water (no calories, no caffeine, no carbonation, no alcohol) 3. Exercise goal: 150-250 minutes per week, including 10-20 min of strength/resistance exercise 2-3x/week 4. Practice mindful eating habits- eat protein first, take small portions, eat slowly, chew thoroughly 20-30x before swallowing, practice eating and drinking by 30 min. 5. Start the full liquid diet (2) weeks prior to surgery using 4-5 protein shakes per day, continue a minimum of 64 oz water per day during this time. No solid food. May have sugar free popsicle and sugar free jello. Choose from these options only: 4 bottles of Slim Fast High Protein shakes per day 5 cartons of Atkins 15 g shakes per day 4 bottles of Boost Glucose Control shakes per day 5 packets of Whiteface Breakfast Essentials Light Start mixed with fat free milk 4 bottles/cartons of Owyn 20 g protein shakes per day 6. During the 2 weeks before and after surgery, include a daily Super B-Complex vitamin with 75-100 mg Thiamine 7. Advance diet per guidebook post surgery (refer to page 49) 8. Begin taking vitamins/minerals after starting soft protein foods ~3 weeks after surgery: Daily multivitamin, iron 45-60 mg (morning), calcium citrate w/ Vit D 600 mg at lunch and 600 mg at dinner, Vit B12 500 mcg sublingual pill or liquid, Vit D3 3000 IU, B complex with 75-100 mg thiamin. Take multivitamin with iron 2 hours apart from calcium citrate, and take each dose of calcium 4 hours apart from each other It is ok to take a combination bariatric vitamin to limit pill volume. Here are a few options to consider: - Bariatric Fusion: 4 Complete Multivitamin chewables per day OR 1 Multivitamin capsule and 9584-5602 mg calcium citrate per day OR 2 Multivitamin soft chews per day + 3 calcium citrate soft chews + 1 iron soft chew per day [email or web address] - Bariatric Choice: 4 All-in-One Bariatric Multivitamin chewables per day OR 1 Once Daily Bariatric Multivitamin capsule and 7033-1269 mg calcium citrate per day [email or web address] - Bariatric Pal: 4 All-in-One Multivitamin chewables per day OR 1 Multivitamin One (chewable or capsule) and 0446-8694 mg calcium citrate per day [email or web address] ns/[email or web address]-vitamins - Bariatric Advantage: 1 Ultra Solo multivitamin w/ iron (chewable or capsule) OR 2 chewable Advanced Multi EA w/ iron and 4322-9142 mg calcium citrate per day OR 2 Multi Chewy Bites and 0578-4688 mg calcium citrate and 45-60 mg iron per day [email or web address] - Procare Health: 1 Bariatric Multivitamin w/ iron (capsule or chewable) and 8047-6897 mg calcium citrate per day www.[email or web address] Medical.[email or web address] - Celebrate: 2 Multi-Complete (chewable or capsule) OR 1 CelebrateOne Multivitamin capsule and 8030-1154 mg calcium citrate per day OR 2 Multivitamin soft chews + 3 calcium citrate soft chews + 1 iron soft chew per day [email or web address] - Barilife: 1 Just One Bariatric Multivitamin w/ iron (chewable or capsule) and 0991-2899 mg calcium citrate per day www.[email or web address] - Barimelts: 2 Multivitamin w/ iron tablets and 2321-3401 mg calcium citrate per day [email or web address] Pre-op weight goal: 244 lbs - MET! Nutrition Monitoring & Evaluation: 1-2 lbs wt loss/week Need for Follow up: 2 weeks pre op PROGRESS: Interval History: Patient presents for follow up nutrition consult in preparation for RYGB with Dr. Hill. Weight change since last visit -11.5 lbs (255 lbs). Diet recall reveals consistent eating pattern with no skipped meals and routine use of protein shake to replace breakfast. Patient reports attention to portion control with smaller plate, planned snacks, and no fast food. She is trying to be more consistent with journaling and tracking using [employer] james. Patient is practicing taking small bites, chewing thoroughly, eating protein first and eating and drinking by 30 min. Fluid intake is adequate with water and appropriate sugar free beverages, no pop. Physical activity increased with walking daily and chair exercises and hand weights. Labs reviewed - Cr WNL Patient meets the National Institutes of Health guidelines for weight loss surgery and has [employer] therefore is required to complete 0 months of Nutrition Intervention for clearance for surgery. Today is visit 2 of 0. After session today, patient able to verbalize protein/fluid/exercise goals, recommendations for vitamin/minerals, use of protein shakes for meal replacement and for 2 week full liquid diet phase. Also able to demonstrate post op diet advancement/portion control using food models. Anticipate post op compliance. The patient meets NIH guidelines for weight loss surgery and has been thoroughly evaluated and educated on good dietary practices. Patient is capable of following these guidelines pre-and post-surgically. From nutrition standpoint, the patient is cleared for weight loss surgery. If the patient desires, she may continue to follow-up with the dietitian on a monthly basis until all surgical requirements are met. Nutrition Intervention 08/12/2023: Modify type and amount of foods consumed for meals and snacks 1. Read Nutritional Guidelines Section of Your Guide to Surgery by next session [email or web address] [email or web address] 2. Do not skip meals. 3. Use protein shake 1x per day to replace any skipped meals or for breakfast. Aim for shakes ~150-200 calories, ~15-20 grams of protein, <5 grams of total sugar. Choose from these options that are approved for the pre-op liquid diet: Slim Fast High Protein (20 g protein), Atkins (15 g protein), Boost Glucose Control (16 g protein), Owyn (20 g protein), Whiteface Breakfast Essentials Light Start mixed with fat free or 1% milk 4. Use the Healthy Plate Method of portion control for meals 1/4 plate (3-4 oz) lean meat, fish, chicken, pork tenderloin, turkey, seafood, eggs/cheese 1/2 plate non-starchy vegetables (salad, greens, cabbage, spinach, brussels sprouts, broccoli, carrots, celery, peppers, green beans, cauliflower) 1/4 plate (up to 1 cup) whole grain, starch/starchy vegetables (corn, peas, gray beans, winter squash, sweet potato, rice, pasta, potato) 5. Physical activity: Aim for 150 minutes of physical activity per week. Include 10-20 minutes of strength/resistance exercise 2-3x/week. 6. Drink 64 ounces per day water. Fluids should follow these guidelines: No carbonation, no caffeine, no calories, no alcohol. 7. Start to explore post surgery bariatric vitamins/minerals: Daily multivitamin, iron 45-60 mg, calcium citrate w/ Vit D 9381-8251 mg, Vit B12 500 mcg sublingual pill or liquid, Vit D3 3000 international unit(s), B complex with 75-100 mg thiamin It is ok to take a combination bariatric vitamin to limit pill volume. Here are a few options to consider: - Bariatric Fusion: 4 Complete Multivitamin chewables per day OR 1 Multivitamin capsule and 4948-0037 mg calcium citrate per day OR 2 Multivitamin soft chews per day + 3 calcium citrate soft chews + 1 iron soft chew per day www.[email or web address] - Bariatric Choice: 4 All-in-One Bariatric Multivitamin chewables per day OR 1 Once Daily Bariatric Multivitamin capsule and 7587-4118 mg calcium citrate per day www.[email or web address] - Bariatric Pal: 4 All-in-One Multivitamin chewables per day OR 1 Multivitamin One (chewable or capsule) and 4376-9644 mg calcium citrate per day www.[employer].bariatricpal.[email or web address]/collectio ns/bariatric-vitamins - Bariatric Advantage: 1 Ultra Solo multivitamin w/ iron (chewable or capsule) OR 2 chewable Advanced Multi EA w/ iron and 9435-7014 mg calcium citrate per day OR 2 Multi Chewy Bites and 3831-0896 mg calcium citrate and 45-60 mg iron per day www.[email or web address] - FashionStake Health: 1 Bariatric Multivitamin w/ iron (capsule or chewable) and 1782-5140 mg calcium citrate per day www.[email or web address] Medical.[email or web address] - Celebrate: 2 Multi-Complete (chewable or capsule) OR 1 CelebrateOne Multivitamin capsule and 7501-6506 mg calcium citrate per day OR 2 Multivitamin soft chews + 3 calcium citrate soft chews + 1 iron soft chew per day [email or web address]://[email or web address] - Barilife: 1 Just One Bariatric Multivitamin w/ iron (chewable or capsule) and 8057-4781 mg calcium citrate per day www.[employer] - Barimelts: 2 Multivitamin w/ iron tablets and 4672-4639 mg calcium citrate per day www.[email or web address] Pre-op goal weight: 244 pounds Protein needs: 77 gm per day Actions to implement interventions: see assessment Diet History: Breakfast - protein shake Snack - [place] cheese and crackers Lunch - salad w/ chicken Snack - polish yogurt or sf jello Dinner - meatloaf, vegetable and starch Snack - none Beverages - >64 oz water, Deidra Alcohol - none Vitamins/Supplements - MV, calcium, biotin, Vit E, lutein, Vit D Activity: Activities of Daily Living: Active 25% of the day. 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 Resting Metabolic Rate: 1702 Malnutrition Screening Significant unintentional weight loss? No Eating less than 75% of usual intake for more than 2 weeks? No Potential Signs of Inflammation: no identifiable sources Nutritional status: Education Materials Provided: None this visit READINESS TO LEARN Cognitive ability: Alert and oriented Motivation to learn: Interested Family support: Unable to assess - Family not present Instruction provided to: Patient Patient learns best by: Multiple Methods Factors affecting learning: None Physical limitations affecting learning: None Likelihood of Adherence: High Referred by: Sergio SPEARS Billing Type: Re-assess/15 min 2 units SIGNATURE: Annie Alvarez RD PATIENT NAME: Leonora Cam DATE: 10/23/2023 TIME: 4:09 PM documented in this encounter [facility] 10-23-2023 Note HNO ID: [id number] Author: ANNIE ALVAREZ RD Service: ? Author Type: Registered Dietitian Type: Progress Notes Filed: 10/23/2023 10:17 Note Text: [facility] Nutrition Therapy: Virtual Consult - Re-assessment I have communicated my name and active licensure. The patient?s identity and physical location were verified at the time of this visit. 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 Nutrition Diagnosis: Overweight/obesity, related to, food/nutrition - related knowledge deficit, as evidenced by BMI above normative standard for age and gender RECOMMENDED MALNUTRITION DIAGNOSIS: NO MALNUTRITION IDENTIFIED NUTRITION CARE PLAN: Nutrition Intervention 10/23/2023: Modify type and amount of foods consumed for meals and snacks Please call [phone], option 5. Leave a message for the navigation team when you are finished with all clearances (nutrition, psychology, medical, surgeon) 1. Protein goal: 77 grams protein/day 2. Fluid goal: 64 oz per day water (no calories, no caffeine, no carbonation, no alcohol) 3. Exercise goal: 150-250 minutes per week, including 10-20 min of strength/resistance exercise 2-3x/week 4. Practice mindful eating habits- eat protein first, take small portions, eat slowly, chew thoroughly 20-30x before swallowing, practice eating and drinking by 30 min. 5. Start the full liquid diet (2) weeks prior to surgery using 4-5 protein shakes per day, continue a minimum of 64 oz water per day during this time. No solid food. May have sugar free popsicle and sugar free jello. Choose from these options only: 4 ? bottles of Slim Fast High Protein shakes per day 5 cartons of Atkins 15 g shakes per day 4 ? bottles of Boost Glucose Control shakes per day 5 ? packets of Whiteface Breakfast Essentials Light Start mixed with fat free milk 4 ? bottles/cartons of Owyn 20 g protein shakes per day 6. During the 2 weeks before and after surgery, include a daily Super B-Complex vitamin with 75-100 mg Thiamine 7. Advance diet per guidebook post surgery (refer to page 49) 8. Begin taking vitamins/minerals after starting soft protein foods ~3 weeks after surgery: Daily multivitamin, iron 45-60 mg (morning), calcium citrate w/ Vit D 600 mg at lunch and 600 mg at dinner, Vit B12 500 mcg sublingual pill or liquid, Vit D3 3000 IU, B complex with 75-100 mg thiamin. Take multivitamin with iron 2 hours apart from calcium citrate, and take each dose of calcium 4 hours apart from each other It is ok to take a combination bariatric vitamin to limit pill volume. Here are a few options to consider: - Bariatric Fusion: 4 Complete Multivitamin chewables per day OR 1 Multivitamin capsule and 8946-8397 mg calcium citrate per day OR 2 Multivitamin soft chews per day + 3 calcium citrate soft chews + 1 iron soft chew per day [email or web address] - Bariatric Choice: 4 All-in-One Bariatric Multivitamin chewables per day OR 1 Once Daily Bariatric Multivitamin capsule and 3229-3635 mg calcium citrate per day [email or web address] - Bariatric Pal: 4 All-in-One Multivitamin chewables per day OR 1 Multivitamin One (chewable or capsule) and 9526-8310 mg calcium citrate per day [email or web address] - Bariatric Advantage: 1 Ultra Solo multivitamin w/ iron (chewable or capsule) OR 2 chewable Advanced Multi EA w/ iron and 9241-5262 mg calcium citrate per day OR 2 Multi Chewy Bites and 2624-7538 mg calcium citrate and 45-60 mg iron per day [email or web address] - Procare Health: 1 Bariatric Multivitamin w/ iron (capsule or chewable) and 1677-1638 mg calcium citrate per day [email or web address] - Celebrate: 2 Multi-Complete (chewable or capsule) OR 1 CelebrateOne Multivitamin capsule and 5738-8432 mg calcium citrate per day OR 2 Multivitamin soft chews + 3 calcium citrate soft chews + 1 iron soft chew per day [email or web address] - Barilife: 1 Just One Bariatric Multivitamin w/ iron (chewable or capsule) and 8737-8136 mg calcium citrate per day [email or web address] - Barimelts: 2 Multivitamin w/ iron tablets and 6493-9286 mg calcium citrate per day [email or web address] Pre-op weight goal: 244 lbs - MET! Nutrition Monitoring AND Evaluation: 1-2 lbs wt loss/week Need for Follow up: 2 weeks pre op PROGRESS: Interval History: Patient presents for follow up nutrition consult in preparation for RYGB with Dr. Hill. Weight change since last visit -11.5 lbs (255 lbs). Diet recall reveals consistent eating pattern with no skipped meals and routine use of protein shake to replace breakfast. Patient reports attention to portion control with smaller plate, planned snacks, and no fast food. She is trying to be more consistent with journa (more content not included)... [facility] 10-16-2023 Note HNO ID: [id number] Author: NORIS PARKS PSYD Service: ? Author Type: Psychologist Type: Progress Notes Filed: 10/18/2023 13:19 Note Text: Leonora Cam [id number] 10/16/2023 [facility] Bariatric and Metabolic [place] [facility] M61 Binge Eating Group Cost Center: 3BO CPT: [id number] VIRTUAL VISIT GROUP PSYCHOTHERAPY 5:30PM-7:00PM I have communicated my name and active licensure. The patient's identity and physical location were verified at the time of this visit. Either the patient or their legal parts sales representative has been informed of the risks and benefits of -- and alternatives to -- treatment through a remote evaluation/session and consents to proceed remotely. Upon completion of risk/benefit analysis, the patient's presenting problem and apparent condition are considered appropriate for virtual format. The patient does appear to have sufficient knowledge and skills in the use of relevant technology to benefit from virtual format. Platform: [facility] for [facility] Address of Patient During Visit: Pt home at [address] [place], [place] [id number] Mery Session 2: Emotional Eating, Cognitive Strategies and Self-Image Reviewed food diaries with an emphasis on identifying binge episodes. Discussed antecedents for binges including emotions such as stress, depression and anger. Identified positive coping strategies for stress management. Demonstrated diaphragmatic breathing as a stress management technique and gave patients relaxation resources. Discussed cognitive behavorial treatment of weight issues and identified self-defeating vs. coping thoughts. Discussion of body image and expectations for changes in self-worth post-surgery deferred to follow up. Ms. Cam was an active participant in the session. She did verbalize an understanding of the material presented. Patient does appear to be an appropriate group candidate. Patient was compliant with food diaries (2 records). She learned that she engages in graze eating in the evening. She voiced pride that she was more mindful of her dietary choices during a recent camping trip (abstained from soda). She understood the association between thoughts, feeling, and behaviors; pt endorsed All or Nothing Thinking and Overgeneralizing as the main cognitive distortions she engages in. Of note, Pt visibly fell asleep during conversation of stress/adaptive coping and was not responsive to this content writer's verbal prompts. She later awoke during discussion of cognitive distortions and goal setting. In individual discussion with this content writer after group, Pt reported that she had not slept well and voiced intentionto join class from a less comfortable chair in her residence to maintain alertness at next session. She expressed belief that she had only fallen asleep for short duration and benefited from the majority of the intervention; reassessment/review of this session's material is recommended. S.M.A.R.T. Goal (session 1): 1. Keep food diaries 3x/week-PARTIALLY MET (2x) 2. Walking 2 laps prior to work 3x/week-PARTIALLY MET (1x and increased physical activity during camping trip) S.M.A.R.T. Goal (session 2): 1. Keep food diaries 3x/week 2. Initiate strength training 2x/week Assessment: Other Disorder of Eating Psychological Factors Affecting a Medical Condition (Morbid Obesity) Plan: Return to group in 1 week (Stimulus Control and Mindful Eating) Noris Parks PsyD, Psychologist [facility] 10-09-2023 Note HNO ID: [id number] Author: NORIS PARKS PSYD Service: ? Author Type: Psychologist Type: Progress Notes Filed: 10/10/2023 16:46 Note Text: Leonora Cam [id number] 10/09/2023 [facility] Bariatric and Metabolic [place] [facility] M61 Binge Eating Group Cost Center: 3BO CPT: [id number] VIRTUAL VISIT GROUP PSYCHOTHERAPY 5:30PM-7:00PM I have communicated my name and active licensure. The patient's identity and physical location were verified at the time of this visit. Either the patient or their legal parts sales representative has been informed of the risks and benefits of -- and alternatives to -- treatment through a remote evaluation/session and consents to proceed remotely. Upon completion of risk/benefit analysis, the patient's presenting problem and apparent condition are considered appropriate for virtual format. The patient does appear to have sufficient knowledge and skills in the use of relevant technology to benefit from virtual format. Platform: [employer] Address of Patient During Visit: Pt home at [address] [place] [address] Session 1: Developing a Regular Eating Pattern Patients attended the first session of a four week cognitive behavioral intervention for binge eating disorder. Patients were reminded of the limits of confidentiality in the group setting and agreed to hold in confidence all matters discussed in the group. Patients introduced themselves and discussed their motivation for bariatric surgery and their relationship with food. Discussed symptoms of eating disorders including binge eating, night eating and graze eating, in addition to tools to help manage different eating patterns. Discussed importance of self-monitoring and reviewed how to keep accurate self-monitoring records. Ms. Cam was an active participant in the session. She did verbalize an understanding of the material presented. Patient does appear to be an appropriate group candidate. Patient is seeking RYGB and is motivated by improving health, diabetes management and preventing need for additional medication (insulin). She identified the following barriers to successful weight management in the past: graze eating (typically while cooking) and emotional eating. S.M.A.R.T. Goal (session 1): 1. Keep food diaries 3x/week 2. Walking 2 laps prior to work 3x/week Patient Data Binge Eating Scale (BES) 08/26/2023 Eating Habits Checklist Total Score 28 <18 = minimal binge eating, 18-26 = moderate binge eating, >27 = severe binge eating Generalized Anxiety Disorder Scale (TIANNA-7) 08/26/2023 10/02/2023 TIANNA - 7 SCORES Score 5 3 (0-4) minimal anxiety, (5-9) mild anxiety, (10-14) moderate anxiety, (15-21) severe anxiety Patient Health Questionnaire (PHQ-9) 08/26/2023 10/02/2023 PHQ-9 Score 4 3 (0-4) minimal depression, (5-9) mild depression, (10-14) moderate depression, (15-19) moderately severe depression, (20-27) severe depression Assessment: Other Disorder of Eating Psychological Factors Affecting a Medical Condition (Morbid Obesity) Plan: RTC 1 wk grp; Review food diaries, emotional eating, cognitive and behavorial strategies and self -image. Noris Parks Psy.D., Psychologist [facility] 09-30-2023 Note HNO ID: [id number] Author: TAMMIE GUEVARA LPN Service: ? Author Type: LICENSED NURSE Type: Progress Notes Filed: 09/30/2023 10:52 Note Text: Patient presents for EKG per Noris Lawrence CNP. Denies any problems at this time. Tolerated procedure well. Tammie Guevara LPN [facility] 09-30-2023 History of Present illness Narrative Patient presents for EKG per Noris Lawrence CNP. Denies any problems at this time. Tolerated procedure well. Tammie Guevara LPN documented in this encounter [facility] 09-17-2023 History of Present illness Narrative BARIATRIC SURGERY NEW PATIENT CONSULTATION Date: September 17, 2023 Time: 7:13 AM Name: Leonora Cam BMI Surgical Pathway Visit type: Bariatric Surgeon Visit CHIEF COMPLAINT: initial evaluation for metabolic and bariatric surgery This is a virtual visit using [employer] Video Visit. It required patient-provider interaction for the medical decision making as documented below. I have communicated my name and active licensure. The patient's identity and physical location were verified at the time of this visit. 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 SUBJECTIVE HPI:This is a 53 year old female with morbid obesity who presents for a virtual evaluation for surgical treatment of obesity. The patient's excess body weight interferes with activities of daily living and negatively impacts body of quality of life. Weight History: She reports a family history of obesity and early onset weight gain. She states her weight gain is related to the following factors, including reduced physical activity and consumption of unhealthy foods. The most recent height and weight we have on file is 112 kg, 159 cm, which corresponds to a body mass index of 44.59 kg/m2. The patient affirms that these are roughly accurate. The patient's peak adult weight was 275 lbs. She is interested in surgery to improve her weight related comorbidities as well as her overall quality of life. GERD symptoms: uses prn medication for heartburn. Food and stress triggers. Excellent response with medication. NSAID use: no current use Patient has a history of type 2 diabetes. Patient was first diagnosed with diabetes roughly 4.5 years ago. Patient is not currently using insulin. Current medications for diabetes are (including insulin): glipizide Last Hb A1c: 7.4 (09/10/2023) Previous Obesity Treatments: anti-obesity medications Dulaglutide (Trulicity). Slim Fast TRIM Ketogenic diet PAST MEDICAL HISTORY: PAST MEDICAL HISTORY Diagnosis Date COVID-19 10/16/2021 Diabetes mellitus (HCC) 2017 Seasonal allergies PAST SURGICAL HISTORY: PAST SURGICAL HISTORY Procedure Laterality Date LIGATE FALLOPIAN TUBE 2000 PAST SURGICAL HISTORY OF 2014 clamp in R foot (bone shattered) REMOVAL GALLBLADDER 2015 TONSILLECTOMY & ADENOIDECTOMY <AGE 13 1984 FAMILY HISTORY: FAMILY HISTORY Problem Relation Age of Onset Heart Mother Diabetes Mother COPD Mother Asthma Mother Kidney Disease Mother Stroke Mother Heart Failure Mother Stroke Father Diabetes Father Heart Father 34 Diabetes Sister 56 type 1 Diabetes Brother Prediabetes Asthma Brother MVA other (Maria Guadalupe sydrome) Brother 2 Diabetes Maternal Grandmother Alzheimer's Disease Maternal Grandmother Prostate Cancer Maternal Grandfather Heart Paternal Grandmother Diabetes Paternal Grandmother Lung Cancer Paternal Grandfather DVT No Family History SOCIAL HISTORY: Social History Tobacco Use Smoking status: Never Passive exposure: Current Smokeless tobacco: Never Vaping Use Vaping Use: Never used Substance Use Topics Alcohol use: Not Currently Drug use: Never MEDICATIONS: Prior to Admission Medications: glipiZIDE (GLUCOTROL XL) 10mg 24 hr tablet Take 1 tablet by mouth once daily. flash glucose sensor (FREESTYLE GUZMAN 14 DAY SENSOR) kit 1 Each two times a day. DX E11.65 Insulin No benzonatate (TESSALON PERLES) 100 mg capsule Take 1 capsule by mouth three times a day as needed for cough. dulaglutide (TRULICITY) 1.5 mg/0.5 mL pen injector Inject 1.5 mg subcutaneously one time a week. Inject once per week. Discard Pen After (Patient not taking: Reported on 09/09/2023) ondansetron orally disintegrating (ZOFRAN ODT) 4 mg disintegrating tablet Take 1 tablet by mouth every 12 hours as needed for nausea/vomiting. fluticasone (FLONASE) 50 mcg/actuation nasal spray Use 1 [place] in each nostril at bedtime as needed for cold/allergy symptoms. As needed No current facility-administered medications for this visit. ALLERGIES: ALLERGIES Allergen Reactions Bee Sting Swelling Codeine Unknown Doxycycline GI Upset Metformin Intolerance GI upset, diarrhea Prednisone Rash I have confirmed and edited as necessary, the PFSH and ROS obtained by others. REVIEW OF SYSTEMS: As noted in HPI Objective PHYSICAL EXAM: VIDEO EXAM: (if completed, performed via video enabled technology) No exam performed ASSESSMENT: Leonora Cam is a 53 year old female with the following diagnosis and co-morbidities: type 2 diabetes mellitus BMI is 44.59 kg/m, based on reported weight and height This patient does meet the criteria for a surgical weight loss procedure according to NIH guidelines. Is this a Revisional Procedure:No Risks, benefits and alternatives discussed. Individualized metabolic risk score for procedure selection: 51 Favors Korin en Y gastric bypass PLAN: The plan of treatment for Leonora Cam is to continue with the consultations and tests ordered today in hopes of qualifying for pre-operative clearance for bariatric surgery. Patient is interested in: Korin-En-Y Gastric Bypass - Patient has a 0 month diet insurance requirement for medically supervised weight loss/diet - We discussed post-operative requirements for optimal weight loss, healthy recovery, and weight loss maintenance in detail, including protein and fluid intake, vitamins, and minerals, labs, and follow-up appointments. Patient expressed understanding and agrees to comply with these requirements. - does smoke in the home, but is actively trying to quit - We discussed common mabs-aqi-jnjhqfz remedies that contain NSAIDs (like Advil, Aleve, ibuprofen, Excedrine Migraine, Goody's/BC powders), as well as the more commonly prescribed NSAIDs (Celebrex/celcoxib, indomethacin, Mobic/meloxicam). She does not use these medications currently. We discussed the risk of marginal ulcer after gastric bypass, and that this risk is significantly increased with use of NSAIDs at any point postoperatively. Thus, if patient elects to move forward with RYGB, specifically, she understands she would have to maintain lifelong avoidance of all NSAIDs postoperatively. I spent a total of 45 minutes on the date of the service which included preparing to see the patient, nkds-cb-naux patient care, completing clinical documentation, obtaining and/or reviewing separately obtained history, and counseling and educating the patient/family/caregiver Bariatric and Advanced Laparoscopic Surgery Bridger Hill MD 09/17/2023 6:07 PM documented in this encounter [facility] 09-10-2023 History of Present illness Narrative Radiology Service Progress Note PATIENT NAME: Leonora Cam DATE OF SERVICE: September 10, 2023 TIME: 3:55 PM PATIENT IDENTITY VERIFICATION COMPLETED USING TWO (2) IDENTIFIERS: Name and Date of confirmed by patient verbally. FALL SCREENING: Has the patient had 2 falls in the last year or 1 fall with injury or currently using an Ambulatory Assistive Device (Walker, Cane, Wheelchair, Crutches, etc.)? No PATIENT GENDER DATA: Female. status: : No status: NO. PATIENT RELEVANT IMPLANT DATA REVIEWED: Not Applicable PATIENT PRESENTS WITH AN IMPLANTABLE OR ATTACHED GLASS TECHNICIAN: No RADIOLOGY DEPARTMENT: General X-ray: Exam(s) Completed: Chest X-Ray PERIPHERAL IV DATA: Not applicable SIGNED BY: RT Pepe(R) September 10, 2023 3:55 PM documented in this encounter [facility] 09-09-2023 History of Present illness Narrative BMI Obesity Medicine Initial Bariatric Surgery Consult Virtual visit Virtual Visit (Audio/Visual)I have discussed the nature of this visit with the patient which will occur via [facility] (Phone, Virtual Visit) and she agrees to proceed with this interaction. I have communicated my name and active licensure. The patient's identity and physical location were verified at the time of this visit. 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 BMI Surgical Pathway Visit type: Obesity Medicine Visit Patient Summary:: Leonora Cam is a 53 year old female who presents on September 09, 2023 for medical assessment of obesity. The patient is interested in laparoscopic gastric bypass korin-en-y and has decided to have the procedure with Bridger Hill MD Weight History: She reports a family history of obesity and early onset weight gain. She states her weight gain is related to the following factors, including reduced physical activity and consumption of unhealthy foods. Weight Graph: (please see graph scanned in chart) Weight Gain Promoting Medications: NO Diet: See BMI RD note Previous Obesity Treatments: Self directed exercise and dieting Commercial dieting Previous AOM Rx: Trulicity Exercise: Regular exercise: Walking daily Barriers to regular exercise? None Stress test: yes 2015, WNL per patient (screening test) Functional Status: Do heavy work around the house, such as scrubbing floors, lifting or moving heavy furniture (8.00 METs) Patient denies any chest pain or undue shortness of breath with the above physical activity. ?Sleep: ROSS NO ; CPAP NO Quality:adequate, Few awakenings Jewelry Facer Work? NO STOP BANG Criteria: BMI > 35 Age over 50 (53 year old) Score = 2 Past Medical History PAST MEDICAL HISTORY Diagnosis Date COVID-19 10/16/2021 Diabetes mellitus (HCC) 2017 Current Outpatient Medications on File Prior to Visit Medication Sig glipiZIDE (GLUCOTROL XL) 10mg 24 hr tablet Take 1 tablet by mouth once daily. flash glucose sensor (FREESTYLE GUZMAN 14 DAY SENSOR) kit 1 Each two times a day. DX E11.65 Insulin No benzonatate (TESSALON PERLES) 100 mg capsule Take 1 capsule by mouth three times a day as needed for cough. dulaglutide (TRULICITY) 1.5 mg/0.5 mL pen injector Inject 1.5 mg subcutaneously one time a week. Inject once per week. Discard Pen After ondansetron orally disintegrating (ZOFRAN ODT) 4 mg disintegrating tablet Take 1 tablet by mouth every 12 hours as needed for nausea/vomiting. fluticasone (FLONASE) 50 mcg/actuation nasal spray Use 1 [place] in each nostril at bedtime as needed for cold/allergy symptoms. As needed No current facility-administered medications on file prior to visit. ALLERGIES Allergen Reactions Bee Sting Swelling Codeine Unknown Doxycycline GI Upset Metformin Intolerance GI upset, diarrhea Prednisone Rash PAST SURGICAL HISTORY Procedure Laterality Date LIGATE FALLOPIAN TUBE 2000 PAST SURGICAL HISTORY OF 2015 clamp in R foot (bone shattered) REMOVAL GALLBLADDER 2015 TONSILLECTOMY & ADENOIDECTOMY <AGE 13 1983 Any problems with anesthesia with the above surgeries: No Patient Active Problem List Obesity, Class III, BMI >= 40 Seasonal allergies Type 2 diabetes mellitus without complication, without long-term current use of insulin (HCC) Resolved Hospital Problems No resolved problems to display. FAMILY HISTORY Problem Relation Age of Onset Heart Mother Diabetes Mother COPD Mother Asthma Mother Kidney Disease Mother Stroke Mother Heart Failure Mother Stroke Father Diabetes Father Heart Father 34 Diabetes Sister 56 type 1 Diabetes Brother Prediabetes Asthma Brother MVA other (Maria Guadalupe sydrome) Brother 2 Diabetes Maternal Grandmother Alzheimer's Disease Maternal Grandmother Prostate Cancer Maternal Grandfather Heart Paternal Grandmother Diabetes Paternal Grandmother Lung Cancer Paternal Grandfather Social History Tobacco Use Smoking status: Never Passive exposure: Current Smokeless tobacco: Never Vaping Use Vaping Use: Never used Substance Use Topics Alcohol use: Not Currently Drug use: Never Review Of Systems Skin: negative Respiratory: No history of cough, hemoptysis, asthma, recent chest infection, wheezing Cardiovascular: No history of chest pain,palpitation,orthopnea,cynosis,p darion edema Gastrointestinal: No blood in stool, pain with BM, tarry stool, persistent diarrhea or constipation, s/p cholecystectomy Genitourinary: No burning with urination, blood in urine or incontinence. Hematology/Lymphology Negative for prolonged bleeding, bruising easily or swollen nodes Musculoskeletal: back pain Psychiatric: negative Endocrine: [id number] Neuro: hx Migraine Headaches Physical Exam:(VIRTUAL) Ht 159 cm (5' 2.6) Wt 112.7 kg (248 lb 8 oz) BMI 44.59 kg/m BMI = Body mass index is 44.59 kg/m . GENERAL: NAD Impression Leonora Cam is a 53 year old female with Class III obesity who presented today for medical evaluation as Leonora Cam prepares for bariatric surgery. She has the following metabolic complications of obesity type 2 diabetes mellitus and other medical conditions as noted above. She is a candidate for bariatric and metabolic surgery. she will be evaluated by our multidisciplinary team in preparation for surgery. : Recommend that she should not become for 18-24 months after surgery due to increased risks of micronutrient deficiency. I counseled her on the perioperative use of estrogen therapy, instructing her not to take oral estrogen (eg OCPs) one month before and one month after surgery due to increased VTE risk. We reviewed alternate forms of contraception and encouraged the patient to speak with her physician/provider to formulate a perioperative plan. If she is considering a Korin-en Y gastric bypass, I counseled her that oral methods of control may not be as effective after surgery and that they should consider alternate contraception to reduce the risk of . May proceed with bariatric surgery if the baseline ECG normal. No further noninvasive cardiac testing needed as the patient has no intermediate clinical risk factors, (IDDM, renal failure, CHF, CAD, and CVA) and has a normal functional capacity. Plan Based on the severity and resistance of the obesity to more conservative weight loss approaches, I believe a surgical intervention is the best and most appropriate intervention. -The patient has a 0 month insurance requirement prior to surgery. -Reviewed BMI Nutritional Tips for Bariatric Surgery pamphlet -Encouraged the patient to improve physical activity. We discussed the benefits of both cardiovascular and strength exercises. -Discussed the importance of taking post-operative vitamins and reviewed vitamin levels ordered today. Patient understands that any variations of B vitamins or Vitamin D will be corrected pre-operatively. -Labs ordered today: See Epic -CXR, EKG Order placed today I spent a total of 55 minutes on the date of the service which included preparing to see the patient, [id number] patient care, completing clinical documentation, obtaining and/or reviewing separately obtained history, performing a medically appropriate examination, counseling and educating the patient/family/caregiver, ordering medications, tests, or procedures, and independently interpreting results (not separately reported). Noris Lawrence APRN.CNP documented in this encounter [facility] 08-12-[address] - 08/12/2023 1:11 PM EDT Nutrition Intervention 08/12/2023: Modify type and amount of foods consumed for meals and snacks 1. Read Nutritional Guidelines Section of Your Guide to Surgery by next session [email or web address].[email or web address]/-/sca ssets/files/org/bariatric/guides/[email or web address]?la=en 2. Do not skip meals. 3. Use protein shake 1x per day to replace any skipped meals or for breakfast. Aim for shakes ~150-200 calories, ~15-20 grams of protein, <5 grams of total sugar. Choose from these options that are approved for the pre-op liquid diet: Slim Fast High Protein (20 g protein), Atkins (15 g protein), Boost Glucose Control (16 g protein), Owyn (20 g protein), Whiteface Breakfast Essentials Light Start mixed with fat free or 1% milk 4. Use the Healthy Plate Method of portion control for meals 1/4 plate (3-4 oz) lean meat, fish, chicken, pork tenderloin, turkey, seafood, eggs/cheese 1/2 plate non-starchy vegetables (salad, greens, cabbage, spinach, brussels sprouts, broccoli, carrots, celery, peppers, green beans, cauliflower) 1/4 plate (up to 1 cup) whole grain, starch/starchy vegetables (corn, peas, gray beans, winter squash, sweet potato, rice, pasta, potato) 5. Physical activity: Aim for 150 minutes of physical activity per week. Include 10-20 minutes of strength/resistance exercise 2-3x/week. 6. Drink 64 ounces per day water. Fluids should follow these guidelines: No carbonation, no caffeine, no calories, no alcohol. 7. Start to explore post surgery bariatric vitamins/minerals: Daily multivitamin, iron 45-60 mg, calcium citrate w/ Vit D 5186-6111 mg, Vit B12 500 mcg sublingual pill or liquid, Vit D3 3000 international unit(s), B complex with 75-100 mg thiamin It is ok to take a combination bariatric vitamin to limit pill volume. Here are a few options to consider: - Bariatric Fusion: 4 Complete Multivitamin chewables per day OR 1 Multivitamin capsule and 6457-1206 mg calcium citrate per day OR 2 Multivitamin soft chews per day + 3 calcium citrate soft chews + 1 iron soft chew per day [email or web address] - Bariatric Choice: 4 All-in-One Bariatric Multivitamin chewables per day OR 1 Once Daily Bariatric Multivitamin capsule and 9547-5458 mg calcium citrate per day www.[email or web address].com - Bariatric Pal: 4 All-in-One Multivitamin chewables per day OR 1 Multivitamin One (chewable or capsule) and 7216-0269 mg calcium citrate per day www.SecurusbariatricRealtime Worlds.[place]LLETA/collectio ns/bariatric-vitamins - Bariatric Advantage: 1 Ultra Solo multivitamin w/ iron (chewable or capsule) OR 2 chewable Advanced Multi EA w/ iron and 6574-2229 mg calcium citrate per day OR 2 Multi Chewy Bites and 8498-9319 mg calcium citrate and 45-60 mg iron per day www.[email or web address].[place] - Procare Health: 1 Bariatric Multivitamin w/ iron (capsule or chewable) and 4068-0110 mg calcium citrate per day www.[email or web address]'d - Celebrate: 2 Multi-Complete (chewable or capsule) OR 1 CelebrateOne Multivitamin capsule and 2150-0705 mg calcium citrate per day OR 2 Multivitamin soft chews + 3 calcium citrate soft chews + 1 iron soft chew per day https://[email or web address].[email or web address] - Barilife: 1 Just One Bariatric Multivitamin w/ iron (chewable or capsule) and 6116-0204 mg calcium citrate per day www.barilife.[place]TA - Barimelts: 2 Multivitamin w/ iron tablets and 0355-1329 mg calcium citrate per day www.[email or web address].SYLLETA Pre-op goal weight: 244 pounds Protein needs: 77 gm per day Navigator: [email or web address] Please follow the below link to join our Navigation Welcome and Next Steps Meeting. Meetings are held weekly on Tuesdays from 12:00-1:00 pm. [email or web address] State/s/st [email or web address]. [employer] Nutrition Monitoring & Evaluation: 1-2 lbs wt loss/week Need for Follow up: 1 month, scheduling [phone] documented in this encounter [facility] 08-12-2023 History of Present illness Narrative The [facility] Nutrition Therapy: Virtual Consult - Initial Assessment I have communicated my name and active licensure. The patient s identity and physical location were verified at the time of this visit. 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 Nutrition Diagnosis: Overweight/obesity, related to, food/nutrition - related knowledge deficit, as evidenced by BMI above normative standard for age and gender. RECOMMENDED MALNUTRITION DIAGNOSIS: NO MALNUTRITION IDENTIFIED NUTRITION CARE PLAN Nutrition Intervention 08/12/2023: Modify type and amount of foods consumed for meals and snacks 1. Read Nutritional Guidelines Section of Your Guide to Surgery by next session [email or web address].[email or web address]/-/sca ssets/files/org/bariatric/guides/bmi [email or web address]?la=en 2. Do not skip meals. 3. Use protein shake 1x per day to replace any skipped meals or for breakfast. Aim for shakes ~150-200 calories, ~15-20 grams of protein, <5 grams of total sugar. Choose from these options that are approved for the pre-op liquid diet: Slim Fast High Protein (20 g protein), Atkins (15 g protein), Boost Glucose Control (16 g protein), Owyn (20 g protein), Whiteface Breakfast Essentials Light Start mixed with fat free or 1% milk 4. Use the Healthy Plate Method of portion control for meals 1/4 plate (3-4 oz) lean meat, fish, chicken, pork tenderloin, turkey, seafood, eggs/cheese 1/2 plate non-starchy vegetables (salad, greens, cabbage, spinach, brussels sprouts, broccoli, carrots, celery, peppers, green beans, cauliflower) 1/4 plate (up to 1 cup) whole grain, starch/starchy vegetables (corn, peas, gray beans, winter squash, sweet potato, rice, pasta, potato) 5. Physical activity: Aim for 150 minutes of physical activity per week. Include 10-20 minutes of strength/resistance exercise 2-3x/week. 6. Drink 64 ounces per day water. Fluids should follow these guidelines: No carbonation, no caffeine, no calories, no alcohol. 7. Start to explore post surgery bariatric vitamins/minerals: Daily multivitamin, iron 45-60 mg, calcium citrate w/ Vit D 1287-2685 mg, Vit B12 500 mcg sublingual pill or liquid, Vit D3 3000 international unit(s), B complex with 75-100 mg thiamin It is ok to take a combination bariatric vitamin to limit pill volume. Here are a few options to consider: - Bariatric Fusion: 4 Complete Multivitamin chewables per day OR 1 Multivitamin capsule and 5853-1559 mg calcium citrate per day OR 2 Multivitamin soft chews per day + 3 calcium citrate soft chews + 1 iron soft chew per day www.bariatricfusion.com - Bariatric Choice: 4 All-in-One Bariatric Multivitamin chewables per day OR 1 Once Daily Bariatric Multivitamin capsule and 2958-3090 mg calcium citrate per day www.[email or web address].[place] - Bariatric Pal: 4 All-in-One Multivitamin chewables per day OR 1 Multivitamin One (chewable or capsule) and 0769-3330 mg calcium citrate per day www.Securusbariatricpal.[place]TA/tashiaio luda/bariatric-vitamins - Bariatric Advantage: 1 Ultra Solo multivitamin w/ iron (chewable or capsule) OR 2 chewable Advanced Multi EA w/ iron and 5813-5039 mg calcium citrate per day OR 2 Multi Chewy Bites and 1943-5968 mg calcium citrate and 45-60 mg iron per day www.bariatricadvantage.[place] - Procare Health: 1 Bariatric Multivitamin w/ iron (capsule or chewable) and 8843-9492 mg calcium citrate per day www.Eleme Medical.[place] - Celebrate: 2 Multi-Complete (chewable or capsule) OR 1 CelebrateOne Multivitamin capsule and 5428-0334 mg calcium citrate per day OR 2 Multivitamin soft chews + 3 calcium citrate soft chews + 1 iron soft chew per day https://[email or web address].[email or web address] - Barilife: 1 Just One Bariatric Multivitamin w/ iron (chewable or capsule) and 6037-2519 mg calcium citrate per day www.bariBioNanovations.[place] - Barimelts: 2 Multivitamin w/ iron tablets and 3314-8583 mg calcium citrate per day www.bariQuill Content.[place]LLETA Pre-op goal weight: 244 pounds Protein needs: 77 gm per day Navigator: [email or web address] Please follow the below link to join our Navigation Welcome and Next Steps Meeting. Meetings are held weekly on Tuesdays from 12:00-1:00 pm. [email or web address].Liquid State/s/st [email or web address]. [email or web address] Nutrition Monitoring & Evaluation: 1-2 lbs wt loss/week Need for Follow up: 1 month, scheduling [phone] Patient presents for initial nutrition consult in preparation for bariatric surgery. Patient is interested in RYGB (Dr. Hill). Height and weight discussed today. Presents with Class III obesity, Body mass index is 45.75 kg/m . Significant medical comorbidities include type 2 DM. Patient has realistic (41 % TWL) weight loss expectations, anticipating weight loss of 105 lbs., with desired weight of 150 lbs. following surgery. Patient has fair understanding of weight loss surgery and nutritional implications following surgery. Previous diet attempts include keto, SlimFast, WW, Golo, AOM (Trulicity). Weight history significant for early onset weight gain, (145 lbs minimum at 22 yo, max 280 lbs). Greatest barrier to weight loss in the past has been emotional/night eating, reduced physical activity. Greatest motivation for surgery includes health, QOL. Diet recall indicates inconsistent intake with frequent missed meals. She frequently eats fast food and convenient meals at home with meals generally more calorie dense with higher fat protein sources and refined grains. Noted, patient has no teeth and does not wear dentures due to poor fit - has not been able to get refitted. Discussed importance of chewing foods thoroughly and will need to focus on soft foods. Fluids include insufficient water and daily pop consumption which she is actively reducing. Physical activity is not consistent but increasing with walking. [place] body weight: 141 lbs. Excess body weight: 114 lbs. (Based on initial 255 lbs - today) Goal weight pre-op: 244 lbs. Protein needs estimated: 77 gm (1.2 g protein/kg IBW) Patient meets the National Institutes of Health guidelines for weight loss surgery and has [employer] Insurance therefore is required to complete 0 months of Nutrition Intervention for clearance for surgery. Today is visit 1 of 0. Patient needs to demonstrate consistent effort in making dietary changes before being cleared for surgery. It is anticipated that the patient will need at least 1-2 nutritional follow-up visits prior to clearance for surgery. Patient's symptoms are: Weight Concerns: weight gain and failure to lose weight Diet History: NO TEETH, doesn't wear dentures Breakfast - skips or protein shake, or fast food breakfast sandwich Snack - none Lunch - skips or fast food, or grilled chicken salad Snack - none Dinner - spaghetti or chicken Snack - bread, or cheese sticks Beverages - 2-3 bottles water, 2 bottles Deidra, 1 Coke Alcohol- none Vitamins/Supplements - MV, calcium, biotin, Vit E, lutein Activity: Activities of Daily Living: Active 25% of the day. 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 RMR can't be calculated - Weight unrecorded in last 120 days. Malnutrition Screening Significant unintentional weight loss? No Eating less than 75% of usual intake for more than 2 weeks? No Potential Signs of Inflammation: no identifiable sources Education Materials Provided: BMI Nutrition Guidelines:Guide to Surgery and Required Vitamin Minerals after Weight Loss Surgery and Healthy Lunch/Dinner Plate and Snack Ideas READINESS TO LEARN Cognitive ability: Alert and oriented Motivation to learn: Interested Family support: Unable to assess - Family not present Instruction provided to: Patient Patient learns best by: Multiple Methods Factors affecting learning: None Physical limitations affecting learning: None Referred by: [employer] Billing Type: Initial Assess/15 min 3 units SIGNATURE: Annie Alvarez RD PATIENT NAME: Leonora Cam DATE: 08/12/2023 TIME: 1:40 PM documented in this encounter [facility] 07-17-2023 History of Present illness Narrative Patient has an upcoming wellness appointment in September, will discuss than. Melonie Roth COLONOSCOPY PATIENT OUTREACH Action/I Colonoscopy Recall Patient identified by Name and : Yes. OUTREACH OUTCOME ACTION: Open Access: Telephone call: Pt is overdue for screening colonoscopy. May proceed as open access. Please call pt to schedule. Merlyn Betts, RN documented in this encounter [facility] 05-21-2023 Miscellaneous Notes Patient has been identified by name and date of : Yes Patient phones for refill(s): Requested Prescriptions Pending Prescriptions Disp Refills glipiZIDE XL (GLUCOTROL XL) 10 mg 24 hr tablet 90 tablet 3 Sig: Take 1 tablet by mouth once daily. flash glucose sensor (FREESTYLE GUZMAN 14 DAY SENSOR) kit 6 Each 4 Si Each two times a day. DX E11.65 Insulin No Date of last office visit in primary care: 10/23/2022 Date of next office visit in primary care: 10/24/2023 Please advise. Thank you. Lety Abebe LPN. documented in this encounter [facility] 03-04-2023 Miscellaneous Notes Spoke to patient to get memberID # since new insurance is caresource and not updated in our system. Health ID: [id number] Called [employer] and when running caresource as primary it says patient not covered with plan. Called [employer] to verify and they advised member ID number wrong above but when running patient info with social does show inactive Reference ID number: [id number] Patient notified of above and will need to call [facility] to get information fixed and plan re-activated Daniela Guzman Ma documented in this encounter [facility] 01-16-2023 Instructions Danielle Mayorga APRN.HULL MOLDER - 01/16/2023 12:12 PM EDT I Feel So Sick, Don t I Need Antibiotics? Did you know. . . There s only a 1 in 4000 chance that an antibiotic will help most acute upper respiratory infections. But there s a 1 in 4 chance of diarrhea and a 1 in 50 chance of a skin reaction and a 1 in 1000 chance it ll cause an ER visit due to some side effect. Antibiotics can also lead to more resistant infections that are harder to treat. Bottom line: There s little to no benefit to taking antibiotics for most acute upper respiratory tract infections...and the downsides are real. Viruses cannot be treated by antibiotics. Viruses cause most upper respiratory infections, which include head colds, sore throats, bronchitis, and sinus infections. The common cold and influenza do not respond to antibiotics. Less than 10 percent of acute bronchitis cases are caused by bacteria. Most cases of acute ear infections also resolve without antibiotics. Sore throats (pharyngitis) are usually caused by viruses as well. Antibiotics are not recommended unless you have strep throat and only about 15 to 30 percent of pharyngitis cases in children and up to 10 percent of cases in adults are due to strep throat. Almost all cases of acute bacterial sinusitis resolve without antibiotics. There are a few situations in which antibiotics are needed, however. See your health care provider if you have a decreased immune system due to cancer, or if you are taking steroids, have HIV, or have had an organ transplant, or if your symptoms worsen or last longer than 7 to 10 days. Most often you should use the sypd-igb-obgtusn symptomatic treatment/s that your health care provider has recommended. These would include analgesic products such as acetaminophen (Tylenol ), decongestants, antihistamines, salt water gargles, drinking warm tea, and other methods to help treat the symptoms. Also remember that your best defense against getting the flu is to get a flu shot, but this does not, unfortunately, protect you against the many other viruses out in the environment that cause the other kinds of illnesses other than the actual influenza. documented in this encounter [facility] 01-16-2023 History of Present illness Narrative Telemedicine Visit - Distance Health Virtual Visit Note Patient seen on [employer] Online platform. Location of patient: [place] I have communicated my name and active licensure. The patient's identity and physical location were verified at the time of this visit. 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 History of Present Illness Leonora Cam is a 52 year old year old female who presents for the past 4 days with symptoms that are:constant. Symptoms include: Positive for Cough, Nasal congestion, PND, Rhinorrhea, and Face pain/pressure, Negative for Fever Oral intake: Yes Tobacco use: No Second hand smoke exposure: No Recent exposure to strep:No Sick contacts: Niece and nephew Recent travel: NA OTC meds/remedies that patient has tried: Flonase, Tylenol Sinus. Covid test negative PAST MEDICAL HISTORY Diagnosis Date COVID-19 10/16/2021 Diabetes mellitus (HCC) 2017 PAST SURGICAL HISTORY Procedure Laterality Date LIGATE FALLOPIAN TUBE 2000 PAST SURGICAL HISTORY OF 2015 clamp in R foot (bone shattered) REMOVAL GALLBLADDER 2015 TONSILLECTOMY & ADENOIDECTOMY <AGE 13 1984 FAMILY HISTORY Problem Relation Age of Onset Heart Mother Diabetes Mother COPD Mother Asthma Mother Kidney Disease Mother Stroke Mother Heart Failure Mother Stroke Father Diabetes Father Heart Father 34 Diabetes Sister 56 type 1 Diabetes Brother Prediabetes Asthma Brother MVA other (Maria Guadalupe sydrome) Brother 2 Diabetes Maternal Grandmother Alzheimer's Disease Maternal Grandmother Prostate Cancer Maternal Grandfather Heart Paternal Grandmother Diabetes Paternal Grandmother Lung Cancer Paternal Grandfather Social History Tobacco Use Smoking status: Never Passive exposure: Current Smokeless tobacco: Never Vaping Use Vaping Use: Never used Substance Use Topics Alcohol use: Not Currently Drug use: Never Current Outpatient Medications Medication Sig ipratropium bromide (ATROVENT) 42 mcg (0.06 %) nasal spray Use 1 [place] in each nostril three times a day for 7 days. benzonatate (TESSALON PERLES) 100 mg capsule Take 1 capsule by mouth three times a day as needed for cough. dulaglutide (TRULICITY) 1.5 mg/0.5 mL pen injector Inject 1.5 mg subcutaneously one time a week. Inject once per week. Discard Pen After ondansetron orally disintegrating (ZOFRAN ODT) 4 mg disintegrating tablet Take 1 tablet by mouth every 12 hours as needed for nausea/vomiting. fluticasone (FLONASE) 50 mcg/actuation nasal spray Use 1 [place] in each nostril at bedtime as needed for cold/allergy symptoms. As needed flash glucose sensor (FREESTYLE GUZMAN 14 DAY SENSOR) kit 1 Each twice daily. DX E11.65 Insulin No glipiZIDE (GLUCOTROL XL) 10mg 24 hr tablet Take 1 tablet by mouth once daily. No current facility-administered medications for this visit. ALLERGIES Allergen Reactions Bee Sting Swelling Codeine Unknown Doxycycline GI Upset Metformin Intolerance GI upset, diarrhea Prednisone Rash Video Exam (Examination performed via Video enabled technology) General appearance: Alert, oriented, pleasant, in NAD :Yes Ill appearing :No Lethargic appearing :No Eyes: Sclera clear :Yes Conjunctiva without erythema :Yes Ears: Tragus / outer ear tenderness by self palpation :No Oropharynx: normal, no erythema Frontal sinus tenderness by self palpation;Yes Maxillary sinus tenderness by self palpation :Yes Tender cervical adenopathy by self palpation :No Respiratory distress :No Coughing noted :No Audible wheezing noted :No ASSESSMENT/PLAN: 1. Viral URI with cough - ICD9: 465.9, ICD10: J06.9 - Discussed viral etiology and rationale for treatment. - Symptomatic treatment with prn analgesia - Supportive care with fluids and rest - Follow up in one week if symptoms persist or sooner if worsening of symptoms - IPRATROPIUM BROMIDE 42 MCG (0.06 %) NASAL SPRAY - BENZONATATE 100 MG CAPSULE -Allergy medication (Claritin, Zyrtec, Brie-generic is fine) to dry up drainage -Nasal saline to flush out bacteria -Ibuprofen to decrease pressure pain. -Mucinex (generic is fine) 1200 mg twice daily to help with cough and to thin out mucus -http://www.choosingwisely.org/patie nt-resources/antibiotics/. This link shares information about when antibiotics may help and when they may not. - Red flags discussed for need for in person care - All questions answered Danielle Mayorga APRN.CNP If you let us know who your primary care provider is, we will send them a notification of today s visit through our electronic medical records system. Since not all providers have access to our notifications, we strongly encourage you to share the following record of today s visit with your primary care provider at your next visit. This will help in providing you the best care. If you do not have an established Primary Care physician and would like to continue care with a [facility] Virtual Primary Care physician, please ask your provider to place a Establish Primary Care order. Use [employer] to manage your care, wherever you are, 22/10, on your mobile device or computer. [employer] connects you to [facility] so you can access all your health information in one place and also schedule and request virtual appointments with primary care providers. documented in this encounter [facility] 01-16-2023 History of Present illness Narrative This is an Express Care eVisit note for Leonora Cam eVisit/Questionnaire reviewed The chief complaint for the visit - Patient presents with: Sinus Problem Recommendations/Treatment plan - See My Chart Message to patient Time spent <1 min Cyn Rajput APRN.CNP documented in this encounter [facility] 12-11-2022 History of Present illness Narrative Radiology Service Progress Note PATIENT NAME: Leonora Cam DATE OF SERVICE: December 11, 2022 TIME: 9:52 AM PATIENT IDENTITY VERIFICATION COMPLETED USING TWO (2) IDENTIFIERS: Name and Date of confirmed by patient verbally. FALL SCREENING: Has the patient had 2 falls in the last year or 1 fall with injury or currently using an Ambulatory Assistive Device (Walker, Cane, Wheelchair, Crutches, etc.)? No PATIENT GENDER DATA: Female. status: : No status: NO. PATIENT RELEVANT IMPLANT DATA REVIEWED: Not Applicable RADIOLOGY DEPARTMENT: Ultrasound PERIPHERAL IV DATA: Not applicable SIGNED BY: Leisa Neves RDMS RVT December 11, 2022 9:52 AM documented in this encounter [facility] 12-11-2022 History of Present illness Narrative Radiology Service Progress Note PATIENT NAME: Leonora Cam DATE OF SERVICE: December 11, 2022 TIME: 8:42 AM PATIENT IDENTITY VERIFICATION COMPLETED USING TWO (2) IDENTIFIERS: Name and Date of confirmed by patient verbally. FALL SCREENING: Has the patient had 2 falls in the last year or 1 fall with injury or currently using an Ambulatory Assistive Device (Walker, Cane, Wheelchair, Crutches, etc.)? No PATIENT GENDER DATA: Female. status: : No status: NO. PATIENT RELEVANT IMPLANT DATA REVIEWED: Not Applicable RADIOLOGY DEPARTMENT: Mammography PERIPHERAL IV DATA: Not applicable SIGNED BY: Myke Castaneda December 11, 2022 8:42 AM documented in this encounter [facility] 12-11-2022 Miscellaneous Notes Negative follow up imaging documented in this encounter [facility] 10-12-2022 History of Present illness Narrative [employer] offered: Patient declinesKingston Carrillo is a 52 year old No obstetric history on file. who presents for an annual gynecologic exam with complaints, vulvar irritation and concern for prolapse . Postmenopausal: Yes since age 43 HRT use: No. Last Pap: normal HPV: N/A History of abnormal pap: No Last mammogram: 2020 normal History of abnormal mammogram: No Sexually active: Yes Pain with intercourse: some Postcoital bleeding: No OB History No obstetric history on file. Nurse Case Manager History LMP: Age at Menarche: Age at First : Age at Menopause: Nurse Case Manager History Comments: Sexual Activity: No sexual activity data on record; No partner data on record Contraception: No contraception data on record PAST MEDICAL HISTORY Diagnosis Date COVID-19 10/16/2021 Diabetes mellitus (HCC) 2016 PAST SURGICAL HISTORY Procedure Laterality Date LIGATE FALLOPIAN TUBE 2000 PAST SURGICAL HISTORY OF 2015 clamp in R foot (bone shattered) REMOVAL GALLBLADDER 2015 TONSILLECTOMY & ADENOIDECTOMY <AGE 13 1984 FAMILY HISTORY Problem Relation Age of Onset Heart Mother Diabetes Mother COPD Mother Asthma Mother Kidney Disease Mother Stroke Mother Heart Failure Mother Stroke Father Diabetes Father Heart Father 34 Diabetes Sister 56 type 1 Diabetes Brother Prediabetes Asthma Brother MVA other (Maria Guadalupe sydrome) Brother 2 Diabetes Maternal Grandmother Alzheimer's Disease Maternal Grandmother Prostate Cancer Maternal Grandfather Heart Paternal Grandmother Diabetes Paternal Grandmother Lung Cancer Paternal Grandfather SOCIAL HISTORY Social History Tobacco Use Smoking status: Never Passive exposure: Current Smokeless tobacco: Never Substance Use Topics Alcohol use: Never Drug use: Never REVIEW OF SYSTEMS Abdomen: No abdominal pain, nausea, vomiting, diarrhea, or constipation. No bloating, early satiety, indigestion, or increased flatulence. Bladder: No dysuria, gross hematuria, urinary frequency, urinary urgency, or incontinence Breast: No breast lumps, nipple d/c, overlying skin changes, redness or skin retraction and Breast lump(s) noted Allergies and current medication updated:Yes EXAM: There were no vitals taken for this visit. GENERAL: pleasant, female in no apparent distress HEENT: Normocephalic, atraumatic, mucus membranes moist, and no lesions NECK: Supple, full range of motion, no adenopathy, and thyroid normal DERMATOLOGY: Normal, without lesions, non-icteric, and non-hirsute BREAST: soft, non-tender, symmetric, no dominant mass, normal nipple-areolar complex, no lymphadenopathy, and no nipple discharge CHEST: Normal inspiratory effort ABDOMEN: soft, non-tender, and no masses PELVIC: external genitalia normal, normal Bartholin's glands, urethra, [place]'s glands, no vulvar lesions, no cervical lesions, physiologic discharge present, normal appearing perineal body and perianal region, cystocele 1st degree, +red irritation to the right majora BIMANUAL: uterus normal size, shape and consistency, no adnexal masses, and non-tender RECTOVAGINAL: deferred. NEURO: alert and oriented x3,exam grossly non-focal EXTREMITIES: normal ASSESSMENT/PLAN: 1) Health maintenance: Pap done with HPV. Mammogram ordered Nutrition, exercise and routine health maintenance exams reviewed. Calcium/Vitamin D supplementation information provided. Colon cancer screening: doing cologuard 2) Follow up one year or sooner as needed 3) Lotrisone for labial irritation Brittany Lott APRN.HULL MOLDER documented in this encounter [facility] 09-14-2022 Miscellaneous Notes PATIENT NOTIFIED OF SAME. Patient's request for medication is as follows Requested Prescriptions Signed Prescriptions Disp Refills dulaglutide (TRULICITY) 1.5 mg/0.5 mL pen injector 2 mL 1 Sig: Inject 1.5 mg subcutaneously one time a week. Inject once per week. Discard Pen After Authorizing Provider: NERI GRACE Order entered - please phone pharmacy and notify patient. Neri Grace MD This was denied noting pt must have a history to trying at least 120 days of therapy with three preferred medicines they are byetta 5mcg and 10 mcg Victoza 18mg/3ml or trulicity 0.75,1.5mg 3 mg and 4.5mg Which include and not limited to farxiga 5 mg and 10 mg, invokana 100mg and 300mg and jardiance 10 mg and 25mg Leonora Cam (Sánchez: [id number]) - [id number] Ozempic (1 MG/DOSE) 4MG/3ML pen-injectors Outcome: Denied Created: September 11, 2022 [id number] Sent: September 11, 2022 Leonora Cam (Sánchez: [id number]) - [id number] Ozempic (1 MG/DOSE) 4MG/3ML pen-injectors Status: Sent To Plan Created: September 11, 2022 [id number] Sent: September 11, 2022 documented in this encounter [facility] 08-29-2022 Discharge summary Note Date/Time August 29, 2022 11:47pm [facility] Medical Records Department [address] [place] [id number] Emergency Department Summary 08/29/22 MR#: [id number] Acct: [id number] Name: LEONORA CAM Rep #:[id number] : 1970 52 From: Bony Gates MD PCP: Dr. Neri Grace MD Status:R EG ER Location: ED HPI History of Present Illness Chief Complaint: Lower Extremity Injury Narrative Narrative: 52-year-old female presents with injury to her left knee that she sustained approximately 4 hours ago. She states that the dog came [place] at her and knocked her over and took her out. She now has pain in her left knee and the medial meniscal area because she states that her knee twisted. She denies hitting her head or loss of consciousness, or other injury. It took her a few minutes to get up and stand. She now has pain with weightbearing and walking. It is more of a sharp, stabbing pain. Once again, it is located mainly in the medial meniscal area. She has been icing and elevating but still has continued pain. [facility] Medical History Diabetes Home Medications naproxen 500 mg tablet 500 mg PO BID PRN #20 tabs 12/03/15 [Rx Last Taken Unknown] glipizide 10 mg tablet, extended release 24 hr 10 mg PO DAILY diabetes 08/29/22 [History Last Taken Unknown] glipizide 2.5 mg tablet, extended release 24 hr 2.5 mg PO DAILY 08/29/22 [History Last Taken Unknown] Allergy/AdvReac Type Severity Reaction Status Date / Time prednisone Allergy Rash Verified 08/29/22 23:34 Seasonal Allergies: Uncoded Allergy Itching Verified 08/29/22 23:34 codeine AdvReac Upset Verified 08/29/22 23:34 Stomach doxycycline AdvReac Vomiting Verified 08/29/22 23:34 Surgical History History of cholecystectomy History of foot surgery History of tonsillectomy History of tubal ligation Social History Smoking Status: Never smoker ROS ROS ED ROS Narrative Constitutional: No fever, no chills. HEENT: No sore throat. No neck pain. No loss of vision. No rhinorrhea. Cardiovascular: No chest pain. No palpitations. No pedal edema. Respiratory: No cough, no shortness of breath. Abdominal: No abdominal pain. No nausea. No vomiting. Genitourinary: No dysuria. No hematuria. Musculoskeletal: No myalgias. Left knee pain, medial meniscal area, worse with movement especially flexion and extension. Neurologic: No headaches. No dizziness. No lightheadedness. Skin: No rash. No change in color. Psychiatric: No depression. No anxiety. EXAM Physical Exam Narrative Exam Narrative: Afebrile. Vital signs noted. HEENT: Normocephalic. Atraumatic. PERRL, EOMI. Neck soft and supple. No pointtenderness or step off. Cardiovascular: Regular rate and rhythm. No murmurs, rubs, or gallops appreciated. Respiratory: No tachypnea. Lungs clear to auscultation bilaterally. Gastrointestinal: Abdomen soft, nontender, with normoactive bowel sounds. No rebound or guarding. Neurological: Awake. Alert. Nonfocal, nonlateralizing. Skin: No rash. Normal color. No pallor. Musculoskeletal: No pedal edema. Full range of motion extremities. Flexion andextension mechanism left knee intact. Able to lift leg off bed without difficulty. Neurovascularly intact distally with palpable dorsalis pedis pulse. EHL intact. Mild tenderness to palpation left medial meniscal area. No noted crepitance. Const Vital Signs: 08/29/22 23:30 Temperature 97.9 F Temperature Source Temporal Pulse Rate 74 Respiratory Rate 15 Blood Pressure 108/72 Blood Pressure Mean 84 Pulse Ox 97 Oxygen Delivery Method Room Air MDM MDM MDM Narrative Medical decision making narrative: In the differential diagnosis is knee sprain versus internal derangement such asmedial meniscus injury, and also tibial plateau fracture. I have lower suspicion for tibial plateau fracture based on her examination and her ability to move her leg. X-rays will be obtained to help rule out fracture. She was administered ibuprofen 800 mg for analgesia. She has already been icing at home. My independent interpretation of her left knee x-rays in 4 view shows no evidence of acute fracture. I reviewed the radiology report which confirms my independent interpretation is no acute abnormality of the left knee. At this point in time, she was placed in an Júnior wrap for support. She was offered crutches, but declined, stating that she has a walker at home for support that she will use instead. She will follow-up with her primary care physician. She was also referred to orthopedics should her pain continue longer than a week, she may need outpatient imaging such as MRI. I feel she can be discharged safely home with follow-up. Return instructions to the emergency department were reviewed. Disposition is discharged home in stable condition. Radiography Diagnostic Testing: Clinical Impression(s) from Imaging Studies Knee X-Ray 08/29/22 23:53 IMPRESSION: No acute abnormality of the left knee Electronically Signed: Fidel Gallego MD at 0:41 EDT , Discharge Plan Triage Chief Complaint: Lower Extremity Injury ED Provider: Bony Gates Dx/Rx/DC Orders Clinical Impression: Knee sprain, Internal derangement of left knee Instructions: ED Meniscal Injury Knee Poss, ED Knee Sprain Prescriptions: No Action naproxen 500 MG tablet 500 mg PO BID PRN Qty: 20 0RF glipizide 10 mg Tablet Extended Release 24hr 10 mg PO DAILY glipizide 2.5 mg tablet extended release 24hr 2.5 mg PO DAILY Label Comments: TAKE 1 TABLET BY MOUTH ONCE DAILY. TAKE WITH THE 10 MG TABLET FOR A TOTAL DOSE 12.5 MG DAILY Primary Care Provider: Neri Grace Referrals: Juan Manuel Painting DO [Med Staff - Active Staff] - 1 Week if not improving Neri Grace MD [Primary Care Provider] - 1 Week if not improving Disposition Disposition: Home, Self Care What to do if you have Problems For any increased pain, shortness of breath, bleeding, nausea or vomiting, chestpain, or any unexpected problems, contact your Primary Care Provider. Call [facility] ([phone]) or report to the closest Emergency Room. Call 911 if necessary. 08/30/22 0046 <Electronically signed by Bony Gates MD> Cosigner Signature (if applicable): CC: Dr. Neri Grace MD ~ Signed [facility] Work Phone: 1(330) 236-819803-04-2023 History of Present illness Narrative* Amanda Killian APRN.CNP - 06/02/2022 12:25 PM EST This is an [facility] eVisit note for Leonora Cam eVisit/Questionnaire reviewed The chief complaint for the visit - Patient presents with: Sinus Problem Recommendations/Treatment plan - Rx as below plus self care. See My Chart Message to patient. Recommendation for follow up - PRN The following approved medication requests have been transmitted electronically. Requested Prescriptions Signed Prescriptions Disp Refills amoxicillin-clavulanic acid (AUGMENTIN) 875-125 mg per tablet 10 tablet 0 Sig: Take 1 tablet by mouth twice daily for 5 days. Amanda Killian APRN.CNP Total time spent on evisit: 5 to 10 mins [facility] History of Present illness Narrative* Horace Sahni PA-C - 05/31/2022 11:36 AM EST This is an [facility] eVisit note for Leonora Dyllan Cam eVisit/Questionnaire reviewed The chief complaint for the visit - Patient presents with: Sinus Problem Recommendations/Treatment plan - Rx as below plus self care. See My Chart Message to patient. Recommendation for follow up - PRN The following approved medication requests have been transmitted electronically. Requested Prescriptions Signed Prescriptions Disp Refills fluticasone (FLONASE) 50 mcg/actuation nasal spray Sig: Use 1 [place] in each nostril daily at bedtime. dextromethorphan polistirex ER (DELSYM) 30 mg/5 mL oral liquid Sig: Take 10 mL by mouth twice daily. 5 Minutes of time spent during this encounter. Horace Sahni PA-C [facility] Miscellaneous Notes* Telephone Encounter - Annalise Lindsey RN - 04/17/2022 5:16 PM EST PATIENT NOTIFIED OF INFORMATION * Telephone Encounter - Mariana Sánchez RN - 04/17/2022 4:45 PM EST VM left for patient to call PCP office and ask for nurse, for message below. Mariana Sánchez RN * Telephone Encounter - Michelle Doran APRN.CNS - 04/17/2022 4:34 PM EST Note BS reading. Endorse DM diet and routine exercise such as walking if not currently doing. Sent prescription for glipizide 2.5 mg, she can take this along with 10 mg tablet for total of 12.5mg daily. * Telephone Encounter - Mariana Sánchez RN - 04/17/2022 11:21 AM EST Patient saw Michelle Doran CNP on 03/13/22, to establish care with Dr. Grace. Pt calling and states she started glucotrol XL 10 mg daily several weeks ago and wanted to update provider with recentLibre monitor blood sugar results: 04/12 6nq=172 2aq=989 6gu=989 10:12nj=354 04/13 2xu=151 8:29uk=208 8ay=678 11:49gg=942 04/14 10ir=456 7pm=86 1xj=265 04/15 8:17mn=804 5wf=799 4ay=328 04/16 0ab=049 6qf=267 11:65mx=956 04/17 64to=132 1nk=231 2gx=246 Pt states when her sugars are higher she gets a exploding headache but no other symptoms. Pt has diabetes follow-up appt with Dr. Grace in May. Will send message to Michelle Doran at Dr. Grace to advise pt if needed. Thank you. [facility] Miscellaneous Notes* Telephone Encounter - Michelle Doran APRN.CNS - 04/16/2022 7:18 AM EST Rx sent * Telephone Encounter - Yolanda Mayberry LPN - 04/14/2022 10:18 AM EST Last office visit: 03/13/22 Next appointment scheduled: 09/11/22 Last labs: 10/11/21 last GHBA1C Patient states she will pay for this out of pocket. Patient phones requesting refills as follows: Requested Prescriptions Pending Prescriptions Disp Refills flash glucose sensor (FREESTYLE GUZMAN 14 DAY SENSOR) kit 1 Each 0 Si Each twice daily. DX E11.65 Insulin No Please review and advise. Yolanda Mayberry LPN [facility] Miscellaneous Notes* Telephone Encounter - Daniela Guzman Ma - 04/03/2022 12:25 PM EST PA denied insurance will only pay if doing 3 or more insulin injections a day. Patient was notified Daniela Guzman Ma * Telephone Encounter - Neri Grace MD - 03/29/2022 9:12 AM EST This can wait for Luis E. I have not even seen this lady. Is she supposed to be for Dr. Matthews? Why am I listed PCP? * Telephone Encounter - Daniela Guzman Ma - 03/28/2022 3:13 PM EST PA submitted electronically Daniela Guzman Ma * Telephone Encounter - Beverly Watson RN - 03/28/2022 2:51 PM EST Patient calling back to say she spoke with her insurance company and Guzman 2 system will be coveredif a prior authorization is sent. PRIOR AUTHORIZATION Medication for Prior Authorization: Guzman 2 and sensors Other formulary meds available : NO Insurance Company: [employer] 27 bards phone number: [phone] Patient insurance ID number: [id number] Beverly Watson RN * Telephone Encounter - Aleksandra Jenkins LPN - 03/28/2022 1:08 PM EST Patient calling to check status of request. Aware Michelle Doran INTRAOPERATIVE NEURO TECH is out of office and request was forwarded to Dr Grace. Patient said she has coupon for free sensor and can down load the james to use smart phone for the reader. Patient is going to check with her insurance to see if continuing with the sensor would be covered. Patient uses [facility] for her pharmacy. Pharmacy will notgive free sensor without rx. Patient phone number is [phone]. Pending rx to file. [facility] Miscellaneous Notes* Telephone Encounter - Michelle Doran APRN.CNS - 03/19/2022 4:25 PM EST It was sent this a.m. * Telephone Encounter - Neida Lynch LPN - 03/19/2022 9:30 AM EST Patient notified of providers message and verbalized understanding. Patient is requesting a refill of glipizide be sent to pharmacy. Prescription pending. * Telephone Encounter - Michelle Doran APRN.CNS - 03/19/2022 7:02 AM EST Will resume glipizide at previous dose. Recheck A1c at 3 months. If remains above target will make adjustment at that time. In the meantime endorse DM diet and routine exercise such as walking to help keep blood sugar in check. * Telephone Encounter - Yola Kline RN - 03/16/2022 4:46 PM EST Pt called and is notified of providers results and instructions. Pt voices understanding. She states she thinks she is going to have to come off the Metformin due to the bathroom issues and go back on the Glipizide. She states she thinks it may need to be increased because he A1C has gone up from where it had been before and she has been trying to watch her carbs and drink more water.Pt would like the medication sent to the [facility] in [place]. Yola Kline RN * Telephone Encounter - Michelle Doran, TANK SHOP SUPERVISOR.DIRECTOR DATABASE - 03/16/2022 4:29 PM EST Please let her know CBC within normal limits. Metabolic panel shows glucose is elevated. KyzsunsmfsJ3l is 7.5%. Check to see if she is tolerating metformin or if needing to fill prescription for glipizide. Recheck A1c in 6 months Component Latest Ref Rng & Units 03/13/2022 WBC 3.70 - 11.00 k/uL 8.38 RBC 3.90 - 5.20 m/uL 4.47 Hemoglobin 11.5 - 15.5 g/dL 13.1 Hematocrit 36.0 - 46.0 % 41.3 MCV 80.0 - 100.0 fL 92.4 MCH 26.0 - 34.0 pg 29.3 MCHC 30.5 - 36.0 g/dL 31.7 RDW-CV 11.5 - 15.0 % 12.8 Platelet Count 150 - 400 k/uL 369 MPV 9.0 - 12.7 fL 10.5 Neut% % 61.0 Abs Neut (ANC) 1.45 - 7.50 k/uL 5.11 Lymph% % 30.3 Abs Lymph 1.00 - 4.00 k/uL 2.54 [place]% % 5.4 Abs [place] <0.87 k/uL 0.45 Eosin% % 2.4 Abs Eosin <0.46 k/uL 0.20 Baso% % 0.7 Abs Baso <0.11 k/uL 0.06 Immature Gran % % 0.2 IMMATURE GRANS (ABS) <0.10 k/uL <0.03 NRBC /100 WBC 0.0 Absolute nRBC <0.01 k/uL <0.01 DTYPE Auto Protein, Total 6.3 - 8.0 g/dL 6.5 Albumin 3.9 - 4.9 g/dL 4.2 Calcium 8.5 - 10.2 mg/dL 9.1 Bilirubin, Total 0.2 - 1.3 mg/dL 0.3 Alkaline Phosphatase 34 - 123 U/L 109 AST 13 - 35 U/L 15 ALT 7 - 38 U/L 21 Glucose 74 - 99 mg/dL 176 (H) BUN 7 - 21 mg/dL 10 Creatinine 0.58 - 0.96 mg/dL 0.56 (L) Sodium 136 - 144 mmol/L 138 Potassium 3.7 - 5.1 mmol/L 4.4 Chloride 97 - 105 mmol/L 101 CO2 22 - 30 mmol/L 27 Anion Gap 9 - 18 mmol/L 10 eGFR >=60 mL/min/1.73m 111 Total Cholesterol, Nonfasting <200 mg/dL 180 Triglycerides, Nonfasting <150 mg/dL 126 HDL Cholesterol, Nonfasting >39 mg/dL 47 LDL Cholesterol, Nonfasting <100 mg/dL 108 (H) Non HDL Cholesterol, Nonfasting <130 mg/dL 133 (H) VLDL Cholesterol, Nonfasting <30 mg/dL 25 Total Chol/HDL Ratio, Nonfasting <5.10 mg/dL 3.83 LDL/HDL Ratio, Nonfasting <2.54 mg/dL 2.30 Creatinine, Ur Random (UCRR) 20.0 - 300.0 mg/dL 34.9 Albumin, Urine Random mg/L <12.0 Albumin/Creat Ratio Hemoglobin A1C 4.3 - 5.6 % 7.5 (H) Estimated Average Glucose mg/dL 169 Hep C Antibody IA Negative Negative [facility] History of Present illness Narrative* Michelle Doran APRN.CNS - 03/13/2022 1:00 PM EST SUBJECTIVE: HEPATITIS B(1 of 3 - 3-dose series) Never done COVID-19 VACCINE(1) Never done HEPATITIS C SCREENING Never done HIV SCREENING Never done DTAP,TDAP,TD(1 - Tdap) Never done PAP TESTING Never done HPV TESTING Never done MAMMOGRAM Never done LIPID SCREEN due on 06/06/2016 DIABETES SCREEN due on 06/06/2016 COLORECTAL CANCER SCREENING Never done DEPRESSION ASSESSMENT Never done SHINGRIX VACCINE(1 of 2) Never done INFLUENZA(1) Never done HPI Leonora Cam is a 51 year old female. PMH significant for There is no problem list on file for this patient. Presents today to establish care with Neri Grace MD Previous PCP:Franca Breaux / Dr Talbert Last seen: 1 year ago, says discharged from previous practice, not sure why Labwork: 1year ago ER/Hospitalization: none reported Outside records: no Reports Covid this summer, has noted lymph node in right axilla since that time. Notes glipizide in the past, states was not controlling BS as well recently. Has not taken for a week. Reports home readings recently 150-250. Reports GI upset/diarrhea with metformin 1000mg in the past, not sure if short or long acting formulation. DIABETES MELLITUS: Without report of excessive thirst or increased frequency of urination, chest pain or dyspnea , numbness, tingling or pain in extremities, new or unusual visual symptoms, low sugar/hypoglycemic reactions, weight loss/gain, lightheadedness/dizziness, and bowel changes/loose stools. Patient's last HgA1C was HBA1C, [place] (%) Date Value 09/25/2006 5.0 ) Goes to [facility] for eye exams. Review of Systems Constitutional: Negative. Objective BP 132/80 Pulse 68 Resp 16 Ht 161.3 cm (5' 3.5) Wt 112.5 kg (248 lb) BMI 43.24 kg/m Physical Exam Vitals and nursing note reviewed. Constitutional: Appearance: Normal appearance. HENT: Head: Normocephalic and atraumatic. Eyes: Conjunctiva/sclera: Conjunctivae normal. Neck: Thyroid: No thyromegaly. Vascular: Normal carotid pulses. No JVD. Cardiovascular: Rate and Rhythm: Normal rate and regular rhythm. Pulses: Carotid pulses are 2+ on the right side and 2+ on the left side. Radial pulses are 2+ on the right side and 2+ on the left side. Heart sounds: Normal heart sounds. Pulmonary: Effort: Pulmonary effort is normal. Breath sounds: Normal breath sounds. Abdominal: General: Bowel sounds are normal. Palpations: Abdomen is soft. Musculoskeletal: Right lower leg: No edema. Left lower leg: No edema. Skin: General: Skin is warm and dry. Neurological: General: No focal deficit present. Mental Status: She is alert and oriented to person, place, and time. ALLERGIES Allergen Reactions Bee Pollen Swelling Codeine Unknown Doxycycline GI Upset Prednisone Rash elevated blood sugars Seasonal Allergies Unknown Medication glipiZIDE (GLUCOTROL XL) 10mg 24 hr tablet Take 10 mg by mouth once daily. PAST MEDICAL HISTORY Diagnosis Date Diabetes mellitus (HCC) PAST SURGICAL HISTORY Procedure Laterality Date PAST SURGICAL HISTORY OF clamp in R foot (bone shattered) REMOVAL GALLBLADDER REMOVAL OF OVARY/TUBE(S) TONSILLECTOMY & ADENOIDECTOMY <AGE 13 Social History Tobacco Use Smoking status: Never Passive exposure: Current Smokeless tobacco: Never Substance Use Topics Alcohol use: Never Drug use: Never FAMILY HISTORY Problem Relation Age of Onset Heart Mother Diabetes Mother COPD Mother Asthma Mother Kidney Disease Mother Stroke Mother Stroke Father Diabetes Father Heart Father Diabetes Sister Asthma Brother Diabetes Maternal Grandmother Alzheimer's Disease Maternal Grandmother Prostate Cancer Maternal Grandfather Heart Paternal Grandmother Diabetes Paternal Grandmother Lung Cancer Paternal Grandfather ASSESSMENT/PLAN: 1. Controlled type 2 diabetes mellitus with hyperglycemia, unspecified whether senior living insulin use (HCC) - ICD9: 250.80, 790.29, ICD10: E11.65 (primary diagnosis) - Continue current medications - Check HgA1C and fasting lipid panel - Blood glucose monitoring on a once a day schedule - COMP METABOLIC PANEL - CBC + DIFF - HGB A1C - ALBUMIN/CREAT RATIO RND UR - LIPID PANEL, NONFASTING - CONSULT TO OPHTHALMOLOGY 2. Encounter for immunization - ICD9: V03.89, ICD10: Z23 - HEPLISAV B (HEPATITIS B, ADJUVANT, ADULT) - TDAP VACCINE AGE 7+ IM - ZOSTER VACC RECOMBINANT,IM - INFLUENZA VACCINE QUADRIVALENT 6 MO - 64 YRS IM 3. Special screening examination for viral disease - ICD9: V73.99, ICD10: Z11.59 - HEP C AB IA W/CONF SCRN 4. Screening for HIV (human immunodeficiency virus) - ICD9: V73.89, ICD10: Z11.4 declined 5. Screening for cervical cancer - ICD9: V76.2, ICD10: Z12.4 Endorse routine BSE - CONSULT TO PAINTER SUPERVISOR 6. Encounter for screening mammogram for breast cancer - ICD9: V76.12, ICD10: Z12.31 - WILLIAM SCREENING - WILLIAM DIAGNOSTIC BILAT - US BREAST LTD RT 7. Screening for colon cancer - ICD9: V76.51, ICD10: Z12.11 8. Mass of right axilla - ICD9: 782.2, ICD10: R22.31 Reports persisting since summer - WILLIAM DIAGNOSTIC BILAT - US BREAST LTD RT 9. Routine medical exam - ICD9: V70.0, ICD10: Z00.00 - Counseled on healthy diet and regular exercise - Calcium intake with supplements or by diet of 1000 mg/day for under 50, 1200- 1500 mg/day for 50+ Michelle Doran APRN.CNS Medical Decision Making: Problems: Low: Acute, uncomplicated illness or injury Moderate: 1+ chronic illnesses with change Data: Unique test(s) ordered: 3+ Risk: Moderate: Drug management Medical Decision Making Level: 4 - Moderate [facility] Diagnosis Controlled type 2 diabetes mellitus with hyperglycemia, unspecified whether buttermaker continuous churn insulin use (HCC)- Primary Encounter for immunization Need for other specified prophylactic vaccination against single bacterial disease Special screening examination for viral disease Special screening examination for unspecified viral disease Screening for HIV (human immunodeficiency virus) Special screening examination for other specified viral diseases Screening for cervical cancer Screening for malignant neoplasm of the cervix Encounter for screening mammogram for breast cancer Screening for colon cancer Special screening for malignant neoplasms, colon Mass of right axilla Routine medical exam Routine general medical examination at a health care facility documented in this encounter [facility]* Diagnosis Controlled type 2 diabetes mellitus with hyperglycemia, unspecified whether buttermaker continuous churn insulin use (HCC)- Primary documented in this encounter [facility]* Diagnosis Controlled type 2 diabetes mellitus with hyperglycemia, unspecified whether buttermaker continuous churn insulin use (HCC)- [facility] Diagnosis Controlled type 2 diabetes mellitus with hyperglycemia, unspecified whether senior living insulin use (HCC) [facility] Diagnosis Type 2 diabetes mellitus without complication, without long-term current use of insulin (HCC)- Primary [facility] Diagnosis Sinus problem- Primary Unspecified sinusitis (chronic) [facility]* Diagnosis Other sinusitis- Primary [facility] noteNo assessment information [facility] Work Phone: Evaluation note* Diagnosis Type 2 diabetes mellitus without complication, without long-term current use of insulin (HCC)- Primary [facility] Diagnosis Encounter for gynecological examination (general) (routine) without abnormal findings- Primary Screening for cervical cancer Screening for malignant neoplasm of the cervix Encounter for screening for human papillomavirus (HPV) Special screening examination for human papillomavirus (HPV) Pap smear for cervical cancer screening Screening for malignant neoplasm of the cervix Encounter for screening mammogram for breast cancer [facility] Diagnosis Treatment not available- Primary Procedure not carried out for other reasons [facility] Diagnosis Viral URI with cough- Primary Acute upper respiratory infections of unspecified site [facility] Diagnosis Encounter for screening mammogram for breast cancer [facility] Diagnosis Encounter for screening mammogram for breast cancer Mass of right axilla [facility] Diagnosis Controlled type 2 diabetes mellitus with hyperglycemia, unspecified whether senior living insulin use (HCC) [facility] Diagnosis Obesity, Class III, BMI 40-49.9 (morbid obesity) (HCC)- Primary Morbid obesity Type 2 diabetes mellitus without complication, without long-term current use of insulin (HCC) Dietary counseling and surveillance Dietary surveillance and counseling [facility] Diagnosis Obesity, Class III, BMI 40-49.9 (morbid obesity) (HCC)- Primary Morbid obesity [facility]* Diagnosis Obesity, Class III, BMI 40-49.9 (morbid obesity) (HCC) Morbid obesity [facility]* Diagnosis Body mass index 40.0-44.9, adult (HCC)- Primary Body Mass Index 40.0-44.9, adult Type 2 diabetes mellitus without complication, without long-term current use of insulin (HCC) [facility]* Diagnosis Obesity, Class III, BMI 40-49.9 (morbid obesity) (HCC) Morbid obesity [facility] Diagnosis Obesity, Class III, BMI 40-49.9 (morbid obesity) ([facility])- Primary Morbid obesity Type 2 diabetes mellitus without complication, without long-term current use of insulin ([facility]) Dietary counseling and surveillance Dietary surveillance and counseling documented in this encounter [facility]* Diagnosis Class 3 severe obesity due to excess calories with serious comorbidity and body mass index (BMI) of 40.0 to 44.9 in adult ([facility])- Primary Pre-operative examination Preoperative examination, unspecified documented in this encounter [facility]* Diagnosis COVID-19- Primary documented in this encounter [facility]* Diagnosis Pre-operative examination- Primary Preoperative examination, unspecified Type 2 diabetes mellitus without complication, without long-term current use of insulin ([facility]) Gastroesophageal reflux disease, unspecified whether esophagitis present History of COVID-19 Obesity, Class III, BMI >= 40 Morbid obesity Class 3 severe obesity due to excess calories with serious comorbidity and body mass index (BMI) of 40.0 to 44.9 in adult ([facility]) Pre-operative examination Preoperative examination, unspecified * Assessment & Plan Note - Oneyda Casillas APRN.CNP - 12/11/2023 2:44 PM EDT Associated Problem(s): Obesity, Class III, BMI >= 40 Assessment: Body mass index is 43.4 kg/m . * Assessment & Plan Note - Oneyda Casillas APRN.CNP - 12/11/2023 2:43 PM EDT Associated Problem(s): History of COVID-19 Assessment: +home test 11/20/2023, tx with Paxlovid by PCP. Pt states all symptoms have resolved * Assessment & Plan Note - Oneyda Casillas APRN.CNP - 12/11/2023 2:41 PM EDT Associated Problem(s): GERD (gastroesophageal reflux disease) Assessment: otc rx as needed * Assessment & Plan Note - Oneyda Casillas APRN.CNP - 12/11/2023 2:40 PM EDT Associated Problem(s): Type 2 diabetes mellitus without complication, without long-term current useof insulin (HCC) Assessment: controlled on oral agent Hemoglobin A1C (%) Date Value 09/10/2023 7.4 HBA1C, Keshia (%) Date Value 09/25/2006 5.0 documented in this encounter [facility]* Diagnosis Pre-operative examination- Primary Preoperative examination, unspecified Type 2 diabetes mellitus without complication, without long-term current use of insulin ([facility]) Gastroesophageal reflux disease, unspecified whether esophagitis present History of COVID-19 Obesity, Class III, BMI >= 40 Morbid obesity Obesity, Class III, BMI 40-49.9 (morbid obesity) ([facility])- Primary Morbid obesity Dietary counseling and surveillance Dietary surveillance and counseling Class 3 severe obesity due to excess calories with serious comorbidity and body mass index (BMI) of 40.0 to 44.9 in adult ([facility]) Pre-operative examination Preoperative examination, unspecified documented in this encounter [facility]* Diagnosis Pre-operative examination- Primary Preoperative examination, unspecified Type 2 diabetes mellitus without complication, without long-term current use of insulin (HCC) Gastroesophageal reflux disease, unspecified whether esophagitis present History of COVID-19 Obesity, Class III, BMI >= 40 Morbid obesity Class 3 severe obesity due to excess calories with serious comorbidity and body mass index (BMI) of 40.0 to 44.9 in adult (HCC)- Primary Type 2 diabetes mellitus without complication, without long-term current use of insulin (HCC) Pre-operative examination Preoperative examination, unspecified Mixed hyperlipidemia Class 3 severe obesity due to excess calories with serious comorbidity and body mass index (BMI) of 40.0 to 44.9 in adult ([facility]) Pre-operative examination Preoperative examination, unspecified documented in this encounter [facility]* Diagnosis Pre-operative examination- Primary Preoperative examination, unspecified Type 2 diabetes mellitus without complication, without long-term current use of insulin (HCC) Gastroesophageal reflux disease, unspecified whether esophagitis present History of COVID-19 Obesity, Class III, BMI >= 40 Morbid obesity Postoperative pain- Primary Other acute postoperative pain documented in this encounter [facility]* Diagnosis Pre-operative examination- Primary Preoperative examination, unspecified Type 2 diabetes mellitus without complication, without long-term current use of insulin (HCC) Gastroesophageal reflux disease, unspecified whether esophagitis present History of COVID-19 Obesity, Class III, BMI >= 40 Morbid obesity Bariatric surgery status- Primary documented in this encounter [facility]* Diagnosis Pre-operative examination- Primary Preoperative examination, unspecified Type 2 diabetes mellitus without complication, without long-term current use of insulin (HCC) Gastroesophageal reflux disease, unspecified whether esophagitis present History of COVID-19 Obesity, Class III, BMI >= 40 Morbid obesity S/P gastric bypass- Primary Bariatric surgery status Impaired intestinal absorption Unspecified intestinal malabsorption Obesity, Class III, BMI 40-49.9 (morbid obesity) (HCC) Morbid obesity Dietary counseling and surveillance Dietary surveillance and counseling documented in this encounter [facility]* Diagnosis Pre-operative examination- Primary Preoperative examination, unspecified Type 2 diabetes mellitus without complication, without long-term current use of insulin (HCC) Gastroesophageal reflux disease, unspecified whether esophagitis present History of COVID-19 Obesity, Class III, BMI >= 40 Morbid obesity Encounter for screening mammogram for breast cancer documented in this encounter [facility]* Diagnosis Pre-operative examination- Primary Preoperative examination, unspecified Type 2 diabetes mellitus without complication, without long-term current use of insulin (HCC) Gastroesophageal reflux disease, unspecified whether esophagitis present History of COVID-19 Obesity, Class III, BMI >= 40 Morbid obesity S/P gastric bypass- Primary Bariatric surgery status Impaired intestinal absorption Unspecified intestinal malabsorption Obesity, Class II, BMI 35-39.9 Obesity, unspecified Dietary counseling and surveillance Dietary surveillance and counseling documented in this encounter [facility]* Diagnosis Pre-operative examination- Primary Preoperative examination, unspecified Type 2 diabetes mellitus without complication, without long-term current use of insulin (HCC) Gastroesophageal reflux disease, unspecified whether esophagitis present History of COVID-19 Obesity, Class III, BMI >= 40 Morbid obesity NO SHOW- Primary documented in this encounter [facility]* Diagnosis Pre-operative examination- Primary Preoperative examination, unspecified Type 2 diabetes mellitus without complication, without long-term current use of insulin (HCC) Gastroesophageal reflux disease, unspecified whether esophagitis present History of COVID-19 Obesity, Class III, BMI >= 40 Morbid obesity S/P gastric bypass- Primary Bariatric surgery status Need for influenza vaccination Need for prophylactic vaccination and inoculation against influenza Controlled type 2 diabetes mellitus with hyperglycemia, unspecified whether buttermaker continuous churn insulin use (HCC) Seasonal allergies Allergic rhinitis, cause unspecified Postnasal drip Type 2 diabetes mellitus without complication, without long-term current use of insulin (HCC) Gastroesophageal reflux disease, unspecified whether esophagitis present Screening for depression Encounter for screening examination for other mental health and behavioral disorders Vitamin D deficiency Unspecified vitamin D deficiency documented in this encounter [facility]* Diagnosis Pre-operative examination- Primary Preoperative examination, unspecified Type 2 diabetes mellitus without complication, without long-term current use of insulin (HCC) Gastroesophageal reflux disease, unspecified whether esophagitis present History of COVID-19 Obesity, Class III, BMI >= 40 Morbid obesity S/P gastric bypass- Primary Bariatric surgery status Obesity, Class II, BMI 35-39.9 Obesity, unspecified documented in this encounter [facility]* Diagnosis Pre-operative examination- Primary Preoperative examination, unspecified Type 2 diabetes mellitus without complication, without long-term current use of insulin (HCC) Gastroesophageal reflux disease, unspecified whether esophagitis present History of COVID-19 Obesity, Class III, BMI >= 40 Morbid obesity S/P gastric bypass- Primary Bariatric surgery status Nausea and vomiting, unspecified vomiting type Epigastric pain Abdominal pain, epigastric documented in this encounter [facility]* Diagnosis Pre-operative examination- Primary Preoperative examination, unspecified Type 2 diabetes mellitus without complication, without long-term current use of insulin (HCC) Gastroesophageal reflux disease, unspecified whether esophagitis present History of COVID-19 Obesity, Class III, BMI >= 40 Morbid obesity S/P gastric bypass- Primary Bariatric surgery status Nausea and vomiting, unspecified vomiting type Epigastric pain Abdominal pain, epigastric Anastomotic ulcer S/P gastric bypass documented in this [facility]* Diagnosis Pre-operative examination- Primary Preoperative examination, unspecified Type 2 diabetes mellitus without complication, without long-term current use of insulin (HCC) Gastroesophageal reflux disease, unspecified whether esophagitis present History of COVID-19 Obesity, Class III, BMI >= 40 Morbid obesity Type 2 diabetes mellitus without complication, without long-term current use of insulin (HCC)- Primary Gastroesophageal reflux disease, unspecified whether esophagitis present Encounter for immunization Need for other specified prophylactic vaccination against single bacterial disease Encounter for screening mammogram for breast cancer Screening for colon cancer Special screening for malignant neoplasms, colon [facility] Diagnosis Pre-operative examination- Primary Preoperative examination, unspecified Type 2 diabetes mellitus without complication, without long-term current use of insulin (HCC) Gastroesophageal reflux disease, unspecified whether esophagitis present History of COVID-19 Obesity, Class III, BMI >= 40 Morbid obesity S/P gastric bypass- Primary Bariatric surgery status Anastomotic ulcer S/P gastric bypass [facility] Diagnostic Procedure Only (Routine) - Pending Review Specialty Diagnoses / Procedures Referred By Bart spaulding Referred To Contact [facility] Diagnoses Encounter for screening mammogram for breast cancer Mass of right axilla Procedures US BREAST LTD RT US BREAST UNI REAL TIME WITH IMAGE LIMITED Michelle Doran APRN.CNS [address] [place] [address] [facility] [address] [place] [address] Referral ID Status Reason Start Date Expiration Date Visits Requested Visits Authorized [id number] Pending Review Auto-Generat ed Referral 04/12/2023 1 1 * Diagnostic Procedure Only (Routine) - Pending Review Specialty Diagnoses / Procedures Referred By Bart spaulding Referred To Contact [facility] Diagnoses Encounter for screening mammogram for breast cancer Mass of right axilla Procedures WILLIAM DIAGNOSTIC BILAT DIAGNOSTIC MAMMOGRAPHY COMPUTER-AIDED DETCJ BI Michelle Doran APRN.CNS [address] [place] [address] [facility] [address] [place] [address] Referral ID Status Reason Start Date Expiration Date Visits Requested Visits Authorized [id number] Pending Review Auto-Generat ed Referral 2 04/12/2023 1 1 * Consult, Test, Treat (Routine) - Pending Review Specialty Diagnoses / Procedures Referred By Bart spaulding Referred To Contact Ophthalmology Diagnoses Controlled type 2 diabetes mellitus with hyperglycemia, unspecified whether senior living insulin use (HCC) Procedures CONSULT TO OPHTHALMOLOGY OFFICE/OUTPATIENT [facility] 60-74 MINUTES Michelle Doran APRN.DIRECTOR DATABASE [address] [place] [address] Referral ID Status Reason Start Date Expiration Date Visits Requested Visits Authorized [id number] Pending Review PCP Requested Referral 2 03/13/2023 1 1 * Consult, Test, Treat (Routine) - Pending Review Specialty Diagnoses / Procedures Referred By Bart spaulding Referred To Contact Diagnoses Screening for cervical cancer Procedures CONSULT TO PAINTER SUPERVISOR OFFICE/OUTPATIENT [facility] 60-74 MINUTES Michelle Doran APRN.DIRECTOR DATABASE [address] [place] [address] Referral ID Status Reason Start Date Expiration Date Visits Requested Visits Authorized [id number] Pending Review PCP Requested Referral Auto-Generate d Referral 2 03/13/2023 1 1 * Diagnostic Procedure Only (Routine) - Pending Review Specialty Diagnoses / Procedures Referred By Bart spaulding Referred To Contact [facility] Diagnoses Encounter for screening mammogram for breast cancer Procedures WILLIAM SCREENING SCREENING MAMMOGRAPHY BI 2-VIEW BREAST INC CAD Michelle Doran APRN.DIRECTOR DATABASE [address] [place] [address] [facility] [address] [place] [address] Referral ID Status Reason Start Date Expiration Date Visits Requested Visits Authorized [id number] Pending Review Auto-Generat ed Referral 2 04/12/2023 1 1 [facility] for referral (narrative)* Diagnostic Procedure Only (Routine) - Authorized Specialty Diagnoses / Procedures Referred By Contdomingo t Referred To Contact [facility] Diagnoses Encounter for screening mammogram for breast cancer Procedures WILLIAM SCREENING SCREENING MAMMOGRAPHY BI 2-VIEW BREAST INC CAD Brittany Lott APRN.CNP [address] [place] [address] [facility] [address] [place] [address] Referral ID Status Reason Start Date Expiration Date Visits Requested Visits Authorized [id number] Authorized Auto-Generat ed Referral 10/12/2022 11/11/2023 1 1 [facility] for referral (narrative)* Outpatient Procedure (Routine) - Pending Review Specialty Diagnoses / Procedures Referred By Bart t Referred To Contact [facility] Diagnoses Obesity, Class III, BMI 40-49.9 (morbid obesity) (HCC) Procedures ECG COMPLETE ECG ROUTINE ECG W/LEAST 12 LDS W/I&R Noris Lawrence APRN.HULL MOLDER [address] [place] [address] [facility] [place] [address] [place] [address] Referral ID Status Reason Start Date Expiration Date Visits Requested Visits Authorized [id number] Pending Review Auto-Generat ed Referral 09/09/2023 09/08/2024 1 1 T [facility] for referral (narrative)* Diagnostic Procedure Only (Routine) - New Request Specialty Diagnoses / Procedures Referred By Contdomingo t Referred To Contact [facility] Diagnoses Encounter for screening mammogram for breast cancer Procedures WILLIAM SCREENING W MORGAN SCREENING DIGITAL BREAST TOMOSYNTHESIS BI SCREENING MAMMOGRAPHY BI 2-VIEW BREAST INC CAD Neri Grace MD [address] [place] [address] [facility] [address] [place] [address] Referral ID Status Reason Start Date Expiration Date Visits Requested Visits Authorized [id number] New Request Auto-Generat ed Referral 02/13/2025 1 1 [facility] for visit Narrative* Diagnostic Procedure Only (Routine) - Closed Specialty Diagnoses / Procedures Referred By Contac t Referred To Contact [facility] Diagnoses Encounter for screening mammogram for breast cancer Procedures WILLIAM SCREENING SCREENING MAMMOGRAPHY BI 2-VIEW BREAST INC CAD Brittany Lott, TANK SHOP SUPERVISOR.HULL MOLDER [address] [place] [address] [facility] [address] [place] [address] Referral ID Status Reason Start Date Expiration Date V isits Requested Visits Authorized [id number] Closed Auto-Generate d Referral 10/12/2022 11/11/2023 1 1 [facility] for visit Narrative* Diagnostic Procedure Only (Routine) - Closed Specialty Diagnoses / Procedures Referred By Bart t Referred To Contact [facility] Diagnoses Encounter for screening mammogram for breast cancer Mass of right axilla Procedures WILLIAM DIAGNOSTIC BILAT DIAGNOSTIC MAMMOGRAPHY COMPUTER-AIDED DETCJ BI Michelle Doran, TANK SHOP SUPERVISOR.DIRECTOR DATABASE [address] [place] [address] [facility] [address] [place] [address] Referral ID Status Reason Start Date Expiration Date V isits Requested Visits Authorized [id number] Closed Auto-Generate d Referral 03/13/2022 04/12/2023 1 1 [facility] for visit Narrative* Diagnostic Procedure Only (Routine) - Closed Specialty Diagnoses / Procedures Referred By Billac t Referred To Contact Radiology / [facility] Diagnoses chest Procedures XR CHEST Noris Lawrence, TANK SHOP SUPERVISOR.HULL MOLDER [address] [place] [address] Radio General [facility] [address] [place] [address] Referral ID Status Reason Start Date Expiration Date Visits Re quested Visits Authorized [id number] Closed 09/10/2023 12/09/2023 1 1 [facility] for visit Narrative* Outpatient Procedure (Routine) - Closed Specialty Diagnoses / Procedures Referred By Bart t Referred To Contact [facility] Diagnoses S/P gastric bypass Nausea and vomiting, unspecified vomiting type Epigastric pain Procedures EGD DIAGNOSTIC ESOPHAGOGASTRODUODENOSC OPY TRANSORAL DIAGNOSTIC Bridger Hill MD [address] [place] [address] Phone: tel: fax: [facility] [address] [place] [address] Referral ID Status Reason Start Date Expiration Date V isits Requested Visits Authorized [id number] Closed Auto-Generate d Referral 05/28/2024 05/28/2025 1 1 [facility] for visit Narrative* Outpatient Procedure (Routine) - Closed Specialty Diagnoses / Procedures Referred By Bart spaulding Referred To Contact [facility] Diagnoses S/P gastric bypass Anastomotic ulcer S/P gastric bypass Procedures EGD BARIATRIC ESOPHAGOGASTRODUODENOSC OPY TRANSORAL DIAGNOSTIC Bridger Hill MD [address] [place] [address] Phone: tel: fax: [facility] [address] [place] [address] Referral ID Status Reason Start Date Expiration Date V isits Requested Visits Authorized [id number] Closed Auto-Generate d Referral 09/01/2024 06/01/2025 1 1 [facility] Summary Purpose Family History Relationship Condition Age at Onset Recorded Date/T kristen Unknown Family History?- Unknown October 05 4:30am Family History?- Unknown October 05 4:30am Advance Directives Advance Directive Response Recorded Date/ Time Advance Directives No November 6:35pm Living Will No August 29, 2022 1 1:37pm Power of Wet Pan Operator No August 29, 2022 11:37pm Reason for Referral Specialty Diagnoses / Procedures Referred By Bart spaulding Referred To Contact Diagnoses Controlled type 2 diabetes mellitus with hyperglycemia, unspecified whether buttermaker continuous churn insulin use (HCC) Genesis Moncada APRN.HULL MOLDER [address] [place] [address] Referral ID Status Reason Start Date Expiration Date Visits Re quested Visits Authorized [id number] Denied 1 1 Chief Complaint and Reason for Visit Chief Complaint C/O LEFT KNEE PAIN Additional Source Comments INFORMATION SOURCE (unrecogn ized section and content) DATE CREATED AUTHOR 09/24/2020 [facility] DATE CREATED AUTHOR AUTHOR'S ORGANIZ ATION 03/19/2024 [facility] DATE CREATED AUTHOR AUTHOR'S ORGANIZ ATION 06/12/2024 [facility] DATE CREATED AUTHOR AUTHOR'S ORGANIZ ATION 09/16/2024 [facility] Source Comments (unrecognize d section and content) In the event this informatio n is protected by the Federal Confidentiality of Alcohol and Drug Abuse Patient Records regulations: The Federal rules restrict any use of the information to criminally investigate or prosecute any alcohol or drug abuse patient.[facility] the event this information is protected by the Federal Confidentiality of Alcohol and Drug Abuse Patient Records regulations: The Federal rules restrict any use of the information to criminally investigate or prosecute any alcohol or drug abuse patient.[facility] the event this information is protected by the Federal Confidentiality of Alcohol and Drug Abuse Patient Records regulations: The Federal rules restrict any use of the information to criminally investigate or prosecute any alcohol or drug abuse patient.[facility] the event this information is protected by the Federal Confidentiality of Alcohol and Drug Abuse Patient Records regulations: The Federal rules restrict any use of the information to criminally investigate or prosecute any alcohol or drug abuse patient.[facility] the event this information is protected by the Federal Confidentiality of Alcohol and Drug Abuse Patient Records regulations: The Federal rules restrict any use of the information to criminally investigate or prosecute any alcohol or drug abuse patient.[facility] the event this information is protected by the Federal Confidentiality of Alcohol and Drug Abuse Patient Records regulations: The Federal rules restrict any use of the information to criminally investigate or prosecute any alcohol or drug abuse patient.[facility] the event this information is protected by the Federal Confidentiality of Alcohol and Drug Abuse Patient Records regulations: The Federal rules restrict any use of the information to criminally investigate or prosecute any alcohol or drug abuse patient.[facility]In the event this information is protected by the Federal Confidentiality of Alcohol and Drug Abuse Patient Records regulations: The Federal rules restrict any use of the information to criminally investigate or prosecute any alcohol or drug abuse patient.[facility] the event this information is protected by the Federal Confidentiality of Alcohol and Drug Abuse Patient Records regulations: The Federal rules restrict any use of the information to criminally investigate or prosecute any alcohol or drug abuse patient.[facility] the event this information is protected by the Federal Confidentiality of Alcohol and Drug Abuse Patient Records regulations: The Federal rules restrict any use of the information to criminally investigate or prosecute any alcohol or drug abuse patient.[facility]In the event this information is protected by the Federal Confidentiality of Alcohol and Drug Abuse Patient Records regulations: The Federal rules restrict any use of the information to criminally investigate or prosecute any alcohol or drug abuse patient.[facility] the event this information is protected by the Federal Confidentiality of Alcohol and Drug Abuse Patient Records regulations: The Federal rules restrict any use of the information to criminally investigate or prosecute any alcohol or drug abuse patient.[facility] the event this information is protected by the Federal Confidentiality of Alcohol and Drug Abuse Patient Records regulations: The Federal rules restrict any use of the information to criminally investigate or prosecute any alcohol or drug abuse patient.[facility]In the event this information is protected by the Federal Confidentiality of Alcohol and Drug Abuse Patient Records regulations: The Federal rules restrict any use of the information to criminally investigate or prosecute any alcohol or drug abuse patient.[facility]In the event this information is protected by the Federal Confidentiality of Alcohol and Drug Abuse Patient Records regulations: The Federal rules restrict any use of the information to criminally investigate or prosecute any alcohol or drug abuse patient.[facility]In the event this information is protected by the Federal Confidentiality of Alcohol and Drug Abuse Patient Records regulations: The Federal rules restrict any use of the information to criminally investigate or prosecute any alcohol or drug abuse patient.[facility]In the event this information is protected by the Federal Confidentiality of Alcohol and Drug Abuse Patient Records regulations: The Federal rules restrict any use of the information to criminally investigate or prosecute any alcohol or drug abuse patient.[facility]In the event this information is protected by the Federal Confidentiality of Alcohol and Drug Abuse Patient Records regulations: The Federal rules restrict any use of the information to criminally investigate or prosecute any alcohol or drug abuse patient.[facility]In the event this information is protected by the Federal Confidentiality of Alcohol and Drug Abuse Patient Records regulations: The Federal rules restrict any use of the information to criminally investigate or prosecute any alcohol or drug abuse patient.[facility]In the event this information is protected by the Federal Confidentiality of Alcohol and Drug Abuse Patient Records regulations: The Federal rules restrict any use of the information to criminally investigate or prosecute any alcohol or drug abuse patient.[facility]In the event this information is protected by the Federal Confidentiality of Alcohol and Drug Abuse Patient Records regulations: The Federal rules restrict any use of the information to criminally investigate or prosecute any alcohol or drug abuse patient.[facility] HospitalIn the event this information is protected by the Federal Confidentiality of Alcohol and Drug Abuse Patient Records regulations: The Federal rules restrict any use of the information to criminally investigate or prosecute any alcohol or drug abuse patient.[facility]In the event this information is protected by the Federal Confidentiality of Alcohol and Drug Abuse Patient Records regulations: The Federal rules restrict any use of the information to criminally investigate or prosecute any alcohol or drug abuse patient.[facility]In the event this information is protected by the Federal Confidentiality of Alcohol and Drug Abuse Patient Records regulations: The Federal rules restrict any use of the information to criminally investigate or prosecute any alcohol or drug abuse patient.[facility]In the event this information is protected by the Federal Confidentiality of Alcohol and Drug Abuse Patient Records regulations: The Federal rules restrict any use of the information to criminally investigate or prosecute any alcohol or drug abuse patient.[facility]In the event this information is protected by the Federal Confidentiality of Alcohol and Drug Abuse Patient Records regulations: The Federal rules restrict any use of the information to criminally investigate or prosecute any alcohol or drug abuse patient.[facility]In the event this information is protected by the Federal Confidentiality of Alcohol and Drug Abuse Patient Records regulations: The Federal rules restrict any use of the information to criminally investigate or prosecute any alcohol or drug abuse patient.[facility]In the event this information is protected by the Federal Confidentiality of Alcohol and Drug Abuse Patient Records regulations: The Federal rules restrict any use of the information to criminally investigate or prosecute any alcohol or drug abuse patient.[facility]In the event this information is protected by the Federal Confidentiality of Alcohol and Drug Abuse Patient Records regulations: The Federal rules restrict any use of the information to criminally investigate or prosecute any alcohol or drug abuse patient.[facility]In the event this information is protected by the Federal Confidentiality of Alcohol and Drug Abuse Patient Records regulations: The Federal rules restrict any use of the information to criminally investigate or prosecute any alcohol or drug abuse patient.[facility]In the event this information is protected by the Federal Confidentiality of Alcohol and Drug Abuse Patient Records regulations: The Federal rules restrict any use of the information to criminally investigate or prosecute any alcohol or drug abuse patient.[facility]In the event this information is protected by the Federal Confidentiality of Alcohol and Drug Abuse Patient Records regulations: The Federal rules restrict any use of the information to criminally investigate or prosecute any alcohol or drug abuse patient.[facility]In the event this information is protected by the Federal Confidentiality of Alcohol and Drug Abuse Patient Records regulations: The Federal rules restrict any use of the information to criminally investigate or prosecute any alcohol or drug abuse patient.[facility]In the event this information is protected by the Federal Confidentiality of Alcohol and Drug Abuse Patient Records regulations: The Federal rules restrict any use of the information to criminally investigate or prosecute any alcohol or drug abuse patient.[facility]In the event this information is protected by the Federal Confidentiality of Alcohol and Drug Abuse Patient Records regulations: The Federal rules restrict any use of the information to criminally investigate or prosecute any alcohol or drug abuse patient.[facility]In the event this information is protected by the Federal Confidentiality of Alcohol and Drug Abuse Patient Records regulations: The Federal rules restrict any use of the information to criminally investigate or prosecute any alcohol or drug abuse patient.[facility]In the event this information is protected by the Federal Confidentiality of Alcohol and Drug Abuse Patient Records regulations: The Federal rules restrict any use of the information to criminally investigate or prosecute any alcohol or drug abuse patient.[facility]In the event this information is protected by the Federal Confidentiality of Alcohol and Drug Abuse Patient Records regulations: The Federal rules restrict any use of the information to criminally investigate or prosecute any alcohol or drug abuse patient.[facility]In the event this information is protected by the Federal Confidentiality of Alcohol and Drug Abuse Patient Records regulations: The Federal rules restrict any use of the information to criminally investigate or prosecute any alcohol or drug abuse patient.[facility]In the event this information is protected by the Federal Confidentiality of Alcohol and Drug Abuse Patient Records regulations: The Federal rules restrict any use of the information to criminally investigate or prosecute any alcohol or drug abuse patient.[facility]In the event this information is protected by the Federal Confidentiality of Alcohol and Drug Abuse Patient Records regulations: The Federal rules restrict any use of the information to criminally investigate or prosecute any alcohol or drug abuse patient.[facility]In the event this information is protected by the Federal Confidentiality of Alcohol and Drug Abuse Patient Records regulations: The Federal rules restrict any use of the information to criminally investigate or prosecute any alcohol or drug abuse patient.[facility]In the event this information is protected by the Federal Confidentiality of Alcohol and Drug Abuse Patient Records regulations: The Federal rules restrict any use of the information to criminally investigate or prosecute any alcohol or drug abuse patient.[facility]In the event this information is protected by the Federal Confidentiality of Alcohol and Drug Abuse Patient Records regulations: The Federal rules restrict any use of the information to criminally investigate or prosecute any alcohol or drug abuse patient.[facility]In the event this information is protected by the Federal Confidentiality of Alcohol and Drug Abuse Patient Records regulations: The Federal rules restrict any use of the information to criminally investigate or prosecute any alcohol or drug abuse patient.[facility]In the event this information is protected by the Federal Confidentiality of Alcohol and Drug Abuse Patient Records regulations: The Federal rules restrict any use of the information to criminally investigate or prosecute any alcohol or drug abuse patient.[facility]In the event this information is protected by the Federal Confidentiality of Alcohol and Drug Abuse Patient Records regulations: The Federal rules restrict any use of the information to criminally investigate or prosecute any alcohol or drug abuse patient.[facility]In the event this information is protected by the Federal Confidentiality of Alcohol and Drug Abuse Patient Records regulations: The Federal rules restrict any use of the information to criminally investigate or prosecute any alcohol or drug abuse patient.[facility]In the event this information is protected by the Federal Confidentiality of Alcohol and Drug Abuse Patient Records regulations: The Federal rules restrict any use of the information to criminally investigate or prosecute any alcohol or drug abuse patient.[facility]In the event this information is protected by the Federal Confidentiality of Alcohol and Drug Abuse Patient Records regulations: The Federal rules restrict any use of the information to criminally investigate or prosecute any alcohol or drug abuse patient.[facility]In the event this information is protected by the Federal Confidentiality of Alcohol and Drug Abuse Patient Records regulations: The Federal rules restrict any use of the information to criminally investigate or prosecute any alcohol or drug abuse patient.[facility]In the event this information is protected by the Federal Confidentiality of Alcohol and Drug Abuse Patient Records regulations: The Federal rules restrict any use of the information to criminally investigate or prosecute any alcohol or drug abuse patient.[facility] Reason for Visit (unrecogniz ed section and content) Reason Comments Establish Care Reason Comments Results lab Reason Onset Date Comments Refill Request 04/13/2022 Reason Comments Patient Update Reason Comments Sinus Problem Reason Comments Insurance Authorization Reason Comments Nurse Case Manager Exam Specialty Diagnoses / Procedures Referred By Contac t Referred To Contact Gynecology Diagnoses Screening for cervical cancer Procedures CONSULT TO GYNECOLOGY OFFICE/OUTPATIENT [facility] 60-74 MINUTES Neri Grace MD [address] [place] [address] Referral ID Status Reason Start Date Expiration Date Visits Requested Visits Authorized [id number] Pending Review PCP Requested Referral Auto-Generate d Referral 09/11/2022 09/11/2023 1 1 Reason Comments Radiology US Specialty Diagnoses / Procedures Referred By Contac t Referred To Contact [facility] Diagnoses Encounter for screening mammogram for breast cancer Mass of right axilla Procedures US BREAST LTD RT US BREAST UNI REAL TIME WITH IMAGE LIMITED Michelle Doran, TANK SHOP SUPERVISOR.DIRECTOR DATABASE [address] [place] [address] [facility] [address] [place] [address] Referral ID Status Reason Start Date Expiration Date V isits Requested Visits Authorized [id number] Closed Auto-Generate d Referral 03/13/2022 04/12/2023 1 1 Reason Onset Date Comments Refill Request 05/21/2023 Reason Comments Assessment Patient Education Reason Comments Obesity Weight Loss Surgery Reason Comments Weight Loss Surgery Reason Comments EKG Specialty Diagnoses / Procedures Referred By Contac t Referred To Contact [facility] Diagnoses Obesity, Class III, BMI 40-49.9 (morbid obesity) (HCC) Procedures ECG COMPLETE ECG ROUTINE ECG W/LEAST 12 LDS W/I&R Noris Lawrence, TANK SHOP SUPERVISOR.HULL MOLDER [address] [place] [address] [facility] [place] [address] [place] [address] Referral ID Status Reason Start Date Expiration Date V isits Requested Visits Authorized [id number] Closed Auto-Generate d Referral 09/09/2023 09/08/2024 1 1 Reason Comments Reassessment Patient Education Reason Comments pseudo Reason Comments Medication Request Reason Comments Covid Positive Reason Comments Sap Bw Bi Developer - Other Approval Call Reason Comments Consult Reason Comments Patient Education Reassessment Reason Comments Pre-Op Exam Reason Comments Pre-Op Teaching Reason Comments Post Op Reason Comments Sap Bw Bi Developer - Other Reason Onset Date Comments Follow Up Immunizations 04/08/2024 Flu vaccination Reason Comments Follow Up Weight Loss Surgery Reason Comments Recheck 4 months Reason Comments Opened In Error Care Teams (unrecognized sec tion and content) Head Mixer Relationship Specialty Start Date End Date Neri Grace MD [address] [place] [address] PCP - General Internal Medicine 03/13/22 Head Mixer Relationship Specialty Start Date End Date Neri Grace MD [address] [place] [address] PCP - General Internal Medicine 03/13/22 Head Mixer Relationship Specialty Start Date End Date Neri Grace MD [address] [place] [address] PCP - General Internal Medicine 03/13/22 Head Mixer Relationship Specialty Start Date End Date Neri Grace MD [address] [place] [address] PCP - General Internal Medicine 03/13/22 Head Mixer Relationship Specialty Start Date End Date Neri Grace MD [address] [place] [address] PCP - General Internal Medicine 03/13/22 Head Mixer Relationship Specialty Start Date End Date Neri Grace MD [address] [place] [address] PCP - General Internal Medicine 03/13/22 Team Status: Active Member Role Status Dates Dr. Jasmyne Marmolejo MD Family Provider Active Dr. Neri Grace MD Primary Care Provider Active Team Status: Inactive Member Role Status Dates Dr. Neri Grace MD Primary Care Provider Active Bony Gates MD Emergency Provider Active Head Mixer Relationship Specialty Start Date End Date Neri Grace MD [address] [place] [address] PCP - General Internal Medicine 03/13/22 Head Mixer Relationship Specialty Start Date End Date Neri Grace MD [address] [place] [address] PCP - General Internal Medicine 03/13/22 Head Mixer Relationship Specialty Start Date End Date Neri Grace MD [address] [place] [address] PCP - General Internal Medicine 03/13/22 Head Mixer Relationship Specialty Start Date End Date Neri Grace MD [address] [facility] [place] [address] PCP - General Internal Medicine 03/13/22 Head Mixer Relationship Specialty Start Date End Date Neri Grace MD [address] [place] [address] PCP - General Internal Medicine 03/13/22 Head Mixer Relationship Specialty Start Date End Date Neri Grace MD [address] [facility] [place] [address] PCP - General Internal Medicine 03/13/22 Head Mixer Relationship Specialty Start Date End Date Neri Grace MD [address] [place] [address] PCP - General Internal Medicine 03/13/22 Head Mixer Relationship Specialty Start Date End Date Neri Grace MD [address] [facility] [place] [address] PCP - General Internal Medicine 03/13/22 Head Mixer Relationship Specialty Start Date End Date Neri Grace MD [address] [facility] [place] [address] PCP - General Internal Medicine 03/13/22 Head Mixer Relationship Specialty Start Date End Date Neri Grace MD [address] [place] [address] PCP - General Internal Medicine 03/13/22 Head Mixer Relationship Specialty Start Date End Date Neri Grace MD [address] [place] [address] PCP - General Internal Medicine 03/13/22 Head Mixer Relationship Specialty Start Date End Date Neri Grace MD [address] [place] [address] PCP - General Internal Medicine 03/13/22 Head Mixer Relationship Specialty Start Date End Date Neri Grace MD [address] [place] [address] PCP - General Internal Medicine 03/13/22 Head Mixer Relationship Specialty Start Date End Date Neri Grace MD [address] [place] [address] PCP - General Internal Medicine 03/13/22 Head Mixer Relationship Specialty Start Date End Date Neri Grace MD [address] [place] [address] PCP - General Internal Medicine 03/13/22 Head Mixer Relationship Specialty Start Date End Date Neri Grace MD [address] [place] [address] PCP - General Internal Medicine 03/13/22 Head Mixer Relationship Specialty Start Date End Date Neri Grace MD [address] [place] [address] PCP - General Internal Medicine 03/13/22 Head Mixer Relationship Specialty Start Date End Date Neri Grace MD [address] [place] [address] PCP - General Internal Medicine 03/13/22 Head Mixer Relationship Specialty Start Date End Date Neri Grace MD [address] [place] [address] PCP - General Internal Medicine 03/13/22 Mike Jackson MD Is Project Manager 01/02/24 01/15/24 Head Mixer Relationship Specialty Start Date End Date Neri Grace MD [address] [place] [address] PCP - General Internal Medicine 03/13/22 Mike Jackson MD Is Project Manager 01/02/24 01/15/24 Head Mixer Relationship Specialty Start Date End Date Neri Grace MD [address] [place] [address] PCP - General Internal Medicine 03/13/22 Mike Jackson MD Is Project Manager 01/02/24 01/15/24 Head Mixer Relationship Specialty Start Date End Date Neri Grace MD [address] [place] [address] PCP - General Internal Medicine 03/13/22 Mike Jackson MD Is Project Manager 01/02/24 01/15/24 Head Mixer Relationship Specialty Start Date End Date Neri Grace MD [address] [place] [address] PCP - General Internal Medicine 03/13/22 Head Mixer Relationship Specialty Start Date End Date Neri Grace MD [address] [facility] [place] [address] PCP - General Internal Medicine 03/13/22 Mike Jackson MD Is Project Manager 01/02/24 01/15/24 Head Mixer Relationship Specialty Start Date End Date Neri Grace MD [address] [facility] [place] [address] PCP - General Internal Medicine 03/13/22 Head Mixer Relationship Specialty Start Date End Date Neir Grace MD [address] [facility] [place] [address] PCP - General Internal Medicine 03/13/22 Radha Tovar, TANK SHOP SUPERVISOR.HULL MOLDER [address] [facility] [place] [address] Is Project Manager Internal Medicine 03/09/24 Head Mixer Relationship Specialty Start Date End Date Neri Grace MD [address] [facility] [place] [address] PCP - General Internal Medicine 03/13/22 Radha Tovar, TANK SHOP SUPERVISOR.HULL MOLDER [address] [facility] [place] [address] Is Project Manager Internal Medicine 03/09/24 Head Mixer Relationship Specialty Start Date End Date Neri Grace MD [address] [facility] [place] [address] PCP - General Internal Medicine 03/13/22 Radha Tovar, TANK SHOP SUPERVISOR.HULL MOLDER [address] [facility] [place] [address] Is Project Manager Internal Medicine 03/09/24 Head Mixer Relationship Specialty Start Date End Date Neri Grace MD [address] [facility] [place] [address] PCP - General Internal Medicine 03/13/22 Radha Tovar, [employer] SUPERVISOR.HULL MOLDER [address] [place] [address] Is Project Manager Internal Medicine 03/09/24 Head Mixer Relationship Specialty Start Date End Date Neri Grace MD [address] [facility] [place] [address] PCP - General Internal Medicine 03/13/22 Radha Tovar, T[employer] SHOP SUPERVISOR.HULL MOLDER [address] [place] [address] Is Project Manager Internal Medicine 03/09/24 Head Mixer Relationship Specialty Start Date End Date Neri Grace MD [address] [facility] [place] [address] PCP - General Internal Medicine 03/13/22 Radha Tovar, T[employer] SH[employer] SUPERVISOR.HULL MOLDER [address] [place] [address] Is Project Manager Internal Medicine 03/09/24 Head Mixer Relationship Specialty Start Date End Date Neri Grace MD [address] [place] [address] PCP - General Internal Medicine 03/13/22 Radha Tovar, T[employer] SHOP SUPERVISOR.HULL MOLDER [address] [place] [address] [facility] Internal Medicine 03/09/24 Head Mixer Relationship Specialty Start Date End Date Neri Grace MD [address] [place], [place] [id number] PCP - General Internal Medicine 03/13/22 Radha Tovar, T[employer] SH[employer] SUPERVISOR.HULL MOLDER [address] [place], [place] [address] [facility] Internal [facility] 03/09/24 Goals (unrecognized section and content) Goals may be documented in a n alternate section FOR RECORDS PERTAINING TO PATIENTS WHO ARE OR HAVE BEEN ENROLLED IN A CHEMICAL DEPENDENCY/SUBSTANCEABUSE PROGRAM, SOME INFORMATION MAY BE OMITTED. This clinical summary was aggregated from multiple sources. Caution should be exercised in using it in the provision of clinical care. This summary normalizes information from multiple sources, and as a consequence, information in this document may materially change the coding, format and clinical context of patient data. In addition, data may be omitted in some cases. CLINICAL DECISIONS SHOULD BE BASED ON THE PRIMARY CLINICAL RECORDS. [email or web address] provides no warranty or guarantee of the accuracy or completeness of information in this document.
[2025-03-10 23:53] LABS: AST(SGOT) 18 U/L (<=31); Alanine Aminotransfer ALT/SGPT 16 U/L (<=34); Albumin, Serum 4.0 g/dL (3.5-5.0); Alkaline Phosphatase 109 U/L (35-104); Anion Gap 9 (5-15); BUN 6 mg/dL (4-19); BUN/Creat Ratio 11.7 RATIO (10-20); Bilirubin, Direct 0.22 mg/dL (0.00-0.30); Calcium,Total 9.1 mg/dL (7.6-11.0); Carbon Dioxide 27.7 mmol/L (21.0-32.0); Chloride 103 mmol/L (98-108); Estimated Creatinine Clearance 109.75 ml/min (50-250); Globulin 2.6 g/dL (2.2-4.2); Glucose 111 mg/dL (70-99); Lipase 18 U/L (13-75); Potassium 3.7 mmol/L (3.3-5.1)
[2025-03-11 00:52] VITALS: BP 126/64; PULSE 89; RESP 16; TEMP 36.6; O2SAT 97
== END 2025-03-11 00:56 | disposition home or self-care (01) ==
PROVIDERS: Emergency Provider Emergency Medicine; PCP Internal Medicine; Visit Provider Emergency Medicine
DX: R10.9 Unspecified abdominal pain (principal); R11.2 Nausea with vomiting, unspecified; E66.9 Obesity, unspecified; E86.0 Dehydration
CPT/HCPCS: 74177; 80048; 80076; 83690; 85025; 96361; 96374; 96375; 99283; Q9967; A4216; J2405